=== PATIENT | male | born 1930 | race Caucasian/White ===

== ENCOUNTER 2017-01-10 10:28 | Outpatient (CLI) | payer MEDICARE, OTHER | END 2017-01-10 10:29 | disposition critical access hospital (66) | LOC: EMS 10:28 | PROVIDERS: ATTEND Surgery | DX: R10.9 Unspecified abdominal pain (principal) | CPT/HCPCS: A0425; A0429 ==

== ENCOUNTER 2017-01-10 10:54 | Emergency (ER) | payer MEDICARE, OTHER ==
[2017-01-10 11:22] LABS: BASOPHILS # (AUTO) 0.1 10^3/uL (0.0-0.1); BASOPHILS % (AUTO) 0.8 %; EOSINOPHILS # (AUTO) 0.1 10^3/uL (0.0-0.7); EOSINOPHILS % (AUTO) 0.6 %; HCT - HEMATOCRIT 35.8 % (42.0-52.0); HGB - HEMOGLOBIN 12.4 g/dL (14.0-18.0); LYMPHOCYTES # (AUTO) 1.3 10^3/uL (1.5-3.5); LYMPHOCYTES % (AUTO) 12.8 %; MEAN CORPUSCULAR HEMOGLOBIN 30.1 pg (27.0-31.0); MEAN CORPUSCULAR HGB CONC 34.7 g/dL (32.0-36.0); MEAN CORPUSCULAR VOLUME 86.8 fL (80.0-94.0); MEAN PLATELET VOLUME 7.6 fL (7.4-11.4); MONOCYTES # (AUTO) 0.8 10^3/uL (0.0-1.0); MONOCYTES % (AUTO) 8.2 %; NEUTROPHILS % (AUTO) 77.6 %; RED BLOOD COUNT 4.12 10^6/uL (4.70-6.10); RED CELL DISTRIBUTION WIDTH 13.1 % (12.0-15.0); UNCORRECTED WHITE BLOOD COUNT 10.3 x10^3/uL; WHITE BLOOD COUNT 10.3 x10^3/uL (4.8-10.8)
[2017-01-10 11:39] LABS: ALBUMIN/GLOBULIN RATIO 1.6 (1.0-2.2); BILIRUBIN,TOTAL 0.9 mg/dL (0.2-1.0); CREATININE 1.3 mg/dL (0.6-1.2); POTASSIUM 4.3 mmol/L (3.5-5.0); TOTAL PROTEIN 6.7 g/dL (6.7-8.2)
[2017-01-10] MEDS ORDERED: IOPAMIDOL-300 100 ML VIAL IVP ONE (12:31)
--- NOTE | 2017-01-10 12:46 | ED Physician Documentation ---
PD HPI ABD PAIN - Stated complaint Stated Complaint: ABD PX - Chief complaint Chief Complaint: Abd Pain - History obtained from History obtained from: Patient - History of Present Illness Timing - onset: Last night Timing - duration: Hours Timing - details: Gradual onset, Still present Pain level max: 8 Pain level now: 2 Quality: Sharp, Pain Location: Epigastric Radiation: No: Chest, , Lower back, Left flank, Left shoulder, Right flank, Right shoulder, Upper back Improved by: Laying still Worsened by: Moving, Breathing, Position, Palpation Associated symptoms: Constipation Similar symptoms before: Has not had sx before Recently seen: Not recently seen - Additional information Additional information: 86-year-old male with a history of atrial fibrillation intermittent and thyroid disease has developed acute epigastric abdominal pain that started yesterday evening and was present all night. He is now somewhat more comfortable here in the emergency department with the pain only in the about a 2 out of 10. He does have some constipation on a regular basis but does not think this is related. He has not had any other specific symptoms he has not had any nausea or vomiting he has not had any diarrhea. Review of Systems Constitutional: denies: Fever, Chills, Myalgias, Fatigue Eyes: denies: Decreased vision Ears: denies: Ear pain Nose: denies: Congestion Throat: denies: Oral lesions / sores, Sore throat Cardiac: denies: Chest pain / pressure, Palpitations Respiratory: denies: Dyspnea, Cough GI: reports: Abdominal Pain. denies: Nausea, Vomiting, Diarrhea : denies: Dysuria, Frequency Skin: denies: Rash Musculoskeletal: denies: Neck pain, Back pain, Extremity pain Neurologic: denies: Generalized weakness, Focal weakness, Numbness PD PAST MEDICAL HISTORY - Past Medical History Cardiovascular: Atrial fibrillation Endocrine/Autoimmune: HyPOthyroidism : Benign prostate hypertrophy - Past Surgical History Past Surgical History: Yes - Present Medications Home Medications: Ambulatory Orders Medication Instructions Recorded Confirmed Aspirin 81 mg 01/10/17 Gabapentin [Gabapentin] 300 mg PO DAILY 01/10/17 01/10/17 Ipratropium [place] 01/10/17 Levofloxacin [Levaquin] 500 mg PO DAILY #7 tablet 01/10/17 Levothyroxine Sodium [Synthroid] 137 mcg PO DAILY 01/10/17 01/10/17 Omeprazole 20 mg PO DAILY #30 tablet. 01/10/17 Sucralfate [Carafate] 1 gm PO ACHS #400 ml 01/10/17 Tamsulosin HCl [Tamsulosin HCl] 0.4 mg PO DAILY 01/10/17 01/10/17 Zolpidem Tartrate [Zolpidem 10 mg PO DAILY 01/10/17 01/10/17 Tartrate] - Allergies Allergies/Adverse Reactions: Allergies Allergy/AdvReac Type Severity Reaction Status Date / Time No Known Drug Allergies Allergy Verified 01/10/17 11:12 - Social History Does the pt smoke?: No Smoking Status: Never smoker - Immunizations Immunizations are current?: Yes PD ED PE NORMAL - Vitals Vital signs reviewed: Yes (hypertensive ) - General General: Alert and oriented X 3, No acute distress, Well developed/nourished - HEENT HEENT: Atraumatic, PERRL - Neck Neck: Supple, no meningeal sign - Cardiac Cardiac: RRR, No murmur - Respiratory Respiratory: No respiratory distress, Clear bilaterally - Abdomen Abdomen: Soft, Other (There is midline point tenderness but no palpable pulsitile mass. There is no audible bruit. There is not right upper quadrant tenderness. ) - Back Back: No CVA TTP, No spinal TTP - Derm Derm: Normal color, Warm and dry, No rash - Extremities Extremities: No deformity, No edema - Neuro Neuro: No motor deficit, No sensory deficit - Psych Psych: Normal mood, Normal affect Results - Vitals Vitals: Vital Signs - 24 hr 01/10/17 01/10/17 11:00 12:10 Temperature 36.2 C L Heart Rate 67 59 L Respiratory 16 16 Rate Blood Pressure 149/123 H 124/63 O2 Saturation 98 97 Oxygen O2 Source Room air - Labs Labs: Laboratory Tests 01/10/17 01/10/17 01/10/17 11:00 11:00 11:00 WBC 10.3 RBC 4.12 L Hgb 12.4 L Hct 35.8 L MCV 86.8 MCH 30.1 MCHC 34.7 RDW 13.1 Plt Count 218 MPV 7.6 Neut # 8.0 H Lymph # 1.3 L [place] # 0.8 Eos # 0.1 Baso # 0.1 Absolute Nucleated RBC 0.00 Nucleated RBCs 0.0 Sodium 124 L Potassium 4.3 Chloride 93 L Carbon Dioxide 23 Anion Gap 8.0 BUN 14 Creatinine 1.3 H Estimated GFR (MDRD) 52 L Glucose 92 Calcium 9.0 Total Bilirubin 0.9 AST 21 ALT 14 Alkaline Phosphatase 58 Troponin I 0.04 Total Protein 6.7 Albumin 4.1 Globulin 2.6 Albumin/Globulin Ratio 1.6 Lipase 17 L Urine Color Urine Clarity Urine pH Ur Specific [place] Urine Protein Urine Glucose (UA) Urine Ketones Urine Occult Blood Urine Nitrite Urine Bilirubin Urine Urobilinogen Ur Leukocyte Esterase Urine RBC Urine WBC Ur Squamous Epith Cells Urine Bacteria Urine Casts Ur Microscopic Review Urine Culture Comments 01/10/17 13:00 WBC RBC Hgb Hct MCV MCH MCHC RDW Plt Count MPV Neut # Lymph # [place] # Eos # Baso # Absolute Nucleated RBC Nucleated RBCs Sodium Potassium Chloride Carbon Dioxide Anion Gap BUN Creatinine Estimated GFR (MDRD) Glucose Calcium Total Bilirubin AST ALT Alkaline Phosphatase Troponin I Total Protein Albumin Globulin Albumin/Globulin Ratio Lipase Urine Color YELLOW Urine Clarity HAZY Urine pH 7.0 Ur Specific [place] <=1.005 Urine Protein NEGATIVE Urine Glucose (UA) NEGATIVE Urine Ketones NEGATIVE Urine Occult Blood NEGATIVE Urine Nitrite NEGATIVE Urine Bilirubin NEGATIVE Urine Urobilinogen 0.2 (NORMAL) Ur Leukocyte Esterase MODERATE H Urine RBC 0-5 Urine WBC 11-25 H Ur Squamous Epith Cells FEW Squamous Urine Bacteria Many H Urine Casts 3-5 Hyaline Casts Ur Microscopic Review INDICATED Urine Culture Comments INDICATED - Rads (name of study) CT abdomen and pelvis with. Radiology: Prelim report reviewed PD MEDICAL DECISION MAKING - ED course Complexity details: reviewed old records, reviewed results, re-evaluated patient , considered differential, d/w patient ED course: 86-year-old male with acute epigastric pain is a poor historian and does begin to recall things more efficiently as time goes on here in the emergency department and he does recall that he has had this aortic stent in place for a number of years. He has the stent in place on prior MRI from 2011 and on that exam the image is similar to today. He also has history of peptic ulcer disease and his pain returns here in the emergency department in the epigastrium and he is administered viscous lidocaine and Mylanta with resolution of his pain. He is subsequently given a dose of Protonix IV. He has urinary tract infection as well on evaluation of the urine and he is given a dose of Levaquin orally. He is given Carafate as well. Departure - Departure Disposition: 01 Home, Self Care Clinical Impression: Peptic ulcer disease Urinary tract infection Qualifiers: Urinary tract infection type: acute cystitis Hematuria presence: without hematuria Qualified Code(s): N30.00 - Acute cystitis without hematuria Condition: Stable Instructions: ED PUD Vs Gastritis, ED UTI Cystitis Male, ED PUD Follow-Up: John Cannon DO [Primary Care Provider] - Prescriptions: Sucralfate [Carafate] 1 gm PO ACHS #400 ml Levofloxacin [Levaquin] 500 mg PO DAILY #7 tablet Omeprazole 20 mg PO DAILY #30 tablet.
[2017-01-10 13:09] LABS: BILIRUBIN,URINE NEGATIVE (NEGATIVE)
[2017-01-10 13:12] LABS: UA w/ MICROSCOPIC CHARGE YES
[2017-01-10 13:22] LABS: UR CULTURE IF IND INDICATED
--- NOTE | 2017-01-10 13:52 | CT Preliminary Report ---
Exam: CT Abdomen/Pelvis W/ IMPRESSION: 1. No definite evidence of acute intra-abdominal process. 2. Abdominal aortic aneurysm post stent placement. Correlation with priors would be necessary to ass ess for stability. [facility] SITE ID: [id number]
--- NOTE | 2017-01-10 13:55 | CT Report ---
EXAM: CT ABDOMEN AND PELVIS EXAM DATE: 01/10/2017 12:31 PM. CLINICAL HISTORY: Epigastric pain . COMPARISONS: None. TECHNIQUE: Routine helical CT imaging was performed through the abdomen and pelvis. IV contrast: 100 mL Isovue-300. Enteric contrast: yes. Reconstructions: Coronal and sagittal. In accordance with CT protocol optimization, one or more of the following dose reduction techniques w ere utilized for this exam: automated exposure control, adjustment of mA and/or KV based on patient s ize, or use of iterative reconstructive technique. FINDINGS: Lung Bases: Unremarkable. Liver: Normal. No masses. Gallbladder/Bile Ducts: Unremarkable. Spleen: Normal. Pancreas: Atrophic Adrenal Glands: Normal. Kidneys: Atrophic. No masses or hydronephrosis. Peritoneal Cavity/Bowel: Extensive sigmoid diverticulosis. No free fluid, free air or adenopathy. No masses or acute inflammatory process. The appendix is nonvisualized but no secondary signs to suggest appendicitis. Pelvic Organs: Normal. The bladder and visualized pelvic organs are within normal limits. Vasculature: Aortoiliac stent through infrarenal abdominal aortic aneurysm. This measures 4 cm in max imal diameter. The stent begins proximal to the renal arteries. The celiac, SMA bilateral renal arter ies and [place] opacify with contrast. Bones: Post surgical changes left hip Other: None. IMPRESSION: 1. No definite evidence of acute intra-abdominal process. 2. Abdominal aortic aneurysm post stent placement. Correlation with priors would be necessary to ass ess for stability. [facility] Referring Provider Line: [phone] SITE ID: [id number]
[2017-01-10] MEDS ORDERED: LIDOCAINE VISCOUS 2% 15 ML UDC MM STA (14:29)
[2017-01-10] MEDS ORDERED: MAG HYDROX/AL HYDROX/SIMETH 30 ML UDC ONE (14:30)
[2017-01-10] MEDS ORDERED: LIDOCAINE VISCOUS 2% 15 ML UDC MM ONE (14:30)
[2017-01-10] MEDS ORDERED: MAG HYDROX/AL HYDROX/SIMETH 30 ML UDC PO STA (14:30)
[2017-01-10] MEDS ORDERED: levoFLOXacin 250 MG TABLET PO STA (14:41)
[2017-01-10] MEDS ORDERED: SUCRALFATE 1 GM/10 ML UDC PO STA (14:41)
[2017-01-10] MEDS ORDERED: PANTOPRAZOLE 40 MG VIAL IVP STA (14:41)
[2017-01-10] MEDS ORDERED: SUCRALFATE 1 GM/10 ML UDC ONE (14:47)
[2017-01-10] MEDS ORDERED: levoFLOXacin 250 MG TABLET ONE (14:48)
[2017-01-10] MEDS ORDERED: PANTOPRAZOLE 40 MG TABLET ONE (14:48)
[2017-01-10] MEDS ORDERED: PANTOPRAZOLE 40 MG VIAL ONE (14:49)
[2017-01-10 17:55] VITALS: BP 133/65
== END 2017-01-10 15:15 | disposition home or self-care (01) ==
LOC: EDUNIT# → ED 10:54
DX: K27.9 Peptic ulcer, site unspecified, unspecified as acute or chronic, without hemorrhage or perforation (principal); N30.00 Acute cystitis without hematuria; I49.3 Ventricular premature depolarization; R00.1 Bradycardia, unspecified; E03.9 Hypothyroidism, unspecified; Z79.82 Long term (current) use of aspirin
CPT/HCPCS: 36415; 74177; 80053; 81001; 83690; 84484; 85025; 87086; 93005; 96374; 99284; A9270; Q9967; 81003

== ENCOUNTER 2017-07-08 10:37 | Outpatient (CLI) | payer MEDICARE, OTHER | END 2017-07-08 10:38 | disposition critical access hospital (66) | LOC: EMS 10:37 | PROVIDERS: ATTEND Surgery | DX: R42 Dizziness and giddiness (principal) | CPT/HCPCS: A0425; A0429 ==

== ENCOUNTER 2017-07-15 14:37 | Emergency (ER) | payer MEDICARE, OTHER ==
[2017-07-15 14:53] VITALS: BP 164/73
[2017-07-15 15:04] LABS: BILIRUBIN,URINE NEGATIVE (NEGATIVE); GLUCOSE, URINE (UA) NEGATIVE (NEGATIVE); KETONES,URINE (UA) NEGATIVE (NEGATIVE); LEUKOCYTE ESTERASE, URINE SMALL (NEGATIVE); NITRITE,URINE NEGATIVE (NEGATIVE); OCCULT BLOOD,URINE NEGATIVE (NEGATIVE); PROTEIN,URINE NEGATIVE (NEGATIVE); UROBILINOGEN,URINE 0.2 (NORMAL) E.U./dL (NORMAL)
--- NOTE | 2017-07-15 15:07 | ED Physician Documentation ---
History of Present Illness - Stated complaint Stated Complaint: MALE - Chief complaint Chief Complaint: UTI - History obtained from History obtained from: Patient, Family - History of Present Illness Timing: Other (He had a UTI and took a course of Keflex, he was feeling better. But when he finished the antibiotics the urgency and frequency recurred. Culture was notable for mixed stephanie. He denies any fevers, flank pain or hematuria. He was a little constipated last night and took a stool softener.) Review of Systems Constitutional: denies: Fever, Chills GI: denies: Abdominal Pain, Nausea, Vomiting, Diarrhea, Bloody / black stool : reports: Dysuria, Frequency PD PAST MEDICAL HISTORY - Past Medical History Past Medical History: Yes Cardiovascular: Atrial fibrillation Endocrine/Autoimmune: HyPOthyroidism : Benign prostate hypertrophy - Past Surgical History Past Surgical History: Yes - Present Medications Home Medications: Ambulatory Orders Medication Instructions Recorded Confirmed Aspirin 81 mg DAILY 01/10/17 07/08/17 Gabapentin [Gabapentin] 300 mg PO DAILY 01/10/17 07/08/17 Ipratropium [place] 01/10/17 Levothyroxine Sodium [Synthroid] 137 mcg PO DAILY 01/10/17 07/08/17 Omeprazole 20 mg PO DAILY #30 tablet. 01/10/17 07/08/17 Sucralfate [Carafate] 1 gm PO ACHS #400 ml 01/10/17 07/08/17 Tamsulosin HCl [Tamsulosin HCl] 0.4 mg PO DAILY 01/10/17 07/08/17 Zolpidem Tartrate [Zolpidem 10 mg PO DAILY 01/10/17 07/08/17 Tartrate] Cephalexin [Keflex] 500 mg PO Q6H #28 capsule 07/08/17 Nitrofurantoin Monohyd/M-Cryst 1 tab PO BID 5 Days capsule 07/15/17 [Macrobid 100 mg Capsule] - Allergies Allergies/Adverse Reactions: Allergies Allergy/AdvReac Type Severity Reaction Status Date / Time No Known Drug Allergies Allergy Verified 07/15/17 14:52 - Social History Does the pt smoke?: No Smoking Status: Never smoker Does the pt have substance abuse?: No - Immunizations Immunizations are current?: Yes PD ED PE NORMAL - Vitals Vital signs reviewed: Yes - General General: Alert and oriented X 3, No acute distress - Abdomen Abdomen: Normal bowel sounds, Soft, Non tender - Male Male : Other (Bladder scan post void = 0ml) - Neuro Neuro: Alert and oriented X 3, Normal speech Results - Vitals Vitals: Vital Signs - 24 hr 07/15/17 14:48 Temperature 36.0 C L Heart Rate 65 Respiratory 18 Rate Blood Pressure 164/73 H O2 Saturation 99 Oxygen O2 Source Room air - Labs Labs: Laboratory Tests 07/15/17 14:50 Urine Color YELLOW Urine Clarity CLEAR Urine pH 6.0 Ur Specific [place] 1.010 Urine Protein NEGATIVE Urine Glucose (UA) NEGATIVE Urine Ketones NEGATIVE Urine Occult Blood NEGATIVE Urine Nitrite NEGATIVE Urine Bilirubin NEGATIVE Urine Urobilinogen 0.2 (NORMAL) Ur Leukocyte Esterase SMALL H Urine RBC 0-5 Urine WBC 6-10 H Ur Squamous Epith Cells MOD Squamous H Urine Bacteria Rare Ur Microscopic Review INDICATED Urine Culture Comments NOT INDICATED PD MEDICAL DECISION MAKING - ED course ED course: Urinary frequency and a soft positive urine, his urine post void residual is 0 so I suspect this is not a prostatic tissue. Departure - Departure Disposition: 01 Home, Self Care Clinical Impression: Cystitis Condition: Good Record reviewed to determine appropriate education?: Yes Instructions: ED UTI Cystitis Male Prescriptions: Nitrofurantoin Monohyd/M-Cryst [Macrobid 100 mg Capsule] 1 tab PO BID 5 Days capsule Comments: Call your doctor to arrange a follow-up appointment, make the next available appointment. In the interim, return anytime if worse or if new symptoms develop. Your blood pressure was elevated today on check into the emergency department. This does not mean that you have hypertension, it is a common phenomenon to come to the emergency department and have elevated blood pressure. I recommend that you see your primary care physician within the week to have it rechecked when you are feeling better.
[2017-07-15 15:11] LABS: BACTERIA,URINE Rare /HPF (None Seen); CLARITY,URINE CLEAR (CLEAR); RBC,URINE 0-5 /HPF (0-5); SQUAMOUS EPITHELIAL CELL,UR MOD Squamous (<= Few)
== END 2017-07-15 15:31 | disposition home or self-care (01) ==
LOC: ED 14:37
DX: N30.00 Acute cystitis without hematuria (principal); R03.0 Elevated blood-pressure reading, without diagnosis of hypertension; I48.91 Unspecified atrial fibrillation; E03.9 Hypothyroidism, unspecified; N40.0 Benign prostatic hyperplasia without lower urinary tract symptoms; Z79.82 Long term (current) use of aspirin
CPT/HCPCS: 81001; 81003; 87086; 99283

== ENCOUNTER 2017-08-13 16:12 | Outpatient (CLI) | payer MEDICARE, OTHER | END 2017-08-13 16:13 | disposition critical access hospital (66) | LOC: EMS 16:12 | PROVIDERS: ATTEND Surgery | DX: R42 Dizziness and giddiness (principal) | CPT/HCPCS: A0425; A0429 ==

== ENCOUNTER 2017-08-13 16:39 | Inpatient (IN) | payer MEDICARE, OTHER ==
--- NOTE | 2017-08-13 17:08 | ED Physician Documentation ---
History of Present Illness - Stated complaint Stated Complaint: VERTIGO - Chief complaint Chief Complaint: General - History obtained from History obtained from: Patient, EMS - History of Present Illness Timing: Today - Additonal information Additional information: The patient is an 87-year-old male, poor historian, who presents via ambulance complaining of dizziness that started this morning about 9 AM. He describes the dizziness as feeling off balance when trying to walk. He denies falling. He normally walks without assistance. He denies headache, nausea, vomiting, visual disturbance, numbness, or weakness. He reports having history of similar symptoms about 6 or 7 months ago, but his medical record does not corroborate that. Past medical history is significant for atrial fibrillation and for AAA with stent placement. Recent medical history is significant for urinary tract infection 6 weeks ago, with recurrence 5 weeks ago. Review of Systems Constitutional: reports: Other (Dizziness). denies: Fever Ears: denies: Tinnitus/ringing Nose: denies: Congestion Throat: denies: Sore throat Cardiac: denies: Chest pain / pressure Respiratory: denies: Dyspnea, Cough GI: denies: Abdominal Pain, Nausea, Vomiting : denies: Dysuria Skin: denies: Rash Musculoskeletal: denies: Neck pain, Back pain, Extremity pain Neurologic: reports: Other (Dizziness when trying to walk.). denies: Focal weakness, Numbness, Altered mental status, Headache PD PAST MEDICAL HISTORY - Past Medical History Cardiovascular: Atrial fibrillation Endocrine/Autoimmune: HyPOthyroidism : Benign prostate hypertrophy Other Past Medical History: Abdominal aortic anuerysm - Past Surgical History Past Surgical History: Yes - Present Medications Home Medications: Ambulatory Orders Medication Instructions Recorded Confirmed Aspirin 81 mg DAILY 01/10/17 07/08/17 Gabapentin [Gabapentin] 300 mg PO DAILY 01/10/17 07/08/17 Ipratropium [place] 01/10/17 Levothyroxine Sodium [Synthroid] 137 mcg PO DAILY 01/10/17 07/08/17 Omeprazole 20 mg PO DAILY #30 tablet. 01/10/17 07/08/17 Sucralfate [Carafate] 1 gm PO ACHS #400 ml 01/10/17 07/08/17 Tamsulosin HCl [Tamsulosin HCl] 0.4 mg PO DAILY 01/10/17 07/08/17 Zolpidem Tartrate [Zolpidem 10 mg PO DAILY 01/10/17 07/08/17 Tartrate] Cephalexin [Keflex] 500 mg PO Q6H #28 capsule 07/08/17 Nitrofurantoin Monohyd/M-Cryst 1 tab PO BID 5 Days capsule 07/15/17 [Macrobid 100 mg Capsule] - Allergies Allergies/Adverse Reactions: Allergies Allergy/AdvReac Type Severity Reaction Status Date / Time No Known Drug Allergies Allergy Verified 08/13/17 16:59 - Social History Does the pt smoke?: No Smoking Status: Never smoker Does the pt drink ETOH?: No Does the pt have substance abuse?: No - Immunizations Immunizations are current?: Yes - POLST Patient has POLST: No PD ED PE NORMAL - Vitals Vital signs reviewed: Yes (Hypertensive.) - General General: Alert and oriented X 3, Well developed/nourished - HEENT HEENT: Atraumatic, PERRL, Moist mucous membranes, Pharynx benign - Neck Neck: Supple, no meningeal sign, No adenopathy, No JVD - Cardiac Cardiac: Other (Regular rate, irregularly irregular rhythm.) - Respiratory Respiratory: No respiratory distress, Clear bilaterally - Abdomen Abdomen: Soft, Non tender - Back Back: No CVA TTP - Derm Derm: No rash - Extremities Extremities: No edema, No calf tenderness / cord - Neuro Neuro: Alert and oriented X 3, able seaman 2-12 intact, No motor deficit, No sensory deficit, Normal speech, Other (Ataxia, with imbalance when standing, with tendency to fall toward the right and backwards.) Eye Opening: Spontaneous Motor: Obeys Commands Verbal: Oriented GCS Score: 15 Results - Vitals Vitals: Vital Signs - 24 hr 08/13/17 08/13/17 16:53 18:25 Temperature 36.4 C L 36.5 C Heart Rate 79 75 Respiratory 20 26 H Rate Blood Pressure 156/73 H 163/70 H O2 Saturation 100 99 Oxygen O2 Source Room air - EKG (time done) 17:11 Rate: Rate (enter#) (73) Rhythm: NSR [place]: Normal Intervals: Prolonged ID QRS: Poor R wave progression Ischemia: Non specific changes Compare to prior EKG: Unchanged from prior EKG Computer interpretation: Agree with computer - Rads (name of study) head CT Radiology: Prelim report reviewed, EMP read contemporaneously, See rad report ( Generalized age-related cortical atrophic changes without evidence of acute intracranial abnormality.) PD MEDICAL DECISION MAKING - ED course Complexity details: reviewed old records, reviewed results, re-evaluated patient , considered differential, d/w patient, d/w operations consultant ED course: The patient's presentation is significant for acute ataxia, concerning for cerebellar etiology. Head CT reveals no acute intracranial abnormality. Besides a very slight right pronator drift, no other focal neurologic deficits are detected. MRI would be a more sensitive study for evaluating for possible cerebellar stroke. I discussed his presentation with Dr. Michael, the hospitalist , who will write further orders. CBC and chemistry panel are unremarkable, but urinalysis is significant for pyuria and bacteriuria, consistent with recurrent UTI. Departure - Departure Disposition: 66 [facility] DC/Xfer Clinical Impression: Acute ataxia Urinary tract infection Qualifiers: Urinary tract infection type: acute cystitis Hematuria presence: without hematuria Qualified Code(s): N30.00 - Acute cystitis without hematuria Condition: Stable Discharge Date/Time: 08/13/17 19:24
--- NOTE | 2017-08-13 17:52 | CT Preliminary Report ---
Exam: CT HEAD W/O IMPRESSION: Generalized age-related cortical atrophic changes without evidence of acute intracranial abnormality. [facility] SITE ID: [id number]
--- NOTE | 2017-08-13 17:54 | CT Report ---
EXAM: CT HEAD EXAM DATE: 08/13/2017 05:38 PM. CLINICAL HISTORY: Ataxia, new onset. Dizziness. Loss of balance. Difficulty standing. COMPARISON: None. TECHNIQUE: Multiaxial CT images were obtained from the foramen magnum to the vertex. Reformats: Coron al. IV contrast: None. In accordance with CT protocol optimization, one or more of the following dose reduction techniques w ere utilized for this exam: automated exposure control, adjustment of mA and/or KV based on patient s ize, or use of iterative reconstructive technique. FINDINGS: Parenchyma: No intraparenchymal hemorrhage. No evidence of mass, midline shift, or CT findings of acu te infarction. Silver-white differentiation is distinct. Diffuse chronic microangiopathic white matter changes are evident. Extraaxial Spaces: Normal for age. No subdural or epidural collections identified. Ventricles: The ventricles and cortical sulci are enlarged, consistent with age-related tissue loss. Sinuses and orbits: Imaged paranasal sinuses, orbits, and mastoids show no significant abnormality. Bones: No evidence of fracture or calvarial defect. Other: None. IMPRESSION: Generalized age-related cortical atrophic changes without evidence of acute intracranial abnormality. [facility] Referring Provider Line: [phone] SITE ID: [id number]
[2017-08-13] MEDS ORDERED: SODIUM CHLORIDE FLUSH 0.9% 10 ML SYRINGE IVP PRN (18:33)
[2017-08-13] MEDS ORDERED: ACETAMINOPHEN 325 MG TABLET PO PRN (18:33)
[2017-08-13] MEDS ORDERED: TEMAZEPAM 15 MG CAPSULE PO PRN (18:33)
[2017-08-13 18:52] LABS: BASOPHILS # (AUTO) 0.1 10^3/uL (0.0-0.1); BASOPHILS % (AUTO) 1.5 %; EOSINOPHILS # (AUTO) 0.2 10^3/uL (0.0-0.7); EOSINOPHILS % (AUTO) 2.4 %; HGB - HEMOGLOBIN 12.7 g/dL (14.0-18.0); LYMPHOCYTES # (AUTO) 1.5 10^3/uL (1.5-3.5); LYMPHOCYTES % (AUTO) 22.4 %; MEAN CORPUSCULAR HEMOGLOBIN 28.3 pg (27.0-31.0); MEAN CORPUSCULAR HGB CONC 33.2 g/dL (32.0-36.0); MEAN CORPUSCULAR VOLUME 85.3 fL (80.0-94.0); MEAN PLATELET VOLUME 7.3 fL (7.4-11.4); MONOCYTES # (AUTO) 0.7 10^3/uL (0.0-1.0); MONOCYTES % (AUTO) 10.2 %; NEUTROPHILS # (AUTO) 4.3 10^3/uL (1.5-6.6); NEUTROPHILS % (AUTO) 63.5 %; PLT - PLATELET COUNT 287 10^3/uL (130-450); RED CELL DISTRIBUTION WIDTH 13.6 % (12.0-15.0); WHITE BLOOD COUNT 6.8 x10^3/uL (4.8-10.8)
[2017-08-13 19:02] LABS: ALBUMIN 3.7 g/dL (3.2-5.5); ALBUMIN/GLOBULIN RATIO 1.2 (1.0-2.2); CALCIUM 9.1 mg/dL (8.5-10.3); CREATININE 1.5 mg/dL (0.6-1.2); TOTAL PROTEIN 6.7 g/dL (6.7-8.2)
[2017-08-13 19:04] LABS: BILIRUBIN,URINE NEGATIVE (NEGATIVE); GLUCOSE, URINE (UA) NEGATIVE (NEGATIVE); KETONES,URINE (UA) NEGATIVE (NEGATIVE); LEUKOCYTE ESTERASE, URINE SMALL (NEGATIVE); NITRITE,URINE NEGATIVE (NEGATIVE); OCCULT BLOOD,URINE TRACE-INTA (NEGATIVE); PROTEIN,URINE NEGATIVE (NEGATIVE); UROBILINOGEN,URINE 0.2 (NORMAL) E.U./dL (NORMAL)
[2017-08-13 19:10] LABS: CLARITY,URINE CLEAR (CLEAR)
[2017-08-13 19:13] LABS: BACTERIA,URINE Moderate /HPF (None Seen); RBC,URINE 0-5 /HPF (0-5); SQUAMOUS EPITHELIAL CELL,UR FEW Squamous (<= Few)
[2017-08-13] MEDS: SODIUM CHLORIDE 0.9% 1,000 ML IV SCH (20:25)
[2017-08-13] MEDS: NITROFURANTOIN MACRO 100 MG CAPSULE PO SCH (21:00)
[2017-08-13] MEDS: SUCRALFATE 1 GM/10 ML UDC PO SCH (21:00)
[2017-08-13] MEDS: SODIUM CHLORIDE FLUSH 0.9% 10 ML SYRINGE IVP SCH (21:00)
--- NOTE | 2017-08-14 03:40 | HISTORY & PHYSICAL EXAMINATION ---
DATE OF SERVICE: 08/13/2017 Physician: Madelyn Walter MD HISTORY OF PRESENT ILLNESS: This is an 87-year-old, white male, poor historian , who is independent, lives at home. The patient has a history of paroxysmal atrial fibrillation, abdominal aortic aneurysm repaired with a stent, hypothyroidism, BPH. The patient has been treated for a UTI twice over the past 6 weeks, which recurred then 5 weeks ago. The symptoms then were of lightheadedness and he had presented to the emergency room and, after been found to have a UTI and received IV hydration, he was sent home, feeling better just with hydration. There was recurrence of this with another visit to the emergency room 5 weeks ago. It is unclear who has now continued this patient's p.o. antibiotics that he is currently on for a UTI. The patient presents with "dizziness, as if off balance." This occurs when he tries to walk. There was no syncope. He denies any falling. He seems to be lilting to the rear end to one side when he tries to walk. He states that this happened sometime in the past and possibly is referring to the 6 week ago ER visit. The patient has never had a stroke. He does not feel palpitations, chest pain or shortness of breath with this new symptom. No orthostatic vital signs have been done yet. PAST MEDICAL HISTORY: Paroxysmal atrial fibrillation, not on Coumadin presumably due to his advanced age and these dizzy episodes giving him a risk of falls. He has a history of abdominal aortic aneurysm repaired with a stent, BPH, hypothyroidism. ALLERGIES: NONE. MEDICATIONS AT HOME 1. Baby aspirin daily. 2. Gabapentin 300 daily. 3. Ipratropium bromide unknown frequency. 4. Synthroid 137 mcg daily. 5. Omeprazole 20 mg daily. 6. Carafate 1 gram p.o. a.c. and at bedtime. 7. Tamsulosin 0.4 mg daily. 8. Zolpidem 10 mg at night. 9. Keflex 500 mg q.i.d. 10. Macrobid 100 mg b.i.d. SOCIAL HISTORY: The patient is a nonsmoker who never smoked, uses no alcohol or any illicit drugs. FAMILY HISTORY: No inherited diseases. REVIEW OF SYSTEMS: Comprehensive review of systems was done by asking the patient and reviewing all his old records and the positives are above. PHYSICAL EXAMINATION GENERAL: Elderly, white male. He is currently supine in bed, not in respiratory distress. VITAL SIGNS: Blood pressure 170/75, afebrile, heart rate 81 in sinus rhythm, respiratory rate 20, room air saturation 99%. HEENT: Unremarkable. His oral mucosa is moist. NECK: Shows no JVD in a supine position. No carotid bruits, thyromegaly, or lymphadenopathy. CHEST: Clear. HEART: Heart sounds normal. ABDOMEN: Soft. EXTREMITIES: Without edema. NEUROLOGIC: Grossly intact in this position. LABORATORIES: Normal electrolytes, BUN 17, creatinine 1.5. Troponins are not detectable. White blood count and differential are normal. Hemoglobin 12.7 and platelet count normal. No INR was done. Urinalysis has small leukocyte esterase positive with moderate bacteria. EKG: Normal sinus rhythm with first degree AV block, poor R-wave progression, low voltage in the limb leads and relatively flat T waves in lateral leads. No chest x-ray was done. Head CT shows generalized age-related cortical atrophy and no acute intracranial abnormality. IMPRESSION/DIAGNOSES 1. Ataxia. 2. Weakness (a lightheadedness feeling that is similar to when he required hydration during his first urinary tract infection 6 weeks ago). 3. Recurrent urinary tract infection 4. S/P abdominal aortic aneurysm repair with a graft. 5. Paroxysmal atrial fibrillation. PLAN: Place the patient on telemetry, inpatient status. Check postural vital signs. Begin IV hydration, since there is suggestion of dehydration with a creatinine of 1.5. Cycle troponins. Obtain workup for TIA with carotid Doppler, brain MRI and an echo. Recheck neuro status in the position where he gets symptoms: upright and with walking. Check lipids and treat per guidelines in a patient with known peripheral vascular disease ( AAA history). CODE STATUS: FULL CODE. DEEP VENOUS THROMBOSIS PROPHYLAXIS: SCDs. ATTESTATION: The patient is expected to be discharged or transferred to another facility within 96 hours: Yes. TD: 08/14/2017 03:38 [email or web address]
[2017-08-14] MEDS: SODIUM CHLORIDE 0.9% 1,000 ML IV SCH (05:09)
[2017-08-14 05:57] LABS: CHOL/HDL RATIO 6.2 (<5.0); CHOLESTEROL 173 mg/dL; HDL CHOLESTEROL 28 mg/dL; LDL CHOLESTEROL,CALCULATED 114 mg/dL; LDL/HDL RATIO 4.1 (<3.6); VLDL CHOLESTEROL 31 mg/dL
[2017-08-14 06:35] LABS: INR 1.2 (0.8-1.2)
[2017-08-14] MEDS: SUCRALFATE 1 GM/10 ML UDC PO SCH ×3 (06:38→15:19)
[2017-08-14] MEDS: SODIUM CHLORIDE FLUSH 0.9% 10 ML SYRINGE IVP SCH ×2 (06:39→13:58)
[2017-08-14] MEDS ORDERED: LEVOTHYROXINE 112 MCG TABLET PO SCH (07:00)
[2017-08-14] MEDS ORDERED: LEVOTHYROXINE 25 MCG TABLET PO SCH (07:00)
[2017-08-14] MEDS: NITROFURANTOIN MACRO 100 MG CAPSULE PO SCH (08:31)
--- NOTE | 2017-08-14 08:43 | PROVIDER PROGRESS NOTE ---
Subjective - Prog Note Date Prog Note Date: 08/14/17 Prog Note Time: 08:42 - Subjective Pt reports feeling: Improved Objective - Vital Signs/Intake & Output Vital Signs: Vital Signs x48h Temp Pulse Resp BP Pulse Ox 08/14/17 06:08 36.3 C L 67 18 121/51 L 98 Intake & Output: Intake & Output 08/11/17 08/12/17 08/13/17 08/14/17 23:59 23:59 23:59 23:59 Intake Total 360 1023.333 Output Total 150 475 Balance 210 548.333 - Lab Results Fish Bones: 08/13/17 18:40 08/13/17 18:40 Other Labs: Lab Results x24hrs 08/14/17 08/14/17 08/14/17 Range/Units 05:15 05:15 00:30 WBC (4.8-10.8) x10^3/uL RBC (4.70-6.10) 10^6/uL Hgb (14.0-18.0) g/dL Hct (42.0-52.0) % MCV (80.0-94.0) fL MCH (27.0-31.0) pg MCHC (32.0-36.0) g/dL RDW (12.0-15.0) % Plt Count (130-450) 10^3/uL MPV (7.4-11.4) fL Neut # (1.5-6.6) 10^3/uL Lymph # (1.5-3.5) 10^3/uL Gila # (0.0-1.0) 10^3/uL Eos # (0.0-0.7) 10^3/uL Baso # (0.0-0.1) 10^3/uL Absolute Nucleated RBC x10^3/uL Nucleated RBC % /100WBC PT 13.0 H (9.9-12.6) secs INR 1.2 (0.8-1.2) Sodium (135-145) mmol/L Potassium (3.5-5.0) mmol/L Chloride (101-111) mmol/L Carbon Dioxide (21-32) mmol/L Anion Gap (6-13) BUN (6-20) mg/dL Creatinine (0.6-1.2) mg/dL Estimated GFR (MDRD) (>89) Glucose (70-100) mg/dL Calcium (8.5-10.3) mg/dL Total Bilirubin (0.2-1.0) mg/dL AST (10-42) IU/L ALT (10-60) IU/L Alkaline Phosphatase (42-121) IU/L Troponin I < 0.04 (<0.49) ng/mL Total Protein (6.7-8.2) g/dL Albumin (3.2-5.5) g/dL Globulin (2.1-4.2) g/dL Albumin/Globulin Ratio (1.0-2.2) Triglycerides 154 H ( - 149) mg/dL Cholesterol 173 ( - 199) mg/dL LDL Cholesterol, Calc 114 ( - 129) mg/dL VLDL Cholesterol 31 mg/dL HDL Cholesterol 28 L (60 - ) mg/dL LDL/HDL Ratio 4.1 (<3.6) Cholesterol/HDL Ratio 6.2 (<5.0) Lipase (22-51) U/L Urine Color Urine Clarity (CLEAR) Urine pH (5.0-7.5) PH Ur Specific [place] (1.002-1.030) Urine Protein (NEGATIVE) mg/dL Urine Glucose (UA) (NEGATIVE) mg/dL Urine Ketones (NEGATIVE) mg/dL Urine Occult Blood (NEGATIVE) Urine Nitrite (NEGATIVE) Urine Bilirubin (NEGATIVE) Urine Urobilinogen (NORMAL) E.U./dL Ur Leukocyte Esterase (NEGATIVE) Urine RBC (0-5) /HPF Urine WBC (0-3) /HPF Ur Squamous Epith Cells (<= Few) Urine Bacteria (None Seen) /HPF Ur Microscopic Review Urine Culture Comments 08/13/17 08/13/17 08/13/17 Range/Units 18:50 18:40 18:40 WBC (4.8-10.8) x10^3/uL RBC (4.70-6.10) 10^6/uL Hgb (14.0-18.0) g/dL Hct (42.0-52.0) % MCV (80.0-94.0) fL MCH (27.0-31.0) pg MCHC (32.0-36.0) g/dL RDW (12.0-15.0) % Plt Count (130-450) 10^3/uL MPV (7.4-11.4) fL Neut # (1.5-6.6) 10^3/uL Lymph # (1.5-3.5) 10^3/uL Gila # (0.0-1.0) 10^3/uL Eos # (0.0-0.7) 10^3/uL Baso # (0.0-0.1) 10^3/uL Absolute Nucleated RBC x10^3/uL Nucleated RBC % /100WBC PT (9.9-12.6) secs INR (0.8-1.2) Sodium 135 (135-145) mmol/L Potassium 4.3 (3.5-5.0) mmol/L Chloride 100 L (101-111) mmol/L Carbon Dioxide 23 (21-32) mmol/L Anion Gap 12.0 (6-13) BUN 17 (6-20) mg/dL Creatinine 1.5 H (0.6-1.2) mg/dL Estimated GFR (MDRD) 44 L (>89) Glucose 87 (70-100) mg/dL Calcium 9.1 (8.5-10.3) mg/dL Total Bilirubin 1.0 (0.2-1.0) mg/dL AST 14 (10-42) IU/L ALT 15 (10-60) IU/L Alkaline Phosphatase 74 (42-121) IU/L Troponin I < 0.04 (<0.49) ng/mL Total Protein 6.7 (6.7-8.2) g/dL Albumin 3.7 (3.2-5.5) g/dL Globulin 3.0 (2.1-4.2) g/dL Albumin/Globulin Ratio 1.2 (1.0-2.2) Triglycerides ( - 149) mg/dL Cholesterol ( - 199) mg/dL LDL Cholesterol, Calc ( - 129) mg/dL VLDL Cholesterol mg/dL HDL Cholesterol (60 - ) mg/dL LDL/HDL Ratio (<3.6) Cholesterol/HDL Ratio (<5.0) Lipase 14 L (22-51) U/L Urine Color YELLOW Urine Clarity CLEAR (CLEAR) Urine pH 6.0 (5.0-7.5) PH Ur Specific [place] 1.020 (1.002-1.030) Urine Protein NEGATIVE (NEGATIVE) mg/dL Urine Glucose (UA) NEGATIVE (NEGATIVE) mg/dL Urine Ketones NEGATIVE (NEGATIVE) mg/dL Urine Occult Blood TRACE-INTA (NEGATIVE) Urine Nitrite NEGATIVE (NEGATIVE) Urine Bilirubin NEGATIVE (NEGATIVE) Urine Urobilinogen 0.2 (NORMAL) (NORMAL) E.U./dL Ur Leukocyte Esterase SMALL H (NEGATIVE) Urine RBC 0-5 (0-5) /HPF Urine WBC >25 H (0-3) /HPF Ur Squamous Epith Cells FEW Squamous (<= Few) Urine Bacteria Moderate H (None Seen) /HPF Ur Microscopic Review INDICATED Urine Culture Comments INDICATED 08/13/17 Range/Units 18:40 WBC 6.8 (4.8-10.8) x10^3/uL RBC 4.50 L (4.70-6.10) 10^6/uL Hgb 12.7 L (14.0-18.0) g/dL Hct 38.4 L (42.0-52.0) % MCV 85.3 (80.0-94.0) fL MCH 28.3 (27.0-31.0) pg MCHC 33.2 (32.0-36.0) g/dL RDW 13.6 (12.0-15.0) % Plt Count 287 (130-450) 10^3/uL MPV 7.3 L (7.4-11.4) fL Neut # 4.3 (1.5-6.6) 10^3/uL Lymph # 1.5 (1.5-3.5) 10^3/uL Gila # 0.7 (0.0-1.0) 10^3/uL Eos # 0.2 (0.0-0.7) 10^3/uL Baso # 0.1 (0.0-0.1) 10^3/uL Absolute Nucleated RBC 0.00 x10^3/uL Nucleated RBC % 0.0 /100WBC PT (9.9-12.6) secs INR (0.8-1.2) Sodium (135-145) mmol/L Potassium (3.5-5.0) mmol/L Chloride (101-111) mmol/L Carbon Dioxide (21-32) mmol/L Anion Gap (6-13) BUN (6-20) mg/dL Creatinine (0.6-1.2) mg/dL Estimated GFR (MDRD) (>89) Glucose (70-100) mg/dL Calcium (8.5-10.3) mg/dL Total Bilirubin (0.2-1.0) mg/dL AST (10-42) IU/L ALT (10-60) IU/L Alkaline Phosphatase (42-121) IU/L Troponin I (<0.49) ng/mL Total Protein (6.7-8.2) g/dL Albumin (3.2-5.5) g/dL Globulin (2.1-4.2) g/dL Albumin/Globulin Ratio (1.0-2.2) Triglycerides ( - 149) mg/dL Cholesterol ( - 199) mg/dL LDL Cholesterol, Calc ( - 129) mg/dL VLDL Cholesterol mg/dL HDL Cholesterol (60 - ) mg/dL LDL/HDL Ratio (<3.6) Cholesterol/HDL Ratio (<5.0) Lipase (22-51) U/L Urine Color Urine Clarity (CLEAR) Urine pH (5.0-7.5) PH Ur Specific [place] (1.002-1.030) Urine Protein (NEGATIVE) mg/dL Urine Glucose (UA) (NEGATIVE) mg/dL Urine Ketones (NEGATIVE) mg/dL Urine Occult Blood (NEGATIVE) Urine Nitrite (NEGATIVE) Urine Bilirubin (NEGATIVE) Urine Urobilinogen (NORMAL) E.U./dL Ur Leukocyte Esterase (NEGATIVE) Urine RBC (0-5) /HPF Urine WBC (0-3) /HPF Ur Squamous Epith Cells (<= Few) Urine Bacteria (None Seen) /HPF Ur Microscopic Review Urine Culture Comments
--- NOTE | 2017-08-14 08:57 | Ultrasound Preliminary Report ---
Exam: US CAROTID DOPPLER COMPLETE IMPRESSION: 1. Right ICA: 50-69% proximal right ICA stenosis by PSV. 2. Left ICA: No hemodynamically significant stenosis is identified. Validated velocity measurements with angiographic measurements and velocity criteria are extrapolated from diameter data as defined by the Society of Radiologists in Ultrasound Consensus Conference Radi ology 2003; 229;340-346. [facility] SITE ID: [id number]
[2017-08-14] MEDS ORDERED: ASPIRIN CHEW 81 MG TABLET PO SCH ×2 (09:00)
[2017-08-14] MEDS ORDERED: GABAPENTIN 300 MG CAPSULE PO SCH (09:00)
[2017-08-14] MEDS ORDERED: TAMSULOSIN 0.4 MG CAPSULE PO SCH (09:00)
[2017-08-14] MEDS ORDERED: ENOXAPARIN 40 MG/0.4 ML SYRINGE SUBQ SCH (09:00)
[2017-08-14] MEDS ORDERED: POLYETHYLENE GLYCOL 3350 17 GM PACKET PO SCH (09:00)
[2017-08-14] MEDS ORDERED: LEVOTHYROXINE SODIUM 137 MCG PO SCH (09:00)
[2017-08-14] MEDS ORDERED: FAMOTIDINE 20 MG TABLET PO SCH (09:00)
--- NOTE | 2017-08-14 11:43 | Ultrasound Report ---
EXAM: CAROTID DOPPLER ULTRASOUND EXAM DATE: 08/14/2017 08:40 AM. CLINICAL HISTORY: CVA versus TIA. COMPARISON: None. TECHNIQUE: Real-time sonographic vascular imaging was performed by the territory sales consultant through the caroti d arterial system with a linear transducer utilizing color-flow, Doppler flow and spectral analysis. Multiple sales representative canvas products static images were saved for review. FINDINGS: Right: RCCA Prox: PSV 92 cm/sec. RCCA Dist: PSV 89 cm/sec, EDV 17 cm/sec. RECA: PSV 96 cm/sec. R Bulb: PSV 82 cm/sec, EDV 13 cm/sec, ICA/CCA ratio 0.92. ABUNDIO Prox: PSV 140 cm/sec, EDV 35 cm/sec, ICA/CCA ratio 1.57. ABUNDIO Mid: PSV 124 cm/sec, EDV 34 cm/sec, ICA/CCA ratio 1.39. ABUNDIO Dist: PSV 119 cm/sec, EDV 29 cm/sec, ICA/CCA ratio 1.33. RVA: PSV 65 cm/sec. RVA flow direction: Antegrade. Left: LCCA Prox: PSV 89 cm/sec. LCCA Dist: PSV 89 cm/sec, EDV 7 cm/sec. LECA: PSV 84 cm/sec. L Bulb: PSV 42 cm/sec, EDV 5 cm/sec, ICA/CCA ratio 0.47. LICA Prox: PSV 79 cm/sec, EDV 19 cm/sec, ICA/CCA ratio 0.88. LICA Mid: PSV 82 cm/sec, EDV 20 cm/sec, ICA/CCA ratio 0.92. LICA Dist: PSV 79 cm/sec, EDV 20 cm/sec, ICA/CCA ratio 0.88. LVA: PSV 20 cm/sec. LVA flow direction: Antegrade. [id number] atherosclerotic plaquing is present bilaterally, most pronounced at the carotid bulb s. Other: None. IMPRESSION: 1. Right ICA: 50-69% proximal right ICA stenosis by PSV. 2. Left ICA: No hemodynamically significant stenosis is identified. Validated velocity measurements with angiographic measurements and velocity criteria are extrapolated from diameter data as defined by the Society of Radiologists in Ultrasound Consensus Conference Radi ology 2003; 229;340-346. [facility] Referring Provider Line: [phone] SITE ID: [id number]
--- NOTE | 2017-08-14 12:30 | MRI Report ---
EXAM: MRI BRAIN WITHOUT CONTRAST EXAM DATE: 08/14/2017 10:30 AM. CLINICAL HISTORY: Poss cerebellar CVA. COMPARISON: CT head 08/13/2017 TECHNIQUE: Multiplanar, multisequence T1-weighted and fluid-sensitive MR sequences of the brain were performed. Sequences optimized for routine evaluation. Other: None. IV Contrast: None. FINDINGS: Brain Volume: Moderate diffuse cerebral and cerebellar volume loss with exvacuo dilatation of the beatriz tricles and sulci, appropriate for age. Parenchyma/Dura: There is a 7 x 4 mm faint focus of restricted diffusion within the left paramedian m edulla (series 505 image 40), which may represent an acute infarct, less than one week old. No mass o r acute hemorrhage. Chronic lacunar infarcts within bilateral basal ganglia and left cerebellar hemis phere. Moderate T2/FLAIR hyperintense periventricular, deep, and subcortical white matter lesions wit hin cerebral hemispheres bilaterally and within the helen centrally. There is a focus of susceptibilit y artifact within the left posterior frontal lobe (series 801 image 18), likely representing remote m icrohemorrhage. Ventricles/Cisterns: No hydrocephalus. No abnormal extra-axial fluid collection or hemorrhage. Orbits: Status post bilateral lens replacement surgery. Otherwise unremarkable. Sella Turcica: The pituitary gland, cavernous sinuses, suprasellar cistern and optic chiasm are unrem arkable. IAC: Symmetric and unremarkable. Vasculature: Normal signal flow void is seen in the major arterial structures at the skull base. Sinuses: No acute appearing sinus disease. Bones: No focal pathologic appearing marrow signal changes. Other: None. IMPRESSION: 1. A 7 x 4 mm faint focus of suggested restricted diffusion within the left paramedian medulla (serie s 505 image 40), May represent an acute infarct, less than one week old. 2. Chronic lacunar infarcts within bilateral basal ganglia and left cerebellar hemisphere. 3. Moderate T2/FLAIR hyperintense periventricular, deep, and subcortical white matter lesions within cerebral hemispheres bilaterally and within the helen centrally. 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 4. There is a focus of susceptibility artifact within the left posterior frontal lobe (series 801 lorena ge 18), likely representing remote microhemorrhage. 5. Moderate diffuse cerebral and cerebellar volume loss with exvacuo dilatation of the ventricles and sulci, appropriate for age. The ordering provider was paged at the time of dictation. [facility] Referring Provider Line: [phone] SITE ID: [id number]
--- NOTE | 2017-08-14 13:54 | Discharge Plan ---
Discharge Plan Disposition: 01 Home, Self Care Condition: Good Prescriptions: Atorvastatin Calcium 20 mg PO QPM #30 tablet Levothyroxine Sodium [Synthroid] 100 mcg PO DAILY #30 tablet Diet: Regular Activity Restrictions: No Restrictions Shower Restrictions: No Driving Restrictions: No Weight Bearing: Full Weight Additional Instructions or Follow Up instructions: You were watched overnight after you came to the ED for dizziness. Your symptoms were worrisome for TIA or stroke. You underwent a full syncope work up. A head MRI was completed and showed a 7 x 4 mm faint focus within the left paramedian medulla, which may represent an acute infarct, less than one week old. You passed a physical therapy evaluation and it was felt that you were at your baseline ambulation. An echocardiogram was completed and results are pending. To help prevent further strokes, it is recommended that you take an anti- cholesterol pill. This medication was sent to your pharmacy. Please rest if you are tired, and most of all enjoy the visit with your son vanesa. Please see your PCP in the week as a follow up to this hospital stay. No Smoking: If you smoke, Please STOP! Call for help. Follow-up with: John Cannon DO [Primary Care Provider] -
--- NOTE | 2017-08-14 13:58 | DISCHARGE SUMMARY ---
Discharge Summary Admit Date: 08/13/17 Discharge Date: 08/14/17 Discharging Provider: DARNELL Chairez Primary Care Provider: John Cannon Code Status: Attempt Resuscitation Condition at Discharge: Good Discharge Disposition: 01 Home, Self Care - DIAGNOSES Admission Diagnoses: Ataxia, unspecified (R27.0) Weakness (R53.1) Urinary tract infection, site not specified (N39.0) Other specified postprocedural states (Z98.890) Paroxysmal atrial fibrillation (I48.0) Discharge Diagnoses with Status of Each Condition: CVA (cerebral vascular accident) (I63.9) New on this admission, no further treatment. Ataxia (R27.0) resolved. Weakness (R53.1) resolved. Recurrent UTI (N39.0) resolved. S/P AAA repair using straight graft (Z98.890) chronic, stable. Paroxysmal A-fib (I48.0) chronic, stable. - HPI History of Present Illness: Jose Dumont is an elderly 87-year old white male with a past medical history of paroxysmal atrial fibrillation, AAA-repaired, hypothyroidism, and BPH. The patient has had a UTI twice in the past 6 weeks. The symptoms at that time was lightheadedness and was treated in the ED with hydration and sent home on antibiotics. This time when he presented to the ED he not only had a complaint of lightheadedness, but now with difficulty walking, which is described by him as, "feeling off balance". He was noted to have a leaning backward when attempting to ambulate. Patient denies a history of stroke or TIA, palpitations , chest pain or shortness of breath. The patient will be admitted overnight for a TIA/CVA work up including telemetry monitoring, head MRI, troponins, orthostatics, and an echocardiogram. - HOSPITAL COURSE Hospital Course: The patient had an uneventful stay with the exception of head MRI results showing a CVA located in the left paramedian medulla and measures 7 x 4 mm, which may represent an acute infarct. Also, an echocardiogram was completed which shows a reduced EF of 40-45%, and a moderately elevated right heart pressure with an RVSP of 43mmHg. Telemetry monitoring showed the patient to be in a sinus rhythm overnight, orthostatic vital signs were inconclusive, and the patient passed his physical therapy evaluation. The patient was very anxious to get discharged due to a visit from a long lost son, which he has not been in contact with for greater than 20 years. Plans to phone the patient and to follow up with PCP in one week. I suggest to use medications to treat his CHF, which I did not see on his medication list such as a beta krysten. - ALLERGIES Allergies/Adverse Reactions: Allergies Allergy/AdvReac Type Severity Reaction Status Date / Time No Known Drug Allergies Allergy Verified 08/13/17 16:59 - MEDICATIONS Home Medications: Ambulatory Orders Medication Instructions Recorded Confirmed Aspirin 81 mg DAILY 01/10/17 08/14/17 Tamsulosin HCl 0.4 mg PO DAILY 01/10/17 08/14/17 Zolpidem Tartrate 10 mg PO QPM PRN 01/10/17 08/14/17 Atorvastatin Calcium 20 mg PO QPM #30 tablet 08/14/17 Latanoprost 0.005% Ophth Drops 1 drops EACHEYE QPM 08/14/17 08/14/17 [Xalatan Ophth Drops] Levothyroxine Sodium [Synthroid] 100 mcg PO DAILY #30 tablet 08/14/17 Pilocarpine HCl [Salagen] 5 mg PO TID PRN 08/14/17 08/14/17 Timolol 0.5% Ophth Drops [Timoptic 1 drops EACHEYE DAILY 08/14/17 08/14/17 0.5% Ophth Drops] raNITIdine [Zantac] 150 mg PO DAILY 08/14/17 08/14/17 Atorvastatin Calcium 20 mg PO QPM #30 tablet 08/16/17 Levothyroxine Sodium [Synthroid] 100 mcg PO DAILY #30 tablet 08/16/17 - PHYSICAL EXAM AT DISCHARGE General Appearance: positive: No acute distress, Alert, Anxious Eyes Bilateral: positive: Normal inspection, PERRL ENT: positive: ENT inspection nml, Pharynx nml, No signs of dehydration Neck: positive: Nml inspection, Thyroid nml, No JVD, Trachea midline Respiratory: positive: Chest non-tender, No respiratory distress, Breath sounds nml Cardiovascular: positive: Regular rate & rhythm, No gallop, Decreased pulse(s) Peripheral Pulses: positive: 1+ Abdomen: positive: Non-tender, No organomegaly, Nml bowel sounds, No distention Back: positive: Nml inspection Skin: positive: No rash, Warm, Dry Extremities: positive: Non-tender Neurologic/Psychiatric: positive: Oriented x3, CN's nml (2-12), Motor nml, Sensation nml, Depressed mood/affect, Other (S[place]INGO) Reflexes: Bicep (R): 3+, Bicep (L): 3+ - LABS Result Diagrams: 08/13/17 18:40 08/13/17 18:40 - DIAGNOSTIC IMAGING Diagnostic Imaging Results: Final report reviewed Diagnostic Imaging Results Comments: EXAM: MRI BRAIN WITHOUT CONTRAST EXAM DATE: 08/14/2017 10:30 AM. CLINICAL HISTORY: Poss cerebellar CVA. COMPARISON: CT head 08/13/2017 TECHNIQUE: Multiplanar, multisequence T1-weighted and fluid-sensitive MR sequences of the brain were performed. Sequences optimized for routine evaluation. Other: None. IV Contrast: None. FINDINGS: Brain Volume: Moderate diffuse cerebral and cerebellar volume loss with exvacuo dilatation of the ventricles and sulci, appropriate for age. Parenchyma/Dura: There is a 7 x 4 mm faint focus of restricted diffusion within the left paramedian medulla (series 505 image 40), which may represent an acute infarct, less than one week old. No mass or acute hemorrhage. Chronic lacunar infarcts within bilateral basal ganglia and left cerebellar hemisphere. Moderate T2/FLAIR hyperintense periventricular, deep, and subcortical white matter lesions within cerebral hemispheres bilaterally and within the helen centrally. There is a focus of susceptibility artifact within the left posterior frontal lobe (series 801 image 18), likely representing remote microhemorrhage. Ventricles/Cisterns: No hydrocephalus. No abnormal extra-axial fluid collection or hemorrhage. Orbits: Status post bilateral lens replacement surgery. Otherwise unremarkable. Sella Turcica: The pituitary gland, cavernous sinuses, suprasellar cistern and optic chiasm are unremarkable. IAC: Symmetric and unremarkable. Vasculature: Normal signal flow void is seen in the major arterial structures at the skull base. Sinuses: No acute appearing sinus disease. Bones: No focal pathologic appearing marrow signal changes. Other: None. IMPRESSION: 1. A 7 x 4 mm faint focus of suggested restricted diffusion within the left paramedian medulla (series 505 image 40), May represent an acute infarct, less than one week old. 2. Chronic lacunar infarcts within bilateral basal ganglia and left cerebellar hemisphere. 3. Moderate T2/FLAIR hyperintense periventricular, deep, and subcortical white matter lesions within cerebral hemispheres bilaterally and within the helen centrally. 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 4. There is a focus of susceptibility artifact within the left posterior frontal lobe (series 801 image 18), likely representing remote microhemorrhage. 5. Moderate diffuse cerebral and cerebellar volume loss with exvacuo dilatation of the ventricles and sulci, appropriate for age. EXAM: CAROTID DOPPLER ULTRASOUND EXAM DATE: 08/14/2017 08:40 AM. CLINICAL HISTORY: CVA versus TIA. COMPARISON: None. TECHNIQUE: Real-time sonographic vascular imaging was performed by the printed circuit board assembler through the carotid arterial system with a linear transducer utilizing color-flow, Doppler flow and spectral analysis. Multiple patient service representative static images were saved for review. FINDINGS: Right: RCCA Prox: PSV 92 cm/sec. RCCA Dist: PSV 89 cm/sec, EDV 17 cm/sec. RECA: PSV 96 cm/sec. R Bulb: PSV 82 cm/sec, EDV 13 cm/sec, ICA/CCA ratio 0.92. ABUNDIO Prox: PSV 140 cm/sec, EDV 35 cm/sec, ICA/CCA ratio 1.57. ABUNDIO Mid: PSV 124 cm/sec, EDV 34 cm/sec, ICA/CCA ratio 1.39. ABUNDIO Dist: PSV 119 cm/sec, EDV 29 cm/sec, ICA/CCA ratio 1.33. RVA: PSV 65 cm/sec. RVA flow direction: Antegrade. Left: LCCA Prox: PSV 89 cm/sec. LCCA Dist: PSV 89 cm/sec, EDV 7 cm/sec. LECA: PSV 84 cm/sec. L Bulb: PSV 42 cm/sec, EDV 5 cm/sec, ICA/CCA ratio 0.47. LICA Prox: PSV 79 cm/sec, EDV 19 cm/sec, ICA/CCA ratio 0.88. LICA Mid: PSV 82 cm/sec, EDV 20 cm/sec, ICA/CCA ratio 0.92. LICA Dist: PSV 79 cm/sec, EDV 20 cm/sec, ICA/CCA ratio 0.88. LVA: PSV 20 cm/sec. LVA flow direction: Antegrade. [id number] atherosclerotic plaquing is present bilaterally, most pronounced at the carotid bulbs. Other: None. IMPRESSION: 1. Right ICA: 50-69% proximal right ICA stenosis by PSV. 2. Left ICA: No hemodynamically significant stenosis is identified. EXAM: CT HEAD EXAM DATE: 08/13/2017 05:38 PM. CLINICAL HISTORY: Ataxia, new onset. Dizziness. Loss of balance. Difficulty standing. COMPARISON: None. TECHNIQUE: Multiaxial CT images were obtained from the foramen magnum to the vertex. Reformats: Coronal. IV contrast: None. In accordance with CT protocol optimization, one or more of the following dose reduction techniques were utilized for this exam: automated exposure control, adjustment of mA and/or KV based on patient size, or use of iterative reconstructive technique. FINDINGS: Parenchyma: No intraparenchymal hemorrhage. No evidence of mass, midline shift, or CT findings of acute infarction. Silver-white differentiation is distinct. Diffuse chronic microangiopathic white matter changes are evident. Extraaxial Spaces: Normal for age. No subdural or epidural collections identified. Ventricles: The ventricles and cortical sulci are enlarged, consistent with age- related tissue loss. Sinuses and orbits: Imaged paranasal sinuses, orbits, and mastoids show no significant abnormality. Bones: No evidence of fracture or calvarial defect. Other: None. IMPRESSION: Generalized age-related cortical atrophic changes without evidence of acute intracranial abnormality. - FOLLOW UP Follow Up: Disposition: 01 Home, Self Care Condition: Good Prescriptions: Atorvastatin Calcium 20 mg PO QPM #30 tablet Levothyroxine Sodium [Synthroid] 100 mcg PO DAILY #30 tablet Diet: Regular Activity Restrictions: No Restrictions Shower Restrictions: No Driving Restrictions: No Weight Bearing: Full Weight Additional Instructions or Follow Up instructions: You were watched overnight after you came to the ED for dizziness. Your symptoms were worrisome for TIA or stroke. You underwent a full syncope work up. A head MRI was completed and showed a 7 x 4 mm faint focus within the left paramedian medulla, which may represent an acute infarct, less than one week old. You passed a physical therapy evaluation and it was felt that you were at your baseline ambulation. An echocardiogram was completed and results are pending. To help prevent further strokes, it is recommended that you take an anti- cholesterol pill. This medication was sent to your pharmacy. Please rest if you are tired, and most of all enjoy the visit with your son vanesa. Please see your PCP in the week as a follow up to this hospital stay. - TIME SPENT Time Spent in Discharge (Minutes): 45
[2017-08-14] MEDS ORDERED: ATORVASTATIN 40 MG TABLET PO SCH (16:00)
[2017-08-14] MEDS ORDERED: FEXOFENADINE 60 MG TABLET PO SCH (16:00)
[2017-08-14 16:05] VITALS: BP 129/71
== END 2017-08-14 15:45 | disposition home or self-care (01) | DRG 65 ==
LOC: EDUNIT# → ED 16:39 → MS3 18:33
PROVIDERS: ADMIT Internal Medicine; ATTEND Nurse Practitioner
DX: R27.8 Other lack of coordination (principal); N30.00 Acute cystitis without hematuria; I48.91 Unspecified atrial fibrillation; I63.9 Cerebral infarction, unspecified; N39.0 Urinary tract infection, site not specified; I48.0 Paroxysmal atrial fibrillation; N40.0 Benign prostatic hyperplasia without lower urinary tract symptoms; E03.9 Hypothyroidism, unspecified; I50.9 Heart failure, unspecified
CPT/HCPCS: 36415; 70450; 70551; 80053; 80061; 81001; 81003; 83690; 83721; 84484; 85025; 85610; 87086; 93005; 93306; 93880; 99283; 99284; 99285

== ENCOUNTER 2017-09-16 18:25 | Outpatient (CLI) | payer MEDICARE, OTHER | END 2017-09-16 18:26 | disposition EMS.NT | LOC: EMS 18:25 | PROVIDERS: ATTEND Surgery | DX: R13.10 Dysphagia, unspecified (principal); R10.30 Lower abdominal pain, unspecified ==

== ENCOUNTER 2017-12-05 16:41 | Emergency (ER) | payer MEDICARE, OTHER ==
[2017-12-05 17:20] LABS: BASOPHILS # (AUTO) 0.1 10^3/uL (0.0-0.1); BASOPHILS % (AUTO) 0.7 %; EOSINOPHILS # (AUTO) 0.2 10^3/uL (0.0-0.7); EOSINOPHILS % (AUTO) 1.9 %; HGB - HEMOGLOBIN 12.8 g/dL (14.0-18.0); LYMPHOCYTES # (AUTO) 1.6 10^3/uL (1.5-3.5); LYMPHOCYTES % (AUTO) 18.1 %; MEAN CORPUSCULAR HEMOGLOBIN 29.9 pg (27.0-31.0); MEAN CORPUSCULAR HGB CONC 33.3 g/dL (32.0-36.0); MEAN CORPUSCULAR VOLUME 89.7 fL (80.0-94.0); MONOCYTES % (AUTO) 10.9 %; NEUTROPHILS # (AUTO) 6.1 10^3/uL (1.5-6.6); NEUTROPHILS % (AUTO) 68.4 %; PLT - PLATELET COUNT 235 10^3/uL (130-450); RED BLOOD COUNT 4.27 10^6/uL (4.70-6.10)
[2017-12-05 17:35] LABS: ALBUMIN/GLOBULIN RATIO 1.2 (1.0-2.2); BILIRUBIN,TOTAL 0.8 mg/dL (0.2-1.0); CALCIUM 9.2 mg/dL (8.5-10.3); CREATININE 1.5 mg/dL (0.6-1.2); TOTAL PROTEIN 7.4 g/dL (6.7-8.2)
--- NOTE | 2017-12-05 17:46 | ED Physician Documentation ---
PD HPI ABD PAIN - Stated complaint Stated Complaint: ABD PX - Chief complaint Chief Complaint: Abd Pain - History obtained from History obtained from: Patient, Family - History of Present Illness Timing - onset: Today Timing - duration: Days (1) Timing - details: Gradual onset, Waxing and waning Pain level max: 8 Pain level now: 2 Quality: Aching, Sharp, Pain Location: All over / everywhere Improved by: Other (nothing) Worsened by: Other (nothing) Associated symptoms: No: Fever, Nausea, Vomiting, Hematemesis, Diarrhea, Constipation, Melena Similar symptoms before: Diagnosis (states has happened before, unknown if a cause was found.) Recently seen: Not recently seen Review of Systems Ten Systems: 10 systems reviewed and negative Constitutional: denies: Fever, Chills Ears: denies: Ear pain Nose: denies: Rhinorrhea / runny nose, Congestion Throat: denies: Sore throat Cardiac: denies: Chest pain / pressure, Palpitations Respiratory: denies: Dyspnea, Cough GI: denies: Vomiting, Diarrhea, Hematemesis, Bloody / black stool Skin: denies: Rash Musculoskeletal: denies: Neck pain, Back pain Neurologic: denies: Headache PD PAST MEDICAL HISTORY - Past Medical History Past Medical History: Yes Cardiovascular: Atrial fibrillation Respiratory: None Endocrine/Autoimmune: HyPOthyroidism : Benign prostate hypertrophy HEENT: Chronic hearing loss Psych: None Musculoskeletal: None Derm: None - Past Surgical History Past Surgical History: Yes - Present Medications Home Medications: Ambulatory Orders Medication Instructions Recorded Confirmed Aspirin 81 mg DAILY 01/10/17 08/14/17 Tamsulosin HCl 0.4 mg PO DAILY 01/10/17 08/14/17 Zolpidem Tartrate 10 mg PO QPM PRN 01/10/17 08/14/17 Atorvastatin Calcium 20 mg PO QPM #30 tablet 08/14/17 Latanoprost 0.005% Ophth Drops 1 drops EACHEYE QPM 08/14/17 08/14/17 [Xalatan Ophth Drops] Levothyroxine Sodium [Synthroid] 100 mcg PO DAILY #30 tablet 08/14/17 Pilocarpine HCl [Salagen] 5 mg PO TID PRN 08/14/17 08/14/17 Timolol 0.5% Ophth Drops [Timoptic 1 drops EACHEYE DAILY 08/14/17 08/14/17 0.5% Ophth Drops] raNITIdine [Zantac] 150 mg PO DAILY 08/14/17 08/14/17 Atorvastatin Calcium 20 mg PO QPM #30 tablet 08/16/17 Levothyroxine Sodium [Synthroid] 100 mcg PO DAILY #30 tablet 08/16/17 Cephalexin [Keflex] 500 mg PO Q6H #28 capsule 12/05/17 - Allergies Allergies/Adverse Reactions: Allergies Allergy/AdvReac Type Severity Reaction Status Date / Time No Known Drug Allergies Allergy Verified 08/13/17 16:59 - Social History Does the pt smoke?: No Smoking Status: Never smoker Does the pt drink ETOH?: No Does the pt have substance abuse?: No - Immunizations Immunizations are current?: Yes - POLST Patient has POLST: No PD ED PE NORMAL - Vitals Vital signs reviewed: Yes - General General: Alert and oriented X 3, No acute distress, Well developed/nourished - HEENT HEENT: PERRL, Moist mucous membranes - Neck Neck: Supple, no meningeal sign - Cardiac Cardiac: RRR, Strong equal pulses - Respiratory Respiratory: No respiratory distress, Clear bilaterally - Abdomen Abdomen: Soft, Non tender, Non distended - Back Back: No CVA TTP, No spinal TTP - Derm Derm: Warm and dry, No rash - Extremities Extremities: No edema, No calf tenderness / cord - Neuro Neuro: Alert and oriented X 3 - Psych Psych: Normal mood, Normal affect Results - Vitals Vitals: Vital Signs - 24 hr 12/05/17 12/05/17 12/05/17 16:53 18:09 20:09 Temperature 36.3 C L Heart Rate 64 77 76 Respiratory 24 16 22 Rate Blood Pressure 147/44 H 158/96 H 173/93 H O2 Saturation 100 100 99 12/05/17 12/05/17 21:06 21:28 Temperature 36.2 C L Heart Rate 82 83 Respiratory 15 18 Rate Blood Pressure 164/75 H 164/75 H O2 Saturation 100 99 Oxygen O2 Source [With Activity] Room air O2 Source Room air - EKG (time done) 1838 Rate: Rate (enter#) (89) Rhythm: NSR, Other (PVC's) [place]: Normal Intervals: Prolonged MT QRS: Normal Ischemia: ST depression (V5-6) - Labs Labs: Laboratory Tests 12/05/17 12/05/17 12/05/17 17:14 17:14 18:58 WBC 9.0 RBC 4.27 L Hgb 12.8 L Hct 38.3 L MCV 89.7 MCH 29.9 MCHC 33.3 RDW 14.0 Plt Count 235 MPV 7.0 L Neut # (Auto) 6.1 Lymph # (Auto) 1.6 [place] # (Auto) 1.0 Eos # (Auto) 0.2 Baso # (Auto) 0.1 Absolute Nucleated RBC 0.00 Nucleated RBC % 0.0 Sodium 128 L Potassium 4.2 Chloride 96 L Carbon Dioxide 23 Anion Gap 9.0 BUN 20 Creatinine 1.5 H Estimated GFR (MDRD) 44 L Glucose 95 Calcium 9.2 Phosphorus 2.4 L Magnesium 1.9 Total Bilirubin 0.8 AST 20 ALT 15 Alkaline Phosphatase 85 Troponin I Total Protein 7.4 Albumin 4.0 Globulin 3.4 Albumin/Globulin Ratio 1.2 Lipase 30 Urine Color Urine Clarity Urine pH Ur Specific [place] Urine Protein Urine Glucose (UA) Urine Ketones Urine Occult Blood Urine Nitrite Urine Bilirubin Urine Urobilinogen Ur Leukocyte Esterase Urine RBC Urine WBC Ur Squamous Epith Cells Urine Bacteria Ur Microscopic Review Urine Culture Comments 12/05/17 12/05/17 18:58 19:44 WBC RBC Hgb Hct MCV MCH MCHC RDW Plt Count MPV Neut # (Auto) Lymph # (Auto) [place] # (Auto) Eos # (Auto) Baso # (Auto) Absolute Nucleated RBC Nucleated RBC % Sodium Potassium Chloride Carbon Dioxide Anion Gap BUN Creatinine Estimated GFR (MDRD) Glucose Calcium Phosphorus Magnesium Total Bilirubin AST ALT Alkaline Phosphatase Troponin I 0.07 Total Protein Albumin Globulin Albumin/Globulin Ratio Lipase Urine Color YELLOW Urine Clarity HAZY Urine pH 7.0 Ur Specific [place] <=1.005 Urine Protein NEGATIVE Urine Glucose (UA) NEGATIVE Urine Ketones TRACE Urine Occult Blood TRACE-INTA Urine Nitrite NEGATIVE Urine Bilirubin NEGATIVE Urine Urobilinogen 0.2 (NORMAL) Ur Leukocyte Esterase MODERATE H Urine RBC 0-5 Urine WBC 11-25 H Ur Squamous Epith Cells NONE SEEN Urine Bacteria Moderate H Ur Microscopic Review INDICATED Urine Culture Comments INDICATED - Rads (name of study) cxr Radiology: Prelim report reviewed, EMP read contemporaneously, See rad report ( No acute cardiopulmonary process. 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 Maximum aneurysm sac diameter 4.0 cm, unchanged. 2. High-grade stenosis of the celiac artery, SMA, and left renal artery origins and diminutive appearance of the [place] and right renal arteries, as before. 3. 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 4. Congenital bowel malrotation. 5. Distal colonic diverticulosis without CT evidence for acute diverticulitis. ) PD MEDICAL DECISION MAKING - ED course Complexity details: reviewed old records, reviewed results, re-evaluated patient , considered differential, d/w patient, d/w family ED course: Patient is an 87-year-old male who presents to the emergency department with vague abdominal pain today. He does have a history of a AAA and so a CT angiogram of the abdomen and pelvis was performed. This does not show any acute changes. He does have high-grade stenosis of the SMA and his symptoms might be caused by mesenteric ischemia if he becomes dehydrated from not eating. He felt better after IV fluids. When he returned from CAT scan and was in the emergency department, he developed left-sided chest pain that was dull and aching. Nonradiating. This resolved just prior to him receiving nitroglycerin. His troponin is mildly increased at 0.07, though this is not a positive finding for this hospital. I did explain to both the patient and his that I was concerned he may be having a heart attack given the ST depression on his EKG along with the troponin level. I recommended that they at least let us keep him in the hospital here for serial troponins. Patient and are adamant that they do not want him to stay in the hospital and that he would like to go home. I informed them of the risks of doing so including a large heart attack, arrhythmia and . They state that they understand these risks and are comfortable with them. They still do not want to stay in the hospital or be transferred. I informed them that they are welcome to return at any time. He was also found to have a urinary tract infection and was given Rocephin. Will prescribe antibiotics for home for this as well. Patient signed AGAINST MEDICAL ADVICE. Encouraged the patient and his to follow-up with his doctor in the morning and to please return to the emergency department should he change his mind. This document was made in part using voice recognition software. While efforts are made to proofread this document, sound alike and grammatical errors may occur. - Sepsis Event Vital Signs: Vital Signs - 24 hr 12/05/17 12/05/17 12/05/17 16:53 18:09 20:09 Temperature 36.3 C L Heart Rate 64 77 76 Respiratory 24 16 22 Rate Blood Pressure 147/44 H 158/96 H 173/93 H O2 Saturation 100 100 99 12/05/17 12/05/17 21:06 21:28 Temperature 36.2 C L Heart Rate 82 83 Respiratory 15 18 Rate Blood Pressure 164/75 H 164/75 H O2 Saturation 100 99 Oxygen O2 Source [With Activity] Room air O2 Source Room air Departure - Departure Disposition: Against Medical Advice Clinical Impression: UTI (urinary tract infection) Qualifiers: Urinary tract infection type: acute cystitis Hematuria presence: without hematuria Qualified Code(s): N30.00 - Acute cystitis without hematuria Chest pain Qualifiers: Chest pain type: unspecified Qualified Code(s): R07.9 - Chest pain, unspecified Abdominal pain Qualifiers: Abdominal location: generalized Qualified Code(s): R10.84 - Generalized abdominal pain Condition: Stable Instructions: ED UTI Cystitis Male Follow-Up: John Cannon DO [Primary Care Provider] - Tomorrow Prescriptions: Cephalexin [Keflex] 500 mg PO Q6H #28 capsule Comments: You have chosen to leave against medical advice tonight. You are aware that you may be having a heart attack and should be treated in the hospital. You and your both state understanding that this may kill you as soon as tonight or longer. This may also leave you permanently disabled. You are welcome to return at any time should you change your mind about being evaluated and treated. You need to see your doctor in the morning. Take all antibiotics until gone. Discharge Date/Time: 12/05/17 21:00
[2017-12-05] MEDS ORDERED: IOPAMIDOL-300 100 ML VIAL ONE (18:18)
[2017-12-05] MEDS ORDERED: IOPAMIDOL-300 100 ML VIAL IVP ONE (18:36)
[2017-12-05] MEDS ORDERED: ASPIRIN CHEW 81 MG TABLET PO STA (18:40)
[2017-12-05] MEDS ORDERED: NITROGLYCERIN SL 0.4 MG TABLET SL STA (18:40)
[2017-12-05 19:20] LABS: MAGNESIUM 1.9 mg/dL (1.7-2.8); PHOSPHORUS 2.4 mg/dL (2.5-4.6)
--- NOTE | 2017-12-05 19:29 | XRAY Report ---
EXAM: CHEST RADIOGRAPHY EXAM DATE: 12/05/2017 06:54 PM. CLINICAL HISTORY: Chest pain. COMPARISON: None. TECHNIQUE: 1 view. FINDINGS: Lungs/Pleura: Reticular opacities at the lung bases likely secondary to mild fibrosis. There is no co ntour lung consolidation. No pleural effusion or pneumothorax. Mediastinum: Within exam limitations, the cardiomediastinal contour is normal. Other: None. IMPRESSION: No acute cardiopulmonary process. [facility] Referring Provider Line: [phone] SITE ID: [id number]
--- NOTE | 2017-12-05 19:29 | XRAY Preliminary Report ---
Exam: XR CHEST 1 VIEW X-RAY IMPRESSION: No acute cardiopulmonary process. [facility] SITE ID: [id number]
--- NOTE | 2017-12-05 19:50 | CT Report ---
EXAM: CT ANGIOGRAM ABDOMEN AND PELVIS WITH CONTRAST EXAM DATE: 12/05/2017 06:37 PM. CLINICAL HISTORY: Abdominal pain. History of AAA. COMPARISONS: CT abdomen/pelvis 01/10/2017. TECHNIQUE: Routine helical CT angiogram imaging was performed through the abdomen and pelvis in the a rterial phase. IV contrast: 80 mL Isovue-300. Enteric contrast: None. Reconstructions: Coronal, sagit garry, and 3D MIP reconstructions. In accordance with CT protocol optimization, one or more of the following dose reduction techniques w ere utilized for this exam: automated exposure control, adjustment of mA and/or KV based on patient s ize, or use of iterative reconstructive technique. FINDINGS: Vasculature: Postoperative changes of endovascular aneurysm repair with stent material extending from the suprarenal abdominal aorta through the bilateral common iliac arteries. Maximum aneurysm sac avelina meter 4.0 cm, unchanged. 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 Diminutive, patent right renal artery with moderate 5075% stenosis of th e origin. Diminutive, patent [place]. 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 Unchanged approximately 50% stenosis of the right internal iliac artery origin. Lung Bases: Bibasilar subpleural reticular opacities, likely representing senescent fibrosis. Abdominal Solid Organs: Unremarkable. Unremarkable arterial phase appearance of the liver, pancreas, spleen, adrenal glands, and kidneys. Gallbladder and Bile Ducts: Unremarkable. No visualized stones or biliary ductal dilatation. Peritoneal Cavity/GI Tract: Congenital bowel malrotation. A prominent gas-containing diverticulum pro jects superiorly from the mid duodenum. Descending and sigmoid colon diverticulosis. No focal wall th ickening or adjacent mesenteric fat stranding to suggest acute diverticulitis. No evidence for bowel obstruction. The pancreas normal. No free fluid, pneumoperitoneum, or adenopathy. Pelvic Organs: Partially obscured by streak artifact from left hip prosthesis. The prostate gland is enlarged, measuring 5.2 cm in transverse dimension, and contains dystrophic calcifications. The bladd er is within normal limits as visualized. Bones: Osteopenic. Left total hip arthroplasty. Mild levoscoliosis centered at L4-L5. Moderate to sev ere multilevel degenerative disk disease throughout the lumbar spine. No acute bony abnormality. Other: None. IMPRESSION: 1. Stable appearance post endovascular aortobiiliac aneurysm repair. Maximum aneurysm sac diameter 4. 0 cm, unchanged. 2. High-grade stenosis of the celiac artery, SMA, and left renal artery origins and diminutive appear ance of the [place] and right renal arteries, as before. 3. 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 4. Congenital bowel malrotation. 5. Distal colonic diverticulosis without CT evidence for acute diverticulitis. [facility] Referring Provider Line: [phone] SITE ID: [id number]
[2017-12-05 19:56] LABS: BILIRUBIN,URINE NEGATIVE (NEGATIVE); GLUCOSE, URINE (UA) NEGATIVE (NEGATIVE); KETONES,URINE (UA) TRACE mg/dL (NEGATIVE); LEUKOCYTE ESTERASE, URINE MODERATE (NEGATIVE); NITRITE,URINE NEGATIVE (NEGATIVE); OCCULT BLOOD,URINE TRACE-INTA (NEGATIVE); PROTEIN,URINE NEGATIVE (NEGATIVE); UROBILINOGEN,URINE 0.2 (NORMAL) E.U./dL (NORMAL)
[2017-12-05] MEDS ORDERED: SODIUM CHLORIDE 0.9% 500 ML IV ONE (20:03)
[2017-12-05] MEDS ORDERED: SODIUM CHLORIDE 0.9% 1,000 ML IV ONE (20:03)
[2017-12-05 20:12] LABS: CLARITY,URINE HAZY (CLEAR)
[2017-12-05 20:33] LABS: BACTERIA,URINE Moderate /HPF (None Seen); RBC,URINE 0-5 /HPF (0-5); SQUAMOUS EPITHELIAL CELL,UR NONE SEEN (<= Few)
[2017-12-05] MEDS ORDERED: cefTRIAXone 1 GM VIAL IVP STA (20:35)
[2017-12-05 21:08] VITALS: BP 164/75
== END 2017-12-05 21:00 | disposition left against medical advice (07) ==
LOC: ED 16:41
DX: N30.00 Acute cystitis without hematuria (principal); R07.9 Chest pain, unspecified; R10.84 Generalized abdominal pain; I48.91 Unspecified atrial fibrillation; E03.9 Hypothyroidism, unspecified; Z79.82 Long term (current) use of aspirin
CPT/HCPCS: 36415; 71045; 74174; 80053; 81001; 83690; 83735; 84100; 84484; 85025; 87086; 93005; 96361; 96374; 99283; A9270; Q9967; 81003

== ENCOUNTER 2017-12-20 13:35 | Emergency (ER) | payer MEDICARE, OTHER ==
[2017-12-20] MEDS ORDERED: HYDROmorphone 2 MG/ML VIAL IVP STA (15:27)
[2017-12-20] MEDS ORDERED: SODIUM CHLORIDE 0.9% 1,000 ML IV ONE (15:27)
--- NOTE | 2017-12-20 15:30 | ED Physician Documentation ---
History of Present Illness - Stated complaint Stated Complaint: UNABLE TO WALK - Chief complaint Chief Complaint: Ext Problem - History obtained from History obtained from: Patient, Family () - History of Present Illness Timing: Other (This is an 87-year-old gentleman who fell 2 days ago in his bathroom hitting his back on a stool. He complains of pain across the low back and hips and is unable to walk because of it. He is taking Tylenol and some sort of pain pill for but it is [id number] he does not know what it is besides the Tylenol. There were no other injuries and he specifically denies headache, head injury, chest pain or trouble breathing. Note made that he was seen here 2 weeks ago for abdominal pain, he did have chronic vascular disease and a AAA repair in the belly and had an indeterminate troponin and signed out AGAINST MEDICAL ADVICE.) Review of Systems Ten Systems: 10 systems reviewed and negative Constitutional: denies: Fever, Chills Cardiac: denies: Chest pain / pressure, Palpitations Respiratory: denies: Dyspnea, Cough, Wheezing GI: reports: Abdominal Pain. denies: Nausea, Vomiting, Diarrhea PD PAST MEDICAL HISTORY - Past Medical History Cardiovascular: Atrial fibrillation Respiratory: None Endocrine/Autoimmune: HyPOthyroidism : Benign prostate hypertrophy HEENT: Chronic hearing loss Psych: None Musculoskeletal: None Derm: None - Past Surgical History Past Surgical History: Yes - Present Medications Home Medications: Ambulatory Orders Medication Instructions Recorded Confirmed Aspirin 81 mg DAILY 01/10/17 08/14/17 Tamsulosin HCl 0.4 mg PO DAILY 01/10/17 08/14/17 Zolpidem Tartrate 10 mg PO QPM PRN 01/10/17 08/14/17 Latanoprost 0.005% Ophth Drops 1 drops EACHEYE QPM 08/14/17 08/14/17 [Xalatan Ophth Drops] Levothyroxine Sodium [Synthroid] 100 mcg PO DAILY #30 tablet 08/14/17 Timolol 0.5% Ophth Drops [Timoptic 1 drops EACHEYE DAILY 08/14/17 08/14/17 0.5% Ophth Drops] Levothyroxine Sodium [Synthroid] 100 mcg PO DAILY #30 tablet 08/16/17 Dorzolamide HCl 12/20/17 Doxazosin [Cardura] 12/20/17 Gabapentin 600 mg PO 12/20/17 Ipratropium [place] 12/20/17 Polyethylene Glycol 3350 [Miralax] 17 gm PO DAILY PRN #1 bottle 12/20/17 - Allergies Allergies/Adverse Reactions: Allergies Allergy/AdvReac Type Severity Reaction Status Date / Time No Known Drug Allergies Allergy Verified 12/20/17 13:48 - Living Situation Living Situation: reports: With spouse/s.o. - Social History Does the pt smoke?: No Smoking Status: Never smoker Does the pt drink ETOH?: No Does the pt have substance abuse?: No - Family History Family history: reports: Non contributory - Immunizations Immunizations are current?: Yes - POLST Patient has POLST: No PD ED PE NORMAL - Vitals Vital signs reviewed: Yes - General General: Alert and oriented X 3, No acute distress - HEENT HEENT: PERRL, EOMI - Neck Neck: Supple, no meningeal sign, No bony TTP - Cardiac Cardiac: RRR, No murmur - Respiratory Respiratory: No respiratory distress, Clear bilaterally - Abdomen Abdomen: Other (Soft with mild diffuse tenderness, normal bowel tones.) - Back Back: Other (He has a 3 cm bruise overlying L2-L3 in the midline with focal tenderness there.) - Derm Derm: Normal color, Warm and dry - Extremities Extremities: No deformity, No tenderness to palpate, Normal ROM s pain, No edema , No calf tenderness / cord - Neuro Neuro: Alert and oriented X 3, Normal speech Results - Vitals Vitals: Vital Signs - 24 hr 12/20/17 13:45 Temperature 36.4 C L Heart Rate 69 Respiratory 18 Rate Blood Pressure 170/70 H O2 Saturation 100 Oxygen O2 Source [] Room air O2 Source Room air - EKG (time done) 1536 Rate: Rate (enter#) (69) Rhythm: NSR [place]: Normal Intervals: Prolonged CT Ischemia: Non specific changes Computer interpretation: Agree with computer - Labs Labs: Laboratory Tests 12/20/17 12/20/17 12/20/17 15:47 15:47 15:47 WBC 9.5 RBC 4.48 L Hgb 13.4 L Hct 40.6 L MCV 90.7 MCH 29.8 MCHC 32.9 RDW 13.6 Plt Count 235 MPV 7.1 L Neut # (Auto) 6.8 H Lymph # (Auto) 1.6 [place] # (Auto) 1.0 Eos # (Auto) 0.1 Baso # (Auto) 0.1 Absolute Nucleated RBC 0.00 Nucleated RBC % 0.0 Sodium 127 L Potassium 5.0 Chloride 93 L Carbon Dioxide 23 Anion Gap 11.0 BUN 18 Creatinine 1.5 H Estimated GFR (MDRD) 44 L Glucose 89 Calcium 9.0 Total Bilirubin 1.0 AST 22 ALT 14 Alkaline Phosphatase 92 Troponin I < 0.04 Total Protein 7.0 Albumin 3.9 Globulin 3.1 Albumin/Globulin Ratio 1.3 Lipase 30 - Rads (name of study) L spine CT Radiology: EMP read contemporaneously (1. 14.1 degrees dextroscoliosis between mid L1 and L3-L4. 14.5 degrees levoscoliosis between L3-L4 and L5-S1. No subcutaneous listhesis. Moderate fatty atrophy of the multifidus muscle is seen. 2. L1-L2 shows disk osteophyte complex, moderate central stenosis. Severe left and mild right foraminal stenosis. 3. L2-L3 shows a broad-based disk bulge and prominent facets. Moderate central stenosis. Moderate to severe left foraminal stenosis. Right neuroforamina is normal. 4. L3-L4 shows disk space height loss and marked arthrosis, hypertrophic facets and ligament flavum. Severe central stenosis. Severe bilateral foraminal stenosis. ) Ct A/P Radiology: EMP read contemporaneously (1. There is motion artifact. 2. There is colonic and duodenal diverticulosis without evidence of diverticulitis. 3. No acute solid abdominal organ abnormalities are seen. 4. There is moderate stool within colon. The rectum is distended to 6.5 cm with stool. 5. Patient has undergone stenting of an abdominal aortic aneurysm. No acute vascular abnormalities are seen. 6. There is moderate multilevel lumbar spine degenerative disease. No acute bony abnormalities are seen. ) PD MEDICAL DECISION MAKING - ED course ED course: 87-year-old gentleman with multiple comorbidities who is kind of a vague historian with a history compatible with a back injury and some back tenderness but the pain that he points to is kind of across the top of the hips and advanced imaging was done and the only acute abnormality was a fecal impaction. He certainly does have a bad back and chronic findings in the abdomen. That said given the location of his pain we gave him an enema and had a large bowel movement with resolution of his symptoms. - Sepsis Event Vital Signs: Vital Signs - 24 hr 12/20/17 13:45 Temperature 36.4 C L Heart Rate 69 Respiratory 18 Rate Blood Pressure 170/70 H O2 Saturation 100 Oxygen O2 Source [] Room air O2 Source Room air Departure - Departure Disposition: 01 Home, Self Care Clinical Impression: Fall from ground level, Fecal impaction Abdominal pain Qualifiers: Abdominal location: generalized Qualified Code(s): R10.84 - Generalized abdominal pain Back pain Qualifiers: Back pain location: low back pain Chronicity: acute Back pain laterality: bilateral Sciatica presence: without sciatica Qualified Code(s): M54.5 - Low back pain Condition: Good Record reviewed to determine appropriate education?: Yes Instructions: ED Impaction Fecal Treated Prescriptions: Polyethylene Glycol 3350 [Miralax] 17 gm PO DAILY PRN #1 bottle PRN Reason: Constipation Comments: Call your doctor to arrange a follow-up appointment, make the next available appointment. In the interim, return anytime if worse or if new symptoms develop. Your blood pressure was elevated today on check into the emergency department. This does not mean that you have hypertension, it is a common phenomenon to come to the emergency department and have elevated blood pressure. I recommend that you see your primary care physician within the week to have it rechecked when you are feeling better.
[2017-12-20 15:53] LABS: BASOPHILS # (AUTO) 0.1 10^3/uL (0.0-0.1); BASOPHILS % (AUTO) 0.8 %; EOSINOPHILS # (AUTO) 0.1 10^3/uL (0.0-0.7); EOSINOPHILS % (AUTO) 1.2 %; HGB - HEMOGLOBIN 13.4 g/dL (14.0-18.0); LYMPHOCYTES # (AUTO) 1.6 10^3/uL (1.5-3.5); LYMPHOCYTES % (AUTO) 16.6 %; MEAN CORPUSCULAR HEMOGLOBIN 29.8 pg (27.0-31.0); MEAN CORPUSCULAR HGB CONC 32.9 g/dL (32.0-36.0); MEAN CORPUSCULAR VOLUME 90.7 fL (80.0-94.0); MEAN PLATELET VOLUME 7.1 fL (7.4-11.4); MONOCYTES % (AUTO) 10.3 %; NEUTROPHILS # (AUTO) 6.8 10^3/uL (1.5-6.6); NEUTROPHILS % (AUTO) 71.1 %; PLT - PLATELET COUNT 235 10^3/uL (130-450); RED BLOOD COUNT 4.48 10^6/uL (4.70-6.10); RED CELL DISTRIBUTION WIDTH 13.6 % (12.0-15.0); WHITE BLOOD COUNT 9.5 x10^3/uL (4.8-10.8)
[2017-12-20 16:07] LABS: ALBUMIN 3.9 g/dL (3.2-5.5); ALBUMIN/GLOBULIN RATIO 1.3 (1.0-2.2); CREATININE 1.5 mg/dL (0.6-1.2)
[2017-12-20] MEDS ORDERED: IOPAMIDOL-300 100 ML VIAL ONE (16:23)
[2017-12-20] MEDS ORDERED: IOPAMIDOL-300 100 ML VIAL IVP ONE (16:47)
--- NOTE | 2017-12-20 17:11 | CT Report ---
Procedure Date: 12/20/2017 Accession Number: [id number] / [id number] Procedure: CT - Abdomen/Pelvis W/ CPT Code: FULL RESULT: EXAM: CT ABDOMEN AND PELVIS EXAM DATE: 12/20/2017 04:45 PM. CLINICAL HISTORY: Abdominal pain COMPARISONS: 12/05/2017. TECHNIQUE: Routine helical CT imaging was performed through the abdomen and pelvis. IV contrast: 50 cc Isovue-300. Enteric contrast: No. Reconstructions: Coronal and sagittal. In accordance with CT protocol optimization, one or more of the following dose reduction techniques were utilized for this exam: automated exposure control, adjustment of mA and/or KV based on patient size, or use of iterative reconstructive technique. FINDINGS: Lung Bases: There is mild subpleural reticulation and there is mild cardiomegaly. No acute infiltrate. Liver: Normal. No masses. Gallbladder/Bile Ducts: Unremarkable. Spleen: Normal. Pancreas: Normal. Adrenal Glands: Normal. Kidneys: Normal. No masses or hydronephrosis. Peritoneal Cavity/Bowel: There is a moderate-sized duodenal diverticulum. No evidence of small bowel obstruction. There is malrotation. There is distal colon diverticulosis. No evidence of diverticulitis. There is moderate stool within colon. The rectum is distended to 6.5 cm with stool. No evidence of appendicitis. No intraperitoneal free air or free fluid. No enlarged mesenteric or retroperitoneal lymph nodes. Pelvic Organs: The urinary bladder is unremarkable. No acute pelvic organ abnormalities are seen. Vasculature: Patient has undergone stenting of an abdominal aortic aneurysm. The origin of the superior mesenteric artery is not well seen. No acute vascular abnormalities are seen. Bones: There is moderate multilevel lumbar spine degenerative disease. No acute bony abnormalities are seen. Other: There is relative left iliopsoas atrophy. IMPRESSION: 1. There is motion artifact. 2. There is colonic and duodenal diverticulosis without evidence of diverticulitis. 3. No acute solid abdominal organ abnormalities are seen. 4. There is moderate stool within colon. The rectum is distended to 6.5 cm with stool. 5. Patient has undergone stenting of an abdominal aortic aneurysm. No acute vascular abnormalities are seen. 6. There is moderate multilevel lumbar spine degenerative disease. No acute bony abnormalities are seen. [facility]
--- NOTE | 2017-12-20 17:11 | CT Report ---
Procedure Date: 12/20/2017 Accession Number: [id number] / [id number] Procedure: CT - Lumbar Spine W/O CPT Code: FULL RESULT: EXAM: CT LUMBAR SPINE WITHOUT CONTRAST EXAM DATE: 12/20/2017 04:45 PM. CLINICAL HISTORY: Back injury. Back pain. COMPARISONS: Abdomen/pelvis angio 12/05/2017. TECHNIQUE: Thin-section axial images were acquired of the lumbar spine from T12 to S1 without contrast. Post-processing: Coronal and sagittal reformats. Other: None. In accordance with CT protocol optimization, one or more of the following dose reduction techniques were utilized for this exam: automated exposure control, adjustment of mA and/or KV based on patient size, or use of iterative reconstructive technique. FINDINGS: Alignment: 14.1 degrees dextroscoliosis between mid L1 and L3-L4. 14.5 degrees of levoscoliosis between L3-L4 and L5-S1. No significant listhesis. Bones: No erosive or destructive changes. No fractures or bone lesions. Disk Levels/Facets: T12-L1: Mild broad-based disk bulge. No stenosis. L1-L2: Disk osteophyte complex. Prominent facets and ligamentum flavum. Moderate central stenosis. Severe left and mild right foraminal stenosis. L2-L3: Broad-based disk bulge is seen. Prominent facets. Hypertrophic ligamentum flavum. Moderate central stenosis. Moderate to severe left foraminal stenosis. Right neural foramina is normal. L3-L4: Disk space height loss, marked arthrosis, hypertrophic facets and ligament flavum. Severe central stenosis. Severe bilateral foraminal stenosis. L4-L5: Disk space height loss, hypertrophic facets and ligamentum flavum. Moderately severe central stenosis. Severe right and moderate to severe left foraminal stenosis. L5-S1: Vacuum disk phenomenon, hypertrophic facets and ligamentum flavum. No central stenosis. Severe bilateral foraminal stenosis. Musculature: Moderate fatty atrophy of the multifidus muscle is seen. Other: Previous aortic stent graft. IMPRESSION: 1. 14.1 degrees dextroscoliosis between mid L1 and L3-L4. 14.5 degrees levoscoliosis between L3-L4 and L5-S1. No significant listhesis. Moderate fatty atrophy of the multifidus muscle is seen. 2. L1-L2 shows disk osteophyte complex, moderate central stenosis. Severe left and mild right foraminal stenosis. 3. L2-L3 shows a broad-based disk bulge and prominent facets. Moderate central stenosis. Moderate to severe left foraminal stenosis. Right neuroforamina is normal. 4. L3-L4 shows disk space height loss and marked arthrosis, hypertrophic facets and ligament flavum. Severe central stenosis. Severe bilateral foraminal stenosis. 5. L4-L5 shows disk space height loss and hypertrophic facets. Moderate to severe central stenosis. Severe right and moderate to severe left foraminal stenosis. 6. L5-S1 shows vacuum disk phenomenon, hypertrophic facets and ligamentum flavum. No central stenosis. Severe bilateral foraminal stenosis. [facility] ADDENDUM: 12/31/17 21:50 Further review of this examination shows nondisplaced transverse process fractures of the left at L1, L2 and L3.
[2017-12-20 18:38] VITALS: BP 138/103
== END 2017-12-20 18:41 | disposition home or self-care (01) ==
LOC: ED 13:35
DX: R10.84 Generalized abdominal pain (principal); M54.5 Low back pain; R94.31 Abnormal electrocardiogram [ECG] [EKG]; R03.0 Elevated blood-pressure reading, without diagnosis of hypertension; E03.9 Hypothyroidism, unspecified; Z79.82 Long term (current) use of aspirin
CPT/HCPCS: 36415; 72131; 73522; 74177; 80053; 83690; 84484; 85025; 93005; 96374; 99283; J1170; Q9967

== ENCOUNTER 2017-12-21 17:28 | Outpatient (CLI) | payer MEDICARE, OTHER | END 2017-12-21 17:29 | disposition critical access hospital (66) | LOC: EMS 17:28 | PROVIDERS: ATTEND Surgery | DX: M54.5 Low back pain (principal); R10.30 Lower abdominal pain, unspecified | CPT/HCPCS: A0425; A0429 ==

== ENCOUNTER 2017-12-21 17:50 | Emergency (ER) | payer MEDICARE, OTHER ==
--- NOTE | 2017-12-21 18:36 | ED Physician Documentation ---
PD HPI ABD PAIN - Stated complaint Stated Complaint: ABD PX - Chief complaint Chief Complaint: Abd Pain - History obtained from History obtained from: Patient, Family - History of Present Illness Timing - onset: Today (had had abd pain with constipation Dx yesterday and had large BM post enema with relief of pain. Labs and CT lumbar and abd to evaluate for significant causes and normal results. 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 No: Fever, Vomiting, Diarrhea, Dysuria Recently seen: Emergency Dept (yesterday) Review of Systems Unable to obtain: Dementia Ten Systems: 10 systems reviewed and negative Constitutional: denies: Fever Cardiac: denies: Chest pain / pressure Respiratory: denies: Dyspnea, Cough GI: reports: Abdominal Pain, Abdominal Swelling, Nausea, Constipation. denies: Vomiting, Diarrhea : reports: Unable to Void. denies: Dysuria, Frequency PD PAST MEDICAL HISTORY - Past Medical History Past Medical History: Yes Cardiovascular: Atrial fibrillation Respiratory: None Endocrine/Autoimmune: HyPOthyroidism : Benign prostate hypertrophy HEENT: Chronic hearing loss Psych: None Musculoskeletal: None Derm: None - Past Surgical History Past Surgical History: Yes - Present Medications Home Medications: Ambulatory Orders Medication Instructions Recorded Confirmed Aspirin 81 mg DAILY 01/10/17 08/14/17 Tamsulosin HCl 0.4 mg PO DAILY 01/10/17 08/14/17 Zolpidem Tartrate 10 mg PO QPM PRN 01/10/17 08/14/17 Latanoprost 0.005% Ophth Drops 1 drops EACHEYE QPM 08/14/17 08/14/17 [Xalatan Ophth Drops] Levothyroxine Sodium [Synthroid] 100 mcg PO DAILY #30 tablet 08/14/17 Timolol 0.5% Ophth Drops [Timoptic 1 drops EACHEYE DAILY 08/14/17 08/14/17 0.5% Ophth Drops] Levothyroxine Sodium [Synthroid] 100 mcg PO DAILY #30 tablet 08/16/17 Dorzolamide HCl 12/20/17 Doxazosin [Cardura] 12/20/17 Gabapentin 600 mg PO 12/20/17 Ipratropium [place] 12/20/17 Polyethylene Glycol 3350 [Miralax] 17 gm PO DAILY PRN #1 bottle 12/20/17 - Allergies Allergies/Adverse Reactions: Allergies Allergy/AdvReac Type Severity Reaction Status Date / Time No Known Drug Allergies Allergy Verified 12/21/17 18:01 - Social History Does the pt smoke?: No Smoking Status: Never smoker Does the pt drink ETOH?: No Does the pt have substance abuse?: No - Immunizations Immunizations are current?: Yes - POLST Patient has POLST: No PD ED PE NORMAL - Vitals Vital signs reviewed: Yes - General General: Alert and oriented X 3, Well developed/nourished, Other (appears in pain and uncomfortable. trying to find position. Abd feels somewhat distended. Hyperactive bowel sounds. ) - HEENT HEENT: Pharynx benign - Neck Neck: Supple, no meningeal sign, No adenopathy - Cardiac Cardiac: RRR, No murmur - Respiratory Respiratory: Clear bilaterally - Abdomen Abdomen: Soft, No organomegaly, Other (somewhat distended and diffusely tender. ). No: Normal bowel sounds (increased) - Male Male : Deferred - Rectal Rectal: Other (minimal/no stool at vault. Guiac negative.) Results - Vitals Vitals: Vital Signs - 24 hr 12/21/17 12/21/17 12/21/17 17:52 20:54 21:58 Temperature 36.4 C L 36.5 C Heart Rate 82 98 96 Respiratory 18 16 18 Rate Blood Pressure 163/93 H 148/100 H 106/82 H O2 Saturation 100 95 98 Oxygen O2 Source [With Activity] Room air O2 Source Room air - Rads (name of study) abd CT without contrast Radiology: Prelim report reviewed (no bowel obstruction nor free fluid. ) PD MEDICAL DECISION MAKING - ED course Complexity details: re-evaluated patient (no pain, no distension, not tender abd. ), considered differential (he had considerable pain and felt bloated/ somewhat distended, so consideration of obstruction/volvulus/etc post constipation. CT done and was okay. He felt better with enema and some more stool output as well as some medicaiton. ), d/w patient - Sepsis Event Vital Signs: Vital Signs - 24 hr 12/21/17 12/21/17 12/21/17 17:52 20:54 21:58 Temperature 36.4 C L 36.5 C Heart Rate 82 98 96 Respiratory 18 16 18 Rate Blood Pressure 163/93 H 148/100 H 106/82 H O2 Saturation 100 95 98 Oxygen O2 Source [With Activity] Room air O2 Source Room air Departure - Departure Disposition: 01 Home, Self Care Clinical Impression: Abdominal pain Qualifiers: Abdominal location: generalized Qualified Code(s): R10.84 - Generalized abdominal pain Constipation Qualifiers: Constipation type: unspecified constipation type Qualified Code(s): K59.00 - Constipation, unspecified Condition: Stable Record reviewed to determine appropriate education?: Yes Follow-Up: John Cannon DO [Primary Care Provider] - Comments: Drink lots of fluids. Your CT scan appeared okay again today. I think you are likely having some gassiness and cramping related to the medication and treatment for the recent constipation. This should improve over the next day or 2. Use some Tylenol if needed for pains. Discharge Date/Time: 12/21/17 22:01
[2017-12-21] MEDS: MORPHINE 10 MG/ML VIAL IVP STA (19:04)
[2017-12-21] MEDS: MINERAL OIL ENEMA 133 ML BOTTLE RC STA (19:05)
[2017-12-21] MEDS: SODIUM CHLORIDE 0.9% 1,000 ML IV ONE (19:05)
[2017-12-21] MEDS: LORazepam 2 MG/ML VIAL IVP STA (20:51)
[2017-12-21] MEDS: LIDOCAINE VISCOUS 2% 15 ML UDC MM STA (20:51)
[2017-12-21] MEDS: MAG HYDROX/AL HYDROX/SIMETH 30 ML UDC PO STA (20:51)
--- NOTE | 2017-12-21 21:27 | CT Report ---
Procedure Date: 12/21/2017 Accession Number: [id number] / [id number] Procedure: CT - Abdomen/Pelvis W/O CPT Code: FULL RESULT: EXAM: CT ABDOMEN AND PELVIS. EXAM DATE: 12/21/2017 08:49 PM. CLINICAL HISTORY: Increasing abdominal pain and distention since yesterday. COMPARISONS: 12/20/2017. TECHNIQUE: Routine helical CT imaging was performed through the abdomen and pelvis. IV contrast: None. Enteric contrast: No. Reconstructions: Coronal and sagittal. In accordance with CT protocol optimization, one or more of the following dose reduction techniques were utilized for this exam: automated exposure control, adjustment of mA and/or KV based on patient size, or use of iterative reconstructive technique. FINDINGS: Lung Bases: Stable mild cardiomegaly. Emphysematous changes. Liver: Normal. No masses. Gallbladder/Bile Ducts: Unremarkable. Spleen: Normal. Pancreas: Normal. Adrenal Glands: Normal. Kidneys: Normal. No masses or hydronephrosis. Peritoneal Cavity/Bowel: Diverticula of the colon. No free fluid, free air or adenopathy. No masses or acute inflammatory process. Appendix not visualized but no inflammatory changes adjacent to the cecum. Pelvic Organs: Pelvis partially obscured by artifacts of the left total hip prosthesis. Prostatic calcification. No stones in the small caliber urinary bladder. No free fluid. Interval evacuation of the rectal stool. Vasculature: Prior aortobiiliac stenting of an infrarenal aortic aneurysm. Maximum diameter of the [place] aorta is 4.2 cm. Bones: Multilevel marked degenerative disk disease throughout the scoliotic spine. Left total hip replacement. Other: None. IMPRESSION: 1. Mild cardiomegaly. 2. Chronic lung disease. 3. Colonic diverticulosis. 4. Stenting of an infrarenal abdominal aortic aneurysm. 5. Interval evacuation of the moderate amount of rectal stool. No excessive stool retention at this time. 6. No radiographic explanation for this gentlemen's symptoms. [facility]
[2017-12-21 21:58] VITALS: BP 106/82
== END 2017-12-21 22:01 | disposition home or self-care (01) ==
LOC: EDUNIT# → ED 17:50 → SUPCPDRO 17:50 → ED 22:01
DX: R10.84 Generalized abdominal pain (principal); K59.00 Constipation, unspecified; E03.9 Hypothyroidism, unspecified; Z79.82 Long term (current) use of aspirin
CPT/HCPCS: 51798; 74176; 96361; 96374; 96375; 99283; 99284; A9270; J2060

== ENCOUNTER 2017-12-31 18:16 | Outpatient (CLI) | payer MEDICARE, OTHER | END 2017-12-31 18:17 | disposition critical access hospital (66) | LOC: EMS 18:16 | PROVIDERS: ATTEND Surgery | DX: R41.0 Disorientation, unspecified (principal) | CPT/HCPCS: A0425; A0429 ==

== ENCOUNTER 2017-12-31 18:35 | Observation (INO) | payer MEDICARE, OTHER ==
--- NOTE | 2017-12-31 18:46 | ED Physician Documentation ---
PD HPI ALTERED MENTAL STATUS - Stated complaint Stated Complaint: SI - Chief complaint Chief Complaint: MHE - History obtained from History obtained from: Patient, EMS - History of Present Illness Timing - onset: Other (87-year-old gentleman with history of AAA, frequent emergency department visits lately for falls and fecal impactions. He is he went to the doctor's office today and he was confused and having suicidal ideation. He recently started gabapentin but I am not sure for what he does not know either. His vital signs were unremarkable at the doctor's office and he was referred here for further evaluation and treatment. He definitely is confused and a poor historian. The is not here on arrival but I am understanding that she is on the way.) Review of Systems Unable to obtain: Confused PD PAST MEDICAL HISTORY - Past Medical History Cardiovascular: Atrial fibrillation Respiratory: None Endocrine/Autoimmune: HyPOthyroidism : Benign prostate hypertrophy HEENT: Chronic hearing loss Psych: None Musculoskeletal: None Derm: None - Past Surgical History Past Surgical History: Yes - Present Medications Home Medications: Ambulatory Orders Medication Instructions Recorded Confirmed Aspirin 81 mg DAILY 01/10/17 08/14/17 Tamsulosin HCl 0.4 mg PO DAILY 01/10/17 08/14/17 Zolpidem Tartrate 10 mg PO QPM PRN 01/10/17 08/14/17 Latanoprost 0.005% Ophth Drops 1 drops EACHEYE QPM 08/14/17 08/14/17 [Xalatan Ophth Drops] Levothyroxine Sodium [Synthroid] 100 mcg PO DAILY #30 tablet 08/14/17 Timolol 0.5% Ophth Drops [Timoptic 1 drops EACHEYE DAILY 08/14/17 08/14/17 0.5% Ophth Drops] Levothyroxine Sodium [Synthroid] 100 mcg PO DAILY #30 tablet 08/16/17 Dorzolamide HCl 12/20/17 Doxazosin [Cardura] 12/20/17 Gabapentin 600 mg PO 12/20/17 Ipratropium [place] 12/20/17 Polyethylene Glycol 3350 [Miralax] 17 gm PO DAILY PRN #1 bottle 12/20/17 - Allergies Allergies/Adverse Reactions: Allergies Allergy/AdvReac Type Severity Reaction Status Date / Time No Known Drug Allergies Allergy Verified 12/31/17 18:43 - Social History Does the pt smoke?: No Smoking Status: Never smoker Does the pt drink ETOH?: No Does the pt have substance abuse?: No - Immunizations Immunizations are current?: Yes - POLST Patient has POLST: No PD ED PE NORMAL - Vitals Vital signs reviewed: Yes - General General: Other (He is alert, oriented to person only, not place or time. He admits to suicidal ideation but has no plan. 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 No: Alert and oriented X 3 Eye Opening: Spontaneous Motor: Obeys Commands Verbal: Confused GCS Score: 14 - Psych Psych: Normal mood, Normal affect Results - Vitals Vitals: Vital Signs - 24 hr 12/31/17 12/31/17 12/31/17 18:38 19:00 21:06 Temperature 36 C L Heart Rate 79 90 Respiratory 18 16 20 Rate Blood Pressure 181/78 H 181/78 H 144/96 H O2 Saturation 100 100 100 Oxygen O2 Source [With Activity] Room air O2 Source Room air - Labs Labs: Laboratory Tests 12/31/17 12/31/17 12/31/17 18:54 18:54 18:54 WBC 6.5 RBC 4.02 L Hgb 12.1 L Hct 36.0 L MCV 89.6 MCH 30.2 MCHC 33.7 RDW 13.7 Plt Count 256 MPV 7.1 L Neut # (Auto) 4.5 Lymph # (Auto) 1.3 L [place] # (Auto) 0.6 Eos # (Auto) 0.1 Baso # (Auto) 0.0 Absolute Nucleated RBC 0.00 Nucleated RBC % 0.0 Sodium 129 L Potassium 4.2 Chloride 96 L Carbon Dioxide 21 Anion Gap 12.0 BUN 13 Creatinine 1.3 H Estimated GFR (MDRD) 52 L Glucose 88 Calcium 9.2 Total Bilirubin 0.8 AST 22 ALT 15 Alkaline Phosphatase 86 Troponin I 0.05 Total Protein 6.8 Albumin 3.7 Globulin 3.1 Albumin/Globulin Ratio 1.2 Lipase 21 L Urine Color Urine Clarity Urine pH Ur Specific Gem Urine Protein Urine Glucose (UA) Urine Ketones Urine Occult Blood Urine Nitrite Urine Bilirubin Urine Urobilinogen Ur Leukocyte Esterase Urine RBC Urine WBC Ur Squamous Epith Cells Urine Bacteria Ur Microscopic Review Urine Culture Comments Salicylates < 6.0 Urine Opiates Screen Ur Oxycodone Screen Urine Methadone Screen Ur Propoxyphene Screen Acetaminophen 11 Ur Barbiturates Screen Ur Tricyclics Screen Ur Phencyclidine Scrn Ur Amphetamine Screen U Methamphetamines Scrn U Benzodiazepines Scrn Urine Cocaine Screen U Cannabinoids Screen Ethyl Alcohol < 5.0 12/31/17 20:15 WBC RBC Hgb Hct MCV MCH MCHC RDW Plt Count MPV Neut # (Auto) Lymph # (Auto) [place] # (Auto) Eos # (Auto) Baso # (Auto) Absolute Nucleated RBC Nucleated RBC % Sodium Potassium Chloride Carbon Dioxide Anion Gap BUN Creatinine Estimated GFR (MDRD) Glucose Calcium Total Bilirubin AST ALT Alkaline Phosphatase Troponin I Total Protein Albumin Globulin Albumin/Globulin Ratio Lipase Urine Color YELLOW Urine Clarity CLEAR Urine pH 7.0 Ur Specific Gem <=1.005 Urine Protein NEGATIVE Urine Glucose (UA) NEGATIVE Urine Ketones NEGATIVE Urine Occult Blood NEGATIVE Urine Nitrite NEGATIVE Urine Bilirubin NEGATIVE Urine Urobilinogen 0.2 (NORMAL) Ur Leukocyte Esterase MODERATE H Urine RBC None Seen Urine WBC 11-25 H Ur Squamous Epith Cells FEW Squamous Urine Bacteria Rare Ur Microscopic Review INDICATED Urine Culture Comments INDICATED Salicylates Urine Opiates Screen NEGATIVE Ur Oxycodone Screen NEGATIVE Urine Methadone Screen NEGATIVE Ur Propoxyphene Screen NEGATIVE Acetaminophen Ur Barbiturates Screen NEGATIVE Ur Tricyclics Screen NEGATIVE Ur Phencyclidine Scrn NEGATIVE Ur Amphetamine Screen NEGATIVE U Methamphetamines Scrn NEGATIVE U Benzodiazepines Scrn NEGATIVE Urine Cocaine Screen NEGATIVE U Cannabinoids Screen NEGATIVE Ethyl Alcohol - Rads (name of study) CT A/P Radiology: EMP read contemporaneously (Nondisplaced fractures of left transverse processes of L1 through L4, this was discussed with the on-call radiologist and they are new since December 05, but were noted on the lumbar spine CT but not read. Otherwise no acute disease, status post AAA.) Ct Head Radiology: EMP read contemporaneously (small vessel ischemic) PD MEDICAL DECISION MAKING - ED course ED course: This is an acutely confused 87-year-old gentleman with multiple recent falls and started gabapentin, I think in the last couple of days which I suspect is what made him acutely confused and he had suicidal ideation from it. He did not clear in the emergency department. Of note he had a recent fall with lumbar spine transverse process fractures which were not commented on on previous reads. The was at the bedside later, she was not here on initial arrival, she is frankly almost as confused as she as he is. I recommended potentially pursuing long-term care options other than living home alone which were basically scoffed at but given the persistent confusion he probably needs to be observed overnight to let the gabapentin wear off, because I presume that is the source of his confusion tonight and I spoke with Dr. Amaya for observation at 9:50 PM. - Sepsis Event Vital Signs: Vital Signs - 24 hr 12/31/17 12/31/17 12/31/17 18:38 19:00 21:06 Temperature 36 C L Heart Rate 79 90 Respiratory 18 16 20 Rate Blood Pressure 181/78 H 181/78 H 144/96 H O2 Saturation 100 100 100 Oxygen O2 Source [With Activity] Room air O2 Source Room air Departure - Departure Disposition: ED Place in Observation Clinical Impression: Confusion Condition: Stable Discharge Date/Time: 12/31/17 23:26
[2017-12-31 19:02] LABS: BASOPHILS % (AUTO) 0.6 %; EOSINOPHILS # (AUTO) 0.1 10^3/uL (0.0-0.7); EOSINOPHILS % (AUTO) 1.4 %; HGB - HEMOGLOBIN 12.1 g/dL (14.0-18.0); LYMPHOCYTES # (AUTO) 1.3 10^3/uL (1.5-3.5); LYMPHOCYTES % (AUTO) 19.4 %; MEAN CORPUSCULAR HEMOGLOBIN 30.2 pg (27.0-31.0); MEAN CORPUSCULAR HGB CONC 33.7 g/dL (32.0-36.0); MEAN CORPUSCULAR VOLUME 89.6 fL (80.0-94.0); MEAN PLATELET VOLUME 7.1 fL (7.4-11.4); MONOCYTES # (AUTO) 0.6 10^3/uL (0.0-1.0); MONOCYTES % (AUTO) 9.8 %; NEUTROPHILS # (AUTO) 4.5 10^3/uL (1.5-6.6); NEUTROPHILS % (AUTO) 68.8 %; PLT - PLATELET COUNT 256 10^3/uL (130-450); RED BLOOD COUNT 4.02 10^6/uL (4.70-6.10); RED CELL DISTRIBUTION WIDTH 13.7 % (12.0-15.0); WHITE BLOOD COUNT 6.5 x10^3/uL (4.8-10.8)
[2017-12-31] MEDS ORDERED: IOPAMIDOL-300 100 ML VIAL ONE (19:02)
[2017-12-31 19:15] LABS: ACETAMINOPHEN 11 ug/mL (10-30); ALBUMIN 3.7 g/dL (3.2-5.5); ALBUMIN/GLOBULIN RATIO 1.2 (1.0-2.2); ALKALINE PHOSPHATASE 86 IU/L (42-121); ALT ALANINE AMINOTRANSFERASE 15 IU/L (10-60); AST ASPARTATE AMINOTRANSFERASE 22 IU/L (10-42); BILIRUBIN,TOTAL 0.8 mg/dL (0.2-1.0); BUN - BLOOD UREA NITROGEN 13 mg/dL (6-20); CALCIUM 9.2 mg/dL (8.5-10.3); CARBON DIOXIDE - CO2 21 mmol/L (21-32); CHLORIDE 96 mmol/L (101-111); CREATININE 1.3 mg/dL (0.6-1.2); GFR - MDRD 52 (>89); GLUCOSE 88 mg/dL (70-100); LIPASE 21 U/L (22-51); SALICYLATE < 6.0 mg/dL; SODIUM 129 mmol/L (135-145); TOTAL PROTEIN 6.8 g/dL (6.7-8.2)
[2017-12-31] MEDS ORDERED: IOPAMIDOL-300 100 ML VIAL IVP ONE (19:54)
[2017-12-31 20:19] LABS: MUDS CUTOFF CONCENTRATIONS CUTOFF CONC BELOW:
[2017-12-31 20:27] LABS: BILIRUBIN,URINE NEGATIVE (NEGATIVE); GLUCOSE, URINE (UA) NEGATIVE (NEGATIVE); KETONES,URINE (UA) NEGATIVE (NEGATIVE); LEUKOCYTE ESTERASE, URINE MODERATE (NEGATIVE); NITRITE,URINE NEGATIVE (NEGATIVE); OCCULT BLOOD,URINE NEGATIVE (NEGATIVE); PROTEIN,URINE NEGATIVE (NEGATIVE); UROBILINOGEN,URINE 0.2 (NORMAL) E.U./dL (NORMAL)
[2017-12-31 20:29] LABS: CLARITY,URINE CLEAR (CLEAR)
[2017-12-31 20:34] LABS: AMPHETAMINE SCREEN,URINE NEGATIVE (NEGATIVE); BENZODIAZEPINES SCREEN, URINE NEGATIVE (NEGATIVE); COCAINE SCREEN URINE NEGATIVE (NEGATIVE); METHADONE SCREEN, URINE NEGATIVE (NEGATIVE); METHAMPHETAMINES SCREEN, URINE NEGATIVE (NEGATIVE); OPIATE SCREEN, URINE NEGATIVE (NEGATIVE); OXYCODONE SCREEN, URINE NEGATIVE (NEGATIVE); PROPOXYPHENE SCREEN, URINE NEGATIVE (NEGATIVE); TRICYCLIC ANTIDEPRESSANT,URINE NEGATIVE (NEGATIVE)
--- NOTE | 2017-12-31 20:42 | CT Report ---
Procedure Date: 12/31/2017 Accession Number: [id number] / [id number] Procedure: CT - Head W/O CPT Code: FULL RESULT: EXAM: CT HEAD EXAM DATE: 12/31/2017 07:46 PM. CLINICAL HISTORY: Confusion. COMPARISON: 08/13/2017. TECHNIQUE: Multiaxial CT images were obtained from the foramen magnum to the vertex. Reformats: Coronal. IV contrast: None. In accordance with CT protocol optimization, one or more of the following dose reduction techniques were utilized for this exam: automated exposure control, adjustment of mA and/or KV based on patient size, or use of iterative reconstructive technique. FINDINGS: Parenchyma: No intraparenchymal hemorrhage. No evidence of mass, midline shift, or CT findings of infarction. Silver-white differentiation is distinct. Moderate cortical volume loss, in keeping with the patient's age. There is periventricular and subcortical white matter hypoattenuation, nonspecific, most likely related to sequela of small vessel ischemic change. Extraaxial Spaces: Mildly prominent, in keeping with the patient's age. No subdural or epidural collections identified. Ventricles: Normal in size and position. Sinuses and Orbits: Imaged paranasal sinuses, orbits, and mastoids show no significant abnormality. Bones: No evidence of fracture or calvarial defect. Other: None. IMPRESSION: 1. No acute intracranial abnormality. 2. Cortical atrophy commensurate with age. Probable sequela of small vessel ischemic change. [facility]
[2017-12-31 20:43] LABS: BACTERIA,URINE Rare /HPF (None Seen); RBC,URINE None Seen /HPF (0-5); SQUAMOUS EPITHELIAL CELL,UR FEW Squamous (<= Few)
--- NOTE | 2017-12-31 20:57 | CT Report ---
Procedure Date: 12/31/2017 Accession Number: [id number] / [id number] Procedure: CT - Abdomen/Pelvis W/ CPT Code: FULL RESULT: EXAM: CT ABDOMEN AND PELVIS EXAM DATE: 12/31/2017 07:55 PM. CLINICAL HISTORY: Abdominal pain COMPARISONS: 12/21/2017. TECHNIQUE: Routine helical CT imaging was performed through the abdomen and pelvis. IV contrast: ISOVUE 300 100mL. Enteric contrast: No. Reconstructions: Coronal and sagittal. In accordance with CT protocol optimization, one or more of the following dose reduction techniques were utilized for this exam: automated exposure control, adjustment of mA and/or KV based on patient size, or use of iterative reconstructive technique. FINDINGS: Lung Bases: Unremarkable. Liver: Normal. No masses. Gallbladder/Bile Ducts: Unremarkable. Spleen: Normal. Pancreas: Normal. Adrenal Glands: Normal. Kidneys: Normal. No masses or hydronephrosis. Peritoneal Cavity/Bowel: Duodenal diverticulum. Colonic diverticula without CT evidence of acute diverticulitis. No free fluid, free air or adenopathy. No masses or acute inflammatory process. The appendix is well visualized and normal. Pelvic Organs: Evaluation is limited by streak artifact from the patient's left hip prosthesis. Visualized portions of the urinary bladder are unremarkable. The prostate is not well seen due to streak artifact. Vasculature: Unchanged appearance to an infrarenal aortic aneurysm, status post aortobiiliac stenting. Bones: Moderate to severe multilevel degenerative changes in the spine. Left hip arthroplasty. Nondisplaced fractures of the left transverse processes of L1-4. Other: None. IMPRESSION: 1. Nondisplaced fractures of the left transverse processes of L1-4. Otherwise no acute findings in the abdomen and pelvis. 2. Unchanged appearance to infrarenal aortic aneurysm status post stenting. 3. Colonic diverticula without CT evidence of acute diverticulitis. [facility]
[2017-12-31] MEDS ORDERED: ACETAMINOPHEN 325 MG TABLET PO PRN (21:50)
[2017-12-31] MEDS ORDERED: SODIUM CHLORIDE FLUSH 0.9% 10 ML SYRINGE IVP PRN (21:50)
[2017-12-31] MEDS ORDERED: ONDANSETRON ODT 4 MG TABLET TL PRN (21:50)
[2017-12-31] MEDS ORDERED: HYDROcod/ACETAM 5/325 MG TABLET PO PRN (21:50)
[2018-01-01] MEDS: SODIUM CHLORIDE 0.9% 1,000 ML IV SCH ×2 (00:16→10:06)
[2018-01-01] MEDS: SODIUM CHLORIDE FLUSH 0.9% 10 ML SYRINGE IVP SCH ×2 (00:16→10:07)
--- NOTE | 2018-01-01 02:59 | HISTORY & PHYSICAL EXAMINATION ---
DATE OF ADMISSION: 12/31/2017 ADMITTING PROVIDER: Aixa Amaya MD. ATTENDING PROVIDER: Diego Serrano MD. CHIEF COMPLAINT: Confusion and suicidal ideation. HISTORY OF PRESENT ILLNESS: The patient was sent to the emergency room from his primary care provider's office. He was being evaluated for chronic pain from his back that had worsened after recent falls. He was noted to be increasingly confused. At some point in his back pain history he had been placed on gabapentin and it may or may not have been making the confusion worse or started the confusion. While he was in his primary care provider's office, he stated that he was suicidal. He just wanted to . He did not have a clear plan. And because of that, he was sent to the emergency room. But this patient is very confused. When asked about his suicidal ideation, he reported to Dr. Carpenter that yes, he is suicidal, because of the gabapentin. But later on in Dr. Carpenter 's evaluation, he denied being suicidal and could not remember his previous statement. By the time I got to him in my evaluation, the patient was denying any suicidal ideation. His concern was epigastric and left mid abdominal pain that had been off and on from "one of his falls." But he was vague about which fall. He remembers tripping over a chair in his bedroom and he hurt his back, which then made him digress to a long conversation about chronic back pain, but he was clearly no longer suicidal from my perspective. He also didn't remember saying that. He was having word finding problems, struggled to string together a sentence. Choppy speech, many pauses. But alert. In reviewing the medical record, the impression I am getting is that of an 87- year-old man who is gradually failing with regard to memory, increasing cognitive impairment, and falls. His records of falls and confusion date to 2012. He has had numerous MRIs and plain films of his back. MRIs were done in August 2008, January 2007, nuclear medicine bone scan in September 2009, plain films March 2012, and October 2013. All of them show severe multilevel degenerative disk disease, facet arthropathy, central canal stenosis and foraminal stenosis. No imaging was done of his brain during this time. He was then admitted for a listing gait and confusion July 2017. He has a long history of paroxysmal atrial fibrillation for which he is not anticoagulated because of his history of falls. He developed a listing gait and confusion in the midst of being treated for UTI twice that month. EKGs in 2017 through 2017 document normal sinus rhythm with first-degree AV block. He does not have atrial fibrillation noted until a November 2017 EKG. Nevertheless, with the July 2017 visit for the ataxia/confusion, he was found to have an acute left paramedian macular stroke, but he also had evidence of old lacunar infarct in the bilateral basal ganglia, left cerebellum, and left posterior frontal lobe. So this gentleman has been having strokes for quite some time. 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 Bring all of this history forward to his current complaint of suicidal ideation and increasing confusion in the face of gabapentin. After Dr. Carpenter evaluated him for his suicidal statements and confusion, he found him to have mild hyponatremia that is chronic. His sodium has been in the 130s in [id number] and gradually drifting to the 120s in November 2017. His creatinine is staying stable at 1.3-1.5 with a GFR of 44-52. He does not have an elevated white cell count. His urine tox screen is negative. His urinalysis once again shows moderate leukocyte esterase, white cells, rare bacteria. All of his cultures have shown contaminated specimen or polymicrobial growth since 2012. What was new in Dr. Carpenter's evaluation is that of transverse process fractures. His last lumbar spine CT 12/20/2017, done because of back pain after another fall, did not comment on that. He continues to have severe central canal stenosis and bilateral foraminal stenosis. Today's head CT done for the confusion shows no acute intracranial abnormality and cortical atrophy and sequelae of small vessel ischemic changes. As such, the overall picture is not good, but the acute current problem is that of confusion, self-stated suicidal ideation, in the face of a sedative drug, namely gabapentin. He has chronic kidney disease, chronic hyponatremia, and chronic bacteriuria. He was placed in observation in the hopes that letting the gabapentin out of his system will clear his mentation and confusion and then allow a safe return to home. PAST MEDICAL HISTORY 1. 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 This was done for his history of stroke. His ejection fraction is 40-45%. He has grade II diastolic dysfunction with severe right atrial enlargement, mild left atrial enlargement, mild increased right heart pressures and moderate pulmonary regurgitation. 2. Abdominal aortic aneurysm, status post stent. 3. Sigmoid diverticulosis with occasional left lower quadrant and left mid abdominal pain since 2012. He has been seen at [facility] for these complaints in 2012 and 2016. 4. Duodenal diverticulosis on same CT scans. 5. Osteoarthritis with left total hip replacement. 6. History of right renal scarring on CT from pyelonephritis. 7. Dysphagia. Again, this patient has probably been having strokes for an unkown length of time. This could be residual deficit or presyesophagus. No brain imaging was done until July 2017. Prior to this, the dysphagia was evaluated with a barium swallow, which was negative 04/10/2013 and done at [facility]. 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 8. Hypertension. 9. Obstructive sleep apnea. 10. Tonsillectomy. 11. Hypothyroidism. 12. Pulmonary nodules seen on lower cuts of the lung done with CT abdomen and pelvis 01/27/2017. Six-month followup recommended. 13. Benign prostatic hypertrophy with bladder wall thickening and calcifications of the prostate. 14. Chronic back pain from multilevel degenerative disc disease and foraminal stenosis causing spinal stenosis. 15. Chronic kidney disease with a GFR of 44-52. 16. Strokes as above with probable vascular dementia and gait ataxia as residuals. ALLERGIES: NO KNOWN DRUG ALLERGIES. MEDICATIONS 1. Aspirin 81 mg a day. 2. Cardura 4 mg a day. 3. Levothyroxine 100 mcg a day. 4. Tamsulosin 0.4 mg a day. 5. Zolpidem 10 mg in the evening as needed. 6. Timoptic ophthalmic solution. 7. Latanoprost ophthalmic solution. 8. Dorzolamide ophthalmic solution. 9. Atrovent via HFA inhaler. SOCIAL HISTORY: He was born in [place]. [place] when he joined the at the age of 19 and served for 20 years. He joined approximately 1949. He is not service connected. 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 When he retired, he retired to [employer]. He had been stationed here for a short time during his [place] and [place] why they ended up here. He has no history of alcohol abuse. He smoked starting at the age of 9 and probably smoked half a pack per day until his mid 20s, when he stopped. He has no history of recreational substance abuse. They are not a member of any confucianist. They are relatively isolated with regard to social interaction and do not have much support at home. They have not thought about any advanced care planning beyond resuscitative status. They have not thought about what they would do if they were too old to take care of themselves. states that "we will just let our sons decide," but she has never had a conversation with them. One son lives in [place], one son lives in [place], and one son lives in [facility]. She says that she sees the [facility] son maybe once a year, the other sons less frequently. FAMILY HISTORY: Mom at around 94 of old age. He never knew his father. One sister is not in contact with. They have just lost contact over the decades of life. He does know if she is alive and he does know if she has had any major medical issues. As far as he knows, his three sons do not have diabetes, cancer, heart attack, stroke or thyroid disease. REVIEW OF SYSTEMS Difficult to obtain. This gentleman is delightful, in good spirits, but digresses frequently, and cannot stay on topic. He is also a very vague historian and I suspect a poor, poor memory causes him to be vague in his responses. CONSTITUTIONAL: He denies any constitutional changes of unexpected weight loss , fevers, or sweats. ENT: Mouth is dry, vision is occasionally blurred, has glaucoma, is mildly deaf. PULMONARY: Denies coughing, wheezing, shortness of breath. Denies any phlegm production. CARDIAC: Does not remember that he has atrial fibrillation. Denies palpitations. Denies orthopnea, edema, chest pain. GASTROINTESTINAL: Endorses dysphagia. Food just feels like it gets stuck in the middle of his chest. It has been no better or no worse over the last few years. Every once in a while he has indigestion. Stool is dark, but he says he has not had any change in the color of the stool, quantity of the stool or frequency. Right now, he has epigastric and left mid abdominal ache. That complaint surfaced in his evaluation after Dr. Carpenter had already seen him. He is vague about when it started. He cannot tell me what makes it better or worse. It is nonradiating. It is described as a steady dull ache. GENITOURINARY: Urgency, frequency. Demonstrated in the emergency room with repetitive asking for the urinal. Denies dysuria, hematuria, flank pain. JOINTS: Stiff, ache, worse in the morning and gets better as the morning progresses. That includes his neck, shoulders, hands, hips and knees. Denies any recent joint effusions. Has severe chronic back pain. SKIN: Denies any rashes, new lesions. PSYCHIATRIC: Does not remember being suicidal when I speak to him and laughs when I gently remind him that is the reason he is here. He corrects me and says no, that he is here because of his abdominal ache. CENTRAL NERVOUS SYSTEM: Denies memory loss, denies deafness, but clearly both are evident during my evaluation. , unfortunately, is also suffering from memory loss. Denies seizures, gets very lightheaded. With his last hospitalization, he was identified as having orthostatic hypotension of at least 20 mmHg drop. He denies any focal deficits. He says his balance has been off "forever" and it does not seem to be getting any better. PHYSICAL EXAMINATION VITAL SIGNS: Temperature is 36, pulse is 80, blood pressure 163/81, respirations 18, 99% on room air. GENERAL: He is a thin, lanky, cooperative, cheerful, elderly gentleman in no acute distress. He keeps on repeating that the only reason he is here is because his doctor sent him here and he is not quite sure why his doctor did that. ENT: One small abrasion over the left confucianist. Pupils are reactive. No facial asymmetry. No contusions, no lacerations other than a small skin abrasion over the left confucianist. Oral mucosa is slightly dry. Speech is intact. Tongue midline. Gag intact. NECK: Supple. It is amazing that when I have him rotate his neck I can actually hear his neck joints popping and cracking. No goiter. No bruits. LUNGS: Clear to auscultation and percussion without any crackles, rhonchi, wheezing. No increased respiratory effort. HEART: PMI is normally placed with an irregular rate and rhythm, systolic ejection murmur, but not laterally displaced PMI. ABDOMEN: Mildly tender in the epigastrium and left mid abdomen where he points , but there is no rebound, no guarding. No abdominal distention and normal bowel sounds. There is some suprapubic tenderness and aching, but I do not feel his bladder. EXTREMITIES: The extremities are thin, and in spite of his history of combined systolic and diastolic heart failure, there is absolutely no edema. No signs of chronic venous stasis changes. He has mild onychomycosis of the great toenails. Mildly diminished dorsalis pedis pulses and I cannot feel posterior tibial pulses. NEUROLOGIC: The patient is oriented to self and place. Does not know the date , and gives me his age as 28. He then corrects himself and guesses 68. He does remember his birthday. Cranial nerves appear intact other than he is slightly to moderately deaf. He has definite word-finding deficit. 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 I do have to say that I introduced myself at the beginning of this evaluation, and at the end of the evaluation 20 minutes later I asked him if he remembered my name and he did. He can follow 1-step commands, but they must be repeated slowly and several times. Simple commands such as raise your right hand, squeeze your left hand, wiggle your left toes are followed after a slight cognitive processing. But more than 1-step commands are not remembered and he cannot do them. 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 He can lift both arms above his head for me. He can lift both legs off the bed, and plantarflexion and dorsiflexion strength testing is intact. There are no tremors. I did not have the patient sit up and I did not test cerebellar. LABORATORY DATA: Urinalysis has moderate leukocyte esterase with 11-25 white cells, rare bacteria. White cell count 6.5, hemoglobin 12.1, hematocrit 36, platelets 256. INR 1.2. Sodium 129, potassium 4.2, BUN 13, creatinine 1.3, GFR 52. Liver enzymes normal. Troponin less than 0.05. Toxicology screen is negative for all substances. Salicylate negative. Acetaminophen 11. Alcohol less than 5. IMAGING STUDIES: Head CT is negative for acute trauma, bleed and signs of old stroke and loss of volume. EKG reviewed from 12/20/2017 shows sinus rhythm with prolonged ME. EKG from 12/05/2017 shows atrial fibrillation;however, there is an occasional complex associated with a P-wave. ASSESSMENT AND PLAN 1. Acute confusion, superimposed on chronic cognitive deficit. Gabapentin may be the most likely cause. In looking at other causes such as infection, stroke, arrhythmia , congestive heart failure, none of those are present other than pyuria. But no fever, no elevated white cell count and I do not think he has acute infection. As such, I agree with the conclusion of drug-induced confusion. As for the statements of suicidal ideation, I believe he made them but he can't remember now. He doesn't want to and denies a plan and is surprised I even asked. Plan: Place in observation. ATTESTATION: The patient will be in the hospital less than 96 hours. IV fluids. Gingerly use pain management. I would recommend that his ambien be stopped and have explained that to this . 2. Chronic systolic and diastolic congestive heart failure. At this time, exam shows him to be compensated. No right-sided heart failure, no crackles, no JVD, no leg edema , and no increased respiratory effort. He would be a good candidate for an ULISES inhibitor (low dose ) as well as a beta-krysten. I do not know if that has been attempted with him or if compliance has been an issue. That and the fact he has orthostatic hypotension. 3. Pyuria. Again, this was evaluated as a possible cause of his confusion. However, he seems to have chronic pyuria on many urinalyses in our system. Microbiology dating all the way to 11/2012 shows all of his cultures to be polymicrobial growth including potential pathogens suggestive of skin or other contamination. At this time, we will hold off for treating as a UTI. 4. Benign prostatic hypertrophy. Unclear if this patient is taking his Flomax or his Cardura. We will resume. However, this patient has orthostatic hypotension noted on previous visit. Both of these drugs can contribute to that and this can contribute to his falls. He is a poor historian with regard to his falls. 5. Cognitive deficit compatible with dementia from vascular dementia as a residual of old strokes. Are the strokes from emboli from his atrial fibrillation? Even if they are he is not a candidate for anticoagulation with his risk of fall and his memory loss (as well as ). We will ask clinical social work therapist to see if there is any support, we can offer this unfortunate elderly couple. I have also gently suggested to he and his that it would be appropriate for them to contact their sons and maybe start initial conversations with regards to what will they do if they get too old to be living by themselves. 6. Hypertension. In view of the fact that this gentleman has orthostatic hypotension by history, we will hold off on treating the hypertension with anything other than his Cardura. Will ask nursing to document his orthostatics. The falls he has are from the orthostasis and his ataxia. 7. Chronic hyponatremia. May be some indirect sign of dehydration considering he is not on diuretic, is confused, forgets to take his medications. We will give 0.9 normal saline and recheck in a.m. Check urine and serum osmolality. 8. Deep venous thrombosis prophylaxis will be TOAN mccall. 9. DO NOT RESUSCITATE status. He is very clear that if anything drastic were to happen to him and if he would have a sudden cardiac event with asystole, or bradycardia, he does not want a pacer, he does not want to be receiving chest compressions, nor does he want to be intubated. 10. Chronic back pain. At the very most use low dose opiates. Refer to outpatient PT. TD: 01/01/2018 00:17 SANDOVAL
[2018-01-01] MEDS ORDERED: LEVOTHYROXINE 100 MCG TABLET PO SCH (07:00)
[2018-01-01 07:06] LABS: CALCIUM 8.6 mg/dL (8.5-10.3); CREATININE 1.5 mg/dL (0.6-1.2)
[2018-01-01 08:39] VITALS: BP 120/64
[2018-01-01] MEDS ORDERED: POLYETHYLENE GLYCOL 3350 17 GM PACKET PO SCH (09:00)
[2018-01-01] MEDS ORDERED: ASPIRIN CHEW 81 MG TABLET PO SCH (09:00)
[2018-01-01] MEDS ORDERED: TIMOLOL 0.5% OPHTH DROPS EACHEYE SCH (09:00)
[2018-01-01] MEDS ORDERED: TAMSULOSIN 0.4 MG CAPSULE PO SCH (09:00)
[2018-01-01] MEDS ORDERED: DORZOLAMIDE 2% OPHTH DROPS EACHEYE SCH (09:00)
--- NOTE | 2018-01-01 11:42 | Discharge Plan ---
Discharge Plan Disposition: 01 Home, Self Care Condition: Stable Diet: Regular Activity Restrictions: No Restrictions Shower Restrictions: No Driving Restrictions: No (would be advised to have driving abilities reevaluated ) Additional Instructions or Follow Up instructions: -You were sent to the ED from your PCP's office where you were for a routine appointment because you evidently said something that suggested you were considering harming yourself (suicidal ideation). However in the Emergency Room, you indicated you had no such thought. -Your sodium was a little low (meaning you may have been a little dehydrate) and we gave you some IVFluid. The sodium level was better on 01/01. Make sure you drink enough liquid especially in the summer, at least ~ 8 cups / day )2 Liters_ The admitting doctor and the ED doctor thought you might have some confusion; the low sodium/dehydration may have contributed. There did not appear to be any other cause (no infection, urine had White blood cells, but does not appear infected, nostroke, no acute heart failure.) If you are taking ambien 10 mg , that is a BIG dose, would recommend trying a half dose (5mg) -Reported Falls at home; (You reported some falls. No evident injury; You are not on anticoagulation/stroke prevention for atrial fibrillation evidently due to this falling history. Physical therapy evaluated your gait and suggested you would benefit from using a walker a cane (although you did pretty well), but you indicated you would not use the cane. For your enlarged prostate, it is recommended you take your flomax, cardura AT NIGHT for less lightheadedness during the day. (these drugs CAN cause imbalance) -There was some concern whether you might not be taking your medications correctly (if extra doses of gabapentin etc might be causing confusion). Social work met with you. You declined any services from outside to visit your home to make sure you understood your prescriptions and were taking them properly No Smoking: If you smoke, Please STOP! Call for help. Follow-up with: John Cannon DO [Primary Care Provider] - 1 Week (routine follow up)
--- NOTE | 2018-01-01 11:43 | DISCHARGE SUMMARY ---
Discharge Summary Admit Date: 12/31/17 Discharge Date: 01/01/18 Discharging Provider: Anastasiya Pearce [facility] Primary Care Provider: Dr. Steward (H/P noted Dr Serrano, but patient states saw Dr. 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 5) BPH 6) code status; not previously documented Discharge Diagnoses with Status of Each Condition: 1) Acute confusion possible medication effect vs acute confusion superimposed on 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 He wished to stop gabapentin but given he has been on for a long time was advised on the need for taper and was given the below taper schedule. --Patient instructed to reduce by 50% x 1 week (300 mg 3x/ day x 1 week, then 300 mg 2x/day x 1 week, -then 300 mg at bedtime x 1 week, -----then STOP He was advised to avoid the ambien entirely and at the very least take only 5 mg not 10 mg . nutrition worker met with patient and (who live alone, and are relatively isolated socially, and who both seem to be having at least early cognitive decline; they initially declined home health services, but later AFter discharge instructions were signed, family DID agree to evaluation by [facility] AND, an order was placed for Home Health Referral for Nursing ( evaluate medication management; especially the instructions for gabapentin taper , and advisement to stop or reduce ambien, and for social work eval for home safety. 2) Hyponatremia and chronic hyponatremia; mild (Na 129 on admit) ; fairly consistent with recent values. Improved overnight with gentle IVF and most consistent with hypovolemic hyponatremia. Advised on adequate fluid intake, raoul. in summer. 4) PYuria/ no corresponding bactueria, no symptoms, not consistent with UTI Review of past records showed presentations w/ pyuria as well, all with mixed stephanie not consistent with UTI. NOT treated. Not UTI. 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 Blood pressure elevated w/ SBP ~ 180 on admission resolved w/ no intervention ( SBP 120's on discharge) 6) BPH; stable ; advised to take his flomax, cardura at night so as not to contribute to orthostasis/history of falls during upright daytime hours. 7) Falls. He is a poor historian re: his falls, but orthostasis has been identified in past. (and he is not on anticoagulation for afib evidently because of a significant falls history including compression fractures on imaging this time NOT seen previously.) Evaluated by PT; who noted patient would benefit from walker or cane BUT, patient indicated he would not use, and didnt feel he needed it - HPI History of Present Illness: See Dr.Rosa Romero very detailed H/P from 12/31/17 (especially in regard to ROS, history and social situation) Briefly Patient is an 87 yo male who has had progressive confusion. Some of this was believed to be in large part related to gabapentin for his chronic pain. At the most recent outpatient appointment, evidently in his confusion and somewhat convoluted speaking pattern he said something to the effect that he just wanted to (? due to back pain) and he was sent to the ED for suicidal ideation. Mr Dumont however denied such thoughts (other than to say that he was told his gabapentin was making him suicidal.) He only noted some epigastric discomfort on ED presentation. A corresponding CT abdomen as below had no acute corresponding findings. Labs were notable for a mild hyponatremia (not substantially different from prior labs and which improved with IVF), and mild CKD. He was admitted for evaluation of possible causes of acute confusion superimposed on grahamley baseline chronic cognitive defects (although his did not seem to find him off from what she knows to be his baseline.). Also addressed this admission was Code status (now no code) which is something evidently neither Mr Dumont, nor his had ever addressed or thought about before. see course by Problems Above - CONSULTS | PROCEDURES Consultations: Physical therapy Procedures: none - HOSPITAL COURSE Hospital Course: see above under Status of each Problem - ALLERGIES Allergies/Adverse Reactions: Allergies Allergy/AdvReac Type Severity Reaction Status Date / Time No Known Drug Allergies Allergy Verified 12/31/17 18:43 - MEDICATIONS Home Medications: Ambulatory Orders Medication Instructions Recorded Confirmed Aspirin 81 mg PO DAILY 01/10/17 01/01/18 Tamsulosin HCl 0.4 mg PO DAILY 01/10/17 01/01/18 Zolpidem Tartrate 10 mg PO QPM PRN 01/10/17 01/01/18 Latanoprost 0.005% Ophth Drops 1 drops EACHEYE QPM 08/14/17 01/01/18 [Xalatan Ophth Drops] Timolol 0.5% Ophth Drops [Timoptic 1 drops EACHEYE BID 08/14/17 01/01/18 0.5% Ophth Drops] Dorzolamide HCl 1 drops EACHEYE TID 12/20/17 01/01/18 Doxazosin [Cardura] 4 mg PO QPM 12/20/17 01/01/18 Gabapentin 600 mg PO TID 12/20/17 01/01/18 Ipratropium [place] 2 sprays TOÑO BID 12/20/17 01/01/18 Levothyroxine Sodium [Synthroid] 100 mcg PO QDAC 01/01/18 01/01/18 Pilocarpine HCl [Pilocarpine HCl] 5 mg PO TID 01/01/18 01/01/18 Tramadol HCl 50 mg PO Q6H PRN 01/01/18 01/01/18 raNITIdine [Zantac] 150 mg PO DAILY 01/01/18 01/01/18 Home Medications Other | Comments: see instructions for Gabapentin taper under narrative above - PHYSICAL EXAM AT DISCHARGE General Appearance: positive: No acute distress (lying flat in bed, NAD, present), Alert Eyes Bilateral: positive: EOMI Respiratory: positive: No respiratory distress, Breath sounds nml Cardiovascular: positive: Regular rate & rhythm Abdomen: positive: Nml bowel sounds (very mildly tender epigastrium, no guarding , ), No distention, Tenderness. negative: Guarding, Rebound Back: positive: Nml inspection. negative: CVA tenderness (R), CVA tenderness (L ) Skin: positive: Warm, Dry Extremities: positive: No pedal edema Neurologic/Psychiatric: positive: Oriented x3 (Laughs when asked if recalls why in the hospital " I have no idea, they said to come") - LABS Result Diagrams: 12/31/17 18:54 01/01/18 06:51 - DIAGNOSTIC IMAGING Diagnostic Imaging Results Comments: CT head; no acute findings. cortical volume loss most consistent with small vessel ischemic changes CT abdomen; no acute finding Nondisplaced Fracture Left transverse process T1-T4 (new finding), Findings c/w known infrarenal AA stenting Diverticulosis, no diverticulitis - FOLLOW UP Follow Up: Patient will be visited by [facility], and he will have a Home Health visit by an RN for safety evaluation, and review of Rx instructions. Routine followup with PCP. - TIME SPENT Time Spent in Discharge (Minutes): 30
[2018-01-01] MEDS ORDERED: LATANOPROST 0.005% OPHTH DROPS EACHEYE SCH (21:00)
[2018-01-01] MEDS ORDERED: DOXAZOSIN 4 MG TABLET PO SCH (21:00)
== END 2018-01-01 13:30 | disposition home or self-care (01) ==
LOC: EDUNIT# → ED 18:35 → OBS 21:52
PROVIDERS: ADMIT Specialist; ATTEND Specialist
DX: R41.0 Disorientation, unspecified (principal); E87.1 Hypo-osmolality and hyponatremia; N39.0 Urinary tract infection, site not specified; I11.0 Hypertensive heart disease with heart failure; I50.42 Chronic combined systolic (congestive) and diastolic (congestive) heart failure; F01.50 Vascular dementia, unspecified severity, without behavioral disturbance, psychotic disturbance, mood disturbance, and anxiety; I69.811 Memory deficit following other cerebrovascular disease; Z91.81 History of falling; R10.13 Epigastric pain; G89.29 Other chronic pain; M54.9 Dorsalgia, unspecified; I48.0 Paroxysmal atrial fibrillation; R26.0 Ataxic gait; N40.1 Benign prostatic hyperplasia with lower urinary tract symptoms; R35.0 Frequency of micturition; R39.15 Urgency of urination; K57.30 Diverticulosis of large intestine without perforation or abscess without bleeding; K57.10 Diverticulosis of small intestine without perforation or abscess without bleeding; M19.90 Unspecified osteoarthritis, unspecified site; R13.10 Dysphagia, unspecified; G47.33 Obstructive sleep apnea (adult) (pediatric); E03.9 Hypothyroidism, unspecified; R91.8 Other nonspecific abnormal finding of lung field; M48.00 Spinal stenosis, site unspecified; Z66 Do not resuscitate; Z79.82 Long term (current) use of aspirin; H40.9 Unspecified glaucoma; H91.90 Unspecified hearing loss, unspecified ear; Z79.51 Long term (current) use of inhaled steroids; Z79.899 Other long term (current) drug therapy; Z95.828 Presence of other vascular implants and grafts; Z87.440 Personal history of urinary (tract) infections; Z87.891 Personal history of nicotine dependence
CPT/HCPCS: 36415; 70450; 74177; 80048; 80053; 80306; 80307; 81001; 83690; 84484; 85025; 87086; 97162; 99284; 99285; A9270; G0378; G0480; G8978; G8979; G8980; Q9967; 80320; 80329; 81003

== ENCOUNTER 2018-02-20 09:30 | Emergency (ER) | payer MEDICARE, OTHER ==
--- NOTE | 2018-02-20 10:22 | ED Physician Documentation ---
PD HPI MALE - Stated complaint Stated Complaint: MALE - Chief complaint Chief Complaint: UTI - History obtained from History obtained from: Patient - History of Present Illness Timing - onset: How many days ago (several) Timing - duration: Days (3) Timing - details: Gradual onset, Still present Associated symptoms: Dysuria, Urinary frequency Similar symptoms before: Diagnosis (Dx with UTI and Rx with Bactrim. Got it from [facility] few days ago, without improvment.) Recently seen: Clinic Review of Systems Constitutional: reports: Myalgias, Fatigue. denies: Fever, Chills Nose: denies: Rhinorrhea / runny nose, Congestion Throat: denies: Sore throat Cardiac: denies: Chest pain / pressure, Palpitations Respiratory: denies: Dyspnea, Cough GI: reports: Constipation (no BM for 4 days, with feeling of rectal fullness. Feeling he is constipated.). denies: Abdominal Pain, Nausea, Vomiting, Diarrhea : reports: Frequency. denies: Dysuria PD PAST MEDICAL HISTORY - Past Medical History Past Medical History: Yes Cardiovascular: Atrial fibrillation Respiratory: None Neuro: Dementia, CVA Endocrine/Autoimmune: HyPOthyroidism : Benign prostate hypertrophy HEENT: Chronic hearing loss Psych: None Musculoskeletal: Osteoarthritis Derm: None - Past Surgical History Past Surgical History: Yes Ortho: Hip replacement - Present Medications Home Medications: Ambulatory Orders Medication Instructions Recorded Confirmed Aspirin 81 mg PO DAILY 01/10/17 02/20/18 Tamsulosin HCl 0.4 mg PO DAILY 01/10/17 02/20/18 Zolpidem Tartrate 10 mg PO QPM PRN 01/10/17 02/20/18 Latanoprost 0.005% Ophth Drops 1 drops EACHEYE QPM 08/14/17 02/20/18 [Xalatan Ophth Drops] Timolol 0.5% Ophth Drops [Timoptic 1 drops EACHEYE BID 08/14/17 02/20/18 0.5% Ophth Drops] Dorzolamide HCl 1 drops EACHEYE TID 12/20/17 02/20/18 Doxazosin [Cardura] 4 mg PO QPM 12/20/17 02/20/18 Ipratropium [place] 2 sprays TOÑO BID 12/20/17 02/20/18 Levothyroxine Sodium [Synthroid] 100 mcg PO QDAC 01/01/18 02/20/18 Pilocarpine HCl [Pilocarpine HCl] 5 mg PO TID 01/01/18 02/20/18 Tramadol HCl 50 mg PO Q6H PRN 01/01/18 02/20/18 raNITIdine [Zantac] 150 mg PO DAILY 01/01/18 02/20/18 Cephalexin [Keflex] 500 mg PO QID #24 capsule 02/20/18 Docusate Sodium 100 mg PO DAILY #30 capsule 02/20/18 - Allergies Allergies/Adverse Reactions: Allergies Allergy/AdvReac Type Severity Reaction Status Date / Time No Known Drug Allergies Allergy Verified 12/31/17 18:43 - Social History Does the pt smoke?: No Smoking Status: Never smoker Does the pt drink ETOH?: No Does the pt have substance abuse?: No - Immunizations Immunizations are current?: Yes - POLST Patient has POLST: No PD ED PE NORMAL - Vitals Vital signs reviewed: Yes - General General: Alert and oriented X 3, Well developed/nourished - HEENT HEENT: Pharynx benign - Neck Neck: Supple, no meningeal sign, No adenopathy - Cardiac Cardiac: RRR, No murmur - Respiratory Respiratory: No respiratory distress, Clear bilaterally - Abdomen Abdomen: Normal bowel sounds, Soft, Non distended - Male Male : Deferred - Rectal Rectal: Other (firm ball of stool, about tennis bal sized, broken up with fingertip.) - Back Back: No CVA TTP - Derm Derm: Normal color, Warm and dry - Extremities Extremities: No deformity, No tenderness to palpate - Neuro Neuro: Alert and oriented X 3, No motor deficit, Normal speech Results - Vitals Vitals: Vital Signs - 24 hr 02/20/18 02/20/18 02/20/18 09:50 12:17 14:31 Temperature 36.2 C L Heart Rate 76 68 74 Respiratory 14 18 20 Rate Blood Pressure 93/48 L 132/54 H 137/64 H O2 Saturation 100 98 99 Oxygen O2 Source [With Activity] Room air O2 Source Room air - Labs Labs: Laboratory Tests 02/20/18 02/20/18 02/20/18 10:50 10:50 10:50 WBC 6.8 RBC 3.40 L Hgb 10.5 L Hct 30.4 L MCV 89.4 MCH 30.8 MCHC 34.4 RDW 14.4 Plt Count 172 MPV 7.2 L Neut # (Auto) 5.4 Lymph # (Auto) 0.3 L [place] # (Auto) 0.6 Eos # (Auto) 0.5 Baso # (Auto) 0.0 Absolute Nucleated RBC 0.00 Nucleated RBC % 0.0 Sodium 124 L Potassium 3.8 Chloride 95 L Carbon Dioxide 21 Anion Gap 8.0 BUN 18 Creatinine 1.8 H Estimated GFR (MDRD) 36 L Glucose 86 Lactic Acid 1.2 Calcium 8.4 L Total Bilirubin 0.8 AST 19 ALT 16 Alkaline Phosphatase 62 Total Protein 5.7 L Albumin 3.5 Globulin 2.2 Albumin/Globulin Ratio 1.6 Lipase 35 Urine Color Urine Clarity Urine pH Ur Specific [place] Urine Protein Urine Glucose (UA) Urine Ketones Urine Occult Blood Urine Nitrite Urine Bilirubin Urine Urobilinogen Ur Leukocyte Esterase Urine RBC Urine WBC Urine WBC Clumps Ur Squamous Epith Cells Urine Bacteria Ur Microscopic Review Urine Culture Comments 02/20/18 11:55 WBC RBC Hgb Hct MCV MCH MCHC RDW Plt Count MPV Neut # (Auto) Lymph # (Auto) [place] # (Auto) Eos # (Auto) Baso # (Auto) Absolute Nucleated RBC Nucleated RBC % Sodium Potassium Chloride Carbon Dioxide Anion Gap BUN Creatinine Estimated GFR (MDRD) Glucose Lactic Acid Calcium Total Bilirubin AST ALT Alkaline Phosphatase Total Protein Albumin Globulin Albumin/Globulin Ratio Lipase Urine Color DARK YELLOW Urine Clarity CLEAR Urine pH 6.0 Ur Specific [place] <=1.005 Urine Protein TRACE Urine Glucose (UA) NEGATIVE Urine Ketones NEGATIVE Urine Occult Blood NEGATIVE Urine Nitrite POSITIVE H Urine Bilirubin NEGATIVE Urine Urobilinogen 1 (NORMAL) Ur Leukocyte Esterase MODERATE H Urine RBC 0-5 Urine WBC 4-5 Urine WBC Clumps PRESENT Ur Squamous Epith Cells RARE Squamous Urine Bacteria Rare Ur Microscopic Review INDICATED Urine Culture Comments INDICATED PD MEDICAL DECISION MAKING - ED course Complexity details: reviewed results (still with UTI, so gave Rocephin and will have cultures guide further treatment), considered differential (couple of complaints: still with dysuria after several days on abx (found to be Bactrim by calling pharmacy). Also complains of constipation and feeling of rectal fullness, found to be having some impaction on rectal exam. Broken up digitially and then flushed with enema. Moderate stool out. ), d/w patient - Sepsis Event Vital Signs: Vital Signs - 24 hr 02/20/18 02/20/18 02/20/18 09:50 12:17 14:31 Temperature 36.2 C L Heart Rate 76 68 74 Respiratory 14 18 20 Rate Blood Pressure 93/48 L 132/54 H 137/64 H O2 Saturation 100 98 99 Oxygen O2 Source [With Activity] Room air O2 Source Room air Departure - Departure Disposition: 01 Home, Self Care Clinical Impression: Fecal impaction in rectum, Hyponatremia UTI (urinary tract infection) Qualifiers: Urinary tract infection type: acute cystitis Hematuria presence: without hematuria Qualified Code(s): N30.00 - Acute cystitis without hematuria Constipation Qualifiers: Constipation type: unspecified constipation type Qualified Code(s): K59.00 - Constipation, unspecified Condition: Stable Record reviewed to determine appropriate education?: Yes Instructions: ED UTI Cystitis Male Follow-Up: John Cannon DO [Primary Care Provider] - Prescriptions: Cephalexin [Keflex] 500 mg PO QID #24 capsule Docusate Sodium 100 mg PO DAILY #30 capsule Comments: Drink lots of fluids. Discontinue your current antibiotic since you still have urinary infection despite it. Changed to cephalexin as directed for a week. Add docusate stool softener daily for the next several days to week. Follow-up with your primary care in 2-3 days, call for an appointment. Your sodium level is a little bit lower than your usual and your primary care should recheck that later this week as well. Discharge Date/Time: 02/20/18 14:31
[2018-02-20] MEDS ORDERED: SODIUM CHLORIDE 0.9% 1,000 ML IV ONE (10:41)
[2018-02-20 11:01] LABS: BASOPHILS % (AUTO) 0.2 %; EOSINOPHILS # (AUTO) 0.5 10^3/uL (0.0-0.7); EOSINOPHILS % (AUTO) 7.5 %; HGB - HEMOGLOBIN 10.5 g/dL (14.0-18.0); LYMPHOCYTES # (AUTO) 0.3 10^3/uL (1.5-3.5); LYMPHOCYTES % (AUTO) 4.9 %; MEAN CORPUSCULAR HEMOGLOBIN 30.8 pg (27.0-31.0); MEAN CORPUSCULAR HGB CONC 34.4 g/dL (32.0-36.0); MEAN CORPUSCULAR VOLUME 89.4 fL (80.0-94.0); MEAN PLATELET VOLUME 7.2 fL (7.4-11.4); MONOCYTES # (AUTO) 0.6 10^3/uL (0.0-1.0); MONOCYTES % (AUTO) 8.6 %; NEUTROPHILS # (AUTO) 5.4 10^3/uL (1.5-6.6); NEUTROPHILS % (AUTO) 78.8 %; PLT - PLATELET COUNT 172 10^3/uL (130-450); RED CELL DISTRIBUTION WIDTH 14.4 % (12.0-15.0); WHITE BLOOD COUNT 6.8 x10^3/uL (4.8-10.8)
[2018-02-20 11:14] LABS: ALBUMIN 3.5 g/dL (3.2-5.5); ALBUMIN/GLOBULIN RATIO 1.6 (1.0-2.2); BILIRUBIN,TOTAL 0.8 mg/dL (0.2-1.0); CALCIUM 8.4 mg/dL (8.5-10.3); CREATININE 1.8 mg/dL (0.6-1.2); TOTAL PROTEIN 5.7 g/dL (6.7-8.2)
[2018-02-20 12:06] LABS: BILIRUBIN,URINE NEGATIVE (NEGATIVE); GLUCOSE, URINE (UA) NEGATIVE (NEGATIVE); KETONES,URINE (UA) NEGATIVE (NEGATIVE); LEUKOCYTE ESTERASE, URINE MODERATE (NEGATIVE); NITRITE,URINE POSITIVE (NEGATIVE); OCCULT BLOOD,URINE NEGATIVE (NEGATIVE); PROTEIN,URINE TRACE mg/dL (NEGATIVE); UROBILINOGEN,URINE 1 (NORMAL) E.U./dL (NORMAL)
[2018-02-20 12:07] LABS: CLARITY,URINE CLEAR (CLEAR)
[2018-02-20 12:18] LABS: BACTERIA,URINE Rare /HPF (None Seen); RBC,URINE 0-5 /HPF (0-5); SQUAMOUS EPITHELIAL CELL,UR RARE Squamous (<= Few); WBC CLUMPS,URINE PRESENT
[2018-02-20] MEDS ORDERED: cefTRIAXone 1 GM VIAL IVP STA (12:58)
[2018-02-20] MEDS ORDERED: MINERAL OIL ENEMA 133 ML BOTTLE RC STA (13:12)
[2018-02-20 14:33] VITALS: BP 137/64
== END 2018-02-20 14:31 | disposition home or self-care (01) ==
LOC: ED 09:30
DX: K59.00 Constipation, unspecified (principal); E87.1 Hypo-osmolality and hyponatremia; N30.00 Acute cystitis without hematuria; F03.90 Unspecified dementia, unspecified severity, without behavioral disturbance, psychotic disturbance, mood disturbance, and anxiety; E03.9 Hypothyroidism, unspecified; Z86.73 Personal history of transient ischemic attack (TIA), and cerebral infarction without residual deficits; Z96.649 Presence of unspecified artificial hip joint
CPT/HCPCS: 36415; 51798; 80053; 81001; 83605; 83690; 85025; 87086; 96361; 96374; 99283; A9270; 81003

== ENCOUNTER 2018-02-23 02:59 | Outpatient (CLI) | payer MEDICARE, OTHER | END 2018-02-23 03:00 | disposition critical access hospital (66) | LOC: EMS 02:59 | PROVIDERS: ATTEND Surgery | DX: R10.30 Lower abdominal pain, unspecified (principal) | CPT/HCPCS: A0425; A0429 ==

== ENCOUNTER 2018-02-23 03:18 | Emergency (ER) | payer MEDICARE, OTHER ==
[2018-02-23 03:42] LABS: BILIRUBIN,URINE NEGATIVE (NEGATIVE); GLUCOSE, URINE (UA) NEGATIVE (NEGATIVE); KETONES,URINE (UA) NEGATIVE (NEGATIVE); LEUKOCYTE ESTERASE, URINE NEGATIVE (NEGATIVE); NITRITE,URINE NEGATIVE (NEGATIVE); OCCULT BLOOD,URINE SMALL (NEGATIVE); PROTEIN,URINE NEGATIVE (NEGATIVE); UROBILINOGEN,URINE 0.2 (NORMAL) E.U./dL (NORMAL)
[2018-02-23 03:46] LABS: CLARITY,URINE CLEAR (CLEAR)
[2018-02-23 03:48] LABS: BACTERIA,URINE Few /HPF (None Seen); SQUAMOUS EPITHELIAL CELL,UR RARE Squamous (<= Few)
[2018-02-23 03:51] LABS: BASOPHILS % (AUTO) 0.4 %; EOSINOPHILS # (AUTO) 0.5 10^3/uL (0.0-0.7); EOSINOPHILS % (AUTO) 9.7 %; HGB - HEMOGLOBIN 8.9 g/dL (14.0-18.0); LYMPHOCYTES # (AUTO) 0.7 10^3/uL (1.5-3.5); LYMPHOCYTES % (AUTO) 13.9 %; MEAN CORPUSCULAR HEMOGLOBIN 30.2 pg (27.0-31.0); MEAN CORPUSCULAR HGB CONC 33.8 g/dL (32.0-36.0); MEAN CORPUSCULAR VOLUME 89.2 fL (80.0-94.0); MEAN PLATELET VOLUME 6.9 fL (7.4-11.4); MONOCYTES # (AUTO) 0.7 10^3/uL (0.0-1.0); MONOCYTES % (AUTO) 12.7 %; NEUTROPHILS # (AUTO) 3.3 10^3/uL (1.5-6.6); NEUTROPHILS % (AUTO) 63.3 %; PLT - PLATELET COUNT 169 10^3/uL (130-450); RED BLOOD COUNT 2.96 10^6/uL (4.70-6.10); RED CELL DISTRIBUTION WIDTH 14.3 % (12.0-15.0); WHITE BLOOD COUNT 5.2 x10^3/uL (4.8-10.8)
[2018-02-23 04:02] LABS: ALBUMIN/GLOBULIN RATIO 1.4 (1.0-2.2); BILIRUBIN,TOTAL 0.6 mg/dL (0.2-1.0); CALCIUM 8.6 mg/dL (8.5-10.3); CREATININE 1.8 mg/dL (0.6-1.2); TOTAL PROTEIN 5.2 g/dL (6.7-8.2)
[2018-02-23] MEDS ORDERED: SODIUM CHLORIDE 0.9% 1,000 ML IV ONE (04:06)
--- NOTE | 2018-02-23 04:11 | ED Physician Documentation ---
PD HPI ABD PAIN - Stated complaint Stated Complaint: ABD PAIN - Chief complaint Chief Complaint: Abd Pain - History obtained from History obtained from: Patient, EMS - History of Present Illness Timing - onset: How many weeks ago (1) Timing - details: Gradual onset, Still present Quality: Cramping, Fullness/distended Location: Suprapubic Associated symptoms: Constipation. No: Fever, Nausea, Vomiting Similar symptoms before: Diagnosis, Work up / diagnostics Recently seen: Emergency Dept - Additional information Additional information: Patient is an 88 year old male with a history of bph who is presenting to the emergency department for suprapubic pain. patient has had intermittent pain for the last week. patient was started on bactrim a few weeks ago, but it didn' t seem to help. Patient then returned to the emergency department a few days ago with similar symptoms. At that point patient was started on rocephin and keflex. patient returned today because the suprapubic pain persisted. Review of Systems Ten Systems: 10 systems reviewed and negative Constitutional: denies: Fever, Chills GI: reports: Abdominal Pain : reports: Dysuria PD PAST MEDICAL HISTORY - Past Medical History Past Medical History: Yes Cardiovascular: Atrial fibrillation Respiratory: None Neuro: Dementia, CVA Endocrine/Autoimmune: HyPOthyroidism : Benign prostate hypertrophy HEENT: Chronic hearing loss Psych: None Musculoskeletal: Osteoarthritis Derm: None - Past Surgical History Past Surgical History: Yes Ortho: Hip replacement - Present Medications Home Medications: Ambulatory Orders Medication Instructions Recorded Confirmed Aspirin 81 mg PO DAILY 01/10/17 02/23/18 Tamsulosin HCl 0.4 mg PO DAILY 01/10/17 02/23/18 Zolpidem Tartrate 10 mg PO QPM PRN 01/10/17 02/23/18 Latanoprost 0.005% Ophth Drops 1 drops EACHEYE QPM 08/14/17 02/23/18 [Xalatan Ophth Drops] Timolol 0.5% Ophth Drops [Timoptic 1 drops EACHEYE BID 08/14/17 02/23/18 0.5% Ophth Drops] Dorzolamide HCl 1 drops EACHEYE TID 12/20/17 02/23/18 Doxazosin [Cardura] 4 mg PO QPM 12/20/17 02/23/18 Ipratropium [place] 2 sprays TOÑO BID 12/20/17 02/23/18 Levothyroxine Sodium [Synthroid] 100 mcg PO QDAC 01/01/18 02/23/18 Pilocarpine HCl [Pilocarpine HCl] 5 mg PO TID 01/01/18 02/23/18 Tramadol HCl 50 mg PO Q6H PRN 01/01/18 02/23/18 raNITIdine [Zantac] 150 mg PO DAILY 01/01/18 02/23/18 Cephalexin [Keflex] 500 mg PO QID #24 capsule 02/20/18 02/23/18 Docusate Sodium 100 mg PO DAILY #30 capsule 02/20/18 02/23/18 Phenazopyridine HCl [Pyridium] 200 mg PO TID PRN #6 tablet 02/23/18 - Allergies Allergies/Adverse Reactions: Allergies Allergy/AdvReac Type Severity Reaction Status Date / Time No Known Drug Allergies Allergy Verified 02/23/18 03:36 - Social History Does the pt smoke?: No Smoking Status: Never smoker Does the pt drink ETOH?: No Does the pt have substance abuse?: No - Immunizations Immunizations are current?: Yes - POLST Patient has POLST: No PD ED PE NORMAL - Vitals Vital signs reviewed: Yes - General General: Alert and oriented X 3, No acute distress - HEENT HEENT: Atraumatic - Cardiac Cardiac: RRR - Respiratory Respiratory: No respiratory distress - Abdomen Abdomen: Soft - Derm Derm: Normal color, Warm and dry - Extremities Extremities: No deformity - Neuro Neuro: Alert and oriented X 3, No motor deficit, Normal speech Eye Opening: Spontaneous PD ED PE EXPANDED - HEENT HEENT: Dry mucous membranes - Abdomen Abdomen: Tender to palpation, Suprapubic. No: Rebound, Guarding Results - Vitals Vitals: Vital Signs - 24 hr 02/23/18 03:20 Temperature 36.8 C Heart Rate 72 Respiratory 16 Rate Blood Pressure 123/71 O2 Saturation 98 Oxygen O2 Source [With Activity] Room air O2 Source Room air - Labs Labs: Laboratory Tests 02/23/18 02/23/18 02/23/18 03:33 03:40 03:40 WBC 5.2 RBC 2.96 L Hgb 8.9 L Hct 26.4 L MCV 89.2 MCH 30.2 MCHC 33.8 RDW 14.3 Plt Count 169 MPV 6.9 L Neut # (Auto) 3.3 Lymph # (Auto) 0.7 L [place] # (Auto) 0.7 Eos # (Auto) 0.5 Baso # (Auto) 0.0 Absolute Nucleated RBC 0.00 Nucleated RBC % 0.0 Sodium 124 L Potassium 3.7 Chloride 99 L Carbon Dioxide 18 L Anion Gap 7.0 BUN 18 Creatinine 1.8 H Estimated GFR (MDRD) 36 L Glucose 85 Calcium 8.6 Total Bilirubin 0.6 AST 18 ALT 15 Alkaline Phosphatase 58 Total Protein 5.2 L Albumin 3.0 L Globulin 2.2 Albumin/Globulin Ratio 1.4 Lipase 27 Urine Color YELLOW Urine Clarity CLEAR Urine pH 6.0 Ur Specific [place] 1.010 Urine Protein NEGATIVE Urine Glucose (UA) NEGATIVE Urine Ketones NEGATIVE Urine Occult Blood SMALL H Urine Nitrite NEGATIVE Urine Bilirubin NEGATIVE Urine Urobilinogen 0.2 (NORMAL) Ur Leukocyte Esterase NEGATIVE Urine RBC 11-25 H Urine WBC 0-3 Ur Squamous Epith Cells RARE Squamous Urine Bacteria Few Ur Microscopic Review INDICATED Urine Culture Comments NOT INDICATED - Rads (name of study) ct abd pelvis Radiology: Final report received (no acute intraabdominal findings. patient's aortic stent was stable and unchanged) PD MEDICAL DECISION MAKING - ED course Complexity details: reviewed old records, reviewed results, re-evaluated patient , considered differential, d/w patient ED course: Patient was seen and examined at bedside. urine was collected and labs were drawn. patient's previous results were reviewed and all of the cultures turned out to be negative. Patients labs showed hyponatremia but not too far off patient's baseline. Patient was treated with ns bolus. Due to the urinalysis being persistently negative imaging was ordered. When patient returned form imaging the results were reviewed. there were no acute findings. patients symptoms could be being caused by interstitial cystitis. Patient was treated with pyridium and given dietary guidelines for discharge. patient required no further inpatient work up and was stable for discharge with outpatient follow up. - Sepsis Event Vital Signs: Vital Signs - 24 hr 02/23/18 03:20 Temperature 36.8 C Heart Rate 72 Respiratory 16 Rate Blood Pressure 123/71 O2 Saturation 98 Oxygen O2 Source [With Activity] Room air O2 Source Room air Departure - Departure Disposition: 01 Home, Self Care Clinical Impression: Cystitis Condition: Good Instructions: ED UTI Cystitis Male Follow-Up: John Cannon DO [Primary Care Provider] - Tomorrow Prescriptions: Phenazopyridine HCl [Pyridium] 200 mg PO TID PRN #6 tablet PRN Reason: dysuria Comments: Your diagnostics today were within normal limits. there was no sign of urinary tract infection and all of your previous cultures did not grow out any bacteria. You may have something called cystitis which is inflammation of your bladder. You are being started on a medication that will turn your urine orange but might improve the pain. You should refrain from eating spicy foods, and acidic foods. You may need to see a urologist and you should follow up with your doctor for a referral for a urologist. You may return to the emergency department at any time for new, worsening or uncontrollable symptoms.
--- NOTE | 2018-02-23 04:49 | CT Report ---
Reason: lower abd pain Procedure Date: 02/23/2018 Accession Number: [id number] / [id number] Procedure: CT - Abdomen/Pelvis W/O CPT Code: FULL RESULT: EXAM: CT ABDOMEN AND PELVIS EXAM DATE: 02/23/2018 04:32 AM. CLINICAL HISTORY: Lower abdominal pain COMPARISONS: 12/31/2017. TECHNIQUE: Routine helical CT imaging was performed through the abdomen and pelvis. IV contrast: None. Enteric contrast: No. Reconstructions: Coronal and sagittal. In accordance with CT protocol optimization, one or more of the following dose reduction techniques were utilized for this exam: automated exposure control, adjustment of mA and/or KV based on patient size, or use of iterative reconstructive technique. FINDINGS: Lung Bases: Trace effusions and basilar atelectasis. Liver: Normal. No masses. Gallbladder/Bile Ducts: Unremarkable. Spleen: Normal. Pancreas: Normal. Adrenal Glands: Normal. Kidneys: Normal. No masses or hydronephrosis. Peritoneal Cavity/Bowel: Colonic diverticulosis, without CT evidence of diverticulitis. No bowel dilatation, free gas, or free fluid. Pelvic Organs: Normal. The bladder and visualized pelvic organs are within normal limits. Vasculature: Aortobiiliac stent graft appears stable. Bones: Extensive degenerative changes. Previous left hip replacement. Other: None. IMPRESSION: No evident etiology for patient's pain. Diverticulosis, without CT evidence of diverticulitis. Stable appearance of aortobiiliac stent graft. RADIA
[2018-02-23] MEDS ORDERED: PHENAZOPYRIDINE 100 MG TABLET PO STA (04:58)
[2018-02-23 06:22] VITALS: BP 119/64
== END 2018-02-23 06:10 | disposition home or self-care (01) ==
LOC: EDUNIT# → ED 03:18 → SUPCPDRO 03:18 → ED 06:10
DX: N30.90 Cystitis, unspecified without hematuria (principal); F03.90 Unspecified dementia, unspecified severity, without behavioral disturbance, psychotic disturbance, mood disturbance, and anxiety; E03.9 Hypothyroidism, unspecified; Z96.649 Presence of unspecified artificial hip joint; Z86.73 Personal history of transient ischemic attack (TIA), and cerebral infarction without residual deficits; Z79.82 Long term (current) use of aspirin
CPT/HCPCS: 36415; 74176; 80053; 81001; 83690; 85025; 99283; A9270; 81003; 87086

== ENCOUNTER 2018-02-25 05:22 | Outpatient (CLI) | payer MEDICARE, OTHER | END 2018-02-25 05:23 | disposition critical access hospital (66) | LOC: EMS 05:22 | PROVIDERS: ATTEND Surgery | DX: R10.33 Periumbilical pain (principal) | CPT/HCPCS: A0425; A0427 ==

== ENCOUNTER 2018-02-25 05:43 | Emergency (ER) | payer MEDICARE, OTHER ==
[2018-02-25] MEDS ORDERED: SODIUM CHLORIDE 0.9% 1,000 ML IV SCH (06:00)
--- NOTE | 2018-02-25 06:01 | ED Physician Documentation ---
PD HPI CHEST PAIN - Stated complaint Stated Complaint: ABD PAIN - History obtained from History obtained from: Patient, EMS - History of Present Illness Timing - onset: How many days ago (1-2) Timing - details: Abrupt onset, Intermittant, Waxing and waning Pain level max: 6 Pain level now: 3 Quality: Pain Location: Substernal Radiation: Abdominal Improved by: Other (no ameliorating factors) Worsened by: Other (no exacerbating factors) Associated symptoms: Shortness of air, Nausea. No: Diaphoresis Recently seen: Emergency Dept - Additional information Additional information: patient was seen by PMD approximately 2 weeks ago for abdominal discomfort, diagnosed with UTI and started on Bactrim. He was T+R from this ED 02/20 for ongoing abdominal discomfort, abx. changed to keflex. He returned 02/23 for ongoing abdominal discomfort, pyridium was added to medications; on 02/23, he had blood tests and CT A/P with reassuring results that did not seem to yield a clear etiology of his discomfort. He returns via ambulance at this time due to c /o pain, although he points to his midline mid/upper chest when I ask him where his pain is. He says this pain has been episodic for 1-2 days, although he says it radiates to abdomen as well. Review of Systems Constitutional: reports: Reviewed and negative Eyes: reports: Reviewed and negative Ears: reports: Reviewed and negative Nose: reports: Reviewed and negative Throat: reports: Reviewed and negative Cardiac: reports: Chest pain / pressure. denies: Palpitations, Pedal edema Respiratory: reports: Dyspnea. denies: Cough GI: reports: Abdominal Pain, Nausea. denies: Abdominal Swelling, Vomiting, Constipation, Diarrhea : reports: Frequency. denies: Dysuria, Hematuria Skin: reports: Reviewed and negative Musculoskeletal: reports: Reviewed and negative Neurologic: reports: Reviewed and negative PD PAST MEDICAL HISTORY - Past Medical History Cardiovascular: Atrial fibrillation Respiratory: None Neuro: Dementia, CVA Endocrine/Autoimmune: HyPOthyroidism : Benign prostate hypertrophy HEENT: Chronic hearing loss Psych: None Musculoskeletal: Osteoarthritis Derm: None - Past Surgical History Past Surgical History: Yes Ortho: Hip replacement - Present Medications Home Medications: Ambulatory Orders Medication Instructions Recorded Confirmed Aspirin 81 mg PO DAILY 01/10/17 02/23/18 Tamsulosin HCl 0.4 mg PO DAILY 01/10/17 02/23/18 Zolpidem Tartrate 10 mg PO QPM PRN 01/10/17 02/23/18 Latanoprost 0.005% Ophth Drops 1 drops EACHEYE QPM 08/14/17 02/23/18 [Xalatan Ophth Drops] Timolol 0.5% Ophth Drops [Timoptic 1 drops EACHEYE BID 08/14/17 02/23/18 0.5% Ophth Drops] Dorzolamide HCl 1 drops EACHEYE TID 12/20/17 02/23/18 Doxazosin [Cardura] 4 mg PO QPM 12/20/17 02/23/18 Ipratropium [place] 2 sprays TOÑO BID 12/20/17 02/23/18 Levothyroxine Sodium [Synthroid] 100 mcg PO QDAC 01/01/18 02/23/18 Pilocarpine HCl [Pilocarpine HCl] 5 mg PO TID 01/01/18 02/23/18 Tramadol HCl 50 mg PO Q6H PRN 01/01/18 02/23/18 raNITIdine [Zantac] 150 mg PO DAILY 01/01/18 02/23/18 Cephalexin [Keflex] 500 mg PO QID #24 capsule 02/20/18 02/23/18 Docusate Sodium 100 mg PO DAILY #30 capsule 02/20/18 02/23/18 Phenazopyridine HCl [Pyridium] 200 mg PO TID PRN #6 tablet 02/23/18 - Allergies Allergies/Adverse Reactions: Allergies Allergy/AdvReac Type Severity Reaction Status Date / Time No Known Drug Allergies Allergy Verified 02/25/18 05:51 - Social History Does the pt smoke?: No Smoking Status: Never smoker Does the pt drink ETOH?: No Does the pt have substance abuse?: No - Immunizations Immunizations are current?: Yes - POLST Patient has POLST: No PD ED PE NORMAL - Vitals Vital signs reviewed: Yes - General General: Alert and oriented X 3, No acute distress, Well developed/nourished, Other ([place]) - HEENT HEENT: Moist mucous membranes - Neck Neck: Supple, no meningeal sign - Cardiac Cardiac: RRR, No murmur - Respiratory Respiratory: No respiratory distress, Clear bilaterally - Abdomen Abdomen: Normal bowel sounds, Soft, Non tender, Non distended - Back Back: Other (left CVA tenderness) - Derm Derm: Normal color, Warm and dry, No rash - Extremities Extremities: No edema - Neuro Neuro: Alert and oriented X 3, No motor deficit, No sensory deficit Results - Vitals Vitals: Vital Signs - 24 hr 02/25/18 02/25/18 02/25/18 05:46 07:13 08:59 Temperature 36.4 C L 36.4 C L Heart Rate 84 74 93 Respiratory 14 14 18 Rate Blood Pressure 123/76 124/62 128/71 O2 Saturation 96 100 95 Oxygen O2 Source [With Activity] Room air O2 Source Room air - EKG (time done) No standard instances Rate: Rate (enter#) (75) Rhythm: NSR, Other (PVCs) [place]: Normal Intervals: Normal MO QRS: LVH Ischemia: Normal ST segments - Labs Labs: Laboratory Tests 02/25/18 02/25/18 02/25/18 06:05 06:05 06:05 WBC 5.3 RBC 2.98 L Hgb 9.1 L Hct 26.8 L MCV 90.1 MCH 30.5 MCHC 33.8 RDW 14.2 Plt Count 202 MPV 6.6 L Neut # (Auto) 3.8 Lymph # (Auto) 0.8 L [place] # (Auto) 0.7 Eos # (Auto) 0.1 Baso # (Auto) 0.0 Absolute Nucleated RBC 0.00 Nucleated RBC % 0.0 Sodium 124 L Potassium 3.8 Chloride 97 L Carbon Dioxide 19 L Anion Gap 8.0 BUN 17 Creatinine 1.8 H Estimated GFR (MDRD) 36 L Glucose 96 Calcium 8.4 L Total Bilirubin 1.2 H AST 20 ALT 17 Alkaline Phosphatase 55 Troponin I 0.56 H* Total Protein 5.3 L Albumin 3.3 Globulin 2.0 L Albumin/Globulin Ratio 1.7 Lipase 28 - Rads (name of study) chest xray Radiology: Prelim report reviewed, See rad report PD MEDICAL DECISION MAKING - ED course Complexity details: reviewed old records, reviewed results, re-evaluated patient , considered differential, d/w patient ED course: elevated troponin without ST changes, c/w NSTEMI. On reevaluation, after tests resulted, he is pain-free, and remained pain-free for remainder of ED stay. [facility] have no beds available. D/W Dr. Martínez (cardiology on-call at [facility]), accepts patient for transfer. He recommends ASA and heparin before transfering. Patient updated and comfortable with transfer. - Sepsis Event Vital Signs: Vital Signs - 24 hr 02/25/18 02/25/18 02/25/18 05:46 07:13 08:59 Temperature 36.4 C L 36.4 C L Heart Rate 84 74 93 Respiratory 14 14 18 Rate Blood Pressure 123/76 124/62 128/71 O2 Saturation 96 100 95 Oxygen O2 Source [With Activity] Room air O2 Source Room air Departure - Departure Disposition: 02 Transfer Acute Care Hosp Clinical Impression: NSTEMI (non-ST elevated myocardial infarction) Condition: Stable
[2018-02-25 06:19] LABS: BASOPHILS % (AUTO) 0.5 %; EOSINOPHILS # (AUTO) 0.1 10^3/uL (0.0-0.7); EOSINOPHILS % (AUTO) 1.3 %; HGB - HEMOGLOBIN 9.1 g/dL (14.0-18.0); LYMPHOCYTES # (AUTO) 0.8 10^3/uL (1.5-3.5); LYMPHOCYTES % (AUTO) 14.8 %; MEAN CORPUSCULAR HEMOGLOBIN 30.5 pg (27.0-31.0); MEAN CORPUSCULAR HGB CONC 33.8 g/dL (32.0-36.0); MEAN CORPUSCULAR VOLUME 90.1 fL (80.0-94.0); MEAN PLATELET VOLUME 6.6 fL (7.4-11.4); MONOCYTES # (AUTO) 0.7 10^3/uL (0.0-1.0); MONOCYTES % (AUTO) 13.1 %; NEUTROPHILS # (AUTO) 3.8 10^3/uL (1.5-6.6); NEUTROPHILS % (AUTO) 70.3 %; PLT - PLATELET COUNT 202 10^3/uL (130-450); RED BLOOD COUNT 2.98 10^6/uL (4.70-6.10); RED CELL DISTRIBUTION WIDTH 14.2 % (12.0-15.0); WHITE BLOOD COUNT 5.3 x10^3/uL (4.8-10.8)
[2018-02-25] MEDS ORDERED: SODIUM CHLORIDE 0.9% 1,000 ML IV ONE (06:20)
[2018-02-25 06:31] LABS: ALBUMIN 3.3 g/dL (3.2-5.5); ALBUMIN/GLOBULIN RATIO 1.7 (1.0-2.2); BILIRUBIN,TOTAL 1.2 mg/dL (0.2-1.0); CALCIUM 8.4 mg/dL (8.5-10.3); CREATININE 1.8 mg/dL (0.6-1.2); TOTAL PROTEIN 5.3 g/dL (6.7-8.2)
--- NOTE | 2018-02-25 06:54 | XRAY Report ---
Reason: chest pain Procedure Date: 02/25/2018 Accession Number: [id number] / [id number] Procedure: XR - Chest 2 View X-Ray CPT Code: 12394 FULL RESULT: EXAM: CHEST RADIOGRAPHY EXAM DATE: 02/25/2018 06:45 AM. CLINICAL HISTORY: Chest pain. COMPARISON: 12/05/2017. TECHNIQUE: 2 views. FINDINGS: Lungs/Pleura: Retrocardiac infiltrate and small left effusion. No pneumothorax. Mediastinum: Heart and mediastinal contours are unremarkable. Other: None. IMPRESSION: Retrocardiac infiltrate and small left effusion. RADIA
[2018-02-25] MEDS ORDERED: HEPARIN 25000UNITS/500ML (D5W) 25,000 UNIT/500 ML BAG IV STA (08:31)
[2018-02-25] MEDS ORDERED: HEPARIN 5,000 UNIT/ML VIAL IVP STA (08:31)
[2018-02-25] MEDS ORDERED: ASPIRIN CHEW 81 MG TABLET PO STA (08:32)
[2018-02-25 09:02] VITALS: BP 128/71
== END 2018-02-25 10:01 | disposition short-term general hospital (02) ==
LOC: EDUNIT# → ED 05:43
DX: I21.4 Non-ST elevation (NSTEMI) myocardial infarction (principal); F03.90 Unspecified dementia, unspecified severity, without behavioral disturbance, psychotic disturbance, mood disturbance, and anxiety; E03.9 Hypothyroidism, unspecified; Z86.73 Personal history of transient ischemic attack (TIA), and cerebral infarction without residual deficits; Z79.82 Long term (current) use of aspirin
CPT/HCPCS: 71046; 80053; 83690; 84484; 85025; 93005; 96365; 96375; 99284; 99285; A9270; 36415

== ENCOUNTER 2018-03-19 07:49 | Outpatient (CLI) | payer MEDICARE, OTHER | END 2018-03-19 07:50 | disposition critical access hospital (66) | LOC: EMS 07:49 | PROVIDERS: ATTEND Surgery | DX: R10.30 Lower abdominal pain, unspecified (principal) | CPT/HCPCS: A0425; A0429 ==

== ENCOUNTER 2018-03-19 08:11 | Observation (INO) | payer MEDICARE, OTHER ==
[2018-03-19] MEDS ORDERED: ONDANSETRON 4 MG/2 ML VIAL IVP STA (08:19)
[2018-03-19] MEDS ORDERED: MORPHINE 2 MG/ML CARPUJECT IVP STA (08:19)
[2018-03-19] MEDS ORDERED: SODIUM CHLORIDE 0.9% 1,000 ML IV ONE (08:19)
--- NOTE | 2018-03-19 08:23 | ED Physician Documentation ---
History of Present Illness - Stated complaint Stated Complaint: LOWER ABD PX - Chief complaint Chief Complaint: Abd Pain - Additonal information Additional information: hx from pt 88 male BIBA for severe abd pain X few days worse now feels cold no fever no NVD last BM unknown hx is very difficult and pt is confused seems pt was seen by Dr Balderrama and rx bactrim which he has only taken maybe two doses of do not know what tests were run or what results were or what dx was pt does not know if he has had prior surgery per EMS he has a hx afib but unknown what meds he takes for this - per chart only on asa for a fib Review of Systems Constitutional: reports: Chills. denies: Fever Throat: denies: Sore throat Cardiac: denies: Chest pain / pressure Respiratory: denies: Dyspnea, Cough GI: reports: Abdominal Pain. denies: Nausea, Vomiting, Diarrhea : denies: Dysuria Neurologic: reports: Confused (per chart hx dementia) Endocrine: denies: Easy bruising / bleeding PD PAST MEDICAL HISTORY - Past Medical History Cardiovascular: Atrial fibrillation Respiratory: None Neuro: Dementia, CVA Endocrine/Autoimmune: HyPOthyroidism GI: None : Benign prostate hypertrophy HEENT: Chronic hearing loss Psych: None Musculoskeletal: Osteoarthritis Derm: None - Past Surgical History Past Surgical History: Yes Ortho: Hip replacement - Present Medications Home Medications: Ambulatory Orders Medication Instructions Recorded Confirmed Aspirin 81 mg PO DAILY 01/10/17 03/19/18 Tamsulosin HCl 0.4 mg PO DAILY 01/10/17 03/19/18 Zolpidem Tartrate 10 mg PO QPM PRN 01/10/17 03/19/18 Latanoprost 0.005% Ophth Drops 1 drops EACHEYE QPM 08/14/17 03/19/18 [Xalatan Ophth Drops] Timolol 0.5% Ophth Drops [Timoptic 1 drops EACHEYE BID 08/14/17 03/19/18 0.5% Ophth Drops] Doxazosin [Cardura] 4 mg PO QPM 12/20/17 03/19/18 Levothyroxine Sodium [Synthroid] 100 mcg PO QDAC 01/01/18 03/19/18 Pilocarp[place] HCl 5 mg PO TID 01/01/18 03/19/18 Tramadol HCl 50 mg PO Q6H PRN 01/01/18 03/19/18 raNITIdine [Zantac] 150 mg PO DAILY 01/01/18 03/19/18 Docusate Sodium 100 mg PO DAILY #30 capsule 02/20/18 03/19/18 Phenazopyridine HCl [Pyridium] 200 mg PO TID PRN #6 tablet 02/23/18 03/19/18 Atorvastatin Calcium 40 mg PO QPM 03/19/18 03/19/18 Carvedilol 3.125 mg PO BID 03/19/18 03/19/18 Fluticasone [Flonase] 1 sprays TOÑO DAILY 03/19/18 03/19/18 Furosemide 20 mg PO DAILY 03/19/18 03/19/18 Lisinopril 5 mg PO DAILY 03/19/18 03/19/18 - Allergies Allergies/Adverse Reactions: Allergies Allergy/AdvReac Type Severity Reaction Status Date / Time No Known Drug Allergies Allergy Verified 03/19/18 08:19 - Social History Does the pt smoke?: No Smoking Status: Never smoker Does the pt drink ETOH?: No Does the pt have substance abuse?: No - Immunizations Immunizations are current?: Yes - POLST Patient has POLST: No PD ED PE NORMAL - Vitals Vital signs reviewed: Yes - Neck Neck: Supple, no meningeal sign - Cardiac Cardiac: RRR - Respiratory Respiratory: No respiratory distress, Clear bilaterally - Abdomen Abdomen: Other (+ BS, no priro surgical scars identified, severe TTP and rigid, no pulsatile mass) - Male Male : Other (no hernia) - Neuro Neuro: Alert and oriented X 3 Results - Vitals Vitals: Vital Signs - 24 hr 03/19/18 03/19/18 08:14 08:45 Temperature 36.4 C L Heart Rate 63 63 Respiratory 16 16 Rate Blood Pressure 144/62 H 137/66 H O2 Saturation 94 100 Oxygen O2 Source [With Activity] Room air O2 Source Room air - Labs Labs: Laboratory Tests 03/19/18 03/19/18 03/19/18 08:28 08:28 08:28 WBC 7.0 RBC 3.69 L Hgb 11.7 L Hct 34.4 L MCV 93.3 MCH 31.7 H MCHC 34.0 RDW 14.6 Plt Count 254 MPV 7.2 L Neut # (Auto) 5.2 Lymph # (Auto) 1.1 L [place] # (Auto) 0.7 Eos # (Auto) 0.0 Baso # (Auto) 0.1 Absolute Nucleated RBC 0.00 Nucleated RBC % 0.0 PT 12.8 H INR 1.1 Sodium 131 L Potassium 4.1 Chloride 102 Carbon Dioxide 19 L Anion Gap 10.0 BUN 26 H Creatinine 1.8 H Estimated GFR (MDRD) 36 L Glucose 93 Lactic Acid Calcium 9.2 Total Bilirubin 0.8 AST 26 ALT 18 Alkaline Phosphatase 63 Total Protein 7.1 Albumin 4.1 Globulin 3.0 Albumin/Globulin Ratio 1.4 Lipase 27 Urine Color Urine Clarity Urine pH Ur Specific [place] Urine Protein Urine Glucose (UA) Urine Ketones Urine Occult Blood Urine Nitrite Urine Bilirubin Urine Urobilinogen Ur Leukocyte Esterase Urine RBC Urine WBC Ur Squamous Epith Cells Urine Bacteria Ur Microscopic Review Urine Culture Comments 03/19/18 03/19/18 08:34 10:08 WBC RBC Hgb Hct MCV MCH MCHC RDW Plt Count MPV Neut # (Auto) Lymph # (Auto) [place] # (Auto) Eos # (Auto) Baso # (Auto) Absolute Nucleated RBC Nucleated RBC % PT INR Sodium Potassium Chloride Carbon Dioxide Anion Gap BUN Creatinine Estimated GFR (MDRD) Glucose Lactic Acid 1.5 Calcium Total Bilirubin AST ALT Alkaline Phosphatase Total Protein Albumin Globulin Albumin/Globulin Ratio Lipase Urine Color YELLOW Urine Clarity HAZY Urine pH 7.5 Ur Specific [place] 1.015 Urine Protein TRACE Urine Glucose (UA) NEGATIVE Urine Ketones TRACE Urine Occult Blood NEGATIVE Urine Nitrite NEGATIVE Urine Bilirubin NEGATIVE Urine Urobilinogen 1 (NORMAL) Ur Leukocyte Esterase MODERATE H Urine RBC 0-5 Urine WBC 11-25 H Ur Squamous Epith Cells RARE Squamous Urine Bacteria Few Ur Microscopic Review INDICATED Urine Culture Comments INDICATED - Rads (name of study) CT AP non con 2/2 GFR Radiology: See rad report (no acute process, diverticulosis, prior SMA and aortibil stent) PD MEDICAL DECISION MAKING - ED course ED course: CT looks like pt had a recent CT with oral contrast - also appears to have had prior AAA repair but per rad no acute process on todays CT UA is + so looks like UTI that failed outpt tx with septra (though unclear if pt actually taking the meds as pt cannot remember) EMS very concerned about pt level of confusion about his meds etc apparently he lives at home with his - per EMS she seemed confused too I do not know his baseline state but he certainly is not able to go home as confused as this and be expected to take his med correctly , follow up etc will req hospitalist admit for UTI AMS failed outpt gave althean suggest SW consult if does not arrive in ED perhaps send out a welfare check to make sure she is OK too - EMS was concerned spoke with Dr Dickens at [id number] is here now and I went to speak with her - she seems very put together and knows all the details the pt was not able to provide - she also states he had similar severe pain from bowel ischemia before he had his vascular stents placed - right now his GFR is too low for angiogram but will order 2 L of fluid and spoke to Dr Dickens to recommend GF recheck and angio if at all possible - Sepsis Event Vital Signs: Vital Signs - 24 hr 03/19/18 03/19/18 08:14 08:45 Temperature 36.4 C L Heart Rate 63 63 Respiratory 16 16 Rate Blood Pressure 144/62 H 137/66 H O2 Saturation 94 100 Oxygen O2 Source [With Activity] Room air O2 Source Room air Departure - Departure Disposition: 66 [facility] DC/Xfer Clinical Impression: Mental confusion, Renal insufficiency UTI (urinary tract infection) Qualifiers: Urinary tract infection type: site unspecified Hematuria presence: without hematuria Qualified Code(s): N39.0 - Urinary tract infection, site not specified Abdominal pain Qualifiers: Abdominal location: lower abdomen, unspecified Qualified Code(s): R10.30 - Lower abdominal pain, unspecified Condition: Fair Discharge Date/Time: 03/19/18 13:52
[2018-03-19 08:48] LABS: BASOPHILS # (AUTO) 0.1 10^3/uL (0.0-0.1); BASOPHILS % (AUTO) 1.1 %; EOSINOPHILS % (AUTO) 0.3 %; HGB - HEMOGLOBIN 11.7 g/dL (14.0-18.0); LYMPHOCYTES # (AUTO) 1.1 10^3/uL (1.5-3.5); LYMPHOCYTES % (AUTO) 15.2 %; MEAN CORPUSCULAR HEMOGLOBIN 31.7 pg (27.0-31.0); MEAN CORPUSCULAR VOLUME 93.3 fL (80.0-94.0); MEAN PLATELET VOLUME 7.2 fL (7.4-11.4); MONOCYTES # (AUTO) 0.7 10^3/uL (0.0-1.0); MONOCYTES % (AUTO) 9.3 %; NEUTROPHILS # (AUTO) 5.2 10^3/uL (1.5-6.6); NEUTROPHILS % (AUTO) 74.1 %; PLT - PLATELET COUNT 254 10^3/uL (130-450); RED BLOOD COUNT 3.69 10^6/uL (4.70-6.10); RED CELL DISTRIBUTION WIDTH 14.6 % (12.0-15.0)
[2018-03-19 08:56] LABS: ALBUMIN 4.1 g/dL (3.2-5.5); ALBUMIN/GLOBULIN RATIO 1.4 (1.0-2.2); BILIRUBIN,TOTAL 0.8 mg/dL (0.2-1.0); CALCIUM 9.2 mg/dL (8.5-10.3); CREATININE 1.8 mg/dL (0.6-1.2); TOTAL PROTEIN 7.1 g/dL (6.7-8.2)
[2018-03-19 09:23] LABS: INR 1.1 (0.8-1.2); PT - PROTHROMBIN TIME 12.8 secs (9.9-12.6)
[2018-03-19 10:26] LABS: BILIRUBIN,URINE NEGATIVE (NEGATIVE); GLUCOSE, URINE (UA) NEGATIVE (NEGATIVE); KETONES,URINE (UA) TRACE mg/dL (NEGATIVE); LEUKOCYTE ESTERASE, URINE MODERATE (NEGATIVE); NITRITE,URINE NEGATIVE (NEGATIVE); OCCULT BLOOD,URINE NEGATIVE (NEGATIVE); PH,URINE 7.5 PH (5.0-7.5); PROTEIN,URINE TRACE mg/dL (NEGATIVE); UROBILINOGEN,URINE 1 (NORMAL) E.U./dL (NORMAL)
[2018-03-19 10:30] LABS: CLARITY,URINE HAZY (CLEAR)
--- NOTE | 2018-03-19 10:30 | CT Report ---
Reason: abd pain peritoneal GFR too low for contrast Procedure Date: 03/19/2018 Accession Number: [id number] / [id number] Procedure: CT - Abdomen/Pelvis W/O CPT Code: FULL RESULT: EXAM: CT ABDOMEN AND PELVIS EXAM DATE: 03/19/2018 09:36 AM. CLINICAL HISTORY: Abdominal pain, renal insufficiency. COMPARISONS: CT abdomen pelvis dated 02/23/2018. TECHNIQUE: Routine helical CT imaging was performed through the abdomen and pelvis. IV contrast: No. Enteric contrast: Contrast visualized in the colon. Reconstructions: Coronal and sagittal. In accordance with CT protocol optimization, one or more of the following dose reduction techniques were utilized for this exam: automated exposure control, adjustment of mA and/or KV based on patient size, or use of iterative reconstructive technique. FINDINGS: Lung Bases: Unremarkable. Liver: Unremarkable. Gallbladder/Bile Ducts: Unremarkable. Spleen: Unremarkable. Pancreas: Unremarkable. Adrenal Glands: Unremarkable. Kidneys: Normal. No masses or hydronephrosis. Peritoneal Cavity/Bowel: No free fluid, free air or adenopathy. No masses or acute inflammatory process. Colonic diverticula again visualized without evidence of diverticulitis. Pelvic Organs: Coarse calcifications within the prostate. The bladder and visualized pelvic organs are otherwise within normal limits. Vasculature: There appears to have been interval placement of an SMA stent. Aortobiiliac stent graft appears otherwise stable. Bones: Extensive degenerative changes. Previous left hip replacement. Other: None. IMPRESSION: 1. No acute abnormality identified on this limited noncontrast exam. 2. There is diverticulosis without evidence of diverticulitis. 3. Interval placement of an SMA stent with otherwise unchanged appearance of aortobiiliac stent graft. RADIA
[2018-03-19 10:34] LABS: BACTERIA,URINE Few /HPF (None Seen); RBC,URINE 0-5 /HPF (0-5); SQUAMOUS EPITHELIAL CELL,UR RARE Squamous (<= Few)
[2018-03-19] MEDS ORDERED: cefTRIAXone 1 GM in SODIUM CHLORIDE 0.9% MINIBAG 100 ML IV STA (11:03)
[2018-03-19] MEDS ORDERED: SODIUM CHLORIDE FLUSH 0.9% 10 ML SYRINGE IVP PRN (12:43)
[2018-03-19] MEDS ORDERED: MORPHINE 2 MG/ML CARPUJECT IVP PRN (12:43)
[2018-03-19] MEDS ORDERED: ONDANSETRON 4 MG/2 ML VIAL IVP PRN (12:43)
[2018-03-19] MEDS ORDERED: ACETAMINOPHEN 325 MG TABLET PO PRN (12:43)
--- NOTE | 2018-03-19 12:56 | HISTORY & PHYSICAL EXAMINATION ---
Chief Complaint - Chief Complaint Chief Complaint: abdominal pain History of Present Illness - History of Present Illness HPI Comment/Other: Mr. 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 Pt had elevated troponin with NSTEM on 02/25/18. He was transferred to [facility] for further evaluation and treatment. We will request the medical records for that. pt's is in the bedside as well. Both Pt and can only provide limited information due to their dementia. Pt report had diffused abdominal pain beginning today. Now he report his abdominal pain becomes better. pt report he saw his PCP and prescribed bactrim for his UTI. He report he took two dosage of bactrim. I calculate the rest is 8 pills. it is correct pill number. pt's report she did a good care of his , and is willing to continue to take care of his . Pt also state he does not want to go to any nurse facility. Pt denies nausea, vomiting, diarrhea, fever, chill, chest pain, shortness of breath, cough. CT of abdomen reveals no acute abnormality. UA reveals possible UTI. pt is afebrile and hemodynamic stable in ER. pt is admitted in observation for further evaluation and treatment. History - Past Medical History Cardiovascular: reports: Atrial fibrillation Respiratory: reports: None Neuro: reports: Dementia, CVA Endocrine/Autoimmune: reports: HyPOthyroidism GI: reports: None : reports: Benign prostate hypertrophy HEENT: reports: Chronic hearing loss Psych: reports: None Musculoskeletal: reports: Osteoarthritis Derm: reports: None MRSA Hx?: No - Past Surgical History Ortho: reports: Hip replacement - Family & Social History Family History Comment/Other: pt report he is living with his at [facility] in his own home. He had three children. Living arrangement: At home Living Situation: With spouse/s.o. - POLST Patient has POLST: No POLST Status: DNR Meds/Allgy - Home Medications Home Medications: Ambulatory Orders Medication Instructions Recorded Confirmed Aspirin 81 mg PO DAILY 01/10/17 03/19/18 Tamsulosin HCl 0.4 mg PO DAILY 01/10/17 03/19/18 Zolpidem Tartrate 10 mg PO QPM PRN 01/10/17 03/19/18 Latanoprost 0.005% Ophth Drops 1 drops EACHEYE QPM 08/14/17 03/19/18 [Xalatan Ophth Drops] Timolol 0.5% Ophth Drops [Timoptic 1 drops EACHEYE BID 08/14/17 03/19/18 0.5% Ophth Drops] Doxazosin [Cardura] 4 mg PO QPM 12/20/17 03/19/18 Levothyroxine Sodium [Synthroid] 100 mcg PO QDAC 01/01/18 03/19/18 Pilocarpine HCl 5 mg PO TID 01/01/18 03/19/18 Tramadol HCl 50 mg PO Q6H PRN 01/01/18 03/19/18 raNITIdine [Zantac] 150 mg PO DAILY 01/01/18 03/19/18 Docusate Sodium 100 mg PO DAILY #30 capsule 02/20/18 03/19/18 Phenazopyridine HCl [Pyridium] 200 mg PO TID PRN #6 tablet 02/23/18 03/19/18 Atorvastatin Calcium 40 mg PO QPM 03/19/18 03/19/18 Carvedilol 3.125 mg PO BID 03/19/18 03/19/18 Fluticasone [Flonase] 1 sprays TOÑO DAILY 03/19/18 03/19/18 Furosemide 20 mg PO DAILY 03/19/18 03/19/18 Lisinopril 5 mg PO DAILY 03/19/18 03/19/18 - Allergies Allergies/Adverse Reactions: Allergies Allergy/AdvReac Type Severity Reaction Status Date / Time No Known Drug Allergies Allergy Verified 03/19/18 08:19 Review of Systems - Constitutional Constitutional: denies: Fatigue, Fever, Chills, Malaise, Weakness, Poor appetite, Diaphoresis, Night sweats, Weight gain, Weight loss - Eyes Eyes: denies: Pain, Irritation, Amaurosis, Blurred vision, Spots in vision, Field loss, Vision loss, Dipolpia - Ears, Nose & Throat Ears, Nose & Throat: denies: Ear pain, Hearing loss, Hearing aids, Tinnitus, Vertigo, Nasal pain, Nasal discharge, Nosebleeds, Nasal obstruction, Nasal congestion, Postnasal drainage, Dentures, Sore throat, Hoarseness, Mouth lesions, Bleeding gums - Cardiovascular Cariovascular: denies: Irregular heart rate, Palpitations, Chest pain, Edema, Lightheadedness, Syncope, Exertional dyspnea, Decr. exercise tolerance - Respiratory Respiratory: denies: Cough, Sputum production, Wheezing, Snoring, Hemoptysis, Orthopnea, SOB at rest, SOB with exertion - Gastrointestinal Gastrointestinal: reports: Abdominal pain. denies: Abdominal distention, Constipation, Diarrhea, Change in bowel habits, Rectal bleeding, Black stools, Bloody stools, Nausea, Vomiting, Bile emesis, Chase blood emesis, Coffee grounds emesis, Reflux/heartburn - Genitourinary Genitourinary: denies: Dysuria, Frequency, Urgency, Hematuria, Incontinence, Flank pain, Nocturia, Urethral discharge - Musculoskeletal Musculoskeletal: denies: Muscle pain, Back pain, Muscle aches, Stiffness, Limited range of motion, Muscle weakness, Gout, Joint pain - Integumentary Integumentary: denies: Rash, Pruritis, Lesions, Dryness, Lumps, Acne, Pigment changes, Nail changes - Neurological Neurological: denies: General weakness, Focal weakness, Headache, Dizziness, Numbness, Memory problems, Pre-existing deficit, Abnormal gait - Psychiatric Psychiatric: denies: Depression, Anxiety, Suicidal, Delusions, Hallucinations, Homicidal - Endocrine Endocrine: denies: Polyuria, Polydypsia, Polyphagia, Intolerance to cold - Hematologic/Lymphatic Hematologic/Lymphatic: denies: Anemia, Bruising, Petechiae, Blood clots, Lymphadenopathy, Bleeding tendencies Exam - Vital Signs Reviewed Vital Signs: Yes Vital Signs: Vital Signs x48h Temp Pulse Resp BP Pulse Ox 03/19/18 08:45 63 16 137/66 H 100 03/19/18 08:14 36.4 C L 63 16 144/62 H 94 - Physical Exam General Appearance: positive: No acute distress, Alert. negative: Lethargic Eyes Bilateral: positive: Normal inspection, PERRL, No lid inflammation, Conjunctivae nml ENT: positive: ENT inspection nml, Pharynx nml, No signs of dehydration. negative: Purulent nasal drainage, Pharyngeal erythema, Oral lesions Neck: positive: Nml inspection, Thyroid nml, No JVD, Trachea midline. negative: Thyromegaly, Lymphadenopathy (R), Lymphadenopathy (L), Stiff neck, Swelling/bruising, Tracheal deviation Respiratory: positive: Chest non-tender, No respiratory distress, Breath sounds nml. negative: Wheezes, Rales, Rhonchi Cardiovascular: positive: Regular rate & rhythm, No murmur, No gallop. negative: Irregularly irregular, Extrasystoles, Tachycardia, Bradycardia, JVD present, Systolic murmur, Diastolic murmur Peripheral Pulses: positive: 2+ Abdomen: positive: No organomegaly, Nml bowel sounds, No distention, Tenderness. negative: Guarding, Rebound Back: positive: Nml inspection. negative: CVA tenderness (R), CVA tenderness (L) Skin: positive: Color nml, No rash, Warm, Dry. negative: Cyanosis, Diaphoresis, Pallor Extremities: positive: Non-tender, Nml appearance. negative: Calf tenderness, Mirtha's sign/cords Neurologic/Psychiatric: positive: Sensation nml, Mood/affect nml. negative: Weakness, Sensory loss, Facial droop, Slurred/abnml speech, Depressed mood/aff ect Conclusion/Plan - Problem List (1) Abdominal pain Conclusion/Plan: pt has chronic abdominal pain and discomfort and visited a few times before, etiology has not been clear. CT of abdomen today still reveals no acute finding. pt had AAA repair, but now pt's GFR is 37, can not have contrast CT of abdomen now. pain control with Morphine PRN bed rest with NPO except meds IV of protonix (2) UTI (urinary tract infection) Conclusion/Plan: UA reveals possible UTI, pt already began to have bactrim in out-pt start IV of Rocephin, UA culture is pending, will follow up (3) Acute on chronic renal insufficiency Conclusion/Plan: pt's creatinine is 1.8, about two months ago, it was 1.5 start gently IVF of NS at 75 cc/h. pt has hx of CHF daily lab monitor (4) Hyponatremia Conclusion/Plan: hyponatremia, hypovolumin. pt also is chronic hyponatremia IVF of NS at 75 cc/h lab monitor (5) CHF (congestive heart failure) Conclusion/Plan: The last ECHO reveals pt had combination of both systolic and diastolic CHF at EF 40-45% on tele, vital monitor restore home meds, Coreg, Lisinopril recheck ECHO (6) HTN (hypertension) Conclusion/Plan: stable, restore home meds (7) Hypothyroidism Conclusion/Plan: restore home meds check TSH, follow up (8) DVT prophylaxis Conclusion/Plan: SCD and Lovenox (9) Full code status Conclusion/Plan: pt want to have full code - Lab Results Fish Bones: 03/19/18 08:28 03/19/18 08:28 Core Measures - Anticipated LOS I expect patient to be DC'd or transferred within 96 hours.: Yes - DVT/VTE - Prophylaxis VTE/DVT Device ordered at admit?: Yes VTE/DVT Prophylaxis med ordered at admit?: Yes
[2018-03-19] MEDS ORDERED: SODIUM CHLORIDE 0.9% 1,000 ML IV SCH ×3 (13:00→15:12)
[2018-03-19] MEDS ORDERED: SODIUM CHLORIDE 0.9% 2,000 ML IV ONE (13:33)
[2018-03-19] MEDS: PANTOPRAZOLE 40 MG VIAL IVP SCH (14:07)
[2018-03-19] MEDS ORDERED: NITROGLYCERIN SL 0.4 MG TABLET SL PRN (14:22)
[2018-03-19] MEDS: SODIUM CHLORIDE FLUSH 0.9% 10 ML SYRINGE IVP SCH (16:20)
--- NOTE | 2018-03-19 17:56 | ADVANCE CARE PLANNING NOTE ---
Advance Care Planning - Date/Time Date: 02/16/18 Time: 18:00 - Purpose of encounter Text: advance care, such as palliative care - Parties in attendance Parties in attendance: pt and me - Decisional capacity Decisional capacity of: at this moment, pt is still requesting full code, not interested in palliative care, and want to go to home at his 's care - Subjective/Patient's story Subjective/Patient's story: pt state he is very much enjoying his life now. he has chronic abdominal pain, intermittent, and come and go, otherwise he feels good. - Objective/Medical story Objective/Medical Story: dementia, pt's EF is 30% at his last admission on [facility], AAA repaired, chronic mesentric ischemia, CVA, Afib, CKD - Goals of Care Goals of care determinations: advance care for pt, such as palliative care, change pt's code status, nurse facility replacement - Plan Plan: discuss with pt in detail for all possible advance care plans. pt still request full code, not ready to have a palliative care, pt and his wants to go home. order ST/PT/OT and director social consult for pt - Code Status Code Status: Attempt Resuscitation - Time Spent on Advance Care Planning Time spent on advance care plannin
[2018-03-19] MEDS: CARVEDILOL 3.125 MG TABLET PO SCH (20:27)
[2018-03-19] MEDS ORDERED: DOXAZOSIN 4 MG TABLET PO SCH (21:00)
[2018-03-19] MEDS ORDERED: LATANOPROST 0.005% OPHTH DROPS EACHEYE SCH (21:00)
[2018-03-19] MEDS ORDERED: ATORVASTATIN 40 MG TABLET PO SCH (21:00)
[2018-03-19] MEDS: TIMOLOL 0.5% OPHTH DROPS EACHEYE SCH (21:29)
[2018-03-20] MEDS ORDERED: ZOLPIDEM 5 MG TABLET PO PRN (00:53)
[2018-03-20] MEDS: SODIUM CHLORIDE FLUSH 0.9% 10 ML SYRINGE IVP SCH ×2 (01:16→08:57)
[2018-03-20 03:21] LABS: BASOPHILS # (AUTO) 0.1 10^3/uL (0.0-0.1); EOSINOPHILS # (AUTO) 0.1 10^3/uL (0.0-0.7); EOSINOPHILS % (AUTO) 1.8 %; HGB - HEMOGLOBIN 8.6 g/dL (14.0-18.0); LYMPHOCYTES # (AUTO) 0.6 10^3/uL (1.5-3.5); MEAN CORPUSCULAR HEMOGLOBIN 30.6 pg (27.0-31.0); MEAN CORPUSCULAR HGB CONC 33.2 g/dL (32.0-36.0); MEAN CORPUSCULAR VOLUME 92.2 fL (80.0-94.0); MONOCYTES # (AUTO) 0.7 10^3/uL (0.0-1.0); MONOCYTES % (AUTO) 13.6 %; NEUTROPHILS # (AUTO) 3.9 10^3/uL (1.5-6.6); NEUTROPHILS % (AUTO) 71.6 %; PLT - PLATELET COUNT 203 10^3/uL (130-450); RED BLOOD COUNT 2.81 10^6/uL (4.70-6.10); RED CELL DISTRIBUTION WIDTH 14.6 % (12.0-15.0); WHITE BLOOD COUNT 5.4 x10^3/uL (4.8-10.8)
[2018-03-20 03:34] LABS: ALBUMIN/GLOBULIN RATIO 1.4 (1.0-2.2); BILIRUBIN,TOTAL 0.6 mg/dL (0.2-1.0); CALCIUM 8.3 mg/dL (8.5-10.3); CREATININE 1.4 mg/dL (0.6-1.2); TOTAL PROTEIN 5.1 g/dL (6.7-8.2)
[2018-03-20] MEDS: PANTOPRAZOLE 40 MG VIAL IVP SCH (06:32)
[2018-03-20] MEDS ORDERED: LEVOTHYROXINE 100 MCG TABLET PO SCH (07:00)
[2018-03-20 08:07] LABS: MEAN RETIC VALUE 116.2; RED BLOOD COUNT 2.78 10^6/uL (4.70-6.10)
[2018-03-20 08:28] LABS: % IRON SATURATION 27 % (20-50); IRON 46 ug/dL (45-182); TOTAL IRON BINDING CAPACITY 168 ug/dL (250-450); TRANSFERRIN 120 mg/dL (180-329)
[2018-03-20 08:32] LABS: FERRITIN 324.1 ng/mL (23.9-336.2)
[2018-03-20] MEDS: CARVEDILOL 3.125 MG TABLET PO SCH (08:56)
[2018-03-20] MEDS: TIMOLOL 0.5% OPHTH DROPS EACHEYE SCH (08:58)
[2018-03-20] MEDS ORDERED: POLYETHYLENE GLYCOL 3350 17 GM PACKET PO SCH (09:00)
[2018-03-20] MEDS ORDERED: ASPIRIN CHEW 81 MG TABLET PO SCH (09:00)
[2018-03-20] MEDS ORDERED: LISINOPRIL 5 MG TABLET PO SCH (09:00)
[2018-03-20] MEDS ORDERED: ENOXAPARIN 30 MG/0.3 ML SYRINGE SUBQ SCH (09:00)
[2018-03-20] MEDS ORDERED: cefTRIAXone 1 GM VIAL IVP SCH (09:00)
[2018-03-20] MEDS ORDERED: TAMSULOSIN 0.4 MG CAPSULE PO SCH (09:00)
[2018-03-20] MEDS ORDERED: cefTRIAXone 1 GM in SODIUM CHLORIDE 0.9% MINIBAG 100 ML IV SCH (09:00)
[2018-03-20] MEDS ORDERED: FLUTICASONE NASAL SPRAY NAS SCH (09:00)
[2018-03-20] MEDS ORDERED: SODIUM CHLORIDE 0.9% 500 ML IV PRN (10:38)
[2018-03-20] MEDS ORDERED: FERROUS SULFATE 325 MG TABLET PO SCH (12:00)
[2018-03-20 12:13] VITALS: BP 112/47
[2018-03-20] MEDS ORDERED: MAGNESIUM CITRATE 296 ML BOTTLE PO PRN (12:31)
[2018-03-20 12:54] LABS: HGB - HEMOGLOBIN 10.6 g/dL (14.0-18.0)
--- NOTE | 2018-03-20 13:07 | Discharge Plan ---
Discharge Plan Disposition: Home, Self Care Condition: Poor Prescriptions: Ferrous Sulfate 325 mg PO DAILY #30 tablet Nitrofurantoin Monohyd/M-Cryst [Macrobid 100 mg Capsule] 100 mg PO BID #10 capsule Diet: Soft Activity Restrictions: Activity as Tolerated Shower Restrictions: No (fall precaution) Instruction Topics: Abdominal Pain, UTI, Nitrofurantoin tablets or capsules Additional Instructions or Follow Up instructions: You may follow up your PCP in one week, follow up vascular surgeon, and mail order biller as out-pt. You want to go home and decline any replacement for you. Should your symptoms return or worsen, you may present ER or call 911 for help. Follow-Up Care: Outpatient Rehab - PT No Smoking: If you smoke, Please STOP! Call for help. Follow-up with: John Cannon DO [Primary Care Provider] -
--- NOTE | 2018-03-20 13:14 | DISCHARGE SUMMARY ---
Discharge Summary Discharge Date: 03/20/18 Discharging Provider: CARPENTER Primary Care Provider: Dr. Cannon Condition at Discharge: Poor Discharge Disposition: 01 Home, Self Care Discharge Facility Name: home - DIAGNOSES Admission Diagnoses: (1) Abdominal pain (2) UTI (urinary tract infection) (3) Acute on chronic renal insufficiency (4) Hyponatremia (5) CHF (congestive heart failure) (6) HTN (hypertension) (7) Hypothyroidism Discharge Diagnoses with Status of Each Condition: 1) Abdominal pain resolved. pt state he did not have any abdominal pain today. he tolerate the diet. No nausea, vomiting. (2) UTI (urinary tract infection) UA culture negative. continue to finish the antibiotics course (3) Acute on chronic renal insufficiency improved. Creatinine is 1.4 from yesterday 1.8 (4) Hyponatremia stable, chronic, improved today (5) CHF (congestive heart failure) EF at 40-45% today ECHO. pt walk with PT in the hallway without difficult (6) HTN (hypertension) stable, continue home regimen, follow up PCP (7) Hypothyroidism stable, TSH is normal arrange (8) dysphagia resolved. pt tolerate the diet without any difficulty (9) anemia stable, HGB 10.6 as his baseline pt decline any nurse facility replacement. pt's is very happy and willing to take care of pt. - HPI History of Present Illness: Mr. 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 Pt had elevated troponin with NSTEM on 02/25/18. He was transferred to [facility] for further evaluation and treatment. We will request the medical records for that. pt's is in the bedside as well. Both Pt and can only provide limited information due to their dementia. Pt report had diffused abdominal pain beginning today. Now he report his abdominal pain becomes better. pt report he saw his PCP and prescribed bactrim for his UTI. He report he took two dosage of bactrim. I calculate the rest is 8 pills. it is correct pill number. pt's report she did a good care of his , and is willing to continue to take care of his . Pt also state he does not want to go to any nurse facility. Pt denies nausea, vomiting, diarrhea, fever, chill, chest pain, shortness of breath, cough. CT of abdomen reveals no acute abnormality. UA reveals possible UTI. pt is afebrile and hemodynamic stable in ER. pt is admitted in observation for further evaluation and treatment. - ALLERGIES Allergies/Adverse Reactions: Allergies Allergy/AdvReac Type Severity Reaction Status Date / Time No Known Drug Allergies Allergy Verified 03/19/18 08:19 - MEDICATIONS Home Medications: Ambulatory Orders Medication Instructions Recorded Confirmed Aspirin 81 mg PO DAILY 01/10/17 03/19/18 Tamsulosin HCl 0.4 mg PO DAILY 01/10/17 03/19/18 Zolpidem Tartrate 10 mg PO QPM PRN 01/10/17 03/19/18 Latanoprost 0.005% Ophth Drops 1 drops EACHEYE QPM 08/14/17 03/19/18 [Xalatan Ophth Drops] Timolol 0.5% Ophth Drops [Timoptic 1 drops EACHEYE BID 08/14/17 03/19/18 0.5% Ophth Drops] Doxazosin [Cardura] 4 mg PO QPM 12/20/17 03/19/18 Levothyroxine Sodium [Synthroid] 100 mcg PO QDAC 01/01/18 03/19/18 Pilocarpine HCl 5 mg PO TID 01/01/18 03/19/18 Tramadol HCl 50 mg PO Q6H PRN 01/01/18 03/19/18 raNITIdine [Zantac] 150 mg PO DAILY 01/01/18 03/19/18 Docusate Sodium 100 mg PO DAILY #30 capsule 02/20/18 03/19/18 Phenazopyridine HCl [Pyridium] 200 mg PO TID PRN #6 tablet 02/23/18 03/19/18 Atorvastatin Calcium 40 mg PO QPM 03/19/18 03/19/18 Carvedilol 3.125 mg PO BID 03/19/18 03/19/18 Fluticasone [Flonase] 1 sprays TOÑO DAILY 03/19/18 03/19/18 Furosemide 20 mg PO DAILY 03/19/18 03/19/18 Lisinopril 5 mg PO DAILY 03/19/18 03/19/18 Ferrous Sulfate 325 mg PO DAILY #30 tablet 03/20/18 Nitrofurantoin Monohyd/M-Cryst 100 mg PO BID #10 capsule 03/20/18 [Macrobid 100 mg Capsule] - PHYSICAL EXAM AT DISCHARGE General Appearance: positive: No acute distress, Alert. negative: Lethargic Eyes Bilateral: positive: Normal inspection, PERRL. negative: No lid inflammat ion, Conjunctivae nml ENT: positive: ENT inspection nml, Pharynx nml, No signs of dehydration. negative: Purulent nasal drainage, Pharyngeal erythema, Oral lesions Neck: positive: Nml inspection, Thyroid nml, No JVD, Trachea midline. negative: Thyromegaly, Lymphadenopathy (R), Lymphadenopathy (L), Stiff neck, Swelling/bruising, Tracheal deviation Respiratory: positive: Chest non-tender, No respiratory distress, Breath sounds nml. negative: Wheezes, Rales, Rhonchi Cardiovascular: positive: Regular rate & rhythm, No murmur, No gallop. negative: Irregularly irregular, Extrasystoles, Tachycardia, Bradycardia, JVD present, Systolic murmur, Diastolic murmur Peripheral Pulses: positive: 2+ Abdomen: positive: Non-tender, No organomegaly, Nml bowel sounds, No distention. negative: Tenderness, Guarding, Rebound Back: positive: Nml inspection. negative: CVA tenderness (R), CVA tenderness (L) Skin: positive: Color nml, No rash, Warm, Dry. negative: Cyanosis, Diaphoresis, Pallor Extremities: positive: Non-tender, Full ROM, Nml appearance. negative: Calf tenderness, Joint swelling, Mirtha's sign/cords Neurologic/Psychiatric: positive: Oriented x3, Motor nml, Sensation nml, Mood/affect nml. negative: Weakness, Sensory loss, Facial droop, Slurred/abnml speech, Depressed mood/affect - LABS Result Diagrams: 03/20/18 12:20 03/20/18 03:10 - FOLLOW UP Follow Up: You may follow up your PCP in one week, follow up vascular surgeon, and construction secretary as out-pt. You want to go home and decline any replacement for you. Should your symptoms return or worsen, you may present ER or call 911 for help. - TIME SPENT Time Spent in Discharge (Minutes): 45
== END 2018-03-20 14:22 | disposition home or self-care (01) ==
LOC: ED 08:11 → MS2 12:43
PROVIDERS: ADMIT Nurse Practitioner Gerontology; ATTEND Nurse Practitioner Gerontology
DX: R10.9 Unspecified abdominal pain (principal); N39.0 Urinary tract infection, site not specified; I13.0 Hypertensive heart and chronic kidney disease with heart failure and stage 1 through stage 4 chronic kidney disease, or unspecified chronic kidney disease; N18.9 Chronic kidney disease, unspecified; I50.42 Chronic combined systolic (congestive) and diastolic (congestive) heart failure; N17.9 Acute kidney failure, unspecified; E87.1 Hypo-osmolality and hyponatremia; E03.9 Hypothyroidism, unspecified; R13.10 Dysphagia, unspecified; D64.9 Anemia, unspecified; F03.90 Unspecified dementia, unspecified severity, without behavioral disturbance, psychotic disturbance, mood disturbance, and anxiety; I48.91 Unspecified atrial fibrillation; K57.30 Diverticulosis of large intestine without perforation or abscess without bleeding; R91.8 Other nonspecific abnormal finding of lung field; I25.2 Old myocardial infarction; N40.0 Benign prostatic hyperplasia without lower urinary tract symptoms; Z86.73 Personal history of transient ischemic attack (TIA), and cerebral infarction without residual deficits
CPT/HCPCS: 36415; 74176; 80053; 81001; 82607; 82728; 83540; 83605; 83615; 83690; 83735; 84443; 84466; 84484; 85014; 85018; 85025; 85044; 85610; 87040; 87086; 93005; 93306; 96361; 96365; 96366; 96372; 96375; 96376; 97161; 99284; A9270; G0378; G8978; G8979; G8980; J1650; 81003; 82270

== ENCOUNTER 2018-03-29 12:33 | Outpatient (CLI) | payer MEDICARE, OTHER | END 2018-03-29 12:34 | disposition critical access hospital (66) | LOC: EMS 12:33 | PROVIDERS: ATTEND Surgery | DX: R10.31 Right lower quadrant pain (principal); R63.4 Abnormal weight loss | CPT/HCPCS: A0425; A0429 ==

== ENCOUNTER 2018-03-29 12:57 | Observation (INO) | payer MEDICARE, OTHER ==
--- NOTE | 2018-03-29 13:16 | ED Physician Documentation ---
PD HPI ABD PAIN - Stated complaint Stated Complaint: FAILURE TO THRIVE - Chief complaint Chief Complaint: Abd Pain - History obtained from History obtained from: Patient, EMS - History of Present Illness Timing - onset: How many weeks ago (1) Timing - duration: Weeks (1) Timing - details: Gradual onset, Still present Quality: Other (He was having some difficulty urinating. He did feel like he had fullness in the rectum and thought he might be constipated. He has been nauseous for the past week with poor oral intake and states he has had some weight loss over the last week. He is feeling general weakness. He has not had any altered mentation.) Location: Suprapubic, Other (rectal area) Radiation: Lower back Worsened by: Eating Associated symptoms: Nausea, Weight loss (in the past week). No: Fever Recently seen: Emergency Dept, Admitted (for weakness, abd pain, UTI and some confusion.) Review of Systems Constitutional: reports: Chills, Myalgias. denies: Fever Nose: denies: Rhinorrhea / runny nose, Congestion Throat: denies: Sore throat Cardiac: denies: Chest pain / pressure, Palpitations Respiratory: denies: Dyspnea, Cough, Wheezing GI: reports: Abdominal Pain, Nausea. denies: Abdominal Swelling, Vomiting, Diarrhea : reports: Dysuria, Frequency. denies: Hematuria Skin: denies: Rash Neurologic: reports: Generalized weakness. denies: Focal weakness, Numbness, Near syncope Endocrine: reports: Weight loss. denies: Easy bruising / bleeding PD PAST MEDICAL HISTORY - Past Medical History Past Medical History: Yes Cardiovascular: Atrial fibrillation Respiratory: None Neuro: Dementia, CVA Endocrine/Autoimmune: HyPOthyroidism GI: None : Benign prostate hypertrophy HEENT: Chronic hearing loss Psych: None Musculoskeletal: Osteoarthritis Derm: None - Past Surgical History Past Surgical History: Yes Ortho: Hip replacement - Present Medications Home Medications: Ambulatory Orders Medication Instructions Recorded Confirmed Aspirin 81 mg PO DAILY 01/10/17 03/29/18 Tamsulosin HCl 0.4 mg PO DAILY 01/10/17 03/29/18 Zolpidem Tartrate 10 mg PO QPM PRN 01/10/17 03/29/18 Latanoprost 0.005% Ophth Drops 1 drops EACHEYE QPM 08/14/17 03/29/18 [Xalatan Ophth Drops] Timolol 0.5% Ophth Drops [Timoptic 1 drops EACHEYE DAILY 08/14/17 03/29/18 0.5% Ophth Drops] Doxazosin [Cardura] 4 mg PO QPM 12/20/17 03/29/18 Levothyroxine Sodium [Synthroid] 100 mcg PO QDAC 01/01/18 03/29/18 Pilocarpine HCl 5 mg PO TID 01/01/18 03/29/18 raNITIdine [Zantac] 150 mg PO DAILY 01/01/18 03/29/18 Docusate Sodium 100 mg PO DAILY #30 capsule 02/20/18 03/29/18 Atorvastatin Calcium 40 mg PO QPM 03/19/18 03/29/18 Carvedilol 3.125 mg PO BID 03/19/18 03/29/18 Fluticasone [Flonase] 1 sprays TOÑO DAILY 03/19/18 03/29/18 Furosemide 20 mg PO DAILY 03/19/18 03/29/18 Lisinopril 5 mg PO DAILY 03/19/18 03/29/18 Ferrous Sulfate 325 mg PO DAILY #30 tablet 03/20/18 03/29/18 Ipratropium [Atrovent] 2 puffs IH BID 03/29/18 03/29/18 - Allergies Allergies/Adverse Reactions: Allergies Allergy/AdvReac Type Severity Reaction Status Date / Time No Known Drug Allergies Allergy Verified 03/29/18 13:10 - Social History Does the pt smoke?: No Smoking Status: Former smoker Does the pt drink ETOH?: No Does the pt have substance abuse?: No - Immunizations Immunizations are current?: Yes - POLST Patient has POLST: No POLST Status: DNR PD ED PE NORMAL - Vitals Vital signs reviewed: Yes - General General: Alert and oriented X 3 (with poor short term memory), No acute distress, Well developed/nourished - HEENT HEENT: Pharynx benign - Neck Neck: Supple, no meningeal sign, No adenopathy, No JVD - Cardiac Cardiac: RRR, No murmur - Respiratory Respiratory: Clear bilaterally - Abdomen Abdomen: Normal bowel sounds, Soft, Non distended, No organomegaly, Other (tender lower abd/suprpubic area. ) - Male Male : Deferred - Rectal Rectal: Other (soft stool in vault but large amount of it. Guiac negative though darker color. ) - Back Back: No CVA TTP - Derm Derm: Normal color, Warm and dry - Extremities Extremities: No tenderness to palpate, Normal ROM s pain, No edema, No calf tenderness / cord - Neuro Neuro: Alert and oriented X 3, No motor deficit, Normal speech Eye Opening: Spontaneous Motor: Obeys Commands Verbal: Oriented GCS Score: 15 Results - Vitals Vitals: Vital Signs - 24 hr 03/29/18 13:07 Temperature 36.4 C L Heart Rate 68 Respiratory 19 Rate Blood Pressure 129/50 L O2 Saturation 100 Oxygen O2 Source [With Activity] Room air O2 Source Room air PD MEDICAL DECISION MAKING - ED course Complexity details: reviewed results, re-evaluated patient (He is given IV fluids 2 L and also a gram of Rocephin for apparent persistent UTI. His vitals are good and his white count is okay. His lactate is slightly elevated at 2.3. He has been under hydrated with some weight loss recently. I was assuming he this would improve with fluids. However repeat lactate was worse which has me concerned of impending worsening infection. I talked with the hospitalist who will have him in the hospital for further evaluation.), considered differential, d/w patient - Sepsis Event Vital Signs: Vital Signs - 24 hr 03/29/18 13:07 Temperature 36.4 C L Heart Rate 68 Respiratory 19 Rate Blood Pressure 129/50 L O2 Saturation 100 Oxygen O2 Source [With Activity] Room air O2 Source Room air Departure - Departure Disposition: ED Place in Observation Clinical Impression: Nausea, Dehydration, Elevated lactic acid level UTI (urinary tract infection) Qualifiers: Urinary tract infection type: site unspecified Hematuria presence: without hematuria Qualified Code(s): N39.0 - Urinary tract infection, site not specified Condition: Stable Record reviewed to determine appropriate education?: Yes Discharge Date/Time: 03/29/18 19:10
[2018-03-29] MEDS ORDERED: ONDANSETRON 4 MG/2 ML VIAL IVP STA (13:31)
[2018-03-29] MEDS ORDERED: SODIUM CHLORIDE 0.9% 1,000 ML IV ONE ×3 (13:31→18:19)
[2018-03-29] MEDS ORDERED: MINERAL OIL ENEMA 133 ML BOTTLE RC STA (13:32)
[2018-03-29 14:04] LABS: BASOPHILS # (AUTO) 0.1 10^3/uL (0.0-0.1); BASOPHILS % (AUTO) 0.7 %; EOSINOPHILS % (AUTO) 0.6 %; HGB - HEMOGLOBIN 11.1 g/dL (14.0-18.0); LYMPHOCYTES # (AUTO) 1.2 10^3/uL (1.5-3.5); LYMPHOCYTES % (AUTO) 16.6 %; MEAN CORPUSCULAR HEMOGLOBIN 31.3 pg (27.0-31.0); MEAN CORPUSCULAR HGB CONC 34.8 g/dL (32.0-36.0); MEAN PLATELET VOLUME 7.2 fL (7.4-11.4); MONOCYTES # (AUTO) 0.7 10^3/uL (0.0-1.0); MONOCYTES % (AUTO) 9.9 %; NEUTROPHILS # (AUTO) 5.1 10^3/uL (1.5-6.6); NEUTROPHILS % (AUTO) 72.2 %; PLT - PLATELET COUNT 262 10^3/uL (130-450); RED BLOOD COUNT 3.56 10^6/uL (4.70-6.10); RED CELL DISTRIBUTION WIDTH 14.2 % (12.0-15.0); WHITE BLOOD COUNT 7.1 x10^3/uL (4.8-10.8)
[2018-03-29 14:15] LABS: ALBUMIN 3.7 g/dL (3.2-5.5); ALBUMIN/GLOBULIN RATIO 1.2 (1.0-2.2); BILIRUBIN,TOTAL 1.2 mg/dL (0.2-1.0); CALCIUM 9.5 mg/dL (8.5-10.3); CREATININE 0.6 mg/dL (0.6-1.2); TOTAL PROTEIN 6.7 g/dL (6.7-8.2)
[2018-03-29 15:18] LABS: BILIRUBIN,URINE NEGATIVE (NEGATIVE); GLUCOSE, URINE (UA) NEGATIVE (NEGATIVE); KETONES,URINE (UA) TRACE mg/dL (NEGATIVE); LEUKOCYTE ESTERASE, URINE LARGE (NEGATIVE); NITRITE,URINE NEGATIVE (NEGATIVE); OCCULT BLOOD,URINE TRACE-INTA (NEGATIVE); PH,URINE 7.5 PH (5.0-7.5); PROTEIN,URINE 30 mg/dL (NEGATIVE); UROBILINOGEN,URINE 0.2 (NORMAL) E.U./dL (NORMAL)
[2018-03-29 15:24] LABS: CLARITY,URINE CLOUDY (CLEAR)
[2018-03-29 15:27] LABS: BACTERIA,URINE Rare /HPF (None Seen); RBC,URINE 0-5 /HPF (0-5); SQUAMOUS EPITHELIAL CELL,UR RARE Squamous (<= Few)
[2018-03-29] MEDS ORDERED: cefTRIAXone 1 GM in SODIUM CHLORIDE 0.9% MINIBAG 100 ML IV STA (16:05)
[2018-03-29] MEDS ORDERED: ONDANSETRON 4 MG/2 ML VIAL IVP PRN (18:25)
[2018-03-29] MEDS ORDERED: ACETAMINOPHEN 325 MG TABLET PO PRN (18:25)
[2018-03-29] MEDS ORDERED: traMADol 50 MG TABLET PO PRN (18:42)
--- NOTE | 2018-03-29 18:54 | HISTORY & PHYSICAL EXAMINATION ---
Chief Complaint - Chief Complaint Chief Complaint: abdominal pain History of Present Illness - History of Present Illness HPI Comment/Other: Mr. 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 pt report his abdominal pain is intermittent, on and off. Pt had AAA repaired, and had chronic mesenteric ischemia diagnosis on [facility], and monitored by his vascular surgeon. Pt's UA indicates UTI. pt also had elevated Lactic acid. Pt's WBC is normal. pt is afebrile and hemodynamic stable at this time. When discussion d/c plan with pt, pt want to be d/c to home. pt denies chest pain, fever, chill, shortness of breath, headache, nausea, vomiting, diarrhea. History - Past Medical History Cardiovascular: reports: Atrial fibrillation Respiratory: reports: None Neuro: reports: Dementia, CVA Endocrine/Autoimmune: reports: HyPOthyroidism GI: reports: None : reports: Benign prostate hypertrophy HEENT: reports: Chronic hearing loss Psych: reports: None Musculoskeletal: reports: Osteoarthritis Derm: reports: None MRSA Hx?: No - Past Surgical History Ortho: reports: Hip replacement - Family & Social History Family History: Mother: , CVA/TIA, Father: , CAD, COPD/Emphysema Family History Comment/Other: pt report he is living with his at [facility] in his own home. He had three children. - POLST Patient has POLST: No POLST Status: DNR Meds/Allgy - Home Medications Home Medications: Ambulatory Orders Medication Instructions Recorded Confirmed Aspirin 81 mg PO DAILY 01/10/17 03/29/18 Tamsulosin HCl 0.4 mg PO DAILY 01/10/17 03/29/18 Zolpidem Tartrate 10 mg PO QPM PRN 01/10/17 03/29/18 Latanoprost 0.005% Ophth Drops 1 drops EACHEYE QPM 08/14/17 03/29/18 [Xalatan Ophth Drops] Timolol 0.5% Ophth Drops [Timoptic 1 drops EACHEYE DAILY 08/14/17 03/29/18 0.5% Ophth Drops] Doxazosin [Cardura] 4 mg PO QPM 12/20/17 03/29/18 Levothyroxine Sodium [Synthroid] 100 mcg PO QDAC 01/01/18 03/29/18 Pilocarpine HCl 5 mg PO TID 01/01/18 03/29/18 raNITIdine [Zantac] 150 mg PO DAILY 01/01/18 03/29/18 Docusate Sodium 100 mg PO DAILY #30 capsule 02/20/18 03/29/18 Atorvastatin Calcium 40 mg PO QPM 03/19/18 03/29/18 Carvedilol 3.125 mg PO BID 03/19/18 03/29/18 Fluticasone [Flonase] 1 sprays TOÑO DAILY 03/19/18 03/29/18 Furosemide 20 mg PO DAILY 03/19/18 03/29/18 Lisinopril 5 mg PO DAILY 03/19/18 03/29/18 Ferrous Sulfate 325 mg PO DAILY #30 tablet 03/20/18 03/29/18 Ipratropium [Atrovent] 2 puffs IH BID 03/29/18 03/29/18 - Allergies Allergies/Adverse Reactions: Allergies Allergy/AdvReac Type Severity Reaction Status Date / Time No Known Drug Allergies Allergy Verified 03/29/18 13:10 Review of Systems - Constitutional Constitutional: denies: Fatigue, Fever, Chills, Malaise, Weakness, Poor appetite, Diaphoresis, Night sweats - Eyes Eyes: denies: Pain, Irritation, Amaurosis, Blurred vision, Spots in vision, Field loss, Vision loss, Dipolpia - Ears, Nose & Throat Ears, Nose & Throat: denies: Ear pain, Hearing loss, Hearing aids, Tinnitus, Vertigo, Nasal pain, Nasal discharge, Nosebleeds, Nasal obstruction, Nasal congestion, Postnasal drainage, Dentures, Sore throat, Hoarseness, Mouth lesions, Bleeding gums - Cardiovascular Cariovascular: denies: Irregular heart rate, Palpitations, Chest pain, Edema, Lightheadedness, Syncope, Exertional dyspnea, Decr. exercise tolerance - Respiratory Respiratory: denies: Cough, Sputum production, Wheezing, Snoring, Hemoptysis, Orthopnea, SOB at rest, SOB with exertion - Gastrointestinal Gastrointestinal: reports: Abdominal pain. denies: Abdominal distention, Constipation, Diarrhea, Change in bowel habits, Rectal bleeding, Black stools, Bloody stools, Nausea, Vomiting, Bile emesis, Chase blood emesis, Coffee grounds emesis, Reflux/heartburn, Bloating, Poor appetite - Genitourinary Genitourinary: denies: Dysuria, Frequency, Urgency, Hematuria, Incontinence, Flank pain, Nocturia, Urethral discharge - Musculoskeletal Musculoskeletal: denies: Muscle pain, Back pain, Muscle aches, Stiffness, Limited range of motion, Muscle weakness, Gout, Joint pain - Integumentary Integumentary: denies: Rash, Pruritis, Lesions, Dryness, Acne - Neurological Neurological: denies: General weakness, Focal weakness, Headache, Dizziness, Numbness, Memory problems, Pre-existing deficit, Abnormal gait, Seizures, Incoordination, Slurred speech - Psychiatric Psychiatric: denies: Depression, Anxiety, Suicidal, Delusions, Hallucinations, Homicidal - Endocrine Endocrine: denies: Polyuria, Polydypsia, Polyphagia, Intolerance to cold - Hematologic/Lymphatic Hematologic/Lymphatic: denies: Anemia, Bruising, Petechiae, Blood clots, Lymphad enopathy, Bleeding tendencies Exam - Vital Signs Reviewed Vital Signs: Yes Vital Signs: Vital Signs x48h Temp Pulse Resp BP Pulse Ox 03/29/18 14:30 67 25 H 139/61 H 100 03/29/18 13:07 36.4 C L 68 19 129/50 L 100 - Physical Exam General Appearance: positive: No acute distress, Alert. negative: Lethargic Eyes Bilateral: positive: Normal inspection, PERRL, No lid inflammation, Conjunctivae nml ENT: positive: ENT inspection nml, Pharynx nml, No signs of dehydration. negative: Purulent nasal drainage, Pharyngeal erythema, Oral lesions Neck: positive: Nml inspection, Thyroid nml, No JVD, Trachea midline. negative: Thyromegaly, Lymphadenopathy (R), Lymphadenopathy (L), Stiff neck, Swelling/bruising, Tracheal deviation Respiratory: positive: Chest non-tender, No respiratory distress, Breath sounds nml. negative: Wheezes, Rales, Rhonchi Cardiovascular: positive: Regular rate & rhythm, No murmur, No gallop. negative: Irregularly irregular, Extrasystoles, Tachycardia, Bradycardia, JVD present, Systolic murmur, Diastolic murmur Peripheral Pulses: positive: 2+ Abdomen: positive: Non-tender, No organomegaly, Nml bowel sounds, No distention. negative: Tenderness, Guarding, Rebound Back: positive: Nml inspection. negative: CVA tenderness (R), CVA tenderness (L) Skin: positive: Color nml, No rash, Warm, Dry. negative: Cyanosis, Diaphoresis, Pallor Extremities: positive: Non-tender, Full ROM, Nml appearance. negative: Calf tenderness, Joint swelling, Mirtha's sign/cords Neurologic/Psychiatric: positive: Oriented x3, Sensation nml, Mood/affect nml. negative: Weakness, Sensory loss, Facial droop, Slurred/abnml speech, Depressed mood/affect Conclusion/Plan - Problem List (1) Urinary tract infection Conclusion/Plan: UA indicate UTI treat with Rocephin gently IVF Qualifiers: Urinary tract infection type: site unspecified Hematuria presence: without hematuria Qualified Code(s): N39.0 - Urinary tract infection, site not specified (2) Elevated lactic acid level Conclusion/Plan: pt's WBC is normal, no fever, chill. but lactic acid is 3 continue monitor lactic acid treat with UTI with rocephin IVF of NS gently (3) Abdominal pain Conclusion/Plan: chronic, pain control advise pt follow up his vascular surgeon as out-pt (4) CHF (congestive heart failure) Conclusion/Plan: stable, resume home meds tele, vital monitor (5) Afib Conclusion/Plan: stable, resume home meds tele monitor - Lab Results Fish Bones: 03/30/18 13:33 03/30/18 05:40 Core Measures - Anticipated LOS I expect patient to be DC'd or transferred within 96 hours.: Yes - DVT/VTE - Prophylaxis VTE/DVT Device ordered at admit?: Yes VTE/DVT Prophylaxis med ordered at admit?: Yes
[2018-03-29] MEDS ORDERED: SODIUM CHLORIDE 0.9% 1,000 ML IV SCH (19:00)
[2018-03-29] MEDS: POTASSIUM CHLORIDE 20 MEQ TABLET PO STA ×2 (20:03→20:04)
[2018-03-29] MEDS ORDERED: ZOLPIDEM 5 MG TABLET PO PRN (20:21)
[2018-03-29] MEDS: SODIUM CHLORIDE 0.9% 1,000 ML IV SCH (20:28)
[2018-03-29] MEDS: CARVEDILOL 3.125 MG TABLET PO SCH (22:03)
[2018-03-29] MEDS: DOCUSATE SODIUM 250 MG CAPSULE PO SCH (22:23)
[2018-03-29] MEDS: SENNA 8.6 MG TABLET PO SCH (22:24)
[2018-03-30] MEDS: SODIUM CHLORIDE FLUSH 0.9% 10 ML SYRINGE IVP SCH ×2 (02:34→11:11)
[2018-03-30 06:10] LABS: HGB - HEMOGLOBIN 8.8 g/dL (14.0-18.0); LYMPHOCYTES # (AUTO) 0.2 10^3/uL (1.5-3.5)
[2018-03-30 06:16] LABS: BASOPHILS # (AUTO) 0.2 10^3/uL (0.0-0.1); BASOPHILS % (AUTO) 1.3 %; EOSINOPHILS % (AUTO) 0.2 %; LYMPHOCYTES % (AUTO) 1.4 %; MEAN CORPUSCULAR HEMOGLOBIN 30.6 pg (27.0-31.0); MEAN CORPUSCULAR HGB CONC 33.4 g/dL (32.0-36.0); MEAN CORPUSCULAR VOLUME 91.6 fL (80.0-94.0); MEAN PLATELET VOLUME 7.4 fL (7.4-11.4); MONOCYTES # (AUTO) 0.5 10^3/uL (0.0-1.0); MONOCYTES % (AUTO) 3.6 %; NEUTROPHILS # (AUTO) 12.1 10^3/uL (1.5-6.6); NEUTROPHILS % (AUTO) 93.5 %; PLT - PLATELET COUNT 226 10^3/uL (130-450); RED BLOOD COUNT 2.87 10^6/uL (4.70-6.10); RED CELL DISTRIBUTION WIDTH 14.3 % (12.0-15.0); WHITE BLOOD COUNT 12.9 x10^3/uL (4.8-10.8)
[2018-03-30 06:22] LABS: ALBUMIN 2.8 g/dL (3.2-5.5); ALBUMIN/GLOBULIN RATIO 1.3 (1.0-2.2); BILIRUBIN,TOTAL 0.8 mg/dL (0.2-1.0); CALCIUM 7.9 mg/dL (8.5-10.3); CREATININE 1.2 mg/dL (0.6-1.2); MAGNESIUM 1.6 mg/dL (1.7-2.8)
[2018-03-30] MEDS: SODIUM CHLORIDE FLUSH 0.9% 10 ML SYRINGE IVP PRN ×2 (06:35→06:40)
[2018-03-30] MEDS ORDERED: LEVOTHYROXINE 100 MCG TABLET PO SCH (07:00)
[2018-03-30] MEDS ORDERED: PANTOPRAZOLE 40 MG VIAL IVP SCH (07:00)
[2018-03-30] MEDS ORDERED: POTASSIUM CHLORIDE 20 MEQ TABLET PO SCH (07:22)
[2018-03-30] MEDS: SODIUM CHLORIDE 0.9% 1,000 ML IV SCH (07:53)
[2018-03-30] MEDS ORDERED: MAGNESIUM OXIDE 400 MG TABLET PO SCH (08:00)
[2018-03-30] MEDS ORDERED: LISINOPRIL 5 MG TABLET PO SCH (09:00)
[2018-03-30] MEDS ORDERED: POLYETHYLENE GLYCOL 3350 17 GM PACKET PO SCH (09:00)
[2018-03-30] MEDS ORDERED: FAMOTIDINE 20 MG TABLET PO SCH (09:00)
[2018-03-30] MEDS ORDERED: ASPIRIN CHEW 81 MG TABLET PO SCH (09:00)
[2018-03-30] MEDS ORDERED: cefTRIAXone 1 GM VIAL IVP SCH (09:00)
[2018-03-30] MEDS ORDERED: FUROSEMIDE 20 MG TABLET PO SCH (09:00)
[2018-03-30] MEDS ORDERED: CARVEDILOL 3.125 MG TABLET PO SCH (09:00)
[2018-03-30] MEDS ORDERED: ENOXAPARIN 40 MG/0.4 ML SYRINGE SUBQ SCH (09:00)
[2018-03-30] MEDS ORDERED: ATORVASTATIN 40 MG TABLET PO SCH (09:00)
[2018-03-30] MEDS: DOCUSATE SODIUM 250 MG CAPSULE PO SCH (11:09)
[2018-03-30] MEDS: SENNA 8.6 MG TABLET PO SCH (11:09)
[2018-03-30] MEDS: CARVEDILOL 3.125 MG TABLET PO SCH (11:09)
[2018-03-30] MEDS ORDERED: MULTIVITAMIN W/MINERALS TABLET PO SCH (12:00)
[2018-03-30] MEDS ORDERED: SACCHAROMYCES BOULARDII 250 MG CAPSULE PO SCH (12:00)
[2018-03-30 13:36] VITALS: BP 116/54
[2018-03-30 13:38] LABS: BASOPHILS % (AUTO) 0.3 %; EOSINOPHILS # (AUTO) 0.1 10^3/uL (0.0-0.7); EOSINOPHILS % (AUTO) 1.1 %; HGB - HEMOGLOBIN 9.2 g/dL (14.0-18.0); LYMPHOCYTES # (AUTO) 0.2 10^3/uL (1.5-3.5); MEAN CORPUSCULAR HEMOGLOBIN 30.9 pg (27.0-31.0); MEAN CORPUSCULAR HGB CONC 33.4 g/dL (32.0-36.0); MEAN CORPUSCULAR VOLUME 92.5 fL (80.0-94.0); MEAN PLATELET VOLUME 6.9 fL (7.4-11.4); MONOCYTES # (AUTO) 0.4 10^3/uL (0.0-1.0); MONOCYTES % (AUTO) 3.7 %; NEUTROPHILS # (AUTO) 9.8 10^3/uL (1.5-6.6); NEUTROPHILS % (AUTO) 92.9 %; PLT - PLATELET COUNT 197 10^3/uL (130-450); RED BLOOD COUNT 2.98 10^6/uL (4.70-6.10); RED CELL DISTRIBUTION WIDTH 14.5 % (12.0-15.0); WHITE BLOOD COUNT 10.6 x10^3/uL (4.8-10.8)
[2018-03-30] MEDS ORDERED: cefTRIAXone 1 GM in SODIUM CHLORIDE 0.9% MINIBAG 100 ML IV SCH (14:00)
--- NOTE | 2018-03-30 14:41 | Discharge Plan ---
Discharge Plan Disposition: Home, Self Care Condition: Poor Prescriptions: Nitrofurantoin [Macrobid] 100 mg PO BID #12 capsule Diet: Soft Activity Restrictions: Activity as Tolerated Shower Restrictions: No (fall precaution) Instruction Topics: UTI, Nitrofurantoin tablets or capsules Additional Instructions or Follow Up instructions: you may follow up your PCP in one week, follow up your hot box checker and vascular surgeon as out-pt. You denies any more abdominal pain today. Your UA indicated you have UTI. You are prescribed antibiotics to treat your UTI for another 6 days, please finish the antibiotics course. should your symptoms return or worsen, you may present ER or call 911 for help. No Smoking: If you smoke, Please STOP! Call for help. Follow-up with: John Cannon DO [Primary Care Provider] -
--- NOTE | 2018-03-30 14:47 | DISCHARGE SUMMARY ---
Discharge Summary Discharge Date: 03/30/18 Discharging Provider: CARPENTER Primary Care Provider: Dr. John Cannon Condition at Discharge: Poor Discharge Disposition: 01 Home, Self Care Discharge Facility Name: home - DIAGNOSES Admission Diagnoses: (1) Urinary tract infection (2) Elevated lactic acid level (3) Abdominal pain (4) CHF (congestive heart failure) (5) Afib Discharge Diagnoses with Status of Each Condition: (1) Urinary tract infection pt denies dysuria, pt request to be d/c today, no fever/chill, WBC is normal. pt is prescribed antibiotics to home. also called pt's home phone and left message for where his prescription was sent. pt declined replacement or other helps as he did on last admission (2) Elevated lactic acid level resolved (3) Abdominal pain resolved. pt also tolerated the diet, no nausea, vomiting or diarrhea. (4) CHF (congestive heart failure) stable (5) Afib stable (6) dementia stable, pt declined replacement or other helps as he did on last admission - HPI History of Present Illness: Mr. 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 pt report his abdominal pain is intermittent, on and off. Pt had AAA repaired, and had chronic mesenteric ischemia diagnosis on [facility], and monitored by his vascular surgeon. Pt's UA indicates UTI. pt also had elevated Lactic acid. Pt's WBC is normal. pt is afebrile and hemodynamic stable at this time. When discussion d/c plan with pt, pt want to be d/c to home. pt denies chest pain, fever, chill, shortness of breath, headache, nausea, vomiting, diarrhea. - ALLERGIES Allergies/Adverse Reactions: Allergies Allergy/AdvReac Type Severity Reaction Status Date / Time No Known Drug Allergies Allergy Verified 03/29/18 13:10 - MEDICATIONS Home Medications: Ambulatory Orders Medication Instructions Recorded Confirmed Aspirin 81 mg PO DAILY 01/10/17 03/29/18 Tamsulosin HCl 0.4 mg PO DAILY 01/10/17 03/29/18 Zolpidem Tartrate 10 mg PO QPM PRN 01/10/17 03/29/18 Latanoprost 0.005% Ophth Drops 1 drops EACHEYE QPM 08/14/17 03/29/18 [Xalatan Ophth Drops] Timolol 0.5% Ophth Drops [Timoptic 1 drops EACHEYE DAILY 08/14/17 03/29/18 0.5% Ophth Drops] Doxazosin [Cardura] 4 mg PO QPM 12/20/17 03/29/18 Levothyroxine Sodium [Synthroid] 100 mcg PO QDAC 01/01/18 03/29/18 Pilocarpine HCl 5 mg PO TID 01/01/18 03/29/18 raNITIdine [Zantac] 150 mg PO DAILY 01/01/18 03/29/18 Docusate Sodium 100 mg PO DAILY #30 capsule 02/20/18 03/29/18 Atorvastatin Calcium 40 mg PO QPM 03/19/18 03/29/18 Carvedilol 3.125 mg PO BID 03/19/18 03/29/18 Fluticasone [Flonase] 1 sprays TOÑO DAILY 03/19/18 03/29/18 Furosemide 20 mg PO DAILY 03/19/18 03/29/18 Lisinopril 5 mg PO DAILY 03/19/18 03/29/18 Ferrous Sulfate 325 mg PO DAILY #30 tablet 03/20/18 03/29/18 Ipratropium [Atrovent] 2 puffs IH BID 03/29/18 03/29/18 Nitrofurantoin [Macrobid] 100 mg PO BID #12 capsule 03/30/18 - PHYSICAL EXAM AT DISCHARGE General Appearance: positive: No acute distress, Alert. negative: Lethargic Eyes Bilateral: positive: Normal inspection, PERRL, No lid inflammation, Conjunctivae nml ENT: positive: ENT inspection nml, Pharynx nml, No signs of dehydration. negative: Purulent nasal drainage, Pharyngeal erythema, Oral lesions Neck: positive: Nml inspection, Thyroid nml, No JVD, Trachea midline. negative: Thyromegaly, Lymphadenopathy (R), Lymphadenopathy (L), Stiff neck, Swelling/bruising, Tracheal deviation Respiratory: positive: Chest non-tender, No respiratory distress, Breath sounds nml. negative: Wheezes, Rales, Rhonchi Cardiovascular: positive: Regular rate & rhythm, No murmur, No gallop. negat aldo: Irregularly irregular, Extrasystoles, Tachycardia, Bradycardia, JVD present, Systolic murmur, Diastolic murmur Peripheral Pulses: positive: 2+ Abdomen: positive: Non-tender, No organomegaly, Nml bowel sounds, No distention. negative: Tenderness, Guarding, Rebound Back: positive: Nml inspection. negative: CVA tenderness (R), CVA tenderness (L) Skin: positive: Color nml, No rash, Warm, Dry. negative: Cyanosis, Diaphoresis, Pallor Extremities: positive: Non-tender, Full ROM, Nml appearance. negative: Calf tenderness, Joint swelling, Mirtha's sign/cords Neurologic/Psychiatric: positive: Oriented x3, Sensation nml, Mood/affect nml. negative: Weakness, Sensory loss, Facial droop, Slurred/abnml speech, Depressed mood/affect - LABS Result Diagrams: 03/30/18 13:33 03/30/18 05:40 - FOLLOW UP Follow Up: you may follow up your PCP in one week, follow up your publishing manager and vascular surgeon as out-pt. You denies any more abdominal pain today. Your UA indicated you have UTI. You are prescribed antibiotics to treat your UTI for another 6 days, please finish the antibiotics course. should your symptoms return or worsen, you may present ER or call 911 for help. - TIME SPENT Time Spent in Discharge (Minutes): 50
== END 2018-03-30 15:35 | disposition home or self-care (01) ==
LOC: EDUNIT# → ED 12:57 → OBS 18:25
PROVIDERS: ADMIT Nurse Practitioner Gerontology; ATTEND Nurse Practitioner Gerontology
DX: N39.0 Urinary tract infection, site not specified (principal); K57.30 Diverticulosis of large intestine without perforation or abscess without bleeding; I99.8 Other disorder of circulatory system; I13.0 Hypertensive heart and chronic kidney disease with heart failure and stage 1 through stage 4 chronic kidney disease, or unspecified chronic kidney disease; I50.42 Chronic combined systolic (congestive) and diastolic (congestive) heart failure; N18.9 Chronic kidney disease, unspecified; I48.91 Unspecified atrial fibrillation; F03.90 Unspecified dementia, unspecified severity, without behavioral disturbance, psychotic disturbance, mood disturbance, and anxiety; N40.0 Benign prostatic hyperplasia without lower urinary tract symptoms; E03.9 Hypothyroidism, unspecified; R13.10 Dysphagia, unspecified; M19.90 Unspecified osteoarthritis, unspecified site; G89.29 Other chronic pain; M54.9 Dorsalgia, unspecified; H91.90 Unspecified hearing loss, unspecified ear; Z66 Do not resuscitate; Z79.82 Long term (current) use of aspirin; Z98.890 Other specified postprocedural states; Z86.79 Personal history of other diseases of the circulatory system; Z96.649 Presence of unspecified artificial hip joint; Z87.891 Personal history of nicotine dependence
CPT/HCPCS: 36415; 80053; 81001; 83605; 83690; 83735; 84443; 85025; 87086; 96361; 96365; 96375; 99284; 99285; A9270; G0378; J1650; 81003; 99283

== ENCOUNTER 2018-03-31 17:58 | Outpatient (CLI) | payer MEDICARE, OTHER | END 2018-03-31 17:59 | disposition critical access hospital (66) | LOC: EMS 17:58 | PROVIDERS: ATTEND Surgery | DX: R10.30 Lower abdominal pain, unspecified (principal); M54.9 Dorsalgia, unspecified; R20.2 Paresthesia of skin | CPT/HCPCS: A0425; A0429 ==

== ENCOUNTER 2018-03-31 18:24 | Emergency (ER) | payer MEDICARE, OTHER ==
[2018-03-31 19:42] LABS: BASOPHILS % (AUTO) 0.2 %; EOSINOPHILS # (AUTO) 0.1 10^3/uL (0.0-0.7); EOSINOPHILS % (AUTO) 1.3 %; HGB - HEMOGLOBIN 8.8 g/dL (14.0-18.0); LYMPHOCYTES # (AUTO) 0.4 10^3/uL (1.5-3.5); LYMPHOCYTES % (AUTO) 4.6 %; MEAN CORPUSCULAR HEMOGLOBIN 30.6 pg (27.0-31.0); MEAN CORPUSCULAR HGB CONC 33.4 g/dL (32.0-36.0); MEAN CORPUSCULAR VOLUME 91.7 fL (80.0-94.0); MEAN PLATELET VOLUME 7.8 fL (7.4-11.4); MONOCYTES # (AUTO) 0.4 10^3/uL (0.0-1.0); MONOCYTES % (AUTO) 4.2 %; NEUTROPHILS # (AUTO) 8.5 10^3/uL (1.5-6.6); NEUTROPHILS % (AUTO) 89.7 %; PLT - PLATELET COUNT 173 10^3/uL (130-450); RED BLOOD COUNT 2.89 10^6/uL (4.70-6.10); RED CELL DISTRIBUTION WIDTH 14.7 % (12.0-15.0); WHITE BLOOD COUNT 9.5 x10^3/uL (4.8-10.8)
[2018-03-31 19:49] LABS: ALBUMIN 2.9 g/dL (3.2-5.5); ALBUMIN/GLOBULIN RATIO 1.2 (1.0-2.2); BILIRUBIN,TOTAL 0.6 mg/dL (0.2-1.0); CALCIUM 8.2 mg/dL (8.5-10.3); CREATININE 1.5 mg/dL (0.6-1.2); TOTAL PROTEIN 5.3 g/dL (6.7-8.2)
[2018-03-31] MEDS ORDERED: IOPAMIDOL-300 100 ML VIAL ONE (19:49)
[2018-03-31] MEDS ORDERED: SODIUM CHLORIDE 0.9% 1,000 ML IV ONE ×3 (19:58→20:24)
[2018-03-31] MEDS ORDERED: IOPAMIDOL-300 100 ML VIAL IVP ONE (20:41)
--- NOTE | 2018-03-31 21:19 | ED Physician Documentation ---
PD HPI ABD PAIN - Stated complaint Stated Complaint: ABD PAIN - Chief complaint Chief Complaint: Abd Pain - History obtained from History obtained from: Patient, EMS - History of Present Illness Timing - onset: Chronic Timing - duration: Years Timing - details: Intermittant Pain level max: 8 Pain level now: 7 Quality: Aching, Pain Location: All over / everywhere Radiation: Other (Low back) Improved by: Other (nothing) Worsened by: Eating Associated symptoms: No: Fever, Nausea, Vomiting, Hematemesis, Diarrhea, Constipation, Melena, Hematochezia, Dysuria, Hematuria Similar symptoms before: Diagnosis (Chronic abdominal pain, unclear etiology) Recently seen: Admitted (Patient was discharged from the hospital yesterday after being treated for UTI) Review of Systems Ten Systems: 10 systems reviewed and negative Constitutional: denies: Fever, Chills Nose: denies: Rhinorrhea / runny nose, Congestion Respiratory: denies: Cough GI: denies: Vomiting, Constipation, Diarrhea, Hematemesis, Bloody / black stool : denies: Dysuria Skin: denies: Rash Musculoskeletal: reports: Back pain (Chronic back pain, unchanged). denies: Neck pain Neurologic: reports: Generalized weakness. denies: Focal weakness, Numbness PD PAST MEDICAL HISTORY - Past Medical History Cardiovascular: Atrial fibrillation Respiratory: None Neuro: Dementia, CVA Endocrine/Autoimmune: HyPOthyroidism GI: None : Benign prostate hypertrophy HEENT: Chronic hearing loss Psych: None Musculoskeletal: Osteoarthritis Derm: None - Past Surgical History Past Surgical History: Yes Ortho: Hip replacement - Present Medications Home Medications: Ambulatory Orders Medication Instructions Recorded Confirmed Aspirin 81 mg PO DAILY 01/10/17 03/29/18 Tamsulosin HCl 0.4 mg PO DAILY 01/10/17 03/29/18 Zolpidem Tartrate 10 mg PO QPM PRN 01/10/17 03/29/18 Latanoprost 0.005% Ophth Drops 1 drops EACHEYE QPM 08/14/17 03/29/18 [Xalatan Ophth Drops] Timolol 0.5% Ophth Drops [Timoptic 1 drops EACHEYE DAILY 08/14/17 03/29/18 0.5% Ophth Drops] Doxazosin [Cardura] 4 mg PO QPM 12/20/17 03/29/18 Levothyroxine Sodium [Synthroid] 100 mcg PO QDAC 01/01/18 03/29/18 Pilocarpine HCl 5 mg PO TID 01/01/18 03/29/18 raNITIdine [Zantac] 150 mg PO DAILY 01/01/18 03/29/18 Docusate Sodium 100 mg PO DAILY #30 capsule 02/20/18 03/29/18 Atorvastatin Calcium 40 mg PO QPM 03/19/18 03/29/18 Carvedilol 3.125 mg PO BID 03/19/18 03/29/18 Fluticasone [Flonase] 1 sprays TOÑO DAILY 03/19/18 03/29/18 Furosemide 20 mg PO DAILY 03/19/18 03/29/18 Lisinopril 5 mg PO DAILY 03/19/18 03/29/18 Ferrous Sulfate 325 mg PO DAILY #30 tablet 03/20/18 03/29/18 Ipratropium [Atrovent] 2 puffs IH BID 03/29/18 03/29/18 Nitrofurantoin [Macrobid] 100 mg PO BID #12 capsule 03/30/18 - Allergies Allergies/Adverse Reactions: Allergies Allergy/AdvReac Type Severity Reaction Status Date / Time No Known Drug Allergies Allergy Verified 03/29/18 13:10 - Social History Does the pt smoke?: No Smoking Status: Never smoker Does the pt drink ETOH?: No Does the pt have substance abuse?: No - Immunizations Immunizations are current?: Yes - POLST Patient has POLST: No POLST Status: DNR PD ED PE NORMAL - Vitals Vital signs reviewed: Yes - General General: Alert and oriented X 3, No acute distress - HEENT HEENT: Ears normal, Moist mucous membranes, Pharynx benign - Neck Neck: Supple, no meningeal sign - Cardiac Cardiac: RRR, Strong equal pulses - Respiratory Respiratory: No respiratory distress, Clear bilaterally - Abdomen Abdomen: Soft, Non distended, Other (Mild diffusely tender to palpation without peritoneal signs) - Back Back: No CVA TTP, No spinal TTP - Derm Derm: Warm and dry - Extremities Extremities: No edema - Neuro Neuro: Alert and oriented X 3 - Psych Psych: Normal mood, Normal affect Results - Vitals Vitals: Vital Signs - 24 hr 03/31/18 18:39 Temperature 37.1 C Heart Rate 66 Respiratory 18 Rate Blood Pressure 131/67 H O2 Saturation 100 Oxygen O2 Source [With Activity] Room air O2 Source Room air - Labs Labs: Laboratory Tests 03/31/18 03/31/18 19:20 19:20 WBC 9.5 RBC 2.89 L Hgb 8.8 L Hct 26.5 L MCV 91.7 MCH 30.6 MCHC 33.4 RDW 14.7 Plt Count 173 MPV 7.8 Neut # (Auto) 8.5 H Lymph # (Auto) 0.4 L [place] # (Auto) 0.4 Eos # (Auto) 0.1 Baso # (Auto) 0.0 Absolute Nucleated RBC 0.00 Nucleated RBC % 0.0 Sodium 133 L Potassium 3.2 L Chloride 105 Carbon Dioxide 21 Anion Gap 7.0 BUN 29 H Creatinine 1.5 H Estimated GFR (MDRD) 44 L Glucose 136 H Calcium 8.2 L Total Bilirubin 0.6 AST 22 ALT 20 Alkaline Phosphatase 64 Total Protein 5.3 L Albumin 2.9 L Globulin 2.4 Albumin/Globulin Ratio 1.2 Lipase 26 - Rads (name of study) CT abdomen and pelvis angio Radiology: Prelim report reviewed, EMP read contemporaneously, See rad report (No definite findings to explain clinical symptoms. Advanced atherosclerotic vascular disease including abdominal aortic aneurysm and previous aorto biiliac stenting. Severe stenosis of the celiac axis. Prominent atherosclerotic vascular calcifications of the SMA. No evidence for endovascular leak nor retr operitoneal bleed. No significant change in the appearance of the abdominal aortic aneurysm. Degenerative changes of the spine and right hip) PD MEDICAL DECISION MAKING - ED course Complexity details: reviewed old records, reviewed results, re-evaluated patient, considered differential, d/w patient ED course: Symptoms resolved with IV fluid. Suspect that as he becomes dehydrated, the mesenteric insufficiency worsens and causes pain. Does not appear to have any acute occlusions tonight. We will have him follow-up closely with his doctor in the next few days for referral to either vascular surgery or interventional radiology to see if there is a stentable the lesion. Patient counseled regarding signs and symptoms for which I believe and urgent re-evaluation would be necessary. Patient with good understanding of and agreement to plan and is comfortable going home at this time This document was made in part using voice recognition software. While efforts are made to proofread this document, sound alike and grammatical errors may occur. - Sepsis Event Vital Signs: Vital Signs - 24 hr 03/31/18 18:39 Temperature 37.1 C Heart Rate 66 Respiratory 18 Rate Blood Pressure 131/67 H O2 Saturation 100 Oxygen O2 Source [With Activity] Room air O2 Source Room air Departure - Departure Disposition: 01 Home, Self Care Clinical Impression: Acute on chronic renal insufficiency, Chronic mesenteric insufficiency Abdominal pain Qualifiers: Abdominal location: generalized Qualified Code(s): R10.84 - Generalized abdominal pain Condition: Good Instructions: ED PVD Follow-Up: John Cannon DO [Primary Care Provider] - Within 3 Days Comments: You have chronic atherosclerotic disease in your abdomen. You need to drink lots of water to keep your blood volume up so you do not develop abdominal pain. 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 It is unknown if vascular surgery would help this. Your doctor can refer you for further care. Eat small meals frequently.
[2018-03-31 23:01] VITALS: BP 139/66
--- NOTE | 2018-04-01 09:05 | CT Report ---
Reason: diffuse abd pain, h/o AAA, SMA stent Procedure Date: 03/31/2018 Accession Number: [id number] / [id number] Procedure: CT - Abdomen/Pelvis Angio CPT Code: FULL RESULT: EXAM: CT ANGIOGRAM ABDOMEN AND PELVIS WITH CONTRAST EXAM DATE: 03/31/2018 08:25 PM. CLINICAL HISTORY: Diffuse abdominal pain, history of AAA, SMA stent. COMPARISONS: Abdomen and pelvis without contrast 03/19/2018 9:38 AM. TECHNIQUE: Routine helical CT angiogram imaging was performed through the abdomen and pelvis in the arterial phase. IV contrast: 80 mL Isovue-300. Enteric contrast: No. Reconstructions: Coronal, sagittal, and 3D MIP reconstructions. In accordance with CT protocol optimization, one or more of the following dose reduction techniques were utilized for this exam: automated exposure control, adjustment of mA and/or KV based on patient size, or use of iterative reconstructive technique. FINDINGS: Vasculature: Normal. No aneurysm, dissection, or significant atherosclerotic disease of the abdominal aorta and iliac arteries. The visualized mesenteric and solid organ vascular structures are also within normal limits. Lung Bases: There are chronic changes at the lung bases. In addition there are small bilateral pleural effusions. There are atherosclerotic vascular calcifications of the coronary arteries. Abdominal Solid Organs: The liver is grossly unremarkable. The gallbladder is distended. There is no cholelithiasis. There is no hepatic ductal dilatation. The spleen is normal. The adrenal glands are normal. The pancreas is slightly atrophic and otherwise unremarkable. The kidneys are normally positioned. On this arterial phase examination there is no significant enhancement of the kidneys. There is a mid abdominal aortic aneurysm status post stenting. The diameter of the [place] aneurysm measures 4.5 cm x 4.1 cm. This is similar to the recent prior exam. The superior aspect of this stent is above the level of the celiac axis. There is stenosis of the celiac axis. There is flow within the splenic artery and the hepatic artery. There is prominent atherosclerotic vascular calcifications of the SMA. There is flow within the SMA. There is no definite evidence for endovascular leak. There is no evidence for retroperitoneal leak. The stents extend into both common iliac arteries. Peritoneal Cavity: There is no free fluid in the abdomen and pelvis. There is no evidence for bowel distention. Pelvic Organs: The urinary bladder is grossly unremarkable. There are calcifications within the prostate. Bones: There are advanced degenerative changes of the thoracolumbar spine and degenerative changes at the right hip. There is a total left hip replacement. Other: None. IMPRESSION: 1. No definite findings to explain clinical symptoms. 2. Advanced atherosclerotic vascular disease including abdominal aortic aneurysm and previous aortobi-iliac stenting. 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 There is prominent atherosclerotic vascular calcifications of the SMA. No evidence for endovascular leak nor retroperitoneal bleed. No significant change in the appearance of the abdominal aortic aneurysm. 3. Degenerative changes of the spine and the right hip. RADIA
== END 2018-03-31 23:18 | disposition home or self-care (01) ==
LOC: EDUNIT# → ED 18:24
DX: N18.9 Chronic kidney disease, unspecified (principal); K55.1 Chronic vascular disorders of intestine; R10.84 Generalized abdominal pain; I70.8 Atherosclerosis of other arteries; E03.9 Hypothyroidism, unspecified; Z86.73 Personal history of transient ischemic attack (TIA), and cerebral infarction without residual deficits; Z79.82 Long term (current) use of aspirin; Z96.649 Presence of unspecified artificial hip joint
CPT/HCPCS: 36415; 74174; 80053; 83690; 85025; 96360; 96361; 99283; 99284; Q9967

== ENCOUNTER 2018-04-07 19:20 | Outpatient (CLI) | payer MEDICARE, OTHER | END 2018-04-07 19:21 | disposition critical access hospital (66) | LOC: EMS 19:20 | PROVIDERS: ATTEND Surgery | DX: M54.9 Dorsalgia, unspecified (principal); R53.1 Weakness; W18.30XA Fall on same level, unspecified, initial encounter; Y92.009 Unspecified place in unspecified non-institutional (private) residence as the place of occurrence of the external cause | CPT/HCPCS: A0425; A0429 ==

== ENCOUNTER 2018-04-07 19:43 | Inpatient (IN) | payer MEDICARE, OTHER ==
--- NOTE | 2018-04-07 19:56 | ED Physician Documentation ---
PD HPI ALTERED MENTAL STATUS - Stated complaint Stated Complaint: GLF - BACK PAIN - Chief complaint Chief Complaint: General - History obtained from History obtained from: Patient, Family - History of Present Illness Timing - onset: How many days ago (2-3) Timing - duration: Days (2-3) Timing - details: Gradual onset (He has had feeling of general weakness and malaise with less appetite and intake over the last few days. Today he was walking with his walker trying to get to bed and felt that his legs just gave out on him. He slumped to the floor without any acute abrupt fall or injury per se but did go to the ground and was unable to get up off the floor. His called EMS for assistance. He feels that he is unable to ambulate himself at this point even with a walker. He denies any focal weakness.) Quality / character: Other (general weakness.) Associated symptoms: NVD (nausea with less appetite/intake, but no vomiting. He says he has had some loose stools, but not overt diarrhea.). No: Fever, Headache, Dyspnea, Cough Contributing factors: No: New medication, Recent med change, Recent illness (seen in ER a week ago for abd pain that improved with IV fluids and felt related to his chronic mesenteric ischemia. He denies change in meds.) Basline status: Alert and oriented X 3, Walker Similar symptoms before: Has not had sx before Recently seen: Clinic (for abd pain.) Review of Systems Constitutional: reports: Fatigue. denies: Fever, Chills, Myalgias Ears: reports: Loss of hearing Nose: denies: Rhinorrhea / runny nose, Congestion Throat: denies: Sore throat Cardiac: denies: Chest pain / pressure, Palpitations Respiratory: reports: Dyspnea. denies: Cough, Wheezing GI: reports: Nausea, Diarrhea (loose but not overt diarrhea per se). denies: Abdominal Pain (not the past week, but often prior.), Abdominal Swelling, Vomiting, Constipation, Hematemesis, Bloody / black stool : denies: Dysuria Skin: denies: Rash, Lesions Musculoskeletal: denies: Neck pain, Back pain Neurologic: reports: Generalized weakness. denies: Focal weakness, Numbness, Near syncope, Confused, Headache Endocrine: reports: Weight loss, Easy bruising / bleeding PD PAST MEDICAL HISTORY - Past Medical History Cardiovascular: Atrial fibrillation, Other (intestinal ischemia) Respiratory: None Neuro: Dementia, CVA Endocrine/Autoimmune: HyPOthyroidism GI: None : Benign prostate hypertrophy HEENT: Chronic hearing loss Psych: None Musculoskeletal: Osteoarthritis Derm: None - Past Surgical History Past Surgical History: Yes Ortho: Hip replacement - Present Medications Home Medications: Ambulatory Orders Medication Instructions Recorded Confirmed Aspirin 81 mg PO DAILY 01/10/17 03/29/18 Tamsulosin HCl 0.4 mg PO DAILY 01/10/17 03/29/18 Zolpidem Tartrate 10 mg PO QPM PRN 01/10/17 03/29/18 Latanoprost 0.005% Ophth Drops 1 drops EACHEYE QPM 08/14/17 03/29/18 [Xalatan Ophth Drops] Timolol 0.5% Ophth Drops [Timoptic 1 drops EACHEYE DAILY 08/14/17 03/29/18 0.5% Ophth Drops] Doxazosin [Cardura] 4 mg PO QPM 12/20/17 03/29/18 Levothyroxine Sodium [Synthroid] 100 mcg PO QDAC 01/01/18 03/29/18 Pilocarpine HCl 5 mg PO TID 01/01/18 03/29/18 raNITIdine [Zantac] 150 mg PO DAILY 01/01/18 03/29/18 Docusate Sodium 100 mg PO DAILY #30 capsule 02/20/18 03/29/18 Atorvastatin Calcium 40 mg PO QPM 03/19/18 03/29/18 Carvedilol 3.125 mg PO BID 03/19/18 03/29/18 Fluticasone [Flonase] 1 sprays TOÑO DAILY 03/19/18 03/29/18 Furosemide 20 mg PO DAILY 03/19/18 03/29/18 Lisinopril 5 mg PO DAILY 03/19/18 03/29/18 Ferrous Sulfate 325 mg PO DAILY #30 tablet 03/20/18 03/29/18 Ipratropium [Atrovent] 2 puffs IH BID 03/29/18 03/29/18 Nitrofurantoin [Macrobid] 100 mg PO BID #12 capsule 03/30/18 - Allergies Allergies/Adverse Reactions: Allergies Allergy/AdvReac Type Severity Reaction Status Date / Time No Known Drug Allergies Allergy Verified 04/07/18 19:46 - Social History Does the pt smoke?: No Smoking Status: Never smoker Does the pt drink ETOH?: No Does the pt have substance abuse?: No - Family History Family history: reports: Non contributory - Immunizations Immunizations are current?: Yes - POLST Patient has POLST: No POLST Status: DNR PD ED PE NORMAL - Vitals Vital signs reviewed: Yes - General General: Alert and oriented X 3, No acute distress, Well developed/nourished, Other (dried lips) - HEENT HEENT: Pharynx benign. No: Moist mucous membranes - Neck Neck: Supple, no meningeal sign, No adenopathy, No JVD - Cardiac Cardiac: RRR, No murmur - Respiratory Respiratory: Clear bilaterally - Abdomen Abdomen: Soft, Non tender, Non distended. No: Normal bowel sounds (decreased) - Male Male : Deferred - Rectal Rectal: Other (rectal showing some stool in vault, guiac negative. ) - Back Back: No CVA TTP - Derm Derm: Warm and dry. No: Normal color (pale) - Extremities Extremities: No tenderness to palpate, Normal ROM s pain, No edema, No calf tenderness / cord - Neuro Neuro: Alert and oriented X 3, No motor deficit, Normal speech, Other (he needed assistance to get out of bed and to bathroom in same room ) Eye Opening: Spontaneous Motor: Obeys Commands Verbal: Oriented GCS Score: 15 Results - Vitals Vitals: Vital Signs - 24 hr 04/07/18 19:46 Temperature 36.8 C Heart Rate 90 Respiratory 16 Rate Blood Pressure 146/70 H O2 Saturation 100 Oxygen O2 Source [With Activity] Room air O2 Source Room air PD MEDICAL DECISION MAKING - ED course Complexity details: considered differential (No injury with this fall and had just slumped to the floor. He is showing general weakness. He has had less intake and perhaps some loose stool/mild diarrhea. His electrolytes are showing significantly low potassium level which is acute. He has not had any intestinal ischemia type pains in the last week. He is given some IV fluids here as well as potassium supplementation. However will need to continue this potassium supplement dictation at least overnight and see how his symptoms improve.), d/w patient Departure - Departure Disposition: ED Place in Observation Clinical Impression: Generalized weakness, Hypokalemia Fall Qualifiers: Encounter type: initial encounter Qualified Code(s): W19.XXXA - Unspecified fall, initial encounter Condition: Stable Record reviewed to determine appropriate education?: Yes
[2018-04-07] MEDS ORDERED: SODIUM CHLORIDE 0.9% 1,000 ML IV ONE (20:10)
[2018-04-07] MEDS ORDERED: ACETAMINOPHEN 325 MG TABLET PO STA (20:11)
[2018-04-07 21:01] LABS: BILIRUBIN,URINE NEGATIVE (NEGATIVE); GLUCOSE, URINE (UA) NEGATIVE (NEGATIVE); KETONES,URINE (UA) 15 mg/dL (NEGATIVE); LEUKOCYTE ESTERASE, URINE TRACE (NEGATIVE); NITRITE,URINE NEGATIVE (NEGATIVE); OCCULT BLOOD,URINE NEGATIVE (NEGATIVE); PROTEIN,URINE TRACE mg/dL (NEGATIVE); UROBILINOGEN,URINE 0.2 (NORMAL) E.U./dL (NORMAL)
[2018-04-07 21:02] LABS: CLARITY,URINE CLEAR (CLEAR)
[2018-04-07 21:11] LABS: RBC,URINE None Seen /HPF (0-5); SQUAMOUS EPITHELIAL CELL,UR MOD Squamous (<= Few)
[2018-04-07 21:12] LABS: BACTERIA,URINE None Seen /HPF (None Seen)
[2018-04-07 21:43] LABS: BASOPHILS # (AUTO) 0.1 10^3/uL (0.0-0.1); BASOPHILS % (AUTO) 1.3 %; EOSINOPHILS % (AUTO) 0.4 %; LYMPHOCYTES # (AUTO) 0.8 10^3/uL (1.5-3.5); LYMPHOCYTES % (AUTO) 12.3 %; MEAN CORPUSCULAR HEMOGLOBIN 31.2 pg (27.0-31.0); MEAN CORPUSCULAR HGB CONC 33.7 g/dL (32.0-36.0); MEAN CORPUSCULAR VOLUME 92.8 fL (80.0-94.0); MEAN PLATELET VOLUME 7.9 fL (7.4-11.4); MONOCYTES # (AUTO) 0.7 10^3/uL (0.0-1.0); MONOCYTES % (AUTO) 9.8 %; NEUTROPHILS # (AUTO) 5.1 10^3/uL (1.5-6.6); NEUTROPHILS % (AUTO) 76.2 %; PLT - PLATELET COUNT 204 10^3/uL (130-450); RED BLOOD COUNT 2.87 10^6/uL (4.70-6.10); RED CELL DISTRIBUTION WIDTH 15.1 % (12.0-15.0); WHITE BLOOD COUNT 6.7 x10^3/uL (4.8-10.8)
[2018-04-07 21:55] LABS: ALBUMIN 2.8 g/dL (3.2-5.5); ALBUMIN/GLOBULIN RATIO 1.2 (1.0-2.2); BILIRUBIN,TOTAL 0.8 mg/dL (0.2-1.0); CALCIUM 7.9 mg/dL (8.5-10.3); CREATININE 1.2 mg/dL (0.6-1.2); MAGNESIUM 1.6 mg/dL (1.7-2.8); TOTAL PROTEIN 5.1 g/dL (6.7-8.2)
[2018-04-07] MEDS ORDERED: POTASSIUM CHLOR 10 MEQ/100 ML 10 MEQ/100 ML BAG IV STA (21:56)
[2018-04-07] MEDS ORDERED: POTASSIUM BICARB 25 MEQ TABLET PO STA (21:56)
[2018-04-07] MEDS ORDERED: ZOLPIDEM 5 MG TABLET PO PRN (23:03)
[2018-04-07] MEDS ORDERED: PROCHLORPERAZINE 10 MG/2 ML VIAL IVP PRN (23:04)
[2018-04-07] MEDS ORDERED: ONDANSETRON 4 MG/2 ML VIAL IVP PRN (23:04)
[2018-04-07] MEDS ORDERED: PROMETHAZINE 25 MG/1 ML VIAL IM PRN (23:04)
[2018-04-07] MEDS ORDERED: ACETAMINOPHEN 325 MG TABLET PO PRN (23:04)
[2018-04-07] MEDS ORDERED: SODIUM CHLORIDE FLUSH 0.9% 10 ML SYRINGE IVP PRN (23:04)
--- NOTE | 2018-04-07 23:12 | HISTORY & PHYSICAL EXAMINATION ---
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 The patient has been hospitalized twice in the past month for abdominal pain and is thought to have chronic mesenteric ischemia which seems to cause increased abdominal pain when the patient becomes dehydrated or hypotensive. The patient was most recently in the emergency department with abdominal pain 1 week earlier. The patient has since been diagnosed with a urinary tract infection and was started on nitrofurantoin. The patient states that over the last week he has had decreased appetite with decreased p.o. intake of fluids and food. He states that his mouth is been extremely dry and he has been having increased urinary frequency. The patient states that today when he was walking he fell to the floor because of weakness and could not get back up. The patient states that he was walking with his walker to his bed and states he was so weak he just could not move. He states that he felt his legs giving out on him and slowly fell to the floor. The patient denies hitting his head and does admit to some back pain. When the patient's saw him lying on the floor she immediately called EMS. The patient was brought to the emergency department. The patient denies any fevers or chills. He denies any abdominal pain, nausea, vomiting, diarrhea or any constipation. Patient denies any headaches, blurred vision, runny nose, sore throat, nasal congestion, difficulty swallowing, chest pain, shortness of air, orthopnea, PND, increased lower extremity swelling, dysuria, joint swelling, muscle aches, neck stiffness, recent unintentional weight loss, skin rash, skin changes, hair loss, night sweats, polyuria, polydipsia or any focal neurologic deficits. On presentation to the emergency department the patient was afebrile and heart rate was slightly elevated at 90 patient's blood pressure was normal and he was not in any respiratory distress. The patient underwent routine lab work which revealed no leukocytosis, a chronic anemia, a mildly decreased magnesium level of 1.6 and a severely decreased potassium of 2.3. The patient has been on Lasix at home for his congestive heart failure and this in combination with the fact the patient has had poor appetite and poor oral intake it appears that he is developed severe hypokalemia. The patient's UA was negative for ongoing infection. The patient was placed in observation for potassium replacement and IV fluids as he appeared to be dehydrated on examination. History - Past Medical History Cardiovascular: reports: Congestive heart failure, Hypertension, High cholesterol, Atrial fibrillation Respiratory: reports: None Neuro: reports: Dementia, CVA Endocrine/Autoimmune: reports: HyPOthyroidism GI: reports: None : reports: Benign prostate hypertrophy HEENT: reports: Chronic hearing loss Psych: reports: None Musculoskeletal: reports: Osteoarthritis Derm: reports: None MRSA Hx?: No - Past Surgical History Ortho: reports: Hip replacement - Family & Social History Family History: Mother: , CVA/TIA, Father: , CAD, COPD/Emphysema Living arrangement: At home Living Situation: With spouse/s.o. Social History Notes: The patient lives in [place] with his . He has been to his for 68 years and they have been living on [facility] for 60 years. The patient was born in [place] and [place] to join the at the age of 19 and served in the [employer] for 20 years. 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 After he retired he remained on [facility]. He had his have 3 children all boys. 1 of his sons lives in [place], one lives in [place] and one lives in [facility]. The patient states that he did smoke cigarettes for about 10 years but quit in his 40s. He denies any alcohol or illicit drug use. - POLST Patient has POLST: No POLST Status: DNR Meds/Allgy - Home Medications Home Medications: Ambulatory Orders Medication Instructions Recorded Confirmed Aspirin 81 mg PO DAILY 01/10/17 03/29/18 Tamsulosin HCl 0.4 mg PO DAILY 01/10/17 03/29/18 Zolpidem Tartrate 10 mg PO QPM PRN 01/10/17 03/29/18 Latanoprost 0.005% Ophth Drops 1 drops EACHEYE QPM 08/14/17 03/29/18 [Xalatan Ophth Drops] Timolol 0.5% Ophth Drops [Timoptic 1 drops EACHEYE DAILY 08/14/17 03/29/18 0.5% Ophth Drops] Doxazosin [Cardura] 4 mg PO QPM 12/20/17 03/29/18 Levothyroxine Sodium [Synthroid] 100 mcg PO QDAC 01/01/18 03/29/18 Pilocarpine HCl 5 mg PO TID 01/01/18 03/29/18 raNITIdine [Zantac] 150 mg PO DAILY 01/01/18 03/29/18 Docusate Sodium 100 mg PO DAILY #30 capsule 02/20/18 03/29/18 Atorvastatin Calcium 40 mg PO QPM 03/19/18 03/29/18 Carvedilol 3.125 mg PO BID 03/19/18 03/29/18 Fluticasone [Flonase] 1 sprays TOÑO DAILY 03/19/18 03/29/18 Furosemide 20 mg PO DAILY 03/19/18 03/29/18 Lisinopril 5 mg PO DAILY 03/19/18 03/29/18 Ferrous Sulfate 325 mg PO DAILY #30 tablet 03/20/18 03/29/18 Ipratropium [Atrovent] 2 puffs IH BID 03/29/18 03/29/18 Nitrofurantoin [Macrobid] 100 mg PO BID #12 capsule 03/30/18 - Allergies Allergies/Adverse Reactions: Allergies Allergy/AdvReac Type Severity Reaction Status Date / Time No Known Drug Allergies Allergy Verified 04/07/18 19:46 Review of Systems - Other Findings Other Findings: A comprehensive review of systems was performed the pertinent positives and negatives are stated above in the HPI and the remainder of the review of systems is negative. Prior Level of Functionality: The patient uses a walker at home and lives with his . He has his support for his activities of daily living but is still partially independent. He appears to be declining over the last several months and has been requiring increasing number of hospitalizations. It does not appear that the patient's alone is going to be able to continue to take care of the patient. They do appear to need caregiver support. Exam - Vital Signs Reviewed Vital Signs: Yes Vital Signs: Vital Signs x48h Temp Pulse Resp BP Pulse Ox 04/07/18 21:48 36.3 C L 72 22 125/69 98 04/07/18 19:46 36.8 C 90 16 146/70 H 100 - Physical Exam General Appearance: positive: No acute distress, Alert, Other (Patient appears elderly, cachectic and very dry on exam.) Eyes Bilateral: positive: Normal inspection, PERRL, EOMI, No lid inflammation, Conjunctivae nml, No scleral icterus ENT: positive: ENT inspection nml, Pharynx nml, Dry mucous membranes. negative: Purulent nasal drainage, Pharyngeal erythema, Oral lesions Neck: positive: Nml inspection, Thyroid nml, No JVD, Trachea midline. negative: Thyromegaly, Lymphadenopathy (R), Lymphadenopathy (L), Stiff neck, Kernig's sign, Carotid bruit, Tracheal deviation Respiratory: positive: Chest non-tender, No respiratory distress, Breath sounds nml. negative: Wheezes, Rales, Rhonchi Cardiovascular: positive: No murmur, No gallop, Irregularly irregular Peripheral Pulses: positive: 2+ Abdomen: positive: No organomegaly, Nml bowel sounds, No distention, Tenderness (Patient has abdominal tenderness specifically in the epigastric area but states this is nothing new.), Guarding. negative: Rebound, Hepatomegaly Back: positive: Nml inspection. negative: CVA tenderness (R), CVA tenderness (L) Skin: positive: Color nml, No rash, Warm, Dry. negative: Cyanosis, Diaphoresis, Pallor Extremities: positive: Non-tender, Full ROM, Nml appearance, No pedal edema Neurologic/Psychiatric: positive: Oriented x3, CN's nml (2-12), Motor nml, Sensation nml, Mood/affect nml Conclusion/Plan - Problem List (1) Hypokalemia Conclusion/Plan: Patient presented with generalized weakness and inability to get up off of the floor after a fall. Patient has had poor appetite and poor oral intake over the last week. He has not had any vomiting or diarrhea. He does admit to some nausea. The symptoms seem to come on after he was started on nitrofurantoin for urinary tract infection. This could be partially side effects from the nitrofurantoin. The patient also has been on Lasix for his congestive heart failure which likely also was contributing to hypokalemia. Plan: Placed in observation Replace potassium IV n.p.o. Monitor on telemetry overnight Hold nitrofurantoin and Lasix IV antiemetics for nausea IV fluids Monitor potassium (2) Hypomagnesemia Conclusion/Plan: Along with his hypokalemia the patient also has a hypomagnesemia with a magnesium that is slightly low at 1.6. This is likely also secondary to poor appetite and poor oral intake. Patient will be given magnesium replacement and we will continue to monitor his magnesium. (3) Protein-calorie malnutrition, moderate Conclusion/Plan: Patient appears to have protein calorie malnutrition as his albumin and protein are low and patient has a BMI of 16.8 and appears and then seated on examinati on. Patient has also had very poor oral intake for months now. The patient appears to be having failure to thrive. Plan: Nutrition consult for supplemental nutrition It may be getting close to time where patient needs a palliative care consult as he does appear to be having failure to thrive. (4) Generalized weakness Conclusion/Plan: Patient presented with generalized weakness. Patient's generalized weakness appears to be secondary to dehydration from poor oral intake and continued diuretics. He was also extremely hypokalemic which could have caused him to be weak. Patient will receive IV fluids along with electrolyte replacement and we will get a nutrition consult. We will also get a physical therapy consultation. (5) CHF (congestive heart failure) Conclusion/Plan: Patient has chronic congestive heart failure with combined systolic and diastolic dysfunction. Patient has an ejection fraction of 40-45%. Currently the patient appears very dry on examination. We will give the patient IV fluids and electrolyte replacement while he is hospitalized but will still need to be careful with fluid given his history of CHF. The patient will be continued on his home lisinopril and Coreg. Qualifiers: Heart failure type: combined systolic and diastolic Heart failure chronicity: chronic Qualified Code(s): I50.42 - Chronic combined systolic (congestive) and diastolic (congestive) heart failure (6) HTN (hypertension) Conclusion/Plan: Patient has a history of hypertension and blood pressure was slightly elevated on presentation. The patient will be continued on his home antihypertensive medications will continue to monitor his blood pressure and titrate medications as needed. Qualifiers: Hypertension type: essential hypertension Qualified Code(s): I10 - Essential (primary) hypertension (7) Hypothyroidism Conclusion/Plan: The patient has a history of hypothyroidism and is on Synthroid at home. We will continue the patient's Synthroid dose while he is hospitalized. The patient's TSH was last checked just 9 days ago therefore we will not need to do another check of his TSH. Qualifiers: Hypothyroidism type: unspecified Qualified Code(s): E03.9 - Hypothyroidism, unspecified - Lab Results Fish Bones: 04/07/18 21:34 04/07/18 21:34 Other Lab Results: Laboratory Results WBC 6.7 x10^3/uL (4.8-10.8) 04/07/18: RBC 2.87 10^6/uL (4.70-6.10) L 04/07/18:34 Hgb 9.0 g/dL (14.0-18.0) L 04/07/18: Hct 26.6 % (42.0-52.0) L 04/07/18 21:34 MCV 92.8 fL (80.0-94.0) 04/07/18: MCH 31.2 pg (27.0-31.0) H 04/07/18:34 MCHC 33.7 g/dL (32.0-36.0) 04/07/18 21: RDW 15.1 % (12.0-15.0) H 04/07/18:34 Plt Count 204 10^3/uL (130-450) 04/07/18:34 MPV 7.9 fL (7.4-11.4) 04/07/18:34 Neut # (Auto) 5.1 10^3/uL (1.5-6.6) 04/07/18:34 Lymph # (Auto) 0.8 10^3/uL (1.5-3.5) L 04/07/18 21:34 [place] # (Auto) 0.7 10^3/uL (0.0-1.0) 04/07/18: Eos # (Auto) 0.0 10^3/uL (0.0-0.7) 04/07/18 21:34 Baso # (Auto) 0.1 10^3/uL (0.0-0.1) 04/07/18 21:34 Absolute Nucleated RBC 0.00 x10^3/uL 04/07/18 21:34 Nucleated RBC % 0.0 /100WBC 04/07/18 21:34 Sodium 140 mmol/L (135-145) 04/07/18 21:34 Potassium 2.3 mmol/L (3.5-5.0) L* 04/07/18 21:34 Chloride 107 mmol/L (101-111) 04/07/18 21:34 Carbon Dioxide 23 mmol/L (21-32) 04/07/18 21:34 Anion Gap 10.0 (6-13) 04/07/18 21:34 BUN 15 mg/dL (6-20) 04/07/18 21:34 Creatinine 1.2 mg/dL (0.6-1.2) 04/07/18 21:34 Estimated GFR (MDRD) 57 (>89) L 04/07/18 21:34 Glucose 101 mg/dL (70-100) H 04/07/18 21:34 Lactic Acid 1.6 mmol/L (0.5-2.2) 04/07/18 21:34 Calcium 7.9 mg/dL (8.5-10.3) L 04/07/18 21:34 Magnesium 1.6 mg/dL (1.7-2.8) L 04/07/18 21:34 Total Bilirubin 0.8 mg/dL (0.2-1.0) 04/07/18 21:34 AST 16 IU/L (10-42) 04/07/18 21:34 ALT 21 IU/L (10-60) 04/07/18 21:34 Alkaline Phosphatase 66 IU/L (42-121) 04/07/18 21:34 Total Protein 5.1 g/dL (6.7-8.2) L 04/07/18 21:34 Albumin 2.8 g/dL (3.2-5.5) L 04/07/18 21:34 Globulin 2.3 g/dL (2.1-4.2) 04/07/18 21:34 Albumin/Globulin Ratio 1.2 (1.0-2.2) 04/07/18 21:34 Lipase 18 U/L (22-51) L 04/07/18 21:34 Urine Color YELLOW 04/07/18 20:55 Urine Clarity CLEAR (CLEAR) 04/07/18 20:55 Urine pH 6.0 PH (5.0-7.5) 04/07/18 20:55 Ur Specific [place] 1.025 (1.002-1.030) 04/07/18 20:55 Urine Protein TRACE mg/dL (NEGATIVE) 04/07/18 20:55 Urine Glucose (UA) NEGATIVE mg/dL (NEGATIVE) 04/07/18 20:55 Urine Ketones 15 mg/dL (NEGATIVE) H 04/07/18 20:55 Urine Occult Blood NEGATIVE (NEGATIVE) 04/07/18 20:55 Urine Nitrite NEGATIVE (NEGATIVE) 04/07/18 20:55 Urine Bilirubin NEGATIVE (NEGATIVE) 04/07/18 20:55 Urine Urobilinogen 0.2 (NORMAL) E.U./dL (NORMAL) 04/07/18 20:55 Ur Leukocyte Esterase TRACE (NEGATIVE) H 04/07/18 20:55 Urine RBC None Seen /HPF (0-5) 04/07/18 20:55 Urine WBC 4-5 /HPF (0-3) 04/07/18 20:55 Ur Squamous Epith Cells MOD Squamous (<= Few) H 04/07/18 20:55 Urine Bacteria None Seen /HPF (None Seen) 04/07/18 20:55 Ur Microscopic Review INDICATED 04/07/18 20:55 Urine Culture Comments NOT INDICATED 04/07/18 20:55 Core Measures - Anticipated LOS I expect patient to be DC'd or transferred within 96 hours.: Yes - DVT/VTE - Prophylaxis VTE/DVT Prophylaxis med ordered at admit?: Yes
[2018-04-07] MEDS ORDERED: POTASSIUM CHLORIDE 20 MEQ TABLET PO STA (23:53)
[2018-04-08] MEDS: NS W/20 MEQ KCL 1,000 ML IV SCH ×3 (00:49→22:58)
[2018-04-08] MEDS: SODIUM CHLORIDE FLUSH 0.9% 10 ML SYRINGE IVP SCH ×3 (00:49→17:39)
[2018-04-08] MEDS: POTASSIUM CHLOR 10 MEQ/100 ML 10 MEQ/100 ML BAG IV SCH ×6 (00:49→06:34)
[2018-04-08] MEDS: MAGNESIUM OXIDE 400 MG TABLET PO SCH ×2 (00:50→08:33)
[2018-04-08 06:14] LABS: BASOPHILS % (AUTO) 0.3 %; EOSINOPHILS % (AUTO) 1.3 %; HGB - HEMOGLOBIN 11.1 g/dL (14.0-18.0); LYMPHOCYTES % (AUTO) 20.7 %; MEAN CORPUSCULAR HEMOGLOBIN 30.5 pg (27.0-31.0); MEAN CORPUSCULAR HGB CONC 33.4 g/dL (32.0-36.0); MEAN CORPUSCULAR VOLUME 91.2 fL (80.0-94.0); MEAN PLATELET VOLUME 8.5 fL (7.4-11.4); MONOCYTES % (AUTO) 10.2 %; NEUTROPHILS % (AUTO) 67.5 %; PLT - PLATELET COUNT 237 10^3/uL (130-450); RED BLOOD COUNT 3.64 10^6/uL (4.70-6.10); RED CELL DISTRIBUTION WIDTH 14.8 % (12.0-15.0); WHITE BLOOD COUNT 8.8 x10^3/uL (4.8-10.8)
[2018-04-08 06:18] LABS: ABNORMAL LYMPHS % (MANUAL) 0 %; BAND NEUTROPHILS % (MANUAL) 0 %
[2018-04-08 06:20] LABS: ALBUMIN 3.2 g/dL (3.2-5.5); ALBUMIN/GLOBULIN RATIO 1.3 (1.0-2.2); BILIRUBIN,TOTAL 0.8 mg/dL (0.2-1.0); CALCIUM 8.1 mg/dL (8.5-10.3); MAGNESIUM 1.8 mg/dL (1.7-2.8); PHOSPHORUS 2.1 mg/dL (2.5-4.6); TOTAL PROTEIN 5.7 g/dL (6.7-8.2)
[2018-04-08] MEDS: LEVOTHYROXINE 100 MCG TABLET PO SCH (06:34)
[2018-04-08 06:42] LABS: DIFFERENTIAL COMMENT MANUAL DIFFERENTIAL; EOSINOPHILS # (MANUAL) 0.1 10^3/uL (0-0.7); LYMPHOCYTES % (MANUAL) 19 %; MONOCYTES # (MANUAL) 0.4 10^3/uL (0.0-1.0); NEUTROPHILS # (MANUAL) 6.3 10^3/uL (1.5-6.6); NEUTROPHILS % (MANUAL) 72 %; PLATELET ESTIMATE, MANUAL NORMAL (130-450,000) (NORMAL); RBC MORPHOLOGY (MULTIPLE) NORMAL APPEARANCE (NORMAL)
[2018-04-08] MEDS: POLYETHYLENE GLYCOL 3350 17 GM PACKET PO SCH (08:24)
[2018-04-08] MEDS: LISINOPRIL 5 MG TABLET PO SCH (08:25)
[2018-04-08] MEDS: TAMSULOSIN 0.4 MG CAPSULE PO SCH (08:25)
[2018-04-08] MEDS: POTASSIUM CHLORIDE 20 MEQ TABLET PO SCH (08:26)
[2018-04-08] MEDS: CARVEDILOL 3.125 MG TABLET PO SCH ×2 (08:26→21:14)
[2018-04-08] MEDS: ENOXAPARIN 40 MG/0.4 ML SYRINGE SUBQ SCH (08:26)
[2018-04-08] MEDS: FAMOTIDINE 20 MG TABLET PO SCH ×2 (08:26→21:16)
[2018-04-08] MEDS: ASPIRIN CHEW 81 MG TABLET PO SCH (08:26)
[2018-04-08] MEDS: NEUTRA-PHOS 250 MG TABLET PO SCH ×3 (08:26→17:48)
[2018-04-08] MEDS ORDERED: FERROUS SULFATE 325 MG TABLET PO SCH (09:00)
[2018-04-08] MEDS ORDERED: FAMOTIDINE 20 MG TABLET PO SCH (09:00)
[2018-04-08] MEDS: FLUTICASONE NASAL SPRAY NAS SCH (10:28)
[2018-04-08] MEDS: TIMOLOL 0.5% OPHTH DROPS EACHEYE SCH (12:35)
--- NOTE | 2018-04-08 12:54 | Discharge Plan ---
Discharge Plan Condition: Fair Diet: Regular Activity Restrictions: Activity as Tolerated Shower Restrictions: No Driving Restrictions: Yes Assistance Devices: Walker Weight Bearing: Full Weight Additional Instructions or Follow Up instructions: You were admitted for weakness and you were not able to get up after a fall. Luckily, you were found to have no injuries. Also, some of your electrolytes were abnormal, so you were given supplements for that. Please take all of your regular medications as usual, there have been no changes. A physical therapist saw you and recommends home health physical therapy, so I have ordered this. Also, you will need a walker, so I have ordered this. Please see your PCP within one week. Follow-Up Care: Home Health - PT No Smoking: If you smoke, Please STOP! Call for help. Follow-up with: John Cannon DO [Primary Care Provider] -
--- NOTE | 2018-04-08 13:11 | DISCHARGE SUMMARY ---
Discharge Summary Discharge Date: 04/08/18 Discharging Provider: DARNELL Chairez Primary Care Provider: John Cannon Code Status: Do Not Attempt Resuscitation Condition at Discharge: Fair Discharge Disposition: 01 Home, Self Care - ALLERGIES Allergies/Adverse Reactions: Allergies Allergy/AdvReac Type Severity Reaction Status Date / Time No Known Drug Allergies Allergy Verified 04/07/18 19:46 - MEDICATIONS Home Medications: Ambulatory Orders Medication Instructions Recorded Confirmed Aspirin 81 mg PO DAILY 01/10/17 04/08/18 Tamsulosin HCl 0.4 mg PO DAILY 01/10/17 04/08/18 Zolpidem Tartrate 10 mg PO QPM PRN 01/10/17 04/08/18 Latanoprost 0.005% Ophth Drops 1 drops EACHEYE QPM 08/14/17 04/08/18 [Xalatan Ophth Drops] Timolol 0.5% Ophth Drops [Timoptic 1 drops EACHEYE DAILY 08/14/17 04/08/18 0.5% Ophth Drops] Doxazosin [Cardura] 4 mg PO QPM 12/20/17 04/08/18 Levothyroxine Sodium [Synthroid] 100 mcg PO QDAC 01/01/18 04/08/18 Pilocarpine HCl 5 mg PO TID 01/01/18 04/08/18 raNITIdine [Zantac] 150 mg PO DAILY 01/01/18 04/08/18 Atorvastatin Calcium 40 mg PO QPM 03/19/18 04/08/18 Carvedilol 3.125 mg PO BID 03/19/18 03/29/18 Fluticasone [Flonase] 2 sprays TOÑO DAILY 03/19/18 04/08/18 Furosemide 20 mg PO DAILY 03/19/18 03/29/18 Lisinopril 5 mg PO DAILY 03/19/18 03/29/18 Ferrous Sulfate 325 mg PO DAILY #30 tablet 03/20/18 03/29/18 Ipratropium [Atrovent] 2 puffs IH BID 03/29/18 04/08/18 Clopidogrel Bisulfate [Clopidogrel] 75 mg PO DAILY 04/08/18 - PHYSICAL EXAM AT DISCHARGE General Appearance: positive: No acute distress, Alert Eyes Bilateral: positive: PERRL ENT: positive: Pharynx nml, No signs of dehydration Neck: positive: Thyroid nml, No JVD, Trachea midline Respiratory: positive: Chest non-tender, No respiratory distress, Breath sounds nml Cardiovascular: positive: Regular rate & rhythm, No gallop, Systolic murmur Peripheral Pulses: positive: 2+ Abdomen: positive: Non-tender, Nml bowel sounds Back: positive: Nml inspection Skin: positive: No rash, Warm, Dry Extremities: positive: Non-tender, Full ROM, Nml appearance, No pedal edema Neurologic/Psychiatric: positive: CN's nml (2-12), Disoriented to time, Weakness, Sensory loss, Depressed mood/affect Reflexes: Bicep (R): 2+, Bicep (L): 2+ - LABS Result Diagrams: 04/08/18 05:53 04/08/18 05:53 - TIME SPENT Time Spent in Discharge (Minutes): 55
--- NOTE | 2018-04-08 18:54 | PROVIDER PROGRESS NOTE ---
Subjective - Prog Note Date Prog Note Date: 04/08/18 Prog Note Time: 15:00 - Subjective Pt reports feeling: No change Subjective: [place] complains of profound weakness today with ongoing abdominal pain. He denies chest pain, rashes, a new cough or shortness of breath at rest. He states that eating has been difficult for him. Current Medications - Current Medications Current Medications: Active Medications Acetaminophen (Tylenol) 650 mg PO Q4HR PRN PRN Reason: Pain 1 to 4 Aspirin ([facility] Bhavesh Aspirin) 81 mg PO DAILY [facility] Last Admin: 04/08/18 08:26 Dose: 81 mg Atorvastatin Calcium (Lipitor) 40 mg PO QPM [facility] Carvedilol (Coreg) 3.125 mg PO BID [facility] Last Admin: 04/08/18 08:26 Dose: 3.125 mg Doxazosin Mesylate (Cardura) 4 mg PO QPM [facility] Enoxaparin Sodium (Lovenox) 40 mg SUBQ DAILY [facility] Last Admin: 04/08/18 08:26 Dose: 40 mg Famotidine (Pepcid) 20 mg PO BID [facility] Last Admin: 04/08/18 08:26 Dose: 20 mg Famotidine (Pepcid) 20 mg PO DAILY [facility] Last Admin: 04/08/18 08:27 Dose: Not Given Ferrous Sulfate (Feosol) 325 mg PO DAILY [facility] Last Admin: 04/08/18 08:25 Dose: 325 mg Fluticasone Propionate (Flonase) 0 sprays TOÑO DAILY [facility] Last Admin: 04/08/18 10:28 Dose: Not Given Potassium Chloride/Sodium Chloride (Normal Saline 0.9% W/20 Meq Kcl) 1,000 mls @ 100 mls/hr IV .Q10H [facility] Last Admin: 04/08/18 12:18 Dose: 100 mls/hr Latanoprost (Xalatan Ophth Drops) 1 drops EACHEYE QPM [facility] Levothyroxine Sodium (Synthroid) 100 mcg PO QDAC [facility] Last Admin: 04/08/18 06:34 Dose: 100 mcg Lisinopril (Zestril) 5 mg PO DAILY [facility] Last Admin: 04/08/18 08:25 Dose: 5 mg Magnesium Oxide (Mag Ox) 400 mg PO DAILYWM [facility] Last Admin: 04/08/18 08:33 Dose: 400 mg Ondansetron HCl (Zofran Inj) 4 mg IVP Q6HR PRN PRN Reason: Nausea / Vomiting (Pilocarpine Hcl [ Pilocarpine Hcl] 5 Mg) Tab 1 each PO TID [facility] Last Admin: 04/08/18 12:36 Dose: Not Given Polyethylene Glycol (Miralax) 17 gm PO DAILY [facility] Last Admin: 04/08/18 08:24 Dose: 17 gm Potassium Chloride (K-Dur) 20 meq PO DAILYWM [facility] Last Admin: 04/08/18 08:26 Dose: 20 meq Prochlorperazine Edisylate (Compazine Inj) 10 mg IVP Q6HR PRN PRN Reason: Nausea / Vomiting Promethazine HCl (Phenergan Inj) 25 mg IM Q6HR PRN PRN Reason: Nausea / Vomiting Sodium Chloride (Normal Saline Flush 0.9%) 10 ml IVP PRN PRN PRN Reason: NEEDED PER PROVIDER ORDERS Sodium Chloride (Normal Saline Flush 0.9%) 10 ml IVP 0100,0900,1700 [facility] Last Admin: 04/08/18 17:39 Dose: Not Given Sodium Phosphate (K-Phos Neutral) 250 mg PO TIDWM [facility] Last Admin: 04/08/18 17:48 Dose: 250 mg Tamsulosin HCl (Flomax) 0.4 mg PO DAILY [facility] Last Admin: 04/08/18 08:25 Dose: 0.4 mg Timolol Maleate (Timoptic 0.5% Ophth Drops) 1 drops EACHEYE DAILY [facility] Last Admin: 04/08/18 12:35 Dose: 1 drops Zolpidem Tartrate (Ambien) 10 mg PO QPM PRN PRN Reason: Insomnia Aspirin 81 mg PO DAILY 01/10/17 Tamsulosin HCl 0.4 mg PO DAILY 01/10/17 Zolpidem Tartrate 10 mg PO QPM PRN 01/10/17 Latanoprost 0.005% Ophth Drops [Xalatan Ophth Drops] 1 drops EACHEYE QPM 08/14/17 Timolol 0.5% Ophth Drops [Timoptic 0.5% Ophth Drops] 1 drops EACHEYE DAILY 08/14/17 Doxazosin [Cardura] 4 mg PO QPM 12/20/17 Levothyroxine Sodium [Synthroid] 100 mcg PO QDAC 01/01/18 Pilocarpine HCl 5 mg PO TID 01/01/18 raNITIdine [Zantac] 150 mg PO DAILY 01/01/18 Atorvastatin Calcium 40 mg PO QPM 03/19/18 Carvedilol 3.125 mg PO BID 03/19/18 Fluticasone [Flonase] 2 sprays TOÑO DAILY 03/19/18 Furosemide 20 mg PO DAILY 03/19/18 Lisinopril 5 mg PO DAILY 03/19/18 Ipratropium [Atrovent] 2 puffs IH BID 03/29/18 Clopidogrel Bisulfate [Clopidogrel] 75 mg PO DAILY 04/08/18 Objective - Vital Signs/Intake & Output Reviewed Vital Signs: Yes Vital Signs: Vital Signs x48h Temp Pulse Resp BP Pulse Ox 04/08/18 15:31 36.3 C L 59 L 20 116/59 L 96 04/08/18 13:42 36.3 C L 71 20 103/82 H 95 Intake & Output: Intake & Output 04/05/18 04/06/18 04/07/18 04/08/18 23:59 23:59 23:59 23:59 Intake Total 1100 3333 Output Total 900 Balance 1100 2433 - Objective General Appearance: positive: Alert, Mild distress, Anxious Eyes Bilateral: positive: PERRL, No lid inflammation Eyes: OU Conjunctivae pale ENT: positive: Pharynx nml, No signs of dehydration, Other (profound [place]) Neck: positive: Thyroid nml, No JVD, Trachea midline Respiratory: positive: Chest non-tender, No respiratory distress, Other (diminished.) Cardiovascular: positive: Regular rate & rhythm, Systolic murmur Peripheral Pulses: 1+ Radial (R), 1+ Radial (L) Abdomen: positive: Non-tender, Nml bowel sounds Back: positive: Nml inspection Skin: positive: No rash, Warm, Dry, Pallor Extremities: positive: Non-tender, No pedal edema, Joint swelling Neurologic/Psychiatric: positive: Disoriented to time, Weakness, Sensory loss, Slurred/abnml speech, Depressed mood/affect Reflexes: Bicep (R): 2+, Bicep (L): 2+ - Lab Results Fish Bones: 04/10/18 05:15 04/10/18 05:15 Other Labs: Lab Results x24hrs 04/08/18 04/08/1804/08/18 Range/Units 05:53 05:53 05:53 WBC 8.8 (4.8-10.8) x10^3/uL RBC 3.64 L (4.70-6.10) 10^6/uL Hgb 11.1 L (14.0-18.0) g/dL Hct 33.2 L (42.0-52.0) % MCV 91.2 (80.0-94.0) fL MCH 30.5 (27.0-31.0) pg MCHC 33.4 (32.0-36.0) g/dL RDW 14.8 (12.0-15.0) % Plt Count 237 (130-450) 10^3/uL MPV 8.5 (7.4-11.4) fL Neut # (Auto) Not Reportable (1.5-6.6) 10^3/uL Lymph # (Auto) Not Reportable (1.5-3.5) 10^3/uL [place] # (Auto) Not Reportable (0.0-1.0) 10^3/uL Eos # (Auto) Not Reportable (0.0-0.7) 10^3/uL Baso # (Auto) Not Reportable (0.0-0.1) 10^3/uL Absolute Nucleated RBC Not Reportable x10^3/uL Total Counted 100 Band Neuts % (Manual) 0 (0 - 10) % Reactive Lymphs % (Man) 4 % Abnorm Lymph % (Manual) 0 % Nucleated RBC % Not Reportable /100WBC Neutrophils # (Manual) 6.3 (1.5-6.6) 10^3/uL Lymphocytes # (Manual) 2.0 (1.5-3.5) 10^3/uL Monocytes # (Manual) 0.4 (0.0-1.0) 10^3/uL Eosinophils # (Manual) 0.1 (0-0.7) 10^3/uL Basophils # (Manual) 0.0 (0-0.1) 10^3/uL Differential Comment MANUAL DIFFERENTIAL Platelet Estimate NORMAL (130-450,000) (NORMAL) RBC Morph Micro Appear NORMAL APPEARANCE (NORMAL) Sodium 138 (135-145) mmol/L Potassium 3.8 (3.5-5.0) mmol/L Chloride 105 (101-111) mmol/L Carbon Dioxide 22 (21-32) mmol/L Anion Gap 11.0 (6-13) BUN 14 (6-20) mg/dL Creatinine 1.0 (0.6-1.2) mg/dL Estimated GFR (MDRD) 70 L (>89) Glucose 99 (70-100) mg/dL Lactic Acid 1.9 (0.5-2.2) mmol/L Calcium 8.1 L (8.5-10.3) mg/dL Phosphorus 2.1 L (2.5-4.6) mg/dL Magnesium 1.8 (1.7-2.8) mg/dL Total Bilirubin 0.8 (0.2-1.0) mg/dL AST 22 (10-42) IU/L ALT 23 (10-60) IU/L Alkaline Phosphatase 75 (42-121) IU/L Total Protein 5.7 L (6.7-8.2) g/dL Albumin 3.2 (3.2-5.5) g/dL Globulin 2.5 (2.1-4.2) g/dL Albumin/Globulin Ratio 1.3 (1.0-2.2) Lipase (22-51) U/L Urine Color Urine Clarity (CLEAR) Urine pH (5.0-7.5) PH Ur Specific [place] (1.002-1.030) Urine Protein (NEGATIVE) mg/dL Urine Glucose (UA) (NEGATIVE) mg/dL Urine Ketones (NEGATIVE) mg/dL Urine Occult Blood (NEGATIVE) Urine Nitrite (NEGATIVE) Urine Bilirubin (NEGATIVE) Urine Urobilinogen (NORMAL) E.U./dL Ur Leukocyte Esterase (NEGATIVE) Urine RBC (0-5) /HPF Urine WBC (0-3) /HPF Ur Squamous Epith Cells (<= Few) Urine Bacteria (None Seen) /HPF Ur Microscopic Review Urine Culture Comments 04/07/18 04/07/18 04/07/18 Range/Units 21:34 21:34 21:34 WBC 6.7 (4.8-10.8) x10^3/uL RBC 2.87 L (4.70-6.10) 10^6/uL Hgb 9.0 L (14.0-18.0) g/dL Hct 26.6 L (42.0-52.0) % MCV 92.8 (80.0-94.0) fL MCH 31.2 H (27.0-31.0) pg MCHC 33.7 (32.0-36.0) g/dL RDW 15.1 H (12.0-15.0) % Plt Count 204 (130-450) 10^3/uL MPV 7.9 (7.4-11.4) fL Neut # (Auto) 5.1 (1.5-6.6) 10^3/uL Lymph # (Auto) 0.8 L (1.5-3.5) 10^3/uL [place] # (Auto) 0.7 (0.0-1.0) 10^3/uL Eos # (Auto) 0.0 (0.0-0.7) 10^3/uL Baso # (Auto) 0.1 (0.0-0.1) 10^3/uL Absolute Nucleated RBC 0.00 x10^3/uL Total Counted Band Neuts % (Manual) (0 - 10) % Reactive Lymphs % (Man) % Abnorm Lymph % (Manual) % Nucleated RBC % 0.0 /100WBC Neutrophils # (Manual) (1.5-6.6) 10^3/uL Lymphocytes # (Manual) (1.5-3.5) 10^3/uL Monocytes # (Manual) (0.0-1.0) 10^3/uL Eosinophils # (Manual) (0-0.7) 10^3/uL Basophils # (Manual) (0-0.1) 10^3/uL Differential Comment Platelet Estimate (NORMAL) RBC Morph Micro Appear (NORMAL) Sodium 140 (135-145) mmol/L Potassium 2.3 L* (3.5-5.0) mmol/L Chloride 107 (101-111) mmol/L Carbon Dioxide 23 (21-32) mmol/L Anion Gap 10.0 (6-13) BUN 15 (6-20) mg/dL Creatinine 1.2 (0.6-1.2) mg/dL Estimated GFR (MDRD) 57 L (>89) Glucose 101 H (70-100) mg/dL Lactic Acid 1.6 (0.5-2.2) mmol/L Calcium 7.9 L (8.5-10.3) mg/dL Phosphorus (2.5-4.6) mg/dL Magnesium 1.6 L (1.7-2.8) mg/dL Total Bilirubin 0.8 (0.2-1.0) mg/dL AST 16 (10-42) IU/L ALT 21 (10-60) IU/L Alkaline Phosphatase 66 (42-121) IU/L Total Protein 5.1 L (6.7-8.2) g/dL Albumin 2.8 L (3.2-5.5) g/dL Globulin 2.3 (2.1-4.2) g/dL Albumin/Globulin Ratio 1.2 (1.0-2.2) Lipase 18 L (22-51) U/L Urine Color Urine Clarity (CLEAR) Urine pH (5.0-7.5) PH Ur Specific [place] (1.002-1.030) Urine Protein (NEGATIVE) mg/dL Urine Glucose (UA) (NEGATIVE) mg/dL Urine Ketones (NEGATIVE) mg/dL Urine Occult Blood (NEGATIVE) Urine Nitrite (NEGATIVE) Urine Bilirubin (NEGATIVE) Urine Urobilinogen (NORMAL) E.U./dL Ur Leukocyte Esterase (NEGATIVE) Urine RBC (0-5) /HPF Urine WBC (0-3) /HPF Ur Squamous Epith Cells (<= Few) Urine Bacteria (None Seen) /HPF Ur Microscopic Review Urine Culture Comments 04/07/18 Range/Units 20:55 WBC (4.8-10.8) x10^3/uL RBC (4.70-6.10) 10^6/uL Hgb (14.0-18.0) g/dL Hct (42.0-52.0) % MCV (80.0-94.0) fL MCH (27.0-31.0) pg MCHC (32.0-36.0) g/dL RDW (12.0-15.0) % Plt Count (130-450) 10^3/uL MPV (7.4-11.4) fL Neut # (Auto) (1.5-6.6) 10^3/uL Lymph # (Auto) (1.5-3.5) 10^3/uL [place] # (Auto) (0.0-1.0) 10^3/uL Eos # (Auto) (0.0-0.7) 10^3/uL Baso # (Auto) (0.0-0.1) 10^3/uL Absolute Nucleated RBC x10^3/uL Total Counted Band Neuts % (Manual) (0 - 10) % Reactive Lymphs % (Man) % Abnorm Lymph % (Manual) % Nucleated RBC % /100WBC Neutrophils # (Manual) (1.5-6.6) 10^3/uL Lymphocytes # (Manual) (1.5-3.5) 10^3/uL Monocytes # (Manual) (0.0-1.0) 10^3/uL Eosinophils # (Manual) (0-0.7) 10^3/uL Basophils # (Manual) (0-0.1) 10^3/uL Differential Comment Platelet Estimate (NORMAL) RBC Morph Micro Appear (NORMAL) Sodium (135-145) mmol/L Potassium (3.5-5.0) mmol/L Chloride (101-111) mmol/L Carbon Dioxide (21-32) mmol/L Anion Gap (6-13) BUN (6-20) mg/dL Creatinine (0.6-1.2) mg/dL Estimated GFR (MDRD) (>89) Glucose (70-100) mg/dL Lactic Acid (0.5-2.2) mmol/L Calcium (8.5-10.3) mg/dL Phosphorus (2.5-4.6) mg/dL Magnesium (1.7-2.8) mg/dL Total Bilirubin (0.2-1.0) mg/dL AST (10-42) IU/L ALT (10-60) IU/L Alkaline Phosphatase (42-121) IU/L Total Protein (6.7-8.2) g/dL Albumin (3.2-5.5) g/dL Globulin (2.1-4.2) g/dL Albumin/Globulin Ratio (1.0-2.2) Lipase (22-51) U/L Urine Color YELLOW Urine Clarity CLEAR (CLEAR) Urine pH 6.0 (5.0-7.5) PH Ur Specific [place] 1.025 (1.002-1.030) Urine Protein TRACE (NEGATIVE) mg/dL Urine Glucose (UA) NEGATIVE (NEGATIVE) mg/dL Urine Ketones 15 H (NEGATIVE) mg/dL Urine Occult Blood NEGATIVE (NEGATIVE) Urine Nitrite NEGATIVE (NEGATIVE) Urine Bilirubin NEGATIVE (NEGATIVE) Urine Urobilinogen 0.2 (NORMAL) (NORMAL) E.U./dL Ur Leukocyte Esterase TRACE H (NEGATIVE) Urine RBC None Seen (0-5) /HPF Urine WBC 4-5 (0-3) /HPF Ur Squamous Epith Cells MOD Squamous H (<= Few) Urine Bacteria None Seen (None Seen) /HPF Ur Microscopic Review INDICATED Urine Culture Comments NOT INDICATED ABX Reporting Has patient been on IV antibiotics over the past 48 hours?: No Assessment/Plan - Problem List (1) Generalized weakness Impression: Patient presented with generalized weakness. Patient's generalized weakness appears to be secondary to dehydration from poor oral intake and continued diuretics. He was also extremely hypokalemic which could have caused him to be weak. Patient has received IV fluids along with electrolyte replacement and we are awaiting a nutrition consult. He is able to ambulate with PT, but after this activity, the patient becomes extremely weak and has profound fatigue. Plan: Continue daily PT. (2) Fall Impression: The patient is reported to have fallen at home without being able to get up on his own. When asking his , who apparently was present during this time, she has no recollection of any of these events. She is also very confused. The patient has been seen or admitted more than an acceptable amount over the past few months, so this issue will be difficult to resolve and NOT having a safe discharge plan will be the most likely barrier to discharge. Plan: Continue to monitor and PT consult. Qualifiers: Encounter type: initial encounter Qualified Code(s): W19.XXXA - Unspecified fall, initial encounter (3) Confusion Impression: The patient cannot state his medical conditions, and does not know common situational facts. He also has moderate to severe hearing impairment, so this may be contributing. He has electrolyte abnormalities, that may also be causing worsening of his mental status. Plan: Continue to monitor, fall precautions. (4) Hypokalemia Impression: Patient presented with generalized weakness and inability to get up off of the floor after a fall. Patient has had poor appetite and poor oral intake over the last week. He has not had any vomiting or diarrhea. He does admit to some nausea. The symptoms seem to come on after he was started on nitrofurantoin for urinary tract infection. This could be partially side effects from the nitrofurantoin. The patient also has been on Lasix for his congestive heart failure which likely also was contributing to hypokalemia. The patient was given replacement potassium both IV and PO, he was initially monitored on telemetry, but discontinued after his echo. His previously scheduled nitrofurantoin and Lasix continue to be on hold and he is getting antiemetics for nausea, and IV fluids. Plan: Continue to monitor potassium by checking daily labs. 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 Plan: High calorie foods, supplemental protein shakes and up to the chair for meals with staff encouragement of PO intake. (6) Abdominal pain Impression: On exam, the patient claims that his abdominal pain is not new and it proves to be his #1 complaint. The most likely cause of this is his known mesenteric chronic ischemia that becomes worse when the patient is dehydrated, which may be leading to his falls. He also explains that his abdominal pain restricts him from eating regular meals. He is able to tolerate protein shakes. Plan: continue to treat pain and encourage meals. Qualifiers: Abdominal location: generalized Qualified Code(s): R10.84 - Generalized abdominal pain (7) Hypothyroidism Impression: The patient has a history of hypothyroidism and is on Synthroid at home, which has been continued while hospitalized. The patient has had a recent TSH, that was normal, so he was continued on the same dose. Plan: continue to monitor and give daily med. 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 His lasix is on hold since he is getting IV fluids, but he has been on the beta krysten and ULISES since admission. His last known EF was 40%, as per echo done in February 2018. Plan: Restart lasix based on ease of breathing, labs, and edema.
[2018-04-08] MEDS: ATORVASTATIN 40 MG TABLET PO SCH (21:14)
[2018-04-08] MEDS: DOXAZOSIN 4 MG TABLET PO SCH (21:15)
[2018-04-08] MEDS: LATANOPROST 0.005% OPHTH DROPS EACHEYE SCH (21:20)
[2018-04-09 05:16] LABS: BASOPHILS % (AUTO) 0.8 %; EOSINOPHILS # (AUTO) 0.1 10^3/uL (0.0-0.7); EOSINOPHILS % (AUTO) 1.4 %; HGB - HEMOGLOBIN 8.7 g/dL (14.0-18.0); LYMPHOCYTES # (AUTO) 0.8 10^3/uL (1.5-3.5); MEAN CORPUSCULAR HEMOGLOBIN 30.5 pg (27.0-31.0); MEAN CORPUSCULAR HGB CONC 32.9 g/dL (32.0-36.0); MEAN CORPUSCULAR VOLUME 92.7 fL (80.0-94.0); MEAN PLATELET VOLUME 8.2 fL (7.4-11.4); MONOCYTES # (AUTO) 0.5 10^3/uL (0.0-1.0); MONOCYTES % (AUTO) 8.8 %; NEUTROPHILS # (AUTO) 4.5 10^3/uL (1.5-6.6); PLT - PLATELET COUNT 197 10^3/uL (130-450); RED BLOOD COUNT 2.87 10^6/uL (4.70-6.10); RED CELL DISTRIBUTION WIDTH 15.4 % (12.0-15.0)
[2018-04-09 05:23] LABS: ALBUMIN 2.6 g/dL (3.2-5.5); ALBUMIN/GLOBULIN RATIO 1.2 (1.0-2.2); ALKALINE PHOSPHATASE 63 IU/L (42-121); ALT ALANINE AMINOTRANSFERASE 19 IU/L (10-60); AST ASPARTATE AMINOTRANSFERASE 17 IU/L (10-42); BILIRUBIN,TOTAL < 0.2 mg/dL (0.2-1.0); BUN - BLOOD UREA NITROGEN 14 mg/dL (6-20); CALCIUM 7.8 mg/dL (8.5-10.3); CARBON DIOXIDE - CO2 23 mmol/L (21-32); CHLORIDE 111 mmol/L (101-111); CREATININE 1.1 mg/dL (0.6-1.2); GFR - MDRD 63 (>89); GLUCOSE 106 mg/dL (70-100); MAGNESIUM 1.8 mg/dL (1.7-2.8); SODIUM 139 mmol/L (135-145); TOTAL PROTEIN 4.7 g/dL (6.7-8.2)
[2018-04-09] MEDS: SODIUM CHLORIDE FLUSH 0.9% 10 ML SYRINGE IVP SCH ×3 (06:00→16:56)
[2018-04-09] MEDS: LEVOTHYROXINE 100 MCG TABLET PO SCH (07:01)
[2018-04-09] MEDS: NS W/20 MEQ KCL 1,000 ML IV SCH (07:04)
[2018-04-09] MEDS: NEUTRA-PHOS 250 MG TABLET PO SCH ×3 (08:18→16:56)
[2018-04-09] MEDS: ASPIRIN CHEW 81 MG TABLET PO SCH (08:19)
[2018-04-09] MEDS: ENOXAPARIN 40 MG/0.4 ML SYRINGE SUBQ SCH (08:19)
[2018-04-09] MEDS: TIMOLOL 0.5% OPHTH DROPS EACHEYE SCH (08:19)
[2018-04-09] MEDS: FAMOTIDINE 20 MG TABLET PO SCH ×2 (08:19→20:47)
[2018-04-09] MEDS: TAMSULOSIN 0.4 MG CAPSULE PO SCH (08:19)
[2018-04-09] MEDS: CARVEDILOL 3.125 MG TABLET PO SCH ×2 (08:19→20:47)
[2018-04-09] MEDS: LISINOPRIL 5 MG TABLET PO SCH (08:19)
[2018-04-09] MEDS: POTASSIUM CHLORIDE 20 MEQ TABLET PO SCH (08:19)
[2018-04-09] MEDS: FLUTICASONE NASAL SPRAY NAS SCH (08:24)
[2018-04-09] MEDS: POLYETHYLENE GLYCOL 3350 17 GM PACKET PO SCH (08:24)
[2018-04-09] MEDS: MAGNESIUM OXIDE 400 MG TABLET PO SCH (10:05)
[2018-04-09] MEDS: FERROUS SULFATE 325 MG TABLET PO SCH (10:05)
--- NOTE | 2018-04-09 15:25 | PROVIDER PROGRESS NOTE ---
Subjective - Prog Note Date Prog Note Date: 04/09/18 Prog Note Time: 15:23 - Subjective Pt reports feeling: No change Subjective: Paris complains of "feeling very weak". His , Sharon is at the bedside. He states that he has been just sleeping and states that he is interested in Hospice. He denies any new symptoms such as chest pain, nausea, vomiting, rashes, bleeding, or a new cough. Placement is a barrier to a safe discharge. Current Medications - Current Medications Current Medications: Active Medications Acetaminophen (Tylenol) 650 mg PO Q4HR PRN PRN Reason: Pain 1 to 4 Aspirin (St Bhavesh Aspirin) 81 mg PO DAILY [facility] Last Admin: 04/10/18 08:52 Dose: 81 mg Atorvastatin Calcium (Lipitor) 40 mg PO QPM [facility] Last Admin: 04/09/18 20:47 Dose: 40 mg Carvedilol (Coreg) 3.125 mg PO BID [facility] Last Admin: 04/10/18 08:52 Dose: 3.125 mg Doxazosin Mesylate (Cardura) 4 mg PO QPM [facility] Last Admin: 04/09/18 20:47 Dose: 4 mg Enoxaparin Sodium (Lovenox) 40 mg SUBQ DAILY [facility] Last Admin: 04/10/18 08:53 Dose: 40 mg Famotidine (Pepcid) 20 mg PO BID [facility] Last Admin: 04/10/18 08:52 Dose: 20 mg Ferrous Sulfate (Feosol) 325 mg PO 1000 [facility] Last Admin: 04/10/18 11:00 Dose: 325 mg Fluticasone Propionate (Flonase) 0 sprays TOÑO DAILY [facility] Last Admin: 04/10/18 09:12 Dose: Not Given Latanoprost (Xalatan Ophth Drops) 1 drops EACHEYE QPM [facility] Last Admin: 04/09/18 20:47 Dose: 1 drops Levothyroxine Sodium (Synthroid) 100 mcg PO QDAC [facility] Last Admin: 04/10/18 06:48 Dose: 100 mcg Lisinopril (Zestril) 2.5 mg PO DAILY [facility] Last Admin: 04/10/18 08:52 Dose: 2.5 mg Magnesium Oxide (Mag Ox) 400 mg PO 1000 [facility] Last Admin: 04/10/18 11:00 Dose: 400 mg Ondansetron HCl (Zofran Inj) 4 mg IVP Q6HR PRN PRN Reason: Nausea / Vomiting (Pilocarpine Hcl [ Pilocarpine Hcl] 5 Mg) Tab 1 each PO TID [facility] Last Admin: 04/10/18 12:26 Dose: Not Given Polyethylene Glycol (Miralax) 17 gm PO DAILY [facility] Last Admin: 04/10/18 08:53 Dose: 17 gm Potassium Chloride (K-Dur) 20 meq PO DAILYWM [facility] Last Admin: 04/10/18 08:51 Dose: 20 meq Prochlorperazine Edisylate (Compazine Inj) 10 mg IVP Q6HR PRN PRN Reason: Nausea / Vomiting Promethazine HCl (Phenergan Inj) 25 mg IM Q6HR PRN PRN Reason: Nausea / Vomiting Sodium Chloride (Normal Saline Flush 0.9%) 10 ml IVP PRN PRN PRN Reason: NEEDED PER PROVIDER ORDERS Sodium Chloride (Normal Saline Flush 0.9%) 10 ml IVP 0100,0900,1700 [facility] Last Admin: 04/10/18 08:54 Dose: 10 ml Sodium Phosphate (K-Phos Neutral) 250 mg PO TIDWM [facility] Last Admin: 04/10/18 12:47 Dose: 250 mg Tamsulosin HCl (Flomax) 0.4 mg PO DAILY [facility] Last Admin: 04/10/18 08:53 Dose: 0.4 mg Timolol Maleate (Timoptic 0.5% Ophth Drops) 1 drops EACHEYE DAILY [facility] Last Admin: 04/10/18 08:54 Dose: 1 drops Zolpidem Tartrate (Ambien) 10 mg PO QPM PRN PRN Reason: Insomnia Aspirin 81 mg PO DAILY 01/10/17 Tamsulosin HCl 0.4 mg PO DAILY 01/10/17 Zolpidem Tartrate 10 mg PO QPM PRN 01/10/17 Latanoprost 0.005% Ophth Drops [Xalatan Ophth Drops] 1 drops EACHEYE QPM 08/14/17 Timolol 0.5% Ophth Drops [Timoptic 0.5% Ophth Drops] 1 drops EACHEYE DAILY 08/14/17 Doxazosin [Cardura] 4 mg PO QPM 12/20/17 Levothyroxine Sodium [Synthroid] 100 mcg PO QDAC 01/01/18 Pilocarpine HCl 5 mg PO TID 01/01/18 raNITIdine [Zantac] 150 mg PO DAILY 01/01/18 Atorvastatin Calcium 40 mg PO QPM 03/19/18 Carvedilol 3.125 mg PO BID 03/19/18 Fluticasone [Flonase] 2 sprays TOÑO DAILY 03/19/18 Furosemide 20 mg PO DAILY 03/19/18 Lisinopril 5 mg PO DAILY 03/19/18 Ipratropium [Atrovent] 2 puffs IH BID 03/29/18 Clopidogrel Bisulfate [Clopidogrel] 75 mg PO DAILY 04/08/18 Objective - Vital Signs/Intake & Output Reviewed Vital Signs: Yes Vital Signs: Vital Signs x48h Temp Pulse Resp BP BP Pulse Ox 04/09/18 11:15 62 20 110/54 L 98 04/09/18 07:45 36.6 C 63 24 110/59 L 97 Intake & Output: Intake & Output 04/06/18 04/07/18 04/08/18 04/09/18 23:59 23:59 23:59 23:59 Intake Total 1100 4633 1510 Output Total 900 700 Balance 1100 3733 810 - Objective General Appearance: positive: No acute distress, Lethargic Eyes: OU Conjunctivae pale, OU Scleral icterus ENT: positive: Pharynx nml, Dry mucous membranes Neck: positive: Thyroid nml, No JVD, Trachea midline Respiratory: positive: Chest non-tender, No respiratory distress, Other (scattered crackles to bilateral low lobes) Cardiovascular: positive: Regular rate & rhythm, No gallop, Systolic murmur Peripheral Pulses: 1+ Radial (R), 1+ Radial (L) Abdomen: positive: Nml bowel sounds, Tenderness, Guarding Back: positive: Nml inspection Skin: positive: No rash, Warm, Dry, Pallor Extremities: positive: Non-tender, No pedal edema Neurologic/Psychiatric: positive: Disoriented to time, Weakness, Sensory loss, Slurred/abnml speech (sluggish speech), Depressed mood/affect Reflexes: Bicep (R): 3+, Bicep (L): 3+ - Lab Results Fish Bones: 04/10/18 05:15 04/10/18 05:15 Other Labs: Lab Results x24hrs 04/09/18 04/09/18 Range/Units 04:35 04:35 WBC 6.0 (4.8-10.8) x10^3/uL RBC 2.87 L (4.70-6.10) 10^6/uL Hgb 8.7 L (14.0-18.0) g/dL Hct 26.6 L (42.0-52.0) % MCV 92.7 (80.0-94.0) fL MCH 30.5 (27.0-31.0) pg MCHC 32.9 (32.0-36.0) g/dL RDW 15.4 H (12.0-15.0) % Plt Count 197 (130-450) 10^3/uL MPV 8.2 (7.4-11.4) fL Neut # (Auto) 4.5 (1.5-6.6) 10^3/uL Lymph # (Auto) 0.8 L (1.5-3.5) 10^3/uL [place]Brien # (Auto) 0.5 (0.0-1.0) 10^3/uL Eos # (Auto) 0.1 (0.0-0.7) 10^3/uL Baso # (Auto) 0.0 (0.0-0.1) 10^3/uL Absolute Nucleated RBC 0.00 x10^3/uL Nucleated RBC % 0.0 /100WBC Sodium 139 (135-145) mmol/L Potassium 4.5 (3.5-5.0) mmol/L Chloride 111 (101-111) mmol/L Carbon Dioxide 23 (21-32) mmol/L Anion Gap 5.0 L (6-13) BUN 14 (6-20) mg/dL Creatinine 1.1 (0.6-1.2) mg/dL Estimated GFR (MDRD) 63 L (>89) Glucose 106 H (70-100) mg/dL Calcium 7.8 L (8.5-10.3) mg/dL Phosphorus 2.0 L (2.5-4.6) mg/dL Magnesium 1.8 (1.7-2.8) mg/dL Total Bilirubin < 0.2 L (0.2-1.0) mg/dL AST 17 (10-42) IU/L ALT 19 (10-60) IU/L Alkaline Phosphatase 63 (42-121) IU/L Total Protein 4.7 L (6.7-8.2) g/dL Albumin 2.6 L (3.2-5.5) g/dL Globulin 2.1 (2.1-4.2) g/dL Albumin/Globulin Ratio 1.2 (1.0-2.2) ABX Reporting Has patient been on IV antibiotics over the past 48 hours?: No Assessment/Plan - Problem List (1) Generalized weakness Impression: Patient presented with generalized weakness and appears to be secondary to dehydration from poor oral intake, electrolyte abnormalities, and continued diuretics. His IV fluids were stopped late yesterday as he was having more hypoxia. He has been able to ambulate with PT, but after this activity, the patient becomes extremely weak and has profound fatigue. As per physical therapy reports, the patient can physically demonstrate up to 150 feet of ambulation, but becomes profoundly weak and appears hypoxic. Plan: Continue daily PT and encourage to the chair for meals. (2) Fall Impression: The patient is reported to have fallen at home without being able to get up on his own. When asking his , who apparently was present during this time, she has no recollection of any of these events. She is also very confused. The patient has been seen or admitted more than an acceptable amount over the past few months, so this issue will be difficult to resolve and NOT having a safe discharge plan will be the most likely barrier to discharge. Plan: Continue to monitor and daily PT. Qualifiers: Encounter type: initial encounter Qualified Code(s): W19.XXXA - Unspecified fall, initial encounter (3) Dementia Impression: I spoke to the patient's son, Jose M to inform him of his father's medical condition. Jose M last saw his father in February at which time he would become easily irritated and refused many things. During this hospital stay, the patient has been very fatigued and thankful about being here as he has been falling at home. The patient has difficulty with stating the complexity of his medical conditions, and wishes not to eat. He states, "I just want to stay in bed". Plan: Palliative care consult after Jose M prays about this and speaks to his siblings. (4) Abdominal pain Impression: On exam, the patient claims that his abdominal pain is not new and it proves to be his #1 complaint. The most likely cause of this is his known mesenteric chronic ischemia that becomes worse when the patient is dehydrated, which may be leading to his falls. He also explains that his abdominal pain restricts him from eating regular meals. He is able to tolerate protein shakes. Plan: continue to treat pain and encourage meals. Qualifiers: Abdominal location: generalized Qualified Code(s): R10.84 - Generalized abdominal pain (5) Protein-calorie malnutrition, moderate Impression: The patient underwent a nutritional consult and is noted to have lost at least 16% of body weight in the past 9 months likely related to his progressive dementia. Plan: High calorie foods, supplemental protein shakes and up to the chair for meals with staff encouragement of PO intake.
[2018-04-09] MEDS: ATORVASTATIN 40 MG TABLET PO SCH (20:47)
[2018-04-09] MEDS: LATANOPROST 0.005% OPHTH DROPS EACHEYE SCH (20:47)
[2018-04-09] MEDS: DOXAZOSIN 4 MG TABLET PO SCH (20:47)
[2018-04-10] MEDS: SODIUM CHLORIDE FLUSH 0.9% 10 ML SYRINGE IVP SCH ×4 (00:37→23:58)
[2018-04-10 06:08] LABS: BASOPHILS # (AUTO) 0.1 10^3/uL (0.0-0.1); EOSINOPHILS # (AUTO) 0.1 10^3/uL (0.0-0.7); EOSINOPHILS % (AUTO) 1.9 %; HGB - HEMOGLOBIN 9.5 g/dL (14.0-18.0); LYMPHOCYTES # (AUTO) 0.7 10^3/uL (1.5-3.5); LYMPHOCYTES % (AUTO) 10.9 %; MEAN CORPUSCULAR HEMOGLOBIN 30.8 pg (27.0-31.0); MEAN CORPUSCULAR HGB CONC 33.6 g/dL (32.0-36.0); MEAN CORPUSCULAR VOLUME 91.8 fL (80.0-94.0); MEAN PLATELET VOLUME 8.4 fL (7.4-11.4); MONOCYTES # (AUTO) 0.5 10^3/uL (0.0-1.0); MONOCYTES % (AUTO) 7.7 %; NEUTROPHILS # (AUTO) 5.2 10^3/uL (1.5-6.6); NEUTROPHILS % (AUTO) 78.5 %; PLT - PLATELET COUNT 190 10^3/uL (130-450); RED BLOOD COUNT 3.08 10^6/uL (4.70-6.10); RED CELL DISTRIBUTION WIDTH 15.6 % (12.0-15.0); WHITE BLOOD COUNT 6.7 x10^3/uL (4.8-10.8)
[2018-04-10 06:15] LABS: ALBUMIN 2.6 g/dL (3.2-5.5); ALBUMIN/GLOBULIN RATIO 1.1 (1.0-2.2); BILIRUBIN,TOTAL 0.4 mg/dL (0.2-1.0); TOTAL PROTEIN 4.9 g/dL (6.7-8.2)
[2018-04-10] MEDS: LEVOTHYROXINE 100 MCG TABLET PO SCH (06:48)
[2018-04-10] MEDS: POTASSIUM CHLORIDE 20 MEQ TABLET PO SCH (08:51)
[2018-04-10] MEDS: FAMOTIDINE 20 MG TABLET PO SCH ×2 (08:52→19:56)
[2018-04-10] MEDS: CARVEDILOL 3.125 MG TABLET PO SCH ×2 (08:52→19:56)
[2018-04-10] MEDS: ASPIRIN CHEW 81 MG TABLET PO SCH (08:52)
[2018-04-10] MEDS: LISINOPRIL 5 MG TABLET PO SCH (08:52)
[2018-04-10] MEDS: NEUTRA-PHOS 250 MG TABLET PO SCH ×3 (08:52→17:00)
[2018-04-10] MEDS: POLYETHYLENE GLYCOL 3350 17 GM PACKET PO SCH (08:53)
[2018-04-10] MEDS: ENOXAPARIN 40 MG/0.4 ML SYRINGE SUBQ SCH (08:53)
[2018-04-10] MEDS: TAMSULOSIN 0.4 MG CAPSULE PO SCH (08:53)
[2018-04-10] MEDS: TIMOLOL 0.5% OPHTH DROPS EACHEYE SCH (08:54)
[2018-04-10] MEDS: FLUTICASONE NASAL SPRAY NAS SCH (09:12)
[2018-04-10] MEDS: FERROUS SULFATE 325 MG TABLET PO SCH (11:00)
[2018-04-10] MEDS: MAGNESIUM OXIDE 400 MG TABLET PO SCH (11:00)
--- NOTE | 2018-04-10 16:55 | PROVIDER PROGRESS NOTE ---
Subjective - Prog Note Date Prog Note Date: 04/10/18 Prog Note Time: 12:00 - Subjective Pt reports feeling: No change Subjective: Paris has no complaints today and prefers to remain in bed. He denies any new symptoms. He is medically stable today but lacks a safe discharge plan at this time given the number of times he has been in the ED/admitted. Current Medications - Current Medications Current Medications: Active Medications Acetaminophen (Tylenol) 650 mg PO Q4HR PRN PRN Reason: Pain 1 to 4 Aspirin (St Bhavesh Aspirin) 81 mg PO DAILY [facility] Last Admin: 04/10/18 08:52 Dose: 81 mg Atorvastatin Calcium (Lipitor) 40 mg PO QPM [facility] Last Admin: 04/10/18 19:56 Dose: 40 mg Carvedilol (Coreg) 3.125 mg PO BID [facility] Last Admin: 04/10/18 19:56 Dose: 3.125 mg Doxazosin Mesylate (Cardura) 4 mg PO QPM [facility] Last Admin: 04/10/18 19:56 Dose: 4 mg Enoxaparin Sodium (Lovenox) 40 mg SUBQ DAILY [facility] Last Admin: 04/10/18 08:53 Dose: 40 mg Famotidine (Pepcid) 20 mg PO BID [facility] Last Admin: 04/10/18 19:56 Dose: 20 mg Ferrous Sulfate (Feosol) 325 mg PO 1000 [facility] Last Admin: 04/10/18 11:00 Dose: 325 mg Fluticasone Propionate (Flonase) 0 sprays TOÑO DAILY [facility] Last Admin: 04/10/18 09:12 Dose: Not Given Latanoprost (Xalatan Ophth Drops) 1 drops EACHEYE QPM [facility] Last Admin: 04/10/18 19:58 Dose: 1 drops Levothyroxine Sodium (Synthroid) 100 mcg PO QDAC [facility] Last Admin: 04/10/18 06:48 Dose: 100 mcg Lisinopril (Zestril) 2.5 mg PO DAILY [facility] Last Admin: 04/10/18 08:52 Dose: 2.5 mg Magnesium Oxide (Mag Ox) 400 mg PO 1000 [facility] Last Admin: 04/10/18 11:00 Dose: 400 mg Ondansetron HCl (Zofran Inj) 4 mg IVP Q6HR PRN PRN Reason: Nausea / Vomiting (Pilocarpine Hcl [ Pilocarpine Hcl] 5 Mg) Tab 1 each PO TID [facility] Last Admin: 04/10/18 20:04 Dose: Not Given Polyethylene Glycol (Miralax) 17 gm PO DAILY [facility] Last Admin: 04/10/18 08:53 Dose: 17 gm Potassium Chloride (K-Dur) 20 meq PO DAILYWM [facility] Last Admin: 04/10/18 08:51 Dose: 20 meq Prochlorperazine Edisylate (Compazine Inj) 10 mg IVP Q6HR PRN PRN Reason: Nausea / Vomiting Promethazine HCl (Phenergan Inj) 25 mg IM Q6HR PRN PRN Reason: Nausea / Vomiting Sodium Chloride (Normal Saline Flush 0.9%) 10 ml IVP PRN PRN PRN Reason: NEEDED PER PROVIDER ORDERS Sodium Chloride (Normal Saline Flush 0.9%) 10 ml IVP 0100,0900,1700 [facility] Last Admin: 04/10/18 17:00 Dose: 10 ml Sodium Phosphate (K-Phos Neutral) 250 mg PO TIDWM [facility] Last Admin: 04/10/18 17:00 Dose: 250 mg Tamsulosin HCl (Flomax) 0.4 mg PO DAILY [facility] Last Admin: 04/10/18 08:53 Dose: 0.4 mg Timolol Maleate (Timoptic 0.5% Ophth Drops) 1 drops EACHEYE DAILY [facility] Last Admin: 04/10/18 08:54 Dose: 1 drops Zolpidem Tartrate (Ambien) 10 mg PO QPM PRN PRN Reason: Insomnia Aspirin 81 mg PO DAILY 01/10/17 Tamsulosin HCl 0.4 mg PO DAILY 01/10/17 Zolpidem Tartrate 10 mg PO QPM PRN 01/10/17 Latanoprost 0.005% Ophth Drops [Xalatan Ophth Drops] 1 drops EACHEYE QPM Timolol 0.5% Ophth Drops [Timoptic 0.5% Ophth Drops] 1 drops EACHEYE DAILY 08/14/17 Doxazosin [Cardura] 4 mg PO QPM 12/20/17 Levothyroxine Sodium [Synthroid] 100 mcg PO QDAC 01/01/18 Pilocarpine HCl 5 mg PO TID 01/01/18 raNITIdine [Zantac] 150 mg PO DAILY 01/01/18 Atorvastatin Calcium 40 mg PO QPM 03/19/18 Carvedilol 3.125 mg PO BID 03/19/18 Fluticasone [Flonase] 2 sprays TOÑO DAILY 03/19/18 Furosemide 20 mg PO DAILY 03/19/18 Lisinopril 5 mg PO DAILY 03/19/18 Ipratropium [Atrovent] 2 puffs IH BID 03/29/18 Clopidogrel Bisulfate [Clopidogrel] 75 mg PO DAILY 04/08/18 Objective - Vital Signs/Intake & Output Reviewed Vital Signs: Yes Intake & Output: Intake & Output 04/07/18 04/08/18 04/09/18 04/10/18 23:59 23:59 23:59 23:59 Intake Total 1100 4633 2980 270 Output Total 900 1400 600 Balance 1100 3733 1580 -330 - Objective General Appearance: positive: Alert, Mild distress, Lethargic Eyes: OU Conjunctivae pale, OU Scleral icterus ENT: positive: No signs of dehydration Neck: positive: Thyroid nml, No JVD, Trachea midline, Stiff neck Respiratory: positive: Chest non-tender, No respiratory distress, Other (diminished) Cardiovascular: positive: Regular rate & rhythm, No gallop, Systolic murmur, Decreased pulse(s) Peripheral Pulses: 1+ Radial (R), 1+ Radial (L) Abdomen: positive: Nml bowel sounds, Tenderness, Guarding Back: positive: Nml inspection Skin: positive: No rash, Warm, Dry, Pallor Extremities: positive: Non-tender, No pedal edema, Joint swelling Neurologic/Psychiatric: positive: Disoriented to time, Weakness, Sensory loss, Slurred/abnml speech, Depressed mood/affect Reflexes: Bicep (R): 2+, Bicep (L): 2+ - Lab Results Fish Bones: 04/10/18 05:15 04/10/18 05:15 Other Labs: Lab Results x24hrs 04/10/18 04/10/18 Range/Units 05:15 05:15 WBC 6.7 (4.8-10.8) x10^3/uL RBC 3.08 L (4.70-6.10) 10^6/uL Hgb 9.5 L (14.0-18.0) g/dL Hct 28.3 L (42.0-52.0) % MCV 91.8 (80.0-94.0) fL MCH 30.8 (27.0-31.0) pg MCHC 33.6 (32.0-36.0) g/dL RDW 15.6 H (12.0-15.0) % Plt Count 190 (130-450) 10^3/uL MPV 8.4 (7.4-11.4) fL Neut # (Auto) 5.2 (1.5-6.6) 10^3/uL Lymph # (Auto) 0.7 L (1.5-3.5) 10^3/uL [place]wood # (Auto) 0.5 (0.0-1.0) 10^3/uL Eos # (Auto) 0.1 (0.0-0.7) 10^3/uL Baso # (Auto) 0.1 (0.0-0.1) 10^3/uL Absolute Nucleated RBC 0.00 x10^3/uL Nucleated RBC % 0.1 /100WBC Sodium 137 (135-145) mmol/L Potassium 4.5 (3.5-5.0) mmol/L Chloride 108 (101-111) mmol/L Carbon Dioxide 23 (21-32) mmol/L Anion Gap 6.0 (6-13) BUN 13 (6-20) mg/dL Creatinine 1.0 (0.6-1.2) mg/dL Estimated GFR (MDRD) 70 L (>89) Glucose 88 (70-100) mg/dL Calcium 8.0 L (8.5-10.3) mg/dL Total Bilirubin 0.4 (0.2-1.0) mg/dL AST 20 (10-42) IU/L ALT 21 (10-60) IU/L Alkaline Phosphatase 66 (42-121) IU/L Total Protein 4.9 L (6.7-8.2) g/dL Albumin 2.6 L (3.2-5.5) g/dL Globulin 2.3 (2.1-4.2) g/dL Albumin/Globulin Ratio 1.1 (1.0-2.2) ABX Reporting Has patient been on IV antibiotics over the past 48 hours?: No Assessment/Plan - Problem List (1) Generalized weakness Impression: Patient presented with generalized weakness and appears to be secondary to de hydration from poor oral intake, electrolyte abnormalities, and continued diuretics. He has been able to ambulate with PT, but after this activity, the patient becomes extremely weak and has profound fatigue. As per physical therapy reports, the patient can physically demonstrate up to 150 feet of ambulation, but becomes profoundly weak and appears hypoxic. Today, PT reports that the patient refused a therapy session when asked. Plan: Continue daily PT and encourage to the chair for meals. (2) Fall Impression: The patient is reported to have fallen at home without being able to get up on his own. When asking his , who apparently was present during this time, she has no recollection of any of these events. She is also very confused. The patient has been seen or admitted more than an acceptable amount over the past few months, so this issue will be difficult to resolve and NOT having a safe discharge plan will be the most likely barrier to discharge. The patient's son, Jose M requests more time for prayer and discussion with his siblings despite reminders that his father is medically stable, so a timely decision should be made. Plan: Continue to monitor and daily PT. Qualifiers: Encounter type: initial encounter Qualified Code(s): W19.XXXA - Unspecified fall, initial encounter (3) Dementia Impression: I spoke to the patient's son, Jose M yesterday to inform him of his father's medical condition. Jose M last saw his father in February at which time he would become easily irritated and refused many things. During this hospital stay, the patient has been very fatigued and thankful about being here as he has been falling at home. The patient has difficulty with stating the complexity of his medical conditions, and wishes not to eat. He states, "I just sleep most of the time". Plan: Palliative care consult after Jose M prays about this and speaks to his siblings. (4) Abdominal pain Impression: The patient states that his stomach pain is about the same each day and continues to have a very poor appetite. The most likely cause of this is his known mesenteric chronic ischemia that becomes worse when the patient is dehydrated, which may be leading to his falls. He also explains that his abdominal pain restricts him from eating regular meals. He is able to tolerate protein shakes. Plan: continue to treat pain and encourage meals. Nutrition is following. Qualifiers: Abdominal location: generalized Qualified Code(s): R10.84 - Generalized abdominal pain (5) Protein-calorie malnutrition, moderate Impression: The patient underwent a nutritional consult and is noted to have lost at least 16% of body weight in the past 9 months likely related to his progressive dementia. As per chart review, he only consumes bites during meals with the hi ghest amount being 25%. He is incontinent of urine. Plan: High calorie foods, supplemental protein shakes and up to the chair for meals with staff encouragement of PO intake.
[2018-04-10] MEDS: ATORVASTATIN 40 MG TABLET PO SCH (19:56)
[2018-04-10] MEDS: DOXAZOSIN 4 MG TABLET PO SCH (19:56)
[2018-04-10] MEDS: LATANOPROST 0.005% OPHTH DROPS EACHEYE SCH (19:58)
[2018-04-11 06:16] LABS: BASOPHILS % (AUTO) 0.5 %; EOSINOPHILS # (AUTO) 0.2 10^3/uL (0.0-0.7); EOSINOPHILS % (AUTO) 1.7 %; HGB - HEMOGLOBIN 9.9 g/dL (14.0-18.0); LYMPHOCYTES # (AUTO) 0.7 10^3/uL (1.5-3.5); LYMPHOCYTES % (AUTO) 7.2 %; MEAN CORPUSCULAR HGB CONC 33.3 g/dL (32.0-36.0); MEAN PLATELET VOLUME 8.3 fL (7.4-11.4); MONOCYTES # (AUTO) 0.5 10^3/uL (0.0-1.0); MONOCYTES % (AUTO) 5.8 %; NEUTROPHILS # (AUTO) 7.9 10^3/uL (1.5-6.6); NEUTROPHILS % (AUTO) 84.8 %; PLT - PLATELET COUNT 185 10^3/uL (130-450); RED BLOOD COUNT 3.19 10^6/uL (4.70-6.10); RED CELL DISTRIBUTION WIDTH 15.1 % (12.0-15.0); WHITE BLOOD COUNT 9.3 x10^3/uL (4.8-10.8)
[2018-04-11] MEDS: LEVOTHYROXINE 100 MCG TABLET PO SCH (06:36)
[2018-04-11] MEDS: ASPIRIN CHEW 81 MG TABLET PO SCH (08:24)
[2018-04-11] MEDS: CARVEDILOL 3.125 MG TABLET PO SCH ×2 (08:24→21:50)
[2018-04-11] MEDS: FAMOTIDINE 20 MG TABLET PO SCH ×2 (08:25→21:48)
[2018-04-11] MEDS: ENOXAPARIN 40 MG/0.4 ML SYRINGE SUBQ SCH (08:25)
[2018-04-11] MEDS: LISINOPRIL 5 MG TABLET PO SCH (08:25)
[2018-04-11] MEDS: TAMSULOSIN 0.4 MG CAPSULE PO SCH (08:25)
[2018-04-11] MEDS: FLUTICASONE NASAL SPRAY NAS SCH (08:32)
[2018-04-11] MEDS: SODIUM CHLORIDE FLUSH 0.9% 10 ML SYRINGE IVP SCH ×3 (08:33→23:33)
[2018-04-11] MEDS: TIMOLOL 0.5% OPHTH DROPS EACHEYE SCH (08:34)
[2018-04-11] MEDS: POLYETHYLENE GLYCOL 3350 17 GM PACKET PO SCH (08:38)
[2018-04-11] MEDS: FERROUS SULFATE 325 MG TABLET PO SCH (10:35)
[2018-04-11] MEDS: MAGNESIUM OXIDE 400 MG TABLET PO SCH (10:35)
--- NOTE | 2018-04-11 16:11 | PROVIDER PROGRESS NOTE ---
Subjective - Prog Note Date Prog Note Date: 04/11/18 Prog Note Time: 16:07 - Subjective Pt reports feeling: No change Subjective: Fes is minimally responsive on exam today. He appears comfortable and offers no complaints. His and son are at the bedside, planning to meet with social work regarding next steps in higher level of care as it is not recommended that he return home given his profound weakness and frequent falls. Current Medications - Current Medications Current Medications: Active Medications Acetaminophen (Tylenol) 650 mg PO Q4HR PRN PRN Reason: Pain 1 to 4 Aspirin (St Bhavesh Aspirin) 81 mg PO DAILY [facility] Last Admin: 04/11/18 08:24 Dose: 81 mg Atorvastatin Calcium (Lipitor) 40 mg PO QPM [facility] Last Admin: 04/10/18 19:56 Dose: 40 mg Carvedilol (Coreg) 3.125 mg PO BID [facility] Last Admin: 04/11/18 08:24 Dose: 3.125 mg Doxazosin Mesylate (Cardura) 4 mg PO QPM [facility] Last Admin: 04/10/18 19:56 Dose: 4 mg Enoxaparin Sodium (Lovenox) 40 mg SUBQ DAILY [facility] Last Admin: 04/11/18 08:25 Dose: 40 mg Famotidine (Pepcid) 20 mg PO BID [facility] Last Admin: 04/11/18 08:25 Dose: 20 mg Ferrous Sulfate (Feosol) 325 mg PO 1000 [facility] Last Admin: 04/11/18 10:35 Dose: 325 mg Fluticasone Propionate (Flonase) 0 sprays TOÑO DAILY [facility] Last Admin: 04/11/18 08:32 Dose: 1 spr Latanoprost (Xalatan Ophth Drops) 1 drops EACHEYE QPM [facility] Last Admin: 04/10/18 19:58 Dose: 1 drops Levothyroxine Sodium (Synthroid) 100 mcg PO QDAC [facility] Last Admin: 04/11/18 06:36 Dose: 100 mcg Lisinopril (Zestril) 2.5 mg PO DAILY [facility] Last Admin: 04/11/18 08:25 Dose: 2.5 mg Magnesium Oxide (Mag Ox) 400 mg PO 1000 [facility] Last Admin: 04/11/18 10:35 Dose: 400 mg Ondansetron HCl (Zofran Inj) 4 mg IVP Q6HR PRN PRN Reason: Nausea / Vomiting (Pilocarpine Hcl [ Pilocarpine Hcl] 5 Mg) Tab 1 each PO TID [facility] Last Admin: 04/11/18 13:08 Dose: Not Given Polyethylene Glycol (Miralax) 17 gm PO DAILY [facility] Last Admin: 04/11/18 08:38 Dose: Not Given Prochlorperazine Edisylate (Compazine Inj) 10 mg IVP Q6HR PRN PRN Reason: Nausea / Vomiting Promethazine HCl (Phenergan Inj) 25 mg IM Q6HR PRN PRN Reason: Nausea / Vomiting Sodium Chloride (Normal Saline Flush 0.9%) 10 ml IVP PRN PRN PRN Reason: NEEDED PER PROVIDER ORDERS Sodium Chloride (Normal Saline Flush 0.9%) 10 ml IVP 0100,0900,1700 [facility] Last Admin: 04/11/18 08:33 Dose: 10 ml Tamsulosin HCl (Flomax) 0.4 mg PO DAILY [facility] Last Admin: 04/11/18 08:25 Dose: 0.4 mg Timolol Maleate (Timoptic 0.5% Ophth Drops) 1 drops EACHEYE DAILY [facility] Last Admin: 04/11/18 08:34 Dose: 1 drops Zolpidem Tartrate (Ambien) 10 mg PO QPM PRN PRN Reason: Insomnia Aspirin 81 mg PO DAILY 01/10/17 Tamsulosin HCl 0.4 mg PO DAILY 01/10/17 Zolpidem Tartrate 10 mg PO QPM PRN 01/10/17 Latanoprost 0.005% Ophth Drops [Xalatan Ophth Drops] 1 drops EACHEYE QPM 08/14/17 Timolol 0.5% Ophth Drops [Timoptic 0.5% Ophth Drops] 1 drops EACHEYE DAILY 08/14/17 Doxazosin [Cardura] 4 mg PO QPM 12/20/17 Levothyroxine Sodium [Synthroid] 100 mcg PO QDAC 01/01/18 Pilocarpine HCl 5 mg PO TID 01/01/18 raNITIdine [Zantac] 150 mg PO DAILY 01/01/18 Atorvastatin Calcium 40 mg PO QPM 03/19/18 Carvedilol 3.125 mg PO BID 03/19/18 Fluticasone [Flonase] 2 sprays TOÑO DAILY 03/19/18 Furosemide 20 mg PO DAILY 03/19/18 Lisinopril 5 mg PO DAILY 03/19/18 Ipratropium [Atrovent] 2 puffs IH BID 03/29/18 Clopidogrel Bisulfate [Clopidogrel] 75 mg PO DAILY 04/08/18 Objective - Vital Signs/Intake & Output Reviewed Vital Signs: Yes Vital Signs: Vital Signs x48h Temp Pulse Resp BP Pulse Ox 04/11/18 15:41 36.2 C L 61 18 115/62 97 Intake & Output: Intake & Output 04/08/18 04/09/18 04/10/18 04/11/18 23:59 23:59 23:59 23:59 Intake Total 4633 2980 470 200 Output Total 900 1400 800 500 Balance 3733 3003 -192 -300 - Objective General Appearance: positive: No acute distress, Lethargic Eyes Bilateral: positive: No lid inflammation Eyes: OU Conjunctivae pale ENT: positive: Dry mucous membranes Neck: positive: No JVD, Trachea midline Respiratory: positive: Chest non-tender, No respiratory distress, Rhonchi Cardiovascular: positive: No gallop, Irregularly irregular, Systolic murmur Peripheral Pulses: 1+ Radial (R), 1+ Radial (L) Abdomen: positive: Tenderness, Guarding, Abnml bowel sounds Back: positive: Nml inspection Skin: positive: No rash, Warm, Dry, Cyanosis, Pallor Extremities: positive: Non-tender, No pedal edema, Joint swelling Neurologic/Psychiatric: positive: Disoriented to person, Disoriented to place, Disoriented to time, Weakness, Sensory loss, Slurred/abnml speech, Depressed mood/affect Reflexes: Bicep (R): 3+, Bicep (L): 3+ - Lab Results Fish Bones: 04/11/18 05:29 04/10/18 05:15 Other Labs: Lab Results x24hrs 04/11/18 Range/Units 05:29 WBC 9.3 (4.8-10.8) x10^3/uL RBC 3.19 L (4.70-6.10) 10^6/uL Hgb 9.9 L (14.0-18.0) g/dL Hct 29.7 L (42.0-52.0) % MCV 93.0 (80.0-94.0) fL MCH 31.0 (27.0-31.0) pg MCHC 33.3 (32.0-36.0) g/dL RDW 15.1 H (12.0-15.0) % Plt Count 185 (130-450) 10^3/uL MPV 8.3 (7.4-11.4) fL Neut # (Auto) 7.9 H (1.5-6.6) 10^3/uL Lymph # (Auto) 0.7 L (1.5-3.5) 10^3/uL [place] # (Auto) 0.5 (0.0-1.0) 10^3/uL Eos # (Auto) 0.2 (0.0-0.7) 10^3/uL Baso # (Auto) 0.0 (0.0-0.1) 10^3/uL Absolute Nucleated RBC 0.00 x10^3/uL Nucleated RBC % 0.0 /100WBC ABX Reporting Has patient been on IV antibiotics over the past 48 hours?: No Assessment/Plan - Problem List (1) Generalized weakness Impression: Patient presented with generalized weakness and appears to be secondary to dehydration from poor oral intake, electrolyte abnormalities, and continued diuretics. He has been able to ambulate with PT, but after this activity, the patient becomes extremely weak and has profound fatigue. As per physical therapy reports, the patient was initially able demonstrate up to 150 feet of ambulation, but becomes profoundly weak and appears hypoxic. Today, PT reports; the patient was agreeable w/some persuading to get up and work with PT; pt. reports he needs to go to the bathroom as well. He refuses to walk any distance as his profound weakness does not allow. Plan: Continue daily PT and encourage to the chair for meals. (2) Fall Impression: The patient is reported to have fallen at home without being able to get up on his own. When asking his , who apparently was present during this time, she has no recollection of any of these events. She is also very confused. The patient has been seen or admitted more than an acceptable amount over the past few months, so this issue will be difficult to resolve and NOT having a safe discharge plan will be the most likely barrier to discharge. The patient's son, Jose M met with social work and myself regarding next steps in plan of care. He is agreeable to a Palliative consult. Plan: Continue to monitor and daily PT. Qualifiers: Encounter type: initial encounter Qualified Code(s): W19.XXXA - Unspecified fall, initial encounter (3) Dementia Impression: During this hospital stay, the patient has been very fatigued and thankful about being here as he has been falling at home, but today is minimally response and appears comfortable. The patient has difficulty with stating the complexity of his medical conditions, and wishes not to eat. He states, "I just sleep most of the time". He has had a more rapid decline in his mentation, physical abilities, and poor eating that began after February 26, 2018. To predict progression of dementia, the expected course of events may be that the patient becomes bed-bound in the next 1.5 months similar to the current time line given is severely poor PO intake, lack of motivation and previous progression. Plan: Palliative care consult, fall precautions. (4) Abdominal pain Impression: The patient states that his stomach pain is about the same each day and continues to have a very poor appetite. The most likely cause of this is his known mesenteric chronic ischemia that becomes worse when the patient is dehydrated, which may be leading to his falls. He also explains that his abdominal pain restricts him from eating regular meals. He is able to tolerate protein shakes, but he only is promoted to drink these with encouragement. Plan: continue to treat pain and encourage meals. Nutrition is following. Qualifiers: Abdominal location: generalized Qualified Code(s): R10.84 - Generalized abdominal pain (5) Protein-calorie malnutrition, moderate Impression: The patient underwent a nutritional consult and is noted to have lost at least 16% of body weight in the past 9 months likely related to his progressive dementia. As per chart review, he only consumes bites during meals with the highest amount being 25%. He is incontinent of urine. He is working with PT, when he does not refuse. Plan: High calorie foods, supplemental protein shakes and up to the chair for meals with staff encouragement of PO intake.
[2018-04-11] MEDS: DOXAZOSIN 4 MG TABLET PO SCH (21:48)
[2018-04-11] MEDS: ATORVASTATIN 40 MG TABLET PO SCH (21:48)
[2018-04-11] MEDS: LATANOPROST 0.005% OPHTH DROPS EACHEYE SCH (21:49)
[2018-04-12] MEDS: LEVOTHYROXINE 100 MCG TABLET PO SCH (06:32)
[2018-04-12] MEDS: FLUTICASONE NASAL SPRAY NAS SCH (08:13)
[2018-04-12] MEDS: CARVEDILOL 3.125 MG TABLET PO SCH ×2 (08:13→20:22)
[2018-04-12] MEDS: ASPIRIN CHEW 81 MG TABLET PO SCH (08:13)
[2018-04-12] MEDS: SODIUM CHLORIDE FLUSH 0.9% 10 ML SYRINGE IVP SCH ×3 (08:13→23:47)
[2018-04-12] MEDS: FAMOTIDINE 20 MG TABLET PO SCH ×2 (08:13→20:22)
[2018-04-12] MEDS: TAMSULOSIN 0.4 MG CAPSULE PO SCH (08:13)
[2018-04-12] MEDS: LISINOPRIL 5 MG TABLET PO SCH (08:13)
[2018-04-12] MEDS: POLYETHYLENE GLYCOL 3350 17 GM PACKET PO SCH (08:17)
[2018-04-12] MEDS: TIMOLOL 0.5% OPHTH DROPS EACHEYE SCH (08:18)
[2018-04-12 08:48] LABS: BASOPHILS % (AUTO) 0.6 %; EOSINOPHILS # (AUTO) 0.1 10^3/uL (0.0-0.7); EOSINOPHILS % (AUTO) 1.9 %; HGB - HEMOGLOBIN 9.5 g/dL (14.0-18.0); LYMPHOCYTES # (AUTO) 0.7 10^3/uL (1.5-3.5); LYMPHOCYTES % (AUTO) 9.8 %; MEAN CORPUSCULAR HEMOGLOBIN 31.1 pg (27.0-31.0); MEAN CORPUSCULAR HGB CONC 33.7 g/dL (32.0-36.0); MEAN CORPUSCULAR VOLUME 92.4 fL (80.0-94.0); MEAN PLATELET VOLUME 8.8 fL (7.4-11.4); MONOCYTES # (AUTO) 0.6 10^3/uL (0.0-1.0); MONOCYTES % (AUTO) 9.5 %; NEUTROPHILS # (AUTO) 5.2 10^3/uL (1.5-6.6); NEUTROPHILS % (AUTO) 78.2 %; PLT - PLATELET COUNT 172 10^3/uL (130-450); RED BLOOD COUNT 3.05 10^6/uL (4.70-6.10); RED CELL DISTRIBUTION WIDTH 15.2 % (12.0-15.0); WHITE BLOOD COUNT 6.7 x10^3/uL (4.8-10.8)
[2018-04-12 08:49] LABS: ALBUMIN 2.5 g/dL (3.2-5.5); ALBUMIN/GLOBULIN RATIO 1.1 (1.0-2.2); BILIRUBIN,TOTAL 0.7 mg/dL (0.2-1.0); CALCIUM 7.9 mg/dL (8.5-10.3); TOTAL PROTEIN 4.8 g/dL (6.7-8.2)
[2018-04-12] MEDS: FERROUS SULFATE 325 MG TABLET PO SCH (10:39)
[2018-04-12] MEDS: ENOXAPARIN 40 MG/0.4 ML SYRINGE SUBQ SCH (10:39)
[2018-04-12] MEDS: MAGNESIUM OXIDE 400 MG TABLET PO SCH (10:39)
--- NOTE | 2018-04-12 16:58 | PROVIDER PROGRESS NOTE ---
Subjective - Prog Note Date Prog Note Date: 04/12/18 - Subjective Pt reports feeling: No change Subjective: pt denies complaints, he is comfortable ate his breakfast. Current Medications - Current Medications Current Medications: Active Medications Acetaminophen (Tylenol) 650 mg PO Q4HR PRN PRN Reason: Pain 1 to 4 Aspirin (St Bhavesh Aspirin) 81 mg PO DAILY [facility] Last Admin: 04/12/18 08:13 Dose: 81 mg Atorvastatin Calcium (Lipitor) 40 mg PO QPM [facility] Last Admin: 04/11/18 21:48 Dose: 40 mg Carvedilol (Coreg) 3.125 mg PO BID [facility] Last Admin: 04/12/18 08:13 Dose: 3.125 mg Doxazosin Mesylate (Cardura) 4 mg PO QPM [facility] Last Admin: 04/11/18 21:48 Dose: 4 mg Enoxaparin Sodium (Lovenox) 40 mg SUBQ DAILY [facility] Last Admin: 04/12/18 10:39 Dose: 40 mg Famotidine (Pepcid) 20 mg PO BID [facility] Last Admin: 04/12/18 08:13 Dose: 20 mg Ferrous Sulfate (Feosol) 325 mg PO 1000 [facility] Last Admin: 04/12/18 10:39 Dose: 325 mg Fluticasone Propionate (Flonase) 0 sprays TOÑO DAILY [facility] Last Admin: 04/12/18 08:13 Dose: 1 spr Latanoprost (Xalatan Ophth Drops) 1 drops EACHEYE QPM [facility] Last Admin: 04/11/18 21:49 Dose: 1 drops Levothyroxine Sodium (Synthroid) 100 mcg PO QDAC [facility] Last Admin: 04/12/18 06:32 Dose: 100 mcg Lisinopril (Zestril) 2.5 mg PO DAILY [facility] Last Admin: 04/12/18 08:13 Dose: 2.5 mg Magnesium Oxide (Mag Ox) 400 mg PO 1000 [facility] Last Admin: 04/12/18 10:39 Dose: 400 mg Ondansetron HCl (Zofran Inj) 4 mg IVP Q6HR PRN PRN Reason: Nausea / Vomiting (Pilocarpine Hcl [ Pilocarpine Hcl] 5 Mg) Tab 1 each PO TID [facility] Last Admin: 04/12/18 12:06 Dose: Not Given Polyethylene Glycol (Miralax) 17 gm PO DAILY [facility] Last Admin: 04/12/18 08:17 Dose: Not Given Prochlorperazine Edisylate (Compazine Inj) 10 mg IVP Q6HR PRN PRN Reason: Nausea / Vomiting Promethazine HCl (Phenergan Inj) 25 mg IM Q6HR PRN PRN Reason: Nausea / Vomiting Sodium Chloride (Normal Saline Flush 0.9%) 10 ml IVP PRN PRN PRN Reason: NEEDED PER PROVIDER ORDERS Sodium Chloride (Normal Saline Flush 0.9%) 10 ml IVP 0100,0900,1700 [facility] Last Admin: 04/12/18 08:13 Dose: 10 ml Tamsulosin HCl (Flomax) 0.4 mg PO DAILY [facility] Last Admin: 04/12/18 08:13 Dose: 0.4 mg Timolol Maleate (Timoptic 0.5% Ophth Drops) 1 drops EACHEYE DAILY [facility] Last Admin: 04/12/18 08:18 Dose: 1 drops Zolpidem Tartrate (Ambien) 10 mg PO QPM PRN PRN Reason: Insomnia Aspirin 81 mg PO DAILY 01/10/17 Tamsulosin HCl 0.4 mg PO DAILY 01/10/17 Zolpidem Tartrate 10 mg PO QPM PRN 01/10/17 Latanoprost 0.005% Ophth Drops [Xalatan Ophth Drops] 1 drops EACHEYE QPM 08/14/17 Timolol 0.5% Ophth Drops [Timoptic 0.5% Ophth Drops] 1 drops EACHEYE DAILY 08/14/17 Doxazosin [Cardura] 4 mg PO QPM 12/20/17 Levothyroxine Sodium [Synthroid] 100 mcg PO QDAC 01/01/18 Pilocarpine HCl 5 mg PO TID 01/01/18 raNITIdine [Zantac] 150 mg PO DAILY 01/01/18 Atorvastatin Calcium 40 mg PO QPM 03/19/18 Carvedilol 3.125 mg PO BID 03/19/18 Fluticasone [Flonase] 2 sprays TOÑO DAILY 03/19/18 Furosemide 20 mg PO DAILY 03/19/18 Lisinopril 5 mg PO DAILY 03/19/18 Ipratropium [Atrovent] 2 puffs IH BID 03/29/18 Clopidogrel Bisulfate [Clopidogrel] 75 mg PO DAILY 04/08/18 Objective - Vital Signs/Intake & Output Reviewed Vital Signs: Yes Vital Signs: Vital Signs x48h Temp Pulse Resp BP Pulse Ox 04/12/18 15:32 36.3 C L 68 16 121/59 L 96 Intake & Output: Intake & Output 04/09/18 04/10/18 04/11/18 04/12/18 23:59 23:59 23:59 23:59 Intake Total 2980 470 670 450 Output Total 1400 800 875 850 Balance 6130 -517 -205 -400 - Objective General Appearance: positive: No acute distress, Alert. negative: Lethargic Eyes Bilateral: positive: Normal inspection, PERRL, No lid inflammation, Conjunc tivae nml ENT: positive: ENT inspection nml, Pharynx nml, No signs of dehydration. negative: Purulent nasal drainage, Pharyngeal erythema, Oral lesions Neck: positive: Nml inspection, Thyroid nml, No JVD, Trachea midline. negative: Thyromegaly, Lymphadenopathy (R), Lymphadenopathy (L), Stiff neck, Swelling/bruising, Tracheal deviation Respiratory: positive: Chest non-tender, No respiratory distress, Breath sounds nml. negative: Wheezes, Rales, Rhonchi Cardiovascular: positive: Regular rate & rhythm, No murmur, No gallop. negative: Irregularly irregular, Extrasystoles, Tachycardia, Bradycardia, JVD present, Systolic murmur, Diastolic murmur Peripheral Pulses: 2+ Radial (R), 2+ Radial (L), 2+ Dorsalis pedis (R), 2+ Dorsalis pedis (L) Abdomen: positive: Non-tender, No organomegaly, Nml bowel sounds, No distention. negative: Tenderness, Guarding, Rebound Back: positive: Nml inspection. negative: CVA tenderness (R), CVA tenderness (L) Skin: positive: Color nml, No rash, Warm, Dry. negative: Cyanosis, Diaphoresis, Pallor Extremities: positive: Non-tender, Full ROM, Nml appearance. negative: Calf tenderness, Joint swelling, Mirtha's sign/cords Neurologic/Psychiatric: positive: Oriented x3, Sensation nml, Mood/affect nml. negative: Weakness, Sensory loss, Facial droop, Slurred/abnml speech, Depressed mood/affect - Lab Results Fish Bones: 04/12/18 08:34 10/16/18 08:34 Other Labs: Lab Results x24hrs 04/12/18 04/12/18 04/12/18 Range/Units 08:34 08:34 08:34 WBC 6.7 (4.8-10.8) x10^3/uL RBC 3.05 L (4.70-6.10) 10^6/uL Hgb 9.5 L (14.0-18.0) g/dL Hct 28.2 L (42.0-52.0) % MCV 92.4 (80.0-94.0) fL MCH 31.1 H (27.0-31.0) pg MCHC 33.7 (32.0-36.0) g/dL RDW 15.2 H (12.0-15.0) % Plt Count 172 (130-450) 10^3/uL MPV 8.8 (7.4-11.4) fL Neut # (Auto) 5.2 (1.5-6.6) 10^3/uL Lymph # (Auto) 0.7 L (1.5-3.5) 10^3/uL [place] # (Auto) 0.6 (0.0-1.0) 10^3/uL Eos # (Auto) 0.1 (0.0-0.7) 10^3/uL Baso # (Auto) 0.0 (0.0-0.1) 10^3/uL Absolute Nucleated RBC 0.00 x10^3/uL Nucleated RBC % 0.0 /100WBC Sodium 133 L (135-145) mmol/L Potassium 4.3 (3.5-5.0) mmol/L Chloride 101 (101-111) mmol/L Carbon Dioxide 27 (21-32) mmol/L Anion Gap 5.0 L (6-13) BUN 12 (6-20) mg/dL Creatinine 1.0 (0.6-1.2) mg/dL Estimated GFR (MDRD) 70 L (>89) Glucose 82 (70-100) mg/dL Calcium 7.9 L (8.5-10.3) mg/dL Total Bilirubin 0.7 (0.2-1.0) mg/dL AST 16 (10-42) IU/L ALT 20 (10-60) IU/L Alkaline Phosphatase 64 (42-121) IU/L Total Protein 4.8 L (6.7-8.2) g/dL Albumin 2.5 L (3.2-5.5) g/dL Globulin 2.3 (2.1-4.2) g/dL Albumin/Globulin Ratio 1.1 (1.0-2.2) TSH 2.69 (0.34-5.60) uIU/mL ABX Reporting Has patient been on IV antibiotics over the past 48 hours?: No Assessment/Plan - Problem List (1) Generalized weakness Impression: (1) Generalized weakness Impression: 04/12 pt has frequent fall, and weakness. continue PT/OT Patient presented with generalized weakness and appears to be secondary to deh ydration from poor oral intake, electrolyte abnormalities, and continued diuretics. He has been able to ambulate with PT, but after this activity, the patient becomes extremely weak and has profound fatigue. As per physical therapy reports, the patient was initially able demonstrate up to 150 feet of ambulation, but becomes profoundly weak and appears hypoxic. Today, PT reports; the patient was agreeable w/some persuading to get up and work with PT; pt. reports he needs to go to the bathroom as well. He refuses to walk any distance as his profound weakness does not allow. Plan: Continue daily PT and encourage to the chair for meals. (2) Fall Impression: 04/12 continue fall precaution continue PT/OT consult with palliative care, will follow up The patient is reported to have fallen at home without being able to get up on his own. When asking his , who apparently was present during this time, she has no recollection of any of these events. She is also very confused. The patient has been seen or admitted more than an acceptable amount over the past few months, so this issue will be difficult to resolve and NOT having a safe discharge plan will be the most likely barrier to discharge. The patient's son, Jose M met with social work and myself regarding next steps in plan of care. He is agreeable to a Palliative consult. Plan: Continue to monitor and daily PT. (3) Dementia Impression: During this hospital stay, the patient has been very fatigued and thankful about being here as he has been falling at home, but today is minimally response and appears comfortable. The patient has difficulty with stating the complexity of his medical conditions, and wishes not to eat. He states, "I just sleep most of the time". He has had a more rapid decline in his mentation, physical abilities, and poor eating that began after February 26, 2018. To predict progression of dementia, the expected course of events may be that the patient becomes bed-bound in the next 1.5 months similar to the current time line given is severely poor PO intake, lack of motivation and previous progression. Plan: Palliative care consult, fall precautions. (4) Abdominal pain Impression: 04/12 chronic abdominal pain, intermittent. pain control The patient states that his stomach pain is about the same each day and continues to have a very poor appetite. The most likely cause of this is his known mesenteric chronic ischemia that becomes worse when the patient is dehydrated, which may be leading to his falls. He also explains that his abdominal pain restricts him from eating regular meals. He is able to tolerate protein shakes, but he only is promoted to drink these with encouragement. Plan: continue to treat pain and encourage meals. Nutrition is following. 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 As per chart review, he only consumes bites during meals with the highest amount being 25%. He is incontinent of urine. He is working with PT, when he does not refuse. Plan: High calorie foods, supplemental protein shakes and up to the chair for meals with staff encouragement of PO intake.
--- NOTE | 2018-04-12 19:42 | CONSULTATION NOTE ---
Palliative Care Consultation - Referral Referring Provider: Anastasiya PATRICK Time of Visit: 10:00-10:15; 12:30-1300 Referral setting: Hospitalized patient Referral Reason: Dementia/Failure to Thrive/Protien Calore Malnutrition/Goals of Care - Information Sources Records reviewed: RN notes reviewed, Previous records reviewed History/Review of Systems obtained from: Other (dependent on records for history; son with limited knowledge of patients history; and patient / can not participate) Exam limitations: Clinical condition (patient with vascular dementia; though able to engage in conversation; not accurate) - History of Present Illness Brief History of Present Illness: This is an 88-year-old gentleman who has a complex history, is unable to participate in reviewing, so most of this is taken from medical records. Patient does appear to be a failure to thrive, has had over a dozen interactions with the healthcare system this last year, a significant number of those with [facility], up [facility] for N STEMI, and in reports appears to be followed by a vascular surgeon. Patient's history and review is significant for combined chronic systolic and diastolic heart failure, history of CVAs, with documented vascular dementia, atrial fib not on anticoagulant secondary to multiple falls, and noted mesenteric ischemia with chronic abdominal pain which is being considered the underlying etiology for patient's anorexia, and ongoing weight loss. Most of patient's admits have been for the sequela of falls, more recently for abdominal pain, multiple UTIs secondary to BPH, and intermittent dehydration. Of note it does appear with each admit, he has had progressive weight loss, cognitive decline, functional decline, and does not appear to have much follow-through after his hospitalizations. This has been complicated by the lack of social support, has dementia as well, and though they have 3 sons, they are just now being drawn into decision making and the urgent need for a safe discharge plan. It has fallen to Jose M Dumont who lives here in [place], obviously overwhelming to now try and get the lay of the land. Patient presents with complaints of abdominal pain, anorexia, just "does not feel like eating". Patient does have abdominal tenderness to palpation. He does appear quite thin and cachectic he is 5 foot 10, with a weight of 116, on an admit 12/20/17 he was 134.7. Patient denies shortness of breath, but does complain of dizziness and weakness when asked to demonstrate sit to stand. Patient has been eating less than 25% of his meals, is using supplemental shakes. He is currently hydrated. He is incontinent of urine. Patient reports he "sleeps all the time". He does understand he is in [place], but has no other insight into his current situation. When asked how he would call the nurse, is unable to explain to me. 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 Unable to tell me anything else about this hospitalization, his family, or his care at home.It does appear he is in working with PT, and has come to a place where he can functionally walk with a walker, but needs cueing. Patient's falls have been mostly related to his ongoing recurrent dehydration, weakness, and recurrent infections. Thus making him a difficult candidate for assisted living as cannot direct his care or summon assistance if needed, would recommend a dementia unit where supervision would be available. Medical/Surgical History - Past Medical History Cardiovascular: reports: Congestive heart failure, Hypertension, High cholesterol, [place], Atrial fibrillation Respiratory: reports: Shortness of breath Neuro: Dementia, CVA Endocrine/Autoimmune: reports: HyPOthyroidism GI: reports: Other (mesenteric ischemia per records) : reports: Benign prostate hypertrophy, Incontinence, Chronic bladder infe ction HEENT: reports: Chronic hearing loss Musculoskeletal: reports: Osteoarthritis, Fatigue Derm: reports: None MRSA Hx?: No - Past Surgical History Ortho: reports: Hip replacement Social History - Living Situation Living arrangement: At home Living Situation: With spouse/s.o. Support System: Patient has been at home, with his . With very little socialization or oversight. Suspect he has had poor medication adherence, as well as follow-up appropriate with medical personnel. When met with and son, appears significantly overwhelmed, unable to provide any sense of history, son feels though she is able to manage independently at home without supervision at this point in time. Family History - Family History Family History: Mother: (old age 94; unknown), Father: Medications/Allergies - Medications Active Medication List: Active Medications Acetaminophen (Tylenol) 650 mg PO Q4HR PRN PRN Reason: Pain 1 to 4 Aspirin ([facility] Aspirin) 81 mg PO DAILY ZO Last Admin: 04/12/18 08:13 Dose: 81 mg Atorvastatin Calcium (Lipitor) 40 mg PO QPM [facility] Last Admin: 04/11/18 21:48 Dose: 40 mg Carvedilol (Coreg) 3.125 mg PO BID [facility] Last Admin: 04/12/18 08:13 Dose: 3.125 mg Doxazosin Mesylate (Cardura) 4 mg PO QPM [facility] Last Admin: 04/11/18 21:48 Dose: 4 mg Enoxaparin Sodium (Lovenox) 40 mg SUBQ DAILY [facility] Last Admin: 04/12/18 10:39 Dose: 40 mg Famotidine (Pepcid) 20 mg PO BID [facility] Last Admin: 04/12/18 08:13 Dose: 20 mg Ferrous Sulfate (Feosol) 325 mg PO 1000 [facility] Last Admin: 04/12/18 10:39 Dose: 325 mg Fluticasone Propionate (Flonase) 0 sprays TOÑO DAILY [facility] Last Admin: 04/12/18 08:13 Dose: 1 spr Latanoprost (Xalatan Ophth Drops) 1 drops EACHEYE QPM [facility] Last Admin: 04/11/18 21:49 Dose: 1 drops Levothyroxine Sodium (Synthroid) 100 mcg PO QDAC [facility] Last Admin: 04/12/18 06:32 Dose: 100 mcg Lisinopril (Zestril) 2.5 mg PO DAILY [facility] Last Admin: 04/12/18 08:13 Dose: 2.5 mg Magnesium Oxide (Mag Ox) 400 mg PO 1000 [facility] Last Admin: 04/12/18 10:39 Dose: 400 mg Ondansetron HCl (Zofran Inj) 4 mg IVP Q6HR PRN PRN Reason: Nausea / Vomiting (Pilocarpine Hcl [ Pilocarpine Hcl] 5 Mg) Tab 1 each PO TID [facility] Last Admin: 04/12/18 12:06 Dose: Not Given Polyethylene Glycol (Miralax) 17 gm PO DAILY [facility] Last Admin: 04/12/18 08:17 Dose: Not Given Prochlorperazine Edisylate (Compazine Inj) 10 mg IVP Q6HR PRN PRN Reason: Nausea / Vomiting Promethazine HCl (Phenergan Inj) 25 mg IM Q6HR PRN PRN Reason: Nausea / Vomiting Sodium Chloride (Normal Saline Flush 0.9%) 10 ml IVP PRN PRN PRN Reason: NEEDED PER PROVIDER ORDERS Sodium Chloride (Normal Saline Flush 0.9%) 10 ml IVP 0100,0900,1700 [facility] Last Admin: 04/12/18 18:52 Dose: 10 ml Tamsulosin HCl (Flomax) 0.4 mg PO DAILY [facility] Last Admin: 04/12/18 08:13 Dose: 0.4 mg Timolol Maleate (Timoptic 0.5% Ophth Drops) 1 drops EACHEYE DAILY [facility] Last Admin: 04/12/18 08:18 Dose: 1 drops Zolpidem Tartrate (Ambien) 10 mg PO QPM PRN PRN Reason: Insomnia Aspirin 81 mg PO DAILY 01/10/17 Tamsulosin HCl 0.4 mg PO DAILY 01/10/17 Zolpidem Tartrate 10 mg PO QPM PRN 01/10/17 Latanoprost 0.005% Ophth Drops [Xalatan Ophth Drops] 1 drops EACHEYE QPM 08/14/17 Timolol 0.5% Ophth Drops [Timoptic 0.5% Ophth Drops] 1 drops EACHEYE DAILY 08/14/17 Doxazosin [Cardura] 4 mg PO QPM 12/20/17 Levothyroxine Sodium [Synthroid] 100 mcg PO QDAC 01/01/18 Pilocarpine HCl 5 mg PO TID 01/01/18 raNITIdine [Zantac] 150 mg PO DAILY 01/01/18 Atorvastatin Calcium 40 mg PO QPM 03/19/18 Carvedilol 3.125 mg PO BID 03/19/18 Fluticasone [Flonase] 2 sprays TOÑO DAILY 03/19/18 Furosemide 20 mg PO DAILY 03/19/18 Lisinopril 5 mg PO DAILY 03/19/18 Ipratropium [Atrovent] 2 puffs IH BID 03/29/18 Clopidogrel Bisulfate [Clopidogrel] 75 mg PO DAILY 04/08/18 - Allergies Allergies/Adverse Reactions: Allergies Allergy/AdvReac Type Severity Reaction Status Date / Time No Known Drug Allergies Allergy Verified 04/07/18 19:46 Review of Systems - Constitutional Constitutional: reports: Fatigue, Weight loss (116; bmi 16.8 weight loss since 12/20 134.7 9 % weight loss; nodulizer reports 16% weight loss in last 9 month) - Eyes Eyes: reports: Vision loss - Ears, Nose & Throat Ears, Nose & Throat: reports: Hearing loss - Cardiovascular Cardiovascular: reports: Decr. exercise tolerance - Respiratory Respiratory: reports: SOB with exertion - Gastrointestinal Gastrointestinal: reports: Abdominal pain, Poor appetite, Early satiety. denies: Reflux/heartburn - Genitourinary Genitourinary: reports: Incontinence - Musculoskeletal Musculoskeletal: reports: Limited range of motion, Muscle weakness, Assistive devices (uses walker/one person assist per report) - Integumentary Integumentary: reports: Dryness - Neurological Neurological: reports: General weakness, Memory problems - Psychiatric Psychiatric: reports: Depression (suspect though cannot confirm) - Endocrine Endocrine: reports: Hypothyroidism, Intolerance to cold - Hematologic/Lymphatic Hematologic/Lymphatic: reports: Anemia (28.2 hct), Recurrent infections (frequent UTIs) - All Other Systems All Other Systems: reports: Reviewed and negative Physical Exam - Vital Signs Vital Signs: Vital Signs x48h Temp Pulse Resp BP Pulse Ox 04/12/18 15:32 36.3 C L 68 16 121/59 L 96 - Physical Exam General Appearance: positive: Mild distress, Lethargic Eyes Bilateral: positive: Normal inspection ENT: negative: Pharyngeal erythema, Oral lesions Neck: positive: No JVD, Trachea midline Cardiovascular: positive: Regular rate & rhythm Respiratory: positive: No respiratory distress, Diminished in bases Abdomen: positive: Soft, Abnml bowel sounds (hyperactive), Tenderness Skin: positive: Pallor, Dryness, Bruising Extremities: positive: No pedal edema Neurologic/Psychiatric: positive: Disoriented to time, Weakness, Flat affect Palliative Care - POLST Patient has POLST: Yes POLST Status: DNR, Comfort Measures (filled out with Dr. Cannon in February; in records) Pain: Location (abdominal; vague in description) Tiredness/Fatigue: Severe (7-10) ("sleep all the time") - Palliative Care Discussion: Family meeting his present myself Jose M Dumont and . Jose M has been trying to figure out the finances, making arrangements to be financial and durable power of health estate attorney, does recognize is not able to participate any more in decision-making. Jose M shared patient himself was a difficult person, is glad to see in his developing dementia, he is quite pleasant and easy to get along with. This is not their history as adults, and have been somewhat estranged. He would like to make it possible for his Mother to stay in her own home, as she is familiar with this and seems to be according to him functioning independently there. He does recognize cannot have the father return there, but concerned about wiping out what financial means there is in his care. He is looking for guidance as far as patient's prognosis, recommendations we have palliative versus hospice, and placement options as well as other resources that may be available. Patient is not hooked up with VA benefits, does not have disability, but would be considered of that. Patient does present with a terminal diagnosis of malnutrition, failure to thrive, mesenteric ischemia, multiple co-morbidities, with decreasing functional and cognitive status. I shared I do believe he would most likely meet hospice criteria, but hospice is not pay for room and board. But can be supportive and help oversee patient's care, to better manage his ongoing decline. In the context of goals of care, he does not perceive his father as having a long life expectancy, or good quality of life. Counseling provided regarding the hospice team and support that can be given, but the 2 components of a prognosis less than 6 months as well as family goals need to be consistent with comfort need to be understood. This can be delivered in dementia units, and or at a nursing [facility]. In reviewing patient's past history and current support system, would not be able to manage oversight of care plan, so paid caregivers in the home would not be an option. They are hoping to find something in [place], my recommendations would be to explore a dementia unit, I do not believe he has the capability to transition to hospice and then decline at assisted living. His pattern has been to get tuned up, hydrated, and return back to his home setting to deteriorate fairly rapidly. There have been continual ED visits, OBS, and stays over the last few months. Patient does have a [facility] filled up with his doctor, Dr. Cannon. It is a do not attempt resuscitation and comfort focused care. Though the diagnosis is dementia noted on form. Patients can definitely participate in the decision, but would recommend we revisit this when Jose M has DPOA paperwork completed, to have resigned. After my meeting, they were meeting with social service worker for further discussion regarding [facility], placement options, and documentation needed for follow-up. When asked how she is feeling or her concerns regarding conversation about hospice and end-of-life care, she she reports she is just overwhelmed, and is happy to have Jose M participating. When met with patient earlier patient does not present with decision-making capacity, does not understand his current medical condition, the concerns regarding safety, and /or the fact will not be returning home. Results - Lab Results Lab results reviewed: Yes Fish Bones: 04/12/18 08:34 04/12/18 08:34 Lab and Imaging Results: Lab Results x24hrs 04/12/18 04/12/18 04/12/18 Range/Units 08:34 08:34 08:34 WBC 6.7 (4.8-10.8) x10^3/uL RBC 3.05 L (4.70-6.10) 10^6/uL Hgb 9.5 L (14.0-18.0) g/dL Hct 28.2 L (42.0-52.0) % MCV 92.4 (80.0-94.0) fL MCH 31.1 H (27.0-31.0) pg MCHC 33.7 (32.0-36.0) g/dL RDW 15.2 H (12.0-15.0) % Plt Count 172 (130-450) 10^3/uL MPV 8.8 (7.4-11.4) fL Neut # (Auto) 5.2 (1.5-6.6) 10^3/uL Lymph # (Auto) 0.7 L (1.5-3.5) 10^3/uL Cannon # (Auto) 0.6 (0.0-1.0) 10^3/uL Eos # (Auto) 0.1 (0.0-0.7) 10^3/uL Baso # (Auto) 0.0 (0.0-0.1) 10^3/uL Absolute Nucleated RBC 0.00 x10^3/uL Nucleated RBC % 0.0 /100WBC Sodium 133 L (135-145) mmol/L Potassium 4.3 (3.5-5.0) mmol/L Chloride 101 (101-111) mmol/L Carbon Dioxide 27 (21-32) mmol/L Anion Gap 5.0 L (6-13) BUN 12 (6-20) mg/dL Creatinine 1.0 (0.6-1.2) mg/dL Estimated GFR (MDRD) 70 L (>89) Glucose 82 (70-100) mg/dL Calcium 7.9 L (8.5-10.3) mg/dL Total Bilirubin 0.7 (0.2-1.0) mg/dL AST 16 (10-42) IU/L ALT 20 (10-60) IU/L Alkaline Phosphatase 64 (42-121) IU/L Total Protein 4.8 L (6.7-8.2) g/dL Albumin 2.5 L (3.2-5.5) g/dL Globulin 2.3 (2.1-4.2) g/dL Albumin/Globulin Ratio 1.1 (1.0-2.2) TSH 2.69 (0.34-5.60) uIU/mL Impression and Recommendations - Palliative Care Impression: This is an 88-year-old gentleman who presents with protein calorie malnutrition, multiple comorbidities, complex social situation, vascular dementia, ongoing functional and cognitive decline, significant history of ongoing falls related to gait ataxia, muscle wasting, balance issues, and recurrent hypotension related to dehydration.He also has recurrent bladder infections secondary to BPH, incontinence, anorexia, and abdominal pain. Palliative care meeting with family to help define goals of care as patient is transitioning to a safer setting. Recommendations/Counseling Done: 1. Vascular dementia. Patient presents with ongoing cognitive decline, unable to participate in decision-making, does seem to be in a safe environment. Patient does need cueing for ambulation, encouragement to eat, and frequent monitoring related to fall risk and impulsivity. 2. Protein calorie malnutrition. Suspect there will be little impact on this, as patient's underlying etiology is abdominal pain with eating, anorexia, with recurrent dehydration. Patient is transition to hospice, can concentrate on eating for comfort, though encourage use of supplements and shakes, this does appear something patient can tolerate and takes less energy on his behalf. 3. Recurrent falls. This is multifactorial in etiology, patient does appear to have recurrent hypotension when gets dehydrated, gait ataxia secondary to history of strokes, poor judgment and impulsivity with his dementia. Will need to look at ways to minimize risk for injury in new setting. Patient may do better with wheelchair for mobility. 4. Advanced care planning. Patient unable to participate secondary to dementia, patient does not present with decision-making capacity. Patient's also appears to have significant cognitive deficits feeling overwhelmed with the current situation, and has not been able to participate or follow through on a home care plan previous to this. This is falling out of [facility] space [phone]. He has taken this week off and possibly next to help with his transition plan trying to find a safe and affordable option for where to have his father, does not feel mother at this point in time needs placement. He would like to pursue hospice support in new setting, with the focus on comfort, no further hospitalizations, and allow natural . Does not see the recurrent hospitalizations, ED visits, as quality of life. He is pursuing D POA both for financial and medical, to be able to assist his parents in this transition time. Consult with medical director digital advertising, did feel patient met criteria with malnutrition is terminal diagnosis supported by his multiple comorbidities including mesenteric ischemia, atrial fib not on anticoagulant, combined chronic systolic and diastolic heart failure, abdominal aortic aneurysm status post stent, CKD stage III, history of CVA, BPH, and continued functional and cognitive decline. Will have hospitalist send order. Time Spent: 45 minutes with greater than 50% of this done in counseling regarding goals of care with family, coordination of care with hospice team social service worker and hospitalist.
[2018-04-12] MEDS: DOXAZOSIN 4 MG TABLET PO SCH (20:21)
[2018-04-12] MEDS: ATORVASTATIN 40 MG TABLET PO SCH (20:22)
[2018-04-12] MEDS: LATANOPROST 0.005% OPHTH DROPS EACHEYE SCH (20:24)
[2018-04-13] MEDS: LEVOTHYROXINE 100 MCG TABLET PO SCH (06:13)
[2018-04-13 06:22] LABS: BASOPHILS % (AUTO) 0.5 %; EOSINOPHILS # (AUTO) 0.1 10^3/uL (0.0-0.7); EOSINOPHILS % (AUTO) 1.7 %; LYMPHOCYTES # (AUTO) 0.9 10^3/uL (1.5-3.5); LYMPHOCYTES % (AUTO) 14.5 %; MEAN CORPUSCULAR HEMOGLOBIN 30.6 pg (27.0-31.0); MEAN CORPUSCULAR HGB CONC 33.1 g/dL (32.0-36.0); MEAN CORPUSCULAR VOLUME 92.5 fL (80.0-94.0); MEAN PLATELET VOLUME 8.6 fL (7.4-11.4); MONOCYTES # (AUTO) 0.6 10^3/uL (0.0-1.0); MONOCYTES % (AUTO) 9.3 %; NEUTROPHILS # (AUTO) 4.5 10^3/uL (1.5-6.6); PLT - PLATELET COUNT 176 10^3/uL (130-450); RED BLOOD COUNT 3.27 10^6/uL (4.70-6.10); RED CELL DISTRIBUTION WIDTH 14.8 % (12.0-15.0); WHITE BLOOD COUNT 6.1 x10^3/uL (4.8-10.8)
[2018-04-13 06:33] LABS: ALBUMIN 2.5 g/dL (3.2-5.5); ALBUMIN/GLOBULIN RATIO 1.1 (1.0-2.2); ALKALINE PHOSPHATASE 67 IU/L (42-121); ALT ALANINE AMINOTRANSFERASE 20 IU/L (10-60); AST ASPARTATE AMINOTRANSFERASE 17 IU/L (10-42); BILIRUBIN,TOTAL < 0.2 mg/dL (0.2-1.0); BUN - BLOOD UREA NITROGEN 14 mg/dL (6-20); CARBON DIOXIDE - CO2 26 mmol/L (21-32); CHLORIDE 101 mmol/L (101-111); CREATININE 1.1 mg/dL (0.6-1.2); GFR - MDRD 63 (>89); GLUCOSE 83 mg/dL (70-100); MAGNESIUM 1.9 mg/dL (1.7-2.8); SODIUM 134 mmol/L (135-145); TOTAL PROTEIN 4.7 g/dL (6.7-8.2)
[2018-04-13] MEDS: SODIUM CHLORIDE FLUSH 0.9% 10 ML SYRINGE IVP SCH ×2 (10:39→19:43)
[2018-04-13] MEDS: POLYETHYLENE GLYCOL 3350 17 GM PACKET PO SCH (10:39)
[2018-04-13] MEDS: ENOXAPARIN 40 MG/0.4 ML SYRINGE SUBQ SCH (10:39)
[2018-04-13] MEDS: TAMSULOSIN 0.4 MG CAPSULE PO SCH (10:40)
[2018-04-13] MEDS: MAGNESIUM OXIDE 400 MG TABLET PO SCH (10:40)
[2018-04-13] MEDS: FAMOTIDINE 20 MG TABLET PO SCH ×2 (10:40→20:32)
[2018-04-13] MEDS: FERROUS SULFATE 325 MG TABLET PO SCH (10:40)
[2018-04-13] MEDS: ASPIRIN CHEW 81 MG TABLET PO SCH (10:40)
[2018-04-13] MEDS: CARVEDILOL 3.125 MG TABLET PO SCH ×2 (10:40→20:31)
[2018-04-13] MEDS: LISINOPRIL 5 MG TABLET PO SCH (10:40)
[2018-04-13] MEDS: FLUTICASONE NASAL SPRAY NAS SCH (10:41)
[2018-04-13] MEDS: TIMOLOL 0.5% OPHTH DROPS EACHEYE SCH (10:42)
--- NOTE | 2018-04-13 15:29 | PROVIDER PROGRESS NOTE ---
Subjective - Prog Note Date Prog Note Date: 04/13/18 - Subjective Pt reports feeling: No change Subjective: pt comfortable eat his breakfast, denies any complains, no abdominal pain, CP, fever, chill, SOB. [facility] nurse will assess pt. Current Medications - Current Medications Current Medications: Active Medications Acetaminophen (Tylenol) 650 mg PO Q4HR PRN PRN Reason: Pain 1 to 4 Aspirin ([facility] Bhavesh Aspirin) 81 mg PO DAILY [facility] Last Admin: 04/13/18 10:40 Dose: 81 mg Atorvastatin Calcium (Lipitor) 40 mg PO QPM [facility] Last Admin: 04/12/18 20:22 Dose: 40 mg Carvedilol (Coreg) 3.125 mg PO BID [facility] Last Admin: 04/13/18 10:40 Dose: 3.125 mg Doxazosin Mesylate (Cardura) 4 mg PO QPM [facility] Last Admin: 04/12/18 20:21 Dose: 4 mg Enoxaparin Sodium (Lovenox) 40 mg SUBQ DAILY [facility] Last Admin: 04/13/18 10:39 Dose: 40 mg Famotidine (Pepcid) 20 mg PO BID [facility] Last Admin: 04/13/18 10:40 Dose: 20 mg Ferrous Sulfate (Feosol) 325 mg PO 1000 [facility] Last Admin: 04/13/18 10:40 Dose: 325 mg Fluticasone Propionate (Flonase) 0 sprays TOÑO DAILY [facility] Last Admin: 04/13/18 10:41 Dose: 1 spr Latanoprost (Xalatan Ophth Drops) 1 drops EACHEYE QPM [facility] Last Admin: 04/12/18 20:24 Dose: 1 drops Levothyroxine Sodium (Synthroid) 100 mcg PO QDAC [facility] Last Admin: 04/13/18 06:13 Dose: 100 mcg Lisinopril (Zestril) 2.5 mg PO DAILY [facility] Last Admin: 04/13/18 10:40 Dose: 2.5 mg Magnesium Oxide (Mag Ox) 400 mg PO 1000 [facility] Last Admin: 04/13/18 10:40 Dose: 400 mg Ondansetron HCl (Zofran Inj) 4 mg IVP Q6HR PRN PRN Reason: Nausea / Vomiting (Pilocarpine Hcl [ Pilocarpine Hcl] 5 Mg) Tab 1 each PO TID [facility] Last Admin: 04/13/18 14:54 Dose: Not Given Polyethylene Glycol (Miralax) 17 gm PO DAILY [facility] Last Admin: 04/13/18 10:39 Dose: 17 gm Prochlorperazine Edisylate (Compazine Inj) 10 mg IVP Q6HR PRN PRN Reason: Nausea / Vomiting Promethazine HCl (Phenergan Inj) 25 mg IM Q6HR PRN PRN Reason: Nausea / Vomiting Sodium Chloride (Normal Saline Flush 0.9%) 10 ml IVP PRN PRN PRN Reason: NEEDED PER PROVIDER ORDERS Sodium Chloride (Normal Saline Flush 0.9%) 10 ml IVP 0100,0900,1700 [facility] Last Admin: 04/13/18 10:39 Dose: 10 ml Tamsulosin HCl (Flomax) 0.4 mg PO DAILY [facility] Last Admin: 04/13/18 10:40 Dose: 0.4 mg Timolol Maleate (Timoptic 0.5% Ophth Drops) 1 drops EACHEYE DAILY [facility] Last Admin: 04/13/18 10:42 Dose: 1 drops Zolpidem Tartrate (Ambien) 10 mg PO QPM PRN PRN Reason: Insomnia Aspirin 81 mg PO DAILY 01/10/17 Tamsulosin HCl 0.4 mg PO DAILY 01/10/17 Zolpidem Tartrate 10 mg PO QPM PRN 01/10/17 Latanoprost 0.005% Ophth Drops [Xalatan Ophth Drops] 1 drops EACHEYE QPM 08/14/17 Timolol 0.5% Ophth Drops [Timoptic 0.5% Ophth Drops] 1 drops EACHEYE DAILY 08/14/17 Doxazosin [Cardura] 4 mg PO QPM 12/20/17 Levothyroxine Sodium [Synthroid] 100 mcg PO QDAC 01/01/18 Pilocarpine HCl 5 mg PO TID 01/01/18 raNITIdine [Zantac] 150 mg PO DAILY 01/01/18 Atorvastatin Calcium 40 mg PO QPM 03/19/18 Carvedilol 3.125 mg PO BID 03/19/18 Fluticasone [Flonase] 2 sprays TOÑO DAILY 03/19/18 Furosemide 20 mg PO DAILY 03/19/18 Lisinopril 5 mg PO DAILY 03/19/18 Ipratropium [Atrovent] 2 puffs IH BID 03/29/18 Clopidogrel Bisulfate [Clopidogrel] 75 mg PO DAILY 04/08/18 Objective - Vital Signs/Intake & Output Reviewed Vital Signs: Yes Vital Signs: Vital Signs x48h Temp Pulse Resp BP Pulse Ox 04/13/18 08:00 36.4 C L 63 18 136/59 H 94 Intake & Output: Intake & Output 04/10/18 04/11/18 04/12/18 04/13/18 23:59 23:59 23:59 23:59 Intake Total 470 670 687 620 Output Total 375 977 1713 1925 [facility] -[phone] - Objective General Appearance: positive: No acute distress, Alert. negative: Lethargic Eyes Bilateral: positive: Normal inspection, PERRL, No lid inflammation, Conjunctivae nml ENT: positive: ENT inspection nml, Pharynx nml, No signs of dehydration. negative: Purulent nasal drainage, Pharyngeal erythema, Oral lesions Neck: positive: Nml inspection, Thyroid nml, No JVD, Trachea midline. negative: Thyromegaly, Lymphadenopathy (R), Lymphadenopathy (L), Stiff neck, Swelling/bruising, Tracheal deviation Respiratory: positive: Chest non-tender, No respiratory distress, Breath sounds nml. negative: Wheezes, Rales Cardiovascular: positive: Regular rate & rhythm, No murmur, No gallop. negativ e: Irregularly irregular, Extrasystoles, Tachycardia, Bradycardia, JVD present, Systolic murmur, Diastolic murmur Peripheral Pulses: 2+ Radial (R), 2+ Radial (L), 2+ Dorsalis pedis (R), 2+ Dorsalis pedis (L) Abdomen: positive: Non-tender, No organomegaly, Nml bowel sounds, No distention. negative: Tenderness, Guarding, Rebound Back: positive: Nml inspection. negative: CVA tenderness (R), CVA tenderness (L) Skin: positive: Color nml, No rash, Warm, Dry. negative: Cyanosis, Diaphoresis, Pallor Extremities: positive: Non-tender, Nml appearance. negative: Calf tenderness, Joint swelling, Mirtha's sign/cords Neurologic/Psychiatric: positive: Sensation nml, Mood/affect nml. negative: Weakness, Sensory loss, Facial droop, Slurred/abnml speech, Depressed mood/affect - Lab Results Fish Bones: 04/13/18 05:43 04/13/18 05:43 Other Labs: Lab Results x24hrs 04/13/18 04/13/18 Range/Units 05:43 05:43 WBC 6.1 (4.8-10.8) x10^3/uL RBC 3.27 L (4.70-6.10) 10^6/uL Hgb 10.0 L (14.0-18.0) g/dL Hct 30.3 L (42.0-52.0) % MCV 92.5 (80.0-94.0) fL MCH 30.6 (27.0-31.0) pg MCHC 33.1 (32.0-36.0) g/dL RDW 14.8 (12.0-15.0) % Plt Count 176 (130-450) 10^3/uL MPV 8.6 (7.4-11.4) fL Neut # (Auto) 4.5 (1.5-6.6) 10^3/uL Lymph # (Auto) 0.9 L (1.5-3.5) 10^3/uL Stokes # (Auto) 0.6 (0.0-1.0) 10^3/uL Eos # (Auto) 0.1 (0.0-0.7) 10^3/uL Baso # (Auto) 0.0 (0.0-0.1) 10^3/uL Absolute Nucleated RBC 0.00 x10^3/uL Nucleated RBC % 0.1 /100WBC Sodium 134 L (135-145) mmol/L Potassium 3.9 (3.5-5.0) mmol/L Chloride 101 (101-111) mmol/L Carbon Dioxide 26 (21-32) mmol/L Anion Gap 7.0 (6-13) BUN 14 (6-20) mg/dL Creatinine 1.1 (0.6-1.2) mg/dL Estimated GFR (MDRD) 63 L (>89) Glucose 83 (70-100) mg/dL Calcium 8.0 L (8.5-10.3) mg/dL Magnesium 1.9 (1.7-2.8) mg/dL Total Bilirubin < 0.2 L (0.2-1.0) mg/dL AST 17 (10-42) IU/L ALT 20 (10-60) IU/L Alkaline Phosphatase 67 (42-121) IU/L Total Protein 4.7 L (6.7-8.2) g/dL Albumin 2.5 L (3.2-5.5) g/dL Globulin 2.2 (2.1-4.2) g/dL Albumin/Globulin Ratio 1.1 (1.0-2.2) ABX Reporting Has patient been on IV antibiotics over the past 48 hours?: No Assessment/Plan - Problem List (1) Generalized weakness Impression: Impression: 04/13, pt present generalized weakness, physical decondition, malnutrition, loss of weight, advanced dementia. palliative care and hospice care consulted, will follow up 04/12 pt has frequent fall, and weakness. continue PT/OT (2) Fall Impression: 04/13 fall precaution, consult with advance care of palliative care and hospice care 04/12 continue fall precaution continue PT/OT consult with palliative care, will follow up (3) Dementia 04/13 advanced dementia, very limited capacity to make his own decision. continue support, full care . (4) Abdominal pain Impression: 04/13 pt has chronic mesenteric ischemia, pain control, comfort care 04/12 chronic abdominal pain, intermittent. pain control (5) Protein-calorie malnutrition, moderate 04/13 consulted hand bender, followup (6) systolic CHF 04/13 EF 40-45%, systolic CHF, continue ULISES, beta-krysten, loop diuretics. (7) physical decondition 04/13 generalized weakness, physical decondition, malnutrition, loss of weight, advanced dementia follow up palliative and hospice care consult (8) hx of AAA, repaired stable
[2018-04-13] MEDS: DOXAZOSIN 4 MG TABLET PO SCH (20:31)
[2018-04-13] MEDS: ATORVASTATIN 40 MG TABLET PO SCH (20:31)
[2018-04-13] MEDS: LATANOPROST 0.005% OPHTH DROPS EACHEYE SCH (20:32)
[2018-04-14] MEDS: SODIUM CHLORIDE FLUSH 0.9% 10 ML SYRINGE IVP SCH ×2 (06:24→09:39)
[2018-04-14] MEDS: LEVOTHYROXINE 100 MCG TABLET PO SCH (06:32)
[2018-04-14 09:03] VITALS: BP 109/49
[2018-04-14] MEDS: LISINOPRIL 5 MG TABLET PO SCH (09:36)
[2018-04-14] MEDS: FERROUS SULFATE 325 MG TABLET PO SCH (09:38)
[2018-04-14] MEDS: CARVEDILOL 3.125 MG TABLET PO SCH (09:38)
[2018-04-14] MEDS: TAMSULOSIN 0.4 MG CAPSULE PO SCH (09:39)
[2018-04-14] MEDS: MAGNESIUM OXIDE 400 MG TABLET PO SCH (09:39)
[2018-04-14] MEDS: ASPIRIN CHEW 81 MG TABLET PO SCH (09:39)
[2018-04-14] MEDS: ENOXAPARIN 40 MG/0.4 ML SYRINGE SUBQ SCH (09:39)
[2018-04-14] MEDS: FAMOTIDINE 20 MG TABLET PO SCH (09:39)
[2018-04-14] MEDS: TIMOLOL 0.5% OPHTH DROPS EACHEYE SCH (09:40)
[2018-04-14] MEDS: POLYETHYLENE GLYCOL 3350 17 GM PACKET PO SCH (09:40)
[2018-04-14] MEDS: FLUTICASONE NASAL SPRAY NAS SCH (09:40)
--- NOTE | 2018-04-14 11:46 | Discharge Plan ---
"Discharge Plan for SNF / LONGTERM - Discharge Plan And Transition Orders Disposition: 50 Hospice/Home DC/Xfer Condition: Poor Allergies and Adverse Reactions: Allergies Allergy/AdvReac Type Severity Reaction Status Date / Time No Known Drug Allergies Allergy Verified 04/07/18 19:46 - SNF / [facility] Transition Orders Admit to (Facility): [facility] Under the care of (Name): hospice care, Dr. Krause Discharge Diagnosis: dementia, heart failure, mesenteric ischemia, afib, AAA, CKD, hx of CVA Medicare Certification Statement: I do not certify that Post Hospital fdc care is medically necessary on a continuing basis for any of the conditions for which she/he is receiving care during hospitalization. Notify PCP of admission and forward orders to primary provider for signature. Other Notification Orders: Call PCP immediately if patient develops dyspnea, chest pain/tightness or edema. Additional Bowel Program Orders: If no BM after 2 days, nurse may give M.O.M. 30ml PO PRN and/or ducolax Supp 1 GA and/or YOSELIN 250mg P.O., and/or senna 1-2 tabs PO. On day 3 nurse may give repeat above order until residents constipation is resolved. Treatments & Other Orders: pt may followup hospice care after pt is arrival to [facility] Medication Orders: PLEASE REFER TO THE DISCHARGE MEDICATION LIST. Insulin Orders?: No - Medications New Prescriptions: LORazepam [Ativan] 0.5 mg PO Q6H PRN #15 tablet PRN Reason: Anxiety Morphine Sulfate [Morphine Sulf Oral (Roxanol)] 5 mg PO Q4H PRN #30 ml PRN Reason: Pain/Dyspnea - Diet Type: Geriatric Texture: Regular Liquids: Thin May have monthly special meal: Yes - Therapies | Activity Additional Instructions: you may follow up hospice care when you are arrival to [facility]"
--- NOTE | 2018-04-14 12:06 | DISCHARGE SUMMARY ---
"Discharge Summary Discharge Date: 04/14/18 Discharging Provider: CARPENTER Primary Care Provider: John Mercado Condition at Discharge: Poor Discharge Disposition: 50 Hospice/Home DC/Xfer [facility]charge [facility]: [facility] - DIAGNOSES Admission Diagnoses: (1) Hypokalemia (2) Hypomagnesemia (3) Protein-calorie malnutrition, moderate (4) Generalized weakness (5) CHF (congestive heart failure) (6) HTN (hypertension) (7) Hypothyroidism Discharge Diagnoses with Status of Each Condition: (1) Generalized weakness profound weakness, physical decondition, follow up hospice care (2) Fall frequent fall, follow up hospice care (3) Dementia advanced dementia, follow up hospice care (4) Abdominal pain chronic abdominal pain, follow up hospice care (5) Protein-calorie malnutrition follow up hospice care (6) systolic CHF stable, follow up hospice care (7) physical decondition follow up hospice care (8) AAA, repaired stable - HPI History of Present Illness: refer from Dr. 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 The patient has been hospitalized twice in the past month for abdominal pain and is thought to have chronic mesenteric ischemia which seems to cause increased abdominal pain when the patient becomes dehydrated or hypotensive. The patient was most recently in the emergency department with abdominal pain 1 week earlier. The patient has since been diagnosed with a urinary tract infection and was started on nitrofurantoin. The patient states that over the last week he has had decreased appetite with decreased p.o. intake of fluids and food. He states that his mouth is been extremely dry and he has been having increased urinary frequency. The patient states that today when he was walking he fell to the floor because of weakness and could not get back up. The patient states that he was walking with his walker to his bed and states he was so weak he just could not move. He states that he felt his legs giving out on him and slowly fell to the floor. The patient denies hitting his head and does admit to some back pain. When the patient's saw him lying on the floor she immediately called EMS. The patient was brought to the emergency department. The patient denies any fevers or chills. He denies any abdominal pain, nausea, vomiting, diarrhea or any constipation. Patient denies any headaches, blurred vision, runny nose, sore throat, nasal congestion, difficulty swallowing, chest pain, shortness of air, orthopnea, PND, increased lower extremity swelling, dysuria, joint swelling, muscle aches, neck stiffness, recent unintentional weight loss, skin rash, skin changes, hair loss, night sweats, polyuria, polydipsia or any focal neurologic deficits. On presentation to the emergency department the patient was afebrile and heart rate was slightly elevated at 90 patient's blood pressure was normal and he was not in any respiratory distress. The patient underwent routine lab work which revealed no leukocytosis, a chronic anemia, a mildly decreased magnesium level of 1.6 and a severely decreased potassium of 2.3. The patient has been on Lasix at home for his congestive heart failure and this in combination with the fact the patient has had poor appetite and poor oral intake it appears that he is developed severe hypokalemia. The patient's UA was negative for ongoing infection. The patient was placed in observation for potassium replacement and IV fluids as he appeared to be dehydrated on examination. - CONSULTS | PROCEDURES Consultations: pallitive and hospice care - HOSPITAL COURSE Hospital Course: pt was admitted for generalized weakness and frequent fall. pt was found to have advanced dementia, malnutrition, systolic CHF, physical decondition. pt request hospice care. pt was d/c to [facility] for hospice care - ALLERGIES Allergies/Adverse Reactions: Allergies Allergy/AdvReac Type Severity Reaction Status Date / Time No Known Drug Allergies Allergy Verified 04/07/18 19:46 - MEDICATIONS Home Medications: Ambulatory Orders Medication Instructions Recorded Confirmed Aspirin 81 mg PO DAILY 01/10/17 04/08/18 Tamsulosin HCl 0.4 mg PO DAILY 01/10/17 04/08/18 Zolpidem Tartrate 10 mg PO QPM PRN 01/10/17 04/08/18 Latanoprost 0.005% Ophth Drops 1 drops EACHEYE QPM 08/14/17 04/08/18 [Xalatan Ophth Drops] Timolol 0.5% Ophth Drops [Timoptic 1 drops EACHEYE DAILY 08/14/17 04/08/18 0.5% Ophth Drops] Doxazosin [Cardura] 4 mg PO QPM 12/20/17 04/08/18 Levothyroxine Sodium [Synthroid] 100 mcg PO QDAC 01/01/18 04/08/18 Pilocarpine HCl 5 mg PO TID 01/01/18 04/08/18 raNITIdine [Zantac] 150 mg PO DAILY 01/01/18 04/08/18 Atorvastatin Calcium 40 mg PO QPM 03/19/18 04/08/18 Carvedilol 3.125 mg PO BID 03/19/18 03/29/18 Fluticasone [Flonase] 2 sprays TOÑO DAILY 03/19/18 04/08/18 Furosemide 20 mg PO DAILY 03/19/18 03/29/18 Lisinopril 5 mg PO DAILY 03/19/18 03/29/18 Ferrous Sulfate 325 mg PO DAILY #30 tablet 03/20/18 03/29/18 Ipratropium [Atrovent] 2 puffs IH BID 03/29/18 04/08/18 Clopidogrel Bisulfate [Clopidogrel] 75 mg PO DAILY 04/08/18 LORazepam [Ativan] 0.5 mg PO Q6H PRN #15 tablet 04/14/18 Morphine Sulfate [Morphine Sulf 5 mg PO Q4H PRN #30 ml 04/14/18 Oral (Roxanol)] - PHYSICAL EXAM AT DISCHARGE General Appearance: positive: No acute distress, Alert. negative: Lethargic Eyes Bilateral: positive: Normal inspection, PERRL, No lid inflammation, Conjunctivae nml ENT: positive: ENT inspection nml, Pharynx nml, No signs of dehydration. negative: Purulent nasal drainage, Pharyngeal erythema, Oral lesions Neck: positive: Nml inspection, Thyroid nml, No JVD, Trachea midline. negative: Stiff neck, Tracheal deviation Respiratory: positive: Chest non-tender, No respiratory distress, Breath sounds nml. negative: Wheezes, Rales, Rhonchi Cardiovascular: positive: Regular rate & rhythm, Irregularly irregular, Systolic murmur. negative: Extrasystoles, Tachycardia, Bradycardia Peripheral Pulses: positive: 2+ Abdomen: positive: Non-tender, No organomegaly, Nml bowel sounds, No distention. negative: Tenderness, Guarding, Rebound Back: positive: Nml inspection Skin: positive: No rash, Warm, Dry, Pallor. negative: Cyanosis, Diaphoresis Extremities: positive: Non-tender. negative: Calf tenderness, Mirtha's sign/cords Neurologic/Psychiatric: positive: Sensation nml, Mood/affect nml, Weakness. negative: Sensory loss, Facial droop, Slurred/abnml speech, Depressed mood/affect - LABS Result Diagrams: 04/13/18 05:43 04/13/18 05:43 - FOLLOW UP Follow Up: follow up hospice care - TIME SPENT Time Spent in Discharge (Minutes): 50"
== END 2018-04-14 12:05 | disposition hospice, home (50) | DRG 640 ==
LOC: EDUNIT# → ED 19:43 → MS2 23:04 → OBSVTOIN 04-08 15:02
PROVIDERS: ADMIT Internal Medicine; ATTEND Nurse Practitioner Gerontology
DX: E87.6 Hypokalemia (principal); K55.059 Acute (reversible) ischemia of intestine, part and extent unspecified; E44.0 Moderate protein-calorie malnutrition; Z68.1 Body mass index [BMI] 19.9 or less, adult; I13.0 Hypertensive heart and chronic kidney disease with heart failure and stage 1 through stage 4 chronic kidney disease, or unspecified chronic kidney disease; I50.42 Chronic combined systolic (congestive) and diastolic (congestive) heart failure; I50.20 Unspecified systolic (congestive) heart failure; I48.91 Unspecified atrial fibrillation; F03.90 Unspecified dementia, unspecified severity, without behavioral disturbance, psychotic disturbance, mood disturbance, and anxiety; E86.0 Dehydration; N18.3 Chronic kidney disease, stage 3 (moderate); N40.0 Benign prostatic hyperplasia without lower urinary tract symptoms; G47.33 Obstructive sleep apnea (adult) (pediatric); I69.993 Ataxia following unspecified cerebrovascular disease; R53.1 Weakness; E83.42 Hypomagnesemia; E03.9 Hypothyroidism, unspecified; D64.9 Anemia, unspecified; E78.00 Pure hypercholesterolemia, unspecified; M19.90 Unspecified osteoarthritis, unspecified site; H91.90 Unspecified hearing loss, unspecified ear; Z95.828 Presence of other vascular implants and grafts; R29.6 Repeated falls; Z66 Do not resuscitate; Z51.5 Encounter for palliative care; Z96.649 Presence of unspecified artificial hip joint; Z79.82 Long term (current) use of aspirin; Z87.891 Personal history of nicotine dependence; Z87.440 Personal history of urinary (tract) infections
CPT/HCPCS: 36415; 80053; 81001; 81003; 83605; 83690; 83735; 84100; 84443; 85025; 87086; 96361; 96365; 96366; 96372; 96376; 99221; 99283; 99284

== ENCOUNTER 2018-04-14 12:30 | Outpatient (CLI) | payer MEDICARE, OTHER | END 2018-04-14 12:31 | disposition home or self-care (01) | LOC: EMS 12:30 | PROVIDERS: ATTEND Surgery | DX: F03.90 Unspecified dementia, unspecified severity, without behavioral disturbance, psychotic disturbance, mood disturbance, and anxiety (principal); E46 Unspecified protein-calorie malnutrition; I50.20 Unspecified systolic (congestive) heart failure; Z74.01 Bed confinement status | CPT/HCPCS: A0425; A0428 ==

== ENCOUNTER 2018-05-25 10:47 | Outpatient (CLI) | payer MEDICARE, OTHER | END 2018-05-25 10:48 | LOC: EMS 10:47 | PROVIDERS: ATTEND Surgery | DX: R69 Illness, unspecified (principal) | CPT/HCPCS: A0425; A0428 ==